=== PATIENT | female | born 1970 | race Caucasian/White ===

== ENCOUNTER 2023-02-28 10:06 | Outpatient (OUT) | payer OTHER, SELFPAY ==
[2023-02-28 11:18] LABS: Free T3 2.65 pg/mL (2.18-3.98)
[2023-03-01 15:11] LABS: Thyroglobulin Antibody <1.0 IU/mL (0.0-0.9)
== END 2023-02-28 10:07 | disposition home or self-care (01) ==
LOC: LAB 10:09
PROVIDERS: PCP Family Medicine; Visit Provider Family Medicine
DX: E06.3 Autoimmune thyroiditis (principal)
CPT/HCPCS: 36415; 84436; 84443; 84481; 86800

== ENCOUNTER 2023-07-11 14:28 | Outpatient (OUT) | payer OTHER, SELFPAY ==
--- NOTE | 2023-07-11 14:46 | US_ITS ---
The [address] [address] Patient Name: SINDY MILLER MRN: [id number] date: 1970 Sex: F Assigned Patient Location: [place] Current Patient Location: Accession/Order Number: [id number] Exam Date: 07/11/2023 15:28 Report Date: 07/12/2023 06:41 At the request of: EDUARDO LEÓN Procedure: US right upper quadrant EXAMINATION: US right upper quadrant HISTORY: Right Upper Quadrant Pain R10.11 , chronic nausea COMPARISON: CT abdomen pelvis 10/14/2022 TECHNIQUE: Transabdominal evaluation of the right upper quadrant. FINDINGS: LIVER: Normal size and echotexture. Color Doppler demonstrates patent hepatic veins. PORTAL VEIN: Duplex Doppler demonstrates normal hepatopetal flow pattern with flow velocity averaging 34 cm/s. GALLBLADDER: No visible gallstones, wall thickening, or pericholecystic free fluid. Negative sonographic Hopson's sign. BILIARY: No abnormal dilation or stones. Common bile duct diameter is within normal limits. PANCREASE: No visible mass, abnormal atrophy, or duct dilation. KIDNEY: No hydronephrosis. No visible mass or stones. Size: 10.9 x 5.4 x 6.3 cm US/US right upper quadrant IMPRESSION: 1. No abnormal or suspicious findings to account for patient's symptoms. Electronically authenticated by: WYATT PAREDES Date: 07/12/2023 06:41
[2023-07-11 14:54] LABS: Basophils Percent Auto 0.3 % (0.2-2.0); Eosinophils Absolute Auto 0.1 10^3/uL (0.0-0.7); Eosinophils Percent Auto 1.2 % (0.9-7.0); Hematocrit 40.8 % (36.0-48.0); Hemoglobin 13.3 g/dL (12.0-16.0); Immature Granulocytes Abs Auto 0.02 10^3/uL (0.00-0.03); Immature Granulocytes Pct Auto 0.3 % (0.0-0.5); Lymphocytes Absolute Auto 2.1 10^3/uL (1.2-3.8); Lymphocytes Percent Auto 32.4 % (20.5-60.0); Mean Corpuscular HGB Conc 32.6 g/dL (29.9-35.2); Mean Corpuscular Hemoglobin 30.8 pg (26.7-34.0); Mean Corpuscular Volume 94.4 fL (81.0-99.0); Mean Platelet Volume 10.3 fL (9.5-13.5); Monocytes Absolute Auto 0.7 10^3/uL (0.3-0.8); Monocytes Percent Auto 9.9 % (1.7-12.0); Neutrophils Absolute Auto 3.7 10^3/uL (1.4-6.5); Neutrophils Percent Auto 55.9 % (43.0-75.0); Platelet Count 219 10^3/uL (150-450); Red Blood Count 4.32 10^6/uL (4.20-5.40); Red Cell Distribution Width 12.4 % (11.0-15.0); White Blood Count 6.5 10^3/uL (4.0-11.0)
[2023-07-11 15:11] LABS: Estimated Average Glucose 97 mg/dL
[2023-07-11 15:23] LABS: Alanine Aminotransferase 23 U/L (14-59); Albumin Globulin Ratio 1.1; Albumin Level 3.7 g/dL (3.4-5.0); Alkaline Phosphatase 65 U/L (46-116); Anion Gap 12.1; Aspartate Amino Transferase 14 U/L (15-37); BUN Creatinine Ratio 20.2; Bilirubin Total 0.5 mg/dL (0.2-1.0); Carbon Dioxide 28.4 mmol/L (21.0-32.0); Chloride 106 mmol/L (98-107); Chol HDL Ratio 2.3; Cholesterol 187 mg/dL (<=200); Estimated GFR (African America >60 (>=60); Estimated GFR (Non-African Ame >60 (>=60); Free T3 3.29 pg/mL (2.18-3.98); Globulin 3.5 g/dL; Glucose 81 mg/dL (74-106); HDL Cholesterol 83 mg/dL (40-60); Potassium 3.5 mmol/L (3.5-5.1); Sodium 143 mmol/L (136-145); Thyroid Stimulating Hormone 0.025 uIU/mL (0.358-3.740); Total Protein 7.2 g/dL (6.4-8.2); Triglycerides 111 mg/dL (<=150); VLDL CHOLESTEROL 22.2 mg/dL
== END 2023-07-11 14:29 | disposition home or self-care (01) ==
LOC: US 14:30
PROVIDERS: PCP Family Medicine; Visit Provider Family Medicine
DX: Z00.00 Encounter for general adult medical examination without abnormal findings (principal); R10.11 Right upper quadrant pain; E06.3 Autoimmune thyroiditis; I10 Essential (primary) hypertension; Z79.52 Long term (current) use of systemic steroids
CPT/HCPCS: 36415; 76705; 80053; 80061; 83036; 84436; 84443; 84481; 85025

== ENCOUNTER 2023-08-01 07:40 | Emergency (ER) | payer OTHER, SELFPAY ==
[2023-08-01] VITALS (12 sets, daily range): BP systolic 162–176; BP diastolic 94–107; PULSE 70–89; RESP 10–30; TEMP 36.9; O2SAT 97–100; BMI 26.1
--- OUTSIDE RECORDS SUMMARY | 2023-08-01 08:02 | XMS_ITS | CCD ---
Author Name Unknown Address [id number] [place] [address] Organization [facility] Care Team Providers Care Hand Shoe Cutter Name Role Phone Jef Cortez Unavailable MD Eduardo Arriola Primary Care Provider [phone] DO Torsten Marcelino Attending Provider MD Eduardo Arriola Attending Provider FLAKO .DR CLARK Attending Unavailable HOY ., DR CLARK Primary Care Unavailable HOY ., DR CLARK Admitting Unavailable HOY ., DR CLARK Consulting Unavailable NACHES, DR BERNA Cuevas Consulting Unavailable NILL ., DR ONTIVEROS Attending Unavailable NILL ., DR ONTIVEROS Admitting Unavailable HOY ., DR CLARK Primary Care Unavailable NILL ., DR ONTIVEROS Consulting Unavailable SHARP, VIKTORIYA Consulting Unavailable MADAI II, CORTEZ Consulting Unavailable HOY ., DR CLARK Attending Unavailable HOY ., DR CLARK Primary Care Unavailable HOY ., DR CLARK Admitting Unavailable HOY ., DR CLARK Primary Care Unavailable HOY ., DR CLARK Consulting Unavailable HOY ., DR CLARK Attending Unavailable HOY ., DR CLARK Admitting Unavailable HOY ., DR CLARK Admitting Unavailable HOY ., DR CLARK Primary Care Unavailable HOY ., DR CLARK Consulting Unavailable HOY ., DR CLARK Attending Unavailable HOY ., DR CLARK Admitting Unavailable HOY ., DR CLARK Primary Care Unavailable HOY ., DR CLARK Consulting Unavailable HOY ., DR CLARK Attending Unavailable ZIEBER, DR WYATT Ma Consulting Unavailable HOY ., DR CLARK Attending Unavailable HOY ., DR CLARK Admitting Unavailable HOY ., DR CLARK Primary Care Unavailable HOY ., DR CLARK Referring Unavailable HOY ., DR CLARK Consulting Unavailable HOY ., DR CLARK Attending Unavailable HOY ., DR CLARK Admitting Unavailable HOY ., DR CLARK Primary Care Unavailable HOY ., DR CLARK Consulting Unavailable ZIEBER, DR WYATT Ma Consulting Unavailable HOY ., DR CLARK Attending Unavailable HOY ., DR CLARK Admitting Unavailable HOY ., DR CLARK Primary Care Unavailable HOY ., DR CLARK Attending Unavailable HOY ., DR CLARK Admitting Unavailable HOY ., DR CLARK Primary Care Unavailable HOY ., DR CLARK Consulting Unavailable Eduardo Arriola Primary Care Physician Weston DEXTER Attending Unavailable Weston DEXTER Attending Unavailable Westno DEXTER Attending Unavailable Aura Olson Unavailable Nghia Campos Unavailable MD Eduardo Arriola Primary Care Provider [phone] DO Nghia Campos Attending Provider [phone] DO Torsten Marcelino Attending Provider DO Torsten Marcelino Attending Provider MD Eduardo Arriola Primary Care Provider [phone] DO Torsten Marcelino Attending Provider [phone] DO Nghia Campos Attending Provider MD Eduardo Arriola Primary Care Provider [phone] DO Nghia Campos Attending Provider [facility], DO Torsten Sierra Attending Provider Eduardo Arriola Primary Care Unavailable [facility], Torsten P Admitting [facility]available [facility] Sierra Attending Unavailable Eduardo Arriola Primary [facility] Ad[facility] Sierra Attending Unavailable Eduardo Arriola Primary Care Unavailable Nghia Campos Admitting Unavailable Nghia Campos Attending Unavailable Eduardo Arriola Primary Care Unavailable Nghia Campos Admitting Unavailable Nghia Campos Attending Unavailable Allergies Allergy Classification Reported Allergen(s) Allergy Type Date of Onset Reaction(s) Facility (9 sources) penicillAMINE Drug Allergy 07-12-19 anaphylaxis [facility] (9 sources) Sulfamethoxazole / Trimethoprim; Translations: [sulfamethoxazole-t rimethoprim] Drug Allergy anaphylaxis, Eruption of skin (disorder) [facility] (1 source) sulfaSALAzine Drug Allergy Unknown [facility] Other (8 sources) Cephalexin; Translations: [Cephalexin] Drug Allergy 04-16-20 Eruption of skin (disorder) [facility] (8 sources) Penicillins; Translations: [Penicillins] Allergy to substance 09-01-19 14 Anaphylaxis [facility] (7 sources) Sulfamethoxazole; Translations: [sulfamethoxazole] Drug Allergy 04-16-20 Anaphylaxis [facility] (7 sources) Trimethoprim; Translations: [trimethoprim] Drug Allergy 04-16-20 Anaphylaxis [facility] (2 sources) Cephalexin; Translations: [Keflex] Drug Allergy 09-01-19 14 [facility] (1 source) Sulfamethoxazole / Trimethoprim Drug Allergy 09-01-19 14 [facility] (2 sources) Penicillin; Translations: [penicillin] Drug Allergy Eruption of skin (disorder) [facility] (1 source) Sulfamethoxazole / Trimethoprim; Translations: [Bactrim] Drug Allergy [facility] (7 sources) Substance with sulfonamide structure and antibacterial mechanism of action (substance) Drug allergy Unknown [facility] [employer] Other (2 sources) Sulfonamides (Antibiotic); Translations: [Sulfa (Sulfonamide Antibiotics)] Allergy to substance 07-12-19 Anaphylaxis [facility] (1 source) penicillAMINE Drug Allergy 07-12-19 [facility] Medications Current Medications Medication Drug Class(es) Dates Sig (Normalized) Sig (Original) [id number] 200 actuat albuterol 0.09 mg/actuat metered dose inhaler (6 sources) beta2-Adrenergic Agonist Start: 02-02-2021 Albuterol Sulfate Active 2 INH INHALATION Q6H February 01, 2021 11:00pm administer with spacer atenolol 100 mg oral tablet (16 sources) beta-Adrenergic Linda Start: 07-08-2023 take 100 mg by mouth once daily Atenolol Active 100 MG PO Daily July 08, 2023 12:00am Start: 12-10-2020 End: 07-08-2023 take 100 mg by mouth once daily Atenolol Discontinued 100 MG PO Daily December 09, 2020 11:00pm July 08, 2023 11:31am Start: 07-17-2014 take 1 tablet by daniel every twenty-four hours Atenolol 100 MG 1 tablet Orally Once a day Jun, Active B Complex (2 sources) B Complex Orally Active celecoxib 200 mg oral capsule (2 sources) Nonsteroidal Anti-inflammatory Drug Start: 2 take 1 capsule by mouth every twelve hours Celecoxib 200 MG 1 capsule with food Orally Twice a day for 30 day(s) September, Active Cymbalta 60 mg Cap-DR (1 source) Start: 0 take 2 capsules by mouth once daily Cymbalta 60 mg Cap-DR = 2 cap(s), Oral, Daily, Refills(s) 0 Start Date: 01/21/20 Status: Ordered DULoxetine 60 mg delayed release oral capsule (15 sources) Serotonin and Norepinephrine Reuptake Inhibitor Start: 4 take 1 capsule by mouth twice daily Duloxetine (Cymbalta) 60 mg capsule,delayed release(DR/EC) Active 60 MG PO Twice daily July 08, 2023 12:00am Start: 12-10-2020 End: 07-08-2023 take 1 capsule by mouth once daily Duloxetine (Cymbalta) 60 mg Capsule,Delayed Release(Dr/Ec) Discontinued 60 MG PO Daily December 09, 2020 11:00pm July 08, 2023 11:34am take 1 capsule by [facility] every twelve hours Cymbalta 60 MG 1 capsule Orally Twice a day Active esomeprazole 40 mg delayed release oral capsule (1 source) Proton Pump Inhibitor Start: 06-18-2022 take 1 capsule by mouth once daily esomeprazole 40 mg Cap-EC 40 mg = 1 cap(s), Oral, Daily, Refills(s) 0 Start Date: 06/18/22 Status: Ordered fludrocortisone acetate 0.1 mg oral tablet (20 sources) Start: 07-08-2023 take 0.1 mg by mouth once daily Fludrocortisone Active 0.1 MG PO Daily July 12, 2023 12:00am Start: 12-10-2020 End: 12-10-2020 Fludrocortisone Discontinued MG TABLET December 09, 2020 11:00pm December 10, 2020 7:49am Start: 02-20-2019 End: 07-08-2023 take 1 tablet by mouth twice daily Fludrocortisone (Florinef) 0.1 mg Tablet Discontinued 0.1 MG PO Twice daily December 09, 2020 11:00pm July 08, 2023 11:34am take 1 tablet by daniel every twenty-four hours Fludrocortisone Acetate 0.1 MG 1 tablet Oral Once a day for 30 days Active hydrocortisone 10 mg oral tablet (16 sources) Corticosteroid Start: 07-08-2023 take 10 mg by mouth every twelve hours Hydrocortisone Active 10 MG PO Every 12 hours July 08, 2023 12:00am (Cortef) Start: 12-10-2020 End: 07-08-2023 take 1 tablet by mouth twice daily Hydrocortisone (Cortef) 10 mg Tablet Discontinued 10 MG PO Twice daily December 09, 2020 11:00pm July 08, 2023 11:34am Start: 02-13-2019 take 2 tablets by mo [facility] twice daily Cortef 10 mg Tab 20 mg = 2 tab(s), Oral, BID Start Date: 02/13/19 Status: Ordered take 1 tablet by daniel every twelve hours Cortef 10 MG 1 tablet Orally every 12 hrs Active levothyroxine sodium 0.1 mg oral tablet (16 sources) l-Thyroxine Start: 07-12-2023 Levothyroxine (Synthroid) 100 mcg tablet Active 0 PO Daily July 12, 2023 9:49am 125 mg orally daily; Start: 06-18-2022 take 1 tablet by daniel once daily levothyroxine 125 mcg (0.125 mg) Tab 125 mcg = 1 tab(s), Oral, Daily, Refills(s) 0 Start Date: 06/18/22 Status: Ordered Start: 12-10-2020 End: 07-12-2023 take 1 tablet by mouth once daily Levothyroxine (Synthroid) 100 mcg Tablet Discontinued 100 MCG PO Daily December 09, 2020 11:00pm July 12, 2023 9:52am take 1 tablet by daniel once daily Synthroid 125 MCG TAKE 1 TABLET BY MOUTH EVERY DAY for 30 Active liothyronine sodium 0.005 mg oral tablet (20 sources) l-Triiodothyronine Start: 12-10-2020 End: 07-08-2023 take 1 tablet by mouth twice daily Liothyronine (Cytomel) 5 mcg tablet Active 5 MCG PO Twice daily July 08, 2023 12:00am Start: 12-10-2020 End: 12-10-2020 Liothyronine Discontinued MC G TABLET December 09, 2020 11:00pm December 10, 2020 7:49am Start: 02-13-2019 take 1 tablet by daniel twice daily Cytomel 5 mcg Tab 5 microgram = 1 tab(s), Oral, BID Start Date: 02/13/19 Status: Ordered 3 ml liraglutide 6 mg/ml pen injector (7 sources) GLP-1 Receptor Agonist Start: 07-12-2023 Liraglutide (Victoza 2-Pancho) 0.6 mg/0.1 mL (18 mg/3 mL) pen injector Active 0 SUBCUT Daily July 12, 2023 12:00am 3 mg subcutaneously daily; Start: 02-01-2023 Victoza 18 MG/ 3ML 3 mg once daily through double injection Subcutaneous Once daily for 28 days Jan, Active Start: 02-01-2023 Victoza 18 MG/ 3ML 0.6 mg once daily for week 1, followed by 1.2 mg once daily for week 2, followed by 1.8 mg once daily for week 3 and beyond Subcutaneous Once daily for 28 days For week 4, please instruct patient on how to achieve dose of 2.4 mg using double injection. For week 5 and beyond, please instruct patient on how to achieve dose of 3 mg using double injection. Jan, Active Multivitamin preparation (7 sources) Start: 07-08-2023 take 1 tablet by mouth once daily Multivitamin Active 1 TAB PO Daily July 08, 2023 12:00am take 1 tablet by mouth once shira y Multivitamin - 1 tablet Orally Once a day Active pen needle, diabetic (NovoFine Plus) (1 source) Start: 07-08-2023 pen needle, diabetic (NovoFine Plus) Active .Route July 08, 2023 12:00am spironolactone 25 mg oral tablet (16 sources) Aldosterone Antagonist Start: 07-08-2023 take 25 mg by mouth once daily Spironolactone Active 25 MG PO Daily July 08, 2023 11:29am (Aldactone) Start: 06-18-2022 take 1 tablet by daniel th once daily spironolactone 50 mg Tab 50 mg = 1 tab(s), Oral, Daily, Refills(s) 0 Start Date: 06/18/22 Status: Ordered Start: 12-10-2020 End: 07-08-2023 take 50 mg by mouth once daily Spironolactone Disconti nued 50 MG PO Daily December 09, 2020 11:00pm July 08, 2023 11:36am take 1 tablet by daniel th every twenty-four hours Aldactone 25 MG 1 tablet Orally Once a day Active sucralfate 1000 mg oral tablet (1 source) Aluminum Complex Start: 07-15-2022 Carafate 1 gr am Tab 1 gm = 1 tab(s), Oral, QIDACHS, prescribed 07/14/22, Refills(s) 0 Start Date: 07/15/22 Status: Ordered topiramate 200 mg oral tablet (15 sources) Start: 02-13-2019 take 200 mg by mouth twice daily Topiramate Active 200 MG PO Twice daily December 09, 2020 11:00pm take 1 tablet by daniel th every twenty-four hours Topamax 50 MG 1 tablet Orally Once a day Active Ventolin HFA 90 mcg/inh Aerosol (1 source) Start: 01-21-2020 take 2 puff(s) by inhalation four times daily Ventolin HFA 90 mcg/inh Aerosol 2 puff(s), Inhalation, QID Shortness of breath or wheezing, Refill(s) 0 Start Date: 01/21/20 Status: Ordered Completed/Discontinued Medications Medication Drug Class(es) Dates Sig (Normalized) Sig (Original) azithromycin 250 mg oral tablet (6 sources) Macrolide Antimicrobial Start: 02-02-2021 End: 04-16-2021 Azithromycin Discontinued 0 PO .COMPLEX February 01, 2021 11:00pm April 16, 2021 2:55am take 500 mg today (day 1), then 250 mg for 4 days (days 2-5) lisinopril 40 mg oral tablet (12 sources) Angiotensin Converting Enzyme Inhibitor Start: 12-10-2020 End: 04-16-2021 take 50 mg by mouth once daily Lisinopril Discontinued 50 MG PO Daily December 09, 2020 11:00pm April 16, 2021 2:56am Start: 02-13-2019 take 2 tablets by mo [facility] once daily lisinopril 10 mg Tab 20 mg = 2 tab(s), Oral, Daily Start Date: 02/13/19 Status: Ordered take 1 tablet by daniel every twenty-four hours Lisinopril 20 MG 1 tablet Orally Once a day Active ondansetron 4 mg disintegrating oral tablet (9 sources) Serotonin-3 Receptor Antagonist Start: 12-10-2020 End: 04-16-2021 take 4 mg by mouth every eight hours Ondansetron Discontinued 4 MG PO Q8H December 09, 2020 11:00pm April 16, 2021 2:56am Trinidadfran ODT Activ e Problems Active Problems Problem Classification Problem Date Documented Da te Episodic/Chronic Abdominal hernia (2 sources) Diaphragmatic hernia; Translations: [Diaphragmatic hernia without obstruction or gangrene] Onset: 07-23-2022 Episodic Abdominal pain (17 sources) Abdominal pain; Translations: [Unspecified abdominal pain] Onset: 06-14-2022 04-16-2021 Episodic Administrative/social admission (20 sources) Drug indicated; Translations: [Chronic use of steroids] Onset: 07-12-2023 Episodic Allergic reactions (1 source) Eczema 01-21-2020 Episodic Asthma (1 source) Asthma 01-21-2020 Chronic Diabetes mellitus without complication (4 sources) Other abnormal glucose; Translations: [OTHER ABNORMAL GLUCOSE] Onset: 06-15-2022 Episodic Disorders of lipid metabolism (9 sources) Dyslipidemia; Translations: [Hyperlipidemia, unspecified] Chronic Esophageal disorders (5 sources) Gastro-esophageal reflux disease without esophagitis; Translations: [Gastroesophageal reflux disease without esophagitis] Onset: 07-20-2022 Chronic Essential hypertension (20 sources) Hypertensive disorder; Translations: [Essential (primary) hypertension] Onset: 08-22-2021 12-10-2020 Chronic Fluid and electrolyte disorders (6 sources) Acute hypokalemia; Translations: [Hypokalemia] 04-16-2021 Episodic Gastrointestinal hemorrhage (2 sources) Hemorrhage of anus and rectum; Translations: [Rectal hemorrhage] Onset: 07-20-2022 06-22-2022 Episodic Headache; including migraine (2 sources) Migraine; Translations: [Tension-type headache] 06-18-2022 Chronic Intracranial injury (6 sources) Concussion with loss of consciousness; Translations: [Concussion with loss of consciousness of unspecified duration, initial encounter] 12-10-2020 Episodic Joint disorders and dislocations; trauma-related (16 sources) Patellofemoral syndrome of left knee; Translations: [Patellofemoral disorders, left knee] Chronic Menopausal disorders (1 source) Menopausal and female climacteric states; Translations: [MENOPAUSAL FE CLIMACTERIC STATES] Onset: 08-26-2021 Chronic Open wounds of head; neck; and trunk (1 source) Dog bite of buttock 06-18-2022 Episodic Osteoarthritis (11 sources) Arthritis of left knee; Translations: [Unilateral primary osteoarthritis, left knee] Chronic Other and unspecified benign neoplasm (9 sources) History of polyp of colon; Translations: [Personal history of colonic polyps] 06-22-2022 Episodic Other and unspecified benign neoplasm (1 source) Benign neoplasm of ascending colon; Translations: [BENIGN NEOPLASM OF ASCENDING COLON] Onset: 07-20-2022 Episodic Other and unspecified benign neoplasm (1 source) Personal history of colonic polyps; Translations: [PERSONAL HISTORY OF COLONIC POLYPS] Onset: 07-20-2022 Episodic Other and unspecified benign neoplasm (1 source) Benign neoplasm of ascending colon; Translations: [Benign neoplasm of ascending colon] Onset: 07-23-2022 Episodic Other and unspecified benign neoplasm (1 source) Adenomatous polyp of colon 07-23-2022 Episodic Other connective tissue disease (1 source) Fibromyalgia; Translations: [FIBROMYALGIA] Onset: 07-20-2022 Episodic Other connective tissue disease (1 source) Fibromyalgia 01-21-2020 Episodic Other endocrine disorders (4 sources) Primary adrenocortical insufficiency; Translations: [PRIMARY ADRENOCORTICAL INSUFF] Onset: 08-26-2021 Chronic Other endocrine disorders (7 sources) Nicho's disease; 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 Other fractures (6 sources) Closed fracture sacrum; Translations: [Unspecified fracture of sacrum, initial encounter for closed fracture] 12-10-2020 Episodic Other gastrointestinal disorders (1 source) Change in bowel habit; Translations: [CHANGE IN BOWEL HABIT] Onset: 07-20-2022 Episodic Other gastrointestinal disorders (4 sources) Diarrhea, unspecified; Translations: [DIARRHEA UNSPECIFIED] Onset: 06-18-2022 Episodic Other gastrointestinal disorders (1 source) Altered bowel function 06-22-2022 Episodic Other nutritional; endocrine; and metabolic disorders (9 sources) Obesity; Translations: [Obesity (BMI 30.0-34.9)] 06-18-2022 Chronic Other nutritional; endocrine; and metabolic disorders (1 source) Overweight in adulthood with body mass index of 25 or more but less than 30 06-22-2022 Episodic Other nutritional; endocrine; and metabolic disorders (6 sources) Overweight; Translations: [Overweight] Episodic Other nutritional; endocrine; and metabolic disorders (1 source) Body mass index 25-29 - overweight; Translations: [Overweight] 07-12-2023 Episodic Other nutritional; endocrine; and metabolic disorders (1 source) Overweight; Translations: [Overweight] Onset: 07-12-2023 Episodic Other screening for suspected conditions (not mental disorders or infectious disease) (5 sources) Other abnormal tumor markers; Translations: [Other specified abnormal findings of blood chemistry] Onset: 08-26-2021 Episodic Pneumonia (except that caused by tuberculosis or sexually transmitted disease) (6 sources) Atypical pneumonia; Translations: [Pneumonia, unspecified organism] 02-02-2021 Episodic Regional enteritis and ulcerative colitis (1 source) Crohn's disease of large bowel 01-21-2020 Chronic Residual codes; unclassified (1 source) Acquired absence of both cervix and uterus; Translations: [ACQUIRED ABSENCE BOTH CERVIX AND UTERUS] Onset: 07-20-2022 Episodic Residual codes; unclassified (1 source) Amnesia 06-18-2022 Episodic Screening and history of mental health and substance abuse codes (1 source) Personal history of nicotine dependence; Translations: [PERSONAL HISTORY OF NICOTINE DEPEND] Onset: 07-20-2022 Episodic Thyroid disorders (14 sources) Arturo thyroiditis; 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 02-16-2019 Chronic Unclassified (3 sources) COUGH, UNSPECIFIED; Translations: [COUGH, UNSPECIFIED] Onset: 05-08-2022 Unclassified (1 source) CONTACT W/AND (SUSP) EXPOS COVID-19; Translations: [CONTACT W/AND (SUSP) EXPOS COVID-19] Onset: 05-08-2022 Unclassified (1 source) Long-term current use of steroid 01-21-2020 Unclassified (1 source) Contact with and (suspected) exposure to potentially hazardous body fluids; Translations: [Contact with and (suspected) exposure to potentially hazardous body fluids] Onset: 05-15-2023 Unclassified (1 source) Dietary counseling and surveillance; Translations: [Dietary counseling and surveillance] Onset: 05-03-2023 Past or Other Problems Problem Classification Problem Date Documented Da te Episodic/Chronic Deficiency and other anemia (1 source) Anemia, unspecified; Translations: [ANEMIA UNSPECIFIED] Onset: 08-26-2021 Episodic Immunizations and screening for infectious disease (1 source) Contact with and (suspected) exposure to other viral communicable diseases Onset: 12-23-2021 Resolved: 12-23-2021 Episodic Unclassified (1 source) COUGH, UNSPECIFIED; Translations: [COUGH, UNSPECIFIED] Onset: 05-05-2022 Results Test Name Value Interpretation Reference Range Facility Alanine Aminotransferaseon 1 07-16-2022 ALT [Catalytic activity/Vol] 14 U/L Normal [facility] Comment on above: Order Comment: Which is this, the Source or the Person with the Exposure?: EXPOSURE Source Medical Record: [id number] Exposed Result Comment: PERF ORMED BY: [place] [address] PATHOLOGIST [employer] CLASSIFIER TENDER NIKKI DELA CRUZ M.D. Performed By: #### H BSAG, HCV RX PCR, HIV SCREEN, HBSAB #### [facility] , #### ALT #### [address] Alanine aminotransferase [En zymatic activity/volume] in Serum or PlasmaOrdered By: Torsten Marcelino on 05-15-2023 ALT [Catalytic activity/Vol] 14 U/L [facility] HIV 1/O/2 Antigen/Antibodyon 05-15-2023 HIV Screen 4th Generation Non-Reactive Normal Non Reactive [facility] Comment on above: Order Comment: Which is this, the Source or the Person with the Exposure?: EXPOSURE Source Medical Record: [id number] Exposed Result Comment: HIV Negative HIV-1/HIV-2 antibodies and HIV-1 p24 antigen were NOT detected. There is no laboratory evidence of HIV infection. PERFORMED BY: [place] [address] PATHOLOGIST [employer] CLASSIFIER TENDER NIKKI DELA CRUZ M.D. Performed By: #### H BSAG, HCV RX PCR, HIV SCREEN, HBSAB #### [facility] , #### ALT #### [facility] [address] [place] [address] HIV 1 and HIV-2 antibody ass ay with HIV-1 p24 antigen detectionOrdered By: Torsten Marcelino on 05-15-2023 HIV 1+2 Ab+HIV1 p24 Ag IA Ql Non-Reactive Non Reactive [facility] Comment on above: HIV NegativeHIV-1/HI V-2 antibodies and HIV-1 p24 antigen were NOTdetected. There is no laboratory evidence of HIV infection. Hep C Ab wRfx to Qnt PCRon 1 07-16-2022 Hepatitis C Virus Antibody Non-Reactive Normal Non Reactive [facility] Comment on above: Order Comment: Which is this, the Source or the Person with the Exposure?: EXPOSURE Source Medical Record: [id number] Exposed Performed By: #### H BSAG, HCV RX PCR, HIV SCREEN, HBSAB #### [facility] , #### ALT #### [facility] [address] [place] [address] Interpretation Hepatitis C Normal . [facility] Comment on above: Order Comment: Which is this, the Source or the Person with the Exposure?: EXPOSURE Source Medical Record: [id number] Exposed Result Comment: Not infected with HCV unless early or acute infection is suspected (which may be delayed in an immunocompromised individual), or other evidence exists to indicate HCV infection. Performed By: #### H BSAG, HCV RX PCR, HIV SCREEN, HBSAB #### [facility] , #### ALT #### [facility] [address] [place] [address] [place] Hepatitis B Surface Antibody on 05-15-2023 Hepatitis B Surface Antibody Reactive Normal . [facility] Comment on above: Order Comment: Which is this, the Source or the Person with the Exposure?: EXPOSURE Source Medical Record: [id number] Exposed Result Comment: Non Reactive: Inconsistent with immunity, less than 10 mIU/mL Reactive: Consistent with immunity, greater than 9.9 mIU/mL Performed By: #### H BSAG, HCV RX PCR, HIV SCREEN, HBSAB #### [facility] , #### ALT #### [place] [address] [place] Hepatitis B Surface Antigeno n 05-15-2023 HBsAg Screen Negative Normal Negative [facility] Comment on above: Order Comment: Which is this, the Source or the Person with the Exposure?: EXPOSURE Source Medical Record: [id number] Exposed Result Comment: Perf ormed at: [facility] [address] [id number] Children'S Service Worker: Bennie Penaloza PhD, Phone: [phone] Performed By: #### H BSAG, HCV RX PCR, HIV SCREEN, HBSAB #### [facility] , #### ALT #### [address] Hepatitis B virus surface Ab [Presence] in SerumOrdered By: Torsten Marcelino on 05-15-2023 HBV surface Ab Ql (S) Reactive . [facility] Comment on above: Non Reactive: Incons istent with immunity, less than 10 mIU/mL Reactive: Consistent with immunity, greater than 9.9 mIU/mL Hepatitis B virus surface Ag [Presence] in Serum or Plasma by ImmunoassayOrdered By: Torsten Marcelino on 05-15-2023 HBV surface Ag IA Ql Negative Negative [facility] Comment on above: Performed at: [facility] - [address] [facility] [id number] [place], [place] [id number] Director: Bennie Penaloza PhD, Phone: [phone] Hepatitis C virus IgG Ab [Pr esence] in Serum or Plasma by ImmunoassayOrdered By: Torsten Marcelino on 05-15-2023 HCV IgG IA Ql Non-Reactive Non Reactive [facility] No Panel InformationOrdered By: Torsten Marcelino on 05-15-2023 Hepatitis C Interpretation See comment . [facility] Comment on above: Not infected with HC V unless early or acute infection issuspected (which may be delayed in an immunocompromisedindividual), or other evidence exists to indicate HCVinfection. Alanine aminotransferase [En zymatic activity/volume] in Serum or PlasmaOrdered By: Torsten Marcelino on 02-17-2023 ALT [Catalytic activity/Vol] 17 U/L 7-52 [facility] Albumin [Mass/volume] in Ser um or Plasma by Bromocresol green (BCG) dye binding methoOrdered By: Torsten Marcelino on 02-17-2023 Albumin BCG dye [Mass/Vol] 4.4 g/dL 3.5-5.7 [facility] Alkaline phosphatase [Enzyma tic activity/volume] in Serum or PlasmaOrdered By: Torsten Marcelino on 02-17-2023 ALP [Catalytic activity/Vol] 54 U/L 34-104 [facility] Aspartate aminotransferase [ Enzymatic activity/volume] in Serum or PlasmaOrdered By: Torsten Marcelino on 02-17-2023 AST [Catalytic activity/Vol] 16 U/L 13-39 [facility] Basophils Auto (Bld) [#/Vol] Ordered By: Torsten Marcelino on 02-17-2023 Basophils (Bld) [#/Vol] 0.0 10*3/uL 0.0-0.2 [facility] Basophils/100 WBC Auto (Bld) Ordered By: Torsten Marcelino on 02-17-2023 Basophils/100 WBC (Bld) 0.5 % . [facility] Bilirubin.total [Mass/volume ] in Serum or PlasmaOrdered By: Torsten Marcelino on 02-17-2023 Bilirubin [Mass/Vol] 0.4 mg/dL 0.3-1.0 [facility] Calcium [Mass/volume] in Ser um or PlasmaOrdered By: Torsten Marcelino on 02-17-2023 Calcium [Mass/Vol] 9.5 mg/dL 8.6-10.3 [facility] Carbon dioxide, total [Moles /volume] in Serum or PlasmaOrdered By: Torsten Marcelino on 02-17-2023 CO2 [Moles/Vol] 25.5 mmol/L 21.0-31.0 [facility] Chloride [Moles/volume] in S blanquita or PlasmaOrdered By: Torsten Marcelino on 02-17-2023 Chloride [Moles/Vol] 106 mmol/L 98-107 [facility] Cholesterol [Mass/volume] in Serum or PlasmaOrdered By: Torsten Marcelino on 02-17-2023 Cholesterol [Mass/Vol] 176 mg/dL 140-200 [facility] Comment on above: Chol less than 200 m g/dl low riskChol 201-239 mg/dl borderline riskChol 240 mg/dl and greater high risk Cholesterol in LDL Calc [Mas s/Vol]Ordered By: Torsten Marcelino on 02-17-2023 Cholesterol in LDL [Mass/Vol] 99 mg/dL 0-100 [facility] Comment on above: LDL ATP III CLASSIFI CATIONLDL less than 100 mg/dL OptimalLDL 100-129 mg/dL Near or above optimalLDL 130-159 mg/dL Borderline highLDL 160-189 mg/dL HighLDL greater than 189 mg/dL Very high Cholesterol in VLDL Calc [Ma ss/Vol]Ordered By: Torsten Marcelino on 02-17-2023 Cholesterol in VLDL [Mass/Vol] 12 mg/dL [facility] Creatinine [Mass/volume] in Serum or PlasmaOrdered By: Torsten Marcelino on 02-17-2023 Creatinine [Mass/Vol] 1.04 mg/dL 0.60-1.20 [facility] Employee Comp Metabolic Pane jack 02-17-2023 Albumin [Mass/Vol] 4.4 g/dL Normal 3.5-5.7 [facility] Comment on above: Performed By: #### P ILLAR CMP, PILLAR CBC, PILLAR LIPID, PILLAR TSH #### [facility] [address] [place] [address] [place] #### NICOTINE QUAL #### [facility] , Albumin/Globulin [Mass ratio] 2.0 {ratio} Normal [facility] Comment on above: Performed By: #### P ILLAR CMP, PILLAR CBC, PILLAR LIPID, PILLAR TSH #### [facility] [address] [place] [address] #### NICOTINE QUAL #### [facility] , ALP [Catalytic activity/Vol] 54 U/L Normal 34-104 [facility] Comment on above: Performed By: #### P ILLAR CMP, PILLAR CBC, PILLAR LIPID, PILLAR TSH #### [facility] [address] [place] [address] #### NICOTINE QUAL #### [facility] , ALT [Catalytic activity/Vol] 17 U/L Normal 7-52 [facility] Comment on above: Performed By: #### P ILLAR CMP, PILLAR CBC, PILLAR LIPID, PILLAR TSH #### [facility] [address] [place] [address] #### NICOTINE QUAL #### [facility] , Anion gap [Moles/Vol] 10.7 mmol/L Normal 6.0-15.0 [facility] Comment on above: Performed By: #### P ILLAR CMP, PILLAR CBC, PILLAR LIPID, PILLAR TSH #### [facility] [address] [place] [address] [place] #### NICOTINE QUAL #### [facility] , AST [Catalytic activity/Vol] 16 U/L Normal 13-39 [facility] Comment on above: Performed By: #### P ILLAR CMP, PILLAR CBC, PILLAR LIPID, PILLAR TSH #### [facility] [address] [place] [address] [place] #### NICOTINE QUAL #### [facility] , Bilirubin [Mass/Vol] 0.4 mg/dL Normal 0.3-1.0 [facility] Comment on above: Performed By: #### P ILLAR CMP, PILLAR CBC, PILLAR LIPID, PILLAR TSH #### [facility] [address] [place] [address] [place] #### NICOTINE QUAL #### [facility] , Calcium [Mass/Vol] 9.5 mg/dL Normal 8.6-10.3 [facility] Comment on above: Performed By: #### P ILLAR CMP, PILLAR CBC, PILLAR LIPID, PILLAR TSH #### [facility] [address] [place] [address] [place] #### NICOTINE QUAL #### [facility] , Chloride [Moles/Vol] 106 mmol/L Normal 98-107 [facility] Comment on above: Performed By: #### P ILLAR CMP, PILLAR CBC, PILLAR LIPID, PILLAR TSH #### [facility] [address] [place] [address] [place] #### NICOTINE QUAL #### [facility] , CO2 [Moles/Vol] 25.5 mmol/L Normal 21.0-31.0 [facility] Comment on above: Performed By: #### P ILLAR CMP, PILLAR CBC, PILLAR LIPID, PILLAR TSH #### [facility] [address] [place] [address] [place] #### NICOTINE QUAL #### [facility] , Creatinine [Mass/Vol] 1.04 mg/dL Normal 0.60-1.20 [facility] Comment on above: Performed By: #### P ILLAR CMP, PILLAR CBC, PILLAR LIPID, PILLAR TSH #### [facility] [address] [place] [address] [place] #### NICOTINE QUAL #### [facility] , GFR/1.73 sq M.predicted MDRD (S/P/Bld) [Vol rate/Area] mL/min/{1.73_m2} [facility] Comment on above: Performed By: #### P ILLAR CMP, PILLAR CBC, PILLAR LIPID, PILLAR TSH #### [facility] [address] [place] [address] [place] #### NICOTINE QUAL #### [facility] , Globulin (S) [Mass/Vol] 2.2 g/dL Normal [facility] Comment on above: Performed By: #### P ILLAR CMP, PILLAR CBC, PILLAR LIPID, PILLAR TSH #### [facility] [address] [place] [address] [place] #### NICOTINE QUAL #### [facility] , Glucose [Mass/Vol] 92 mg/dL Normal 70-100 [facility] Comment on above: Performed By: #### P ILLAR CMP, PILLAR CBC, PILLAR LIPID, PILLAR TSH #### [facility] [address] [place] [address] #### NICOTINE QUAL #### [facility] , Potassium [Moles/Vol] 4.2 mmol/L Normal 3.5-5.1 [facility] Comment on above: Performed By: #### P ILLAR CMP, PILLAR CBC, PILLAR LIPID, PILLAR TSH #### [facility] [address] [place] [address] [place] #### NICOTINE QUAL #### [facility] , Protein [Mass/Vol] 6.6 g/dL Normal 6.4-8.9 [facility] Comment on above: Performed By: #### P ILLAR CMP, PILLAR CBC, PILLAR LIPID, PILLAR TSH #### [facility] [address] [place] [address] [place] #### NICOTINE QUAL #### [facility] , Sodium [Moles/Vol] 138 mmol/L Normal 136-145 [facility] Comment on above: Performed By: #### P ILLAR CMP, PILLAR CBC, PILLAR LIPID, PILLAR TSH #### [facility] [address] [place] [address] [place] #### NICOTINE QUAL #### [facility] , Urea nitrogen [Mass/Vol] 21 mg/dL Normal 7-25 [facility] Comment on above: Performed By: #### P ILLAR CMP, PILLAR CBC, PILLAR LIPID, PILLAR TSH #### [facility] [address] [place] [address] #### NICOTINE QUAL #### [facility] , Employee Complete Blood Coun ton 02-17-2023 Basophils (Bld) [#/Vol] 0.0 10*3/uL Normal 0.0-0.2 [facility] Comment on above: Result Comment: PERF ORMED BY: [place] [address] PATHOLOGIST [employer] CLASSIFIER TENDER NIKKI DELA CRUZ M.D. Performed By: #### P ILLAR CMP, PILLAR CBC, PILLAR LIPID, PILLAR TSH #### [address] #### NICOTINE QUAL #### [facility] , Basophils/100 WBC (Bld) 0.5 % Normal . [facility] Comment on above: Performed By: #### P ILLAR CMP, PILLAR CBC, PILLAR LIPID, PILLAR TSH #### [address] #### NICOTINE QUAL #### [facility] , Eosinophils (Bld) [#/Vol] 0.0 10*3/uL Normal 0.0-0.45 [facility] Comment on above: Performed By: #### P ILLAR CMP, PILLAR CBC, PILLAR LIPID, PILLAR TSH #### [facility] [address] [place] [address] [place] #### NICOTINE QUAL #### [facility] , Eosinophils/100 WBC (Bld) 0.6 % Normal . [facility] Comment on above: Performed By: #### P ILLAR CMP, PILLAR CBC, PILLAR LIPID, PILLAR TSH #### [place] [address] [place] #### NICOTINE QUAL #### [facility] , Erythrocyte distribution width (RBC) [Ratio] 13.8 % Normal 11.9-15.3 [facility] Comment on above: Performed By: #### P ILLAR CMP, PILLAR CBC, PILLAR LIPID, PILLAR TSH #### [facility] [address] [place] [address] [place] #### NICOTINE QUAL #### [facility] , Hematocrit (Bld) [Volume fraction] 40.4 % Normal 34.0-46.4 [facility] Comment on above: Performed By: #### P ILLAR CMP, PILLAR CBC, PILLAR LIPID, PILLAR TSH #### [address] #### NICOTINE QUAL #### [facility] , Hemoglobin (Bld) [Mass/Vol] 13.7 g/dL Normal 11.8-15.4 [facility] Comment on above: Performed By: #### P ILLAR CMP, PILLAR CBC, PILLAR LIPID, PILLAR TSH #### [facility] [address] [place] [address] [place] #### NICOTINE QUAL #### [facility] , Lymphocytes (Bld) [#/Vol] 1.0 10*3/uL Normal 1.00-4.8 [facility] Comment on above: Performed By: #### P ILLAR CMP, PILLAR CBC, PILLAR LIPID, PILLAR TSH #### [place] [address] [place] #### NICOTINE QUAL #### [facility] , Lymphocytes/100 WBC (Bld) 18.1 % Normal . [facility] Comment on above: Performed By: #### P ILLAR CMP, PILLAR CBC, PILLAR LIPID, PILLAR TSH #### [place] [address] [place] #### NICOTINE QUAL #### [facility] , MCH (RBC) [Entitic mass] 32.2 pg Normal 24.7-34.3 [facility] Comment on above: Performed By: #### P ILLAR CMP, PILLAR CBC, PILLAR LIPID, PILLAR TSH #### [address] #### NICOTINE QUAL #### [facility] , MCV (RBC) [Entitic vol] 95.3 fL Normal 80-100 [facility] Comment on above: Performed By: #### P ILLAR CMP, PILLAR CBC, PILLAR LIPID, PILLAR TSH #### [address] #### NICOTINE QUAL #### [facility] , Mean Corpuscular HGB Conc 33.8 g/dL Normal 32.0-35.0 [facility] Comment on above: Performed By: #### P ILLAR CMP, PILLAR CBC, PILLAR LIPID, PILLAR TSH #### [address] #### NICOTINE QUAL #### [facility] , Monocytes (Bld) [#/Vol] 0.5 10*3/uL Normal 0.0-0.8 [facility] Comment on above: Performed By: #### P ILLAR CMP, PILLAR CBC, PILLAR LIPID, PILLAR TSH #### [place] [address] [place] #### NICOTINE QUAL #### [facility] , Monocytes/100 WBC (Bld) 9.6 % Normal . [facility] Comment on above: Performed By: #### P ILLAR CMP, PILLAR CBC, PILLAR LIPID, PILLAR TSH #### [place] [address] [place] #### NICOTINE QUAL #### [facility] , Neutrophils (Bld) [#/Vol] 4.1 10*3/uL Normal 1.8-7.7 [facility] Comment on above: Performed By: #### P ILLAR CMP, PILLAR CBC, PILLAR LIPID, PILLAR TSH #### [facility] [address] [place] [address] [place] #### NICOTINE QUAL #### [facility] , Neutrophils/100 WBC (Bld) 71.2 % Normal . [facility] Comment on above: Performed By: #### P ILLAR CMP, PILLAR CBC, PILLAR LIPID, PILLAR TSH #### [facility] [address] [place] [address] [place] #### NICOTINE QUAL #### [facility] , NRBC% 0.1 /100{WBC} Normal 0-0.5 [facility] Comment on above: Performed By: #### P ILLAR CMP, PILLAR CBC, PILLAR LIPID, PILLAR TSH #### [address] #### NICOTINE QUAL #### [facility] , Platelet mean volume (Bld) [Entitic vol] 9.5 fL Normal 6.3-10.7 [facility] Comment on above: Performed By: #### P ILLAR CMP, PILLAR CBC, PILLAR LIPID, PILLAR TSH #### [facility] [address] [place] [address] #### NICOTINE QUAL #### [facility] , Platelets (Bld) [#/Vol] 208 10*3/uL Normal 150-450 [facility] Comment on above: Performed By: #### P ILLAR CMP, PILLAR CBC, PILLAR LIPID, PILLAR TSH #### [facility] [address] [place] [address] [place] #### NICOTINE QUAL #### [facility] , RBC (Bld) [#/Vol] 4.24 10*6/uL Normal 3.60-5.00 [facility] Comment on above: Performed By: #### P ILLAR CMP, PILLAR CBC, PILLAR LIPID, PILLAR TSH #### [facility] [address] [place] [address] [place] #### NICOTINE QUAL #### [facility] , WBC (Bld) [#/Vol] 5.7 10*3/uL Normal 3.8-11.6 [facility] Comment on above: Performed By: #### P ILLAR CMP, PILLAR CBC, PILLAR LIPID, PILLAR TSH #### [facility] [address] [place] [address] [place] #### NICOTINE QUAL #### [facility] , Employee Lipid Profileon Cholesterol [Mass/Vol] 176 mg/dL Normal 140-200 [facility] Comment on above: Result Comment: Chol less than 200 mg/dl low risk Chol 201-239 mg/dl borderline risk Chol 240 mg/dl and greater high risk Performed By: #### P ILLAR CMP, PILLAR CBC, PILLAR LIPID, PILLAR TSH #### [address] #### NICOTINE QUAL #### [facility] , Cholesterol in HDL [Mass/Vol] 64 mg/dL Normal 23-92 [facility] Comment on above: Result Comment: HDL CHOL ATP-III CLASSIFICATION Cardiovascular Risk HDL > or equal to 60 mg/dL LOW HDL < 40 mg/dL HIGH Performed By: #### P ILLAR CMP, PILLAR CBC, PILLAR LIPID, PILLAR TSH #### [facility] [address] [place] [address] [place] #### NICOTINE QUAL #### [facility] , Cholesterol.total/Chol esterol in HDL [Mass ratio] 2.8 {ratio} Normal <5.0 [facility] Comment on above: Performed By: #### P ILLAR CMP, PILLAR CBC, PILLAR LIPID, PILLAR TSH #### [facility] [address] [place] [address] [place] #### NICOTINE QUAL #### [facility] , LDL Cholesterol,Calculated 99 mg/dL Normal 0-100 [facility] Comment on above: Result Comment: LDL ATP III CLASSIFICATION LDL less than 100 mg/dL Optimal LDL 100-129 mg/dL Near or above optimal LDL 130-159 mg/dL Borderline high LDL 160-189 mg/dL High LDL greater than 189 mg/dL Very high Performed By: #### P ILLAR CMP, PILLAR CBC, PILLAR LIPID, PILLAR TSH #### [address] #### NICOTINE QUAL #### [facility] , Triglyceride w/Reflex 63 mg/dL Normal 0-149 [facility] Comment on above: Result Comment: TRIG ATP III CLASSIFICATION TRIG less than 150 mg/dL Normal TRIG 150-199 mg/dL Borderline high TRIG 200-500 mg/dL High TRIG greater than 500 mg/dL Very high Standard traceable to the Center for Disease Conrtrol and Prevention (CDC) test method. Performed By: #### P ILLAR CMP, PILLAR CBC, PILLAR LIPID, PILLAR TSH #### [address] #### NICOTINE QUAL #### [facility] , VLDL CHOLESTEROL 12 mg/dL Normal [facility] Comment on above: Performed By: #### P ILLAR CMP, PILLAR CBC, PILLAR LIPID, PILLAR TSH #### [address] #### NICOTINE QUAL #### [facility] , Employee Thyroid Stim Hormon loree 02-17-2023 Employee Thyroid Stim Hormone 0.28 u[iU]/mL Low 0.45-5.33 [facility] Comment on above: Result Comment: PERF ORMED BY: [place] [address] PATHOLOGIST [employer] CLASS[employer] TENDER NIKKI DELA CRUZ M.D. Performed By: #### P ILLAR CMP, PILLAR CBC, PILLAR LIPID, PILLAR TSH #### [address] #### NICOTINE QUAL #### [facility] , Eosinophils Auto (Bld) [#/Vo l]Ordered By: Torsten Marcelino on 02-17-2023 Eosinophils (Bld) [#/Vol] 0.0 10*3/uL 0.0-0.45 [facility] Eosinophils/100 WBC Auto (Bl d)Ordered By: Torsten Marcelino on 02-17-2023 Eosinophils/100 WBC (Bld) 0.6 % . [facility] Erythrocyte distribution wid th Auto (RBC) [Ratio]Ordered By: Torsten Marcelino on 02-17-2023 Erythrocyte distribution width (RBC) [Ratio] 13.8 % 11.9-15.3 [facility] Globulin Calc (S) [Mass/Vol] Ordered By: Torsten Marcelino on 02-17-2023 Globulin (S) [Mass/Vol] 2.2 g/dL [facility] Glucose [Mass/volume] in Ser um or PlasmaOrdered By: Torsten Marcelino on 02-17-2023 Glucose [Mass/Vol] 92 mg/dL 70-100 [facility] Hematocrit Auto (Bld) [Volum e fraction]Ordered By: Torsten Marcelino on 02-17-2023 Hematocrit (Bld) [Volume fraction] 40.4 % 34.0-46.4 [facility] Hemoglobin [Mass/volume] in BloodOrdered By: Torsten Marcelino on 02-17-2023 Hemoglobin (Bld) [Mass/Vol] 13.7 g/dL 11.8-15.4 [facility] Leukocytes [#/volume] correc varghese for nucleated erythrocytes in Blood by Automated counOrdered By: Torsten Marcelino on 02-17-2023 WBC corrected for nucl RBC Auto (Bld) [#/Vol] 5.7 10*3/uL 3.8-11.6 [facility] Lymphocytes Auto (Bld) [#/Vo l]Ordered By: Torsten Marcelino on 02-17-2023 Lymphocytes (Bld) [#/Vol] 1.0 10*3/uL 1.00-4.8 [facility] Lymphocytes/100 WBC Auto (Bl d)Ordered By: Torsten Marcelino on 02-17-2023 Lymphocytes/100 WBC (Bld) 18.1 % . [facility] MCH Auto (RBC) [Entitic mass ]Ordered By: Torsten Marcelino on 02-17-2023 MCH (RBC) [Entitic mass] 32.2 pg 24.7-34.3 [facility] MCHC Auto (RBC) [Mass/Vol]Or dered By: Torsten Marcelino on 02-17-2023 MCHC (RBC) [Mass/Vol] 33.8 g/dL 32.0-35.0 [facility] MCV Auto (RBC) [Entitic vol] Ordered By: Torsten Marcelino on 02-17-2023 MCV (RBC) [Entitic vol] 95.3 fL 80-100 [facility] Monocytes Auto (Bld) [#/Vol] Ordered By: Torsten Marcelino on 02-17-2023 Monocytes (Bld) [#/Vol] 0.5 10*3/uL 0.0-0.8 [facility] Monocytes/100 WBC Auto (Bld) Ordered By: Torsten Marcelino on 02-17-2023 Monocytes/100 WBC (Bld) 9.6 % . [facility] Neutrophils Auto (Bld) [#/Vo l]Ordered By: Torsten Marcelino on 02-17-2023 Neutrophils (Bld) [#/Vol] 4.1 10*3/uL 1.8-7.7 [facility] Neutrophils/100 WBC Auto (Bl d)Ordered By: Torsten Marcelino on 02-17-2023 Neutrophils/100 WBC (Bld) 71.2 % . [facility] Nicotine Metabolite, Qualon 02-17-2023 Nicotine Metabolite Negative Normal Cutoff=25 [facility] Comment on above: Result Comment: Perf ormed at: [facility] - [facility] [address] [id number] Children'S Service Worker: Lan Garner MD, Phone: [phone] PERFORMED BY: [place] [address] PATHOLOGIST [employer] CLASS[employer] TENDER NIKKI DELA CRUZ M.D. Performed By: #### P ILLAR CMP, PILLAR CBC, PILLAR LIPID, PILLAR TSH #### [address] #### NICOTINE QUAL #### [facility] , No Panel InformationOrdered By: Torsten Marcelino on 02-17-2023 Estimated GFR (CKD-EPI) > 60.0 mL/Min [facility] Nicotine Metabolite Negative Cutoff=25 [facility] Comment on above: Performed at: [facility] - [address] [id number] Director: Lan Garner MD, Phone: [phone] Pharmacy Creatinine Clearance (Chem N/A [facility] Nucleated erythrocytes [Pres ence] in Blood by Automated countOrdered By: Torsten Marcelino on 02-17-2023 Nucleated RBC Auto Ql (Bld) 0.1 /100{WBC} 0-0.5 [facility] Platelet mean volume Auto (B ld) [Entitic vol]Ordered By: Torsten Marcelino on 02-17-2023 Platelet mean volume (Bld) [Entitic vol] 9.5 fL 6.3-10.7 [facility] Platelets Auto (Bld) [#/Vol] Ordered By: Torsten Marcelino on 02-17-2023 Platelets (Bld) [#/Vol] 208 10*3/uL 150-450 [facility] Potassium [Moles/volume] in Serum or PlasmaOrdered By: Torsten Marcelino on 02-17-2023 Potassium [Moles/Vol] 4.2 mmol/L 3.5-5.1 [facility] Protein [Mass/volume] in Ser um or PlasmaOrdered By: Torsten Marcelino on 02-17-2023 Protein [Mass/Vol] 6.6 g/dL 6.4-8.9 [facility] RBC Auto (Bld) [#/Vol]Ordere d By: Torsten Marcelino on 02-17-2023 RBC (Bld) [#/Vol] 4.24 10*6/uL 3.60-5.00 [facility] Serum or plasma albumin/glob ulin mass ratioOrdered By: Torsten Marcelino on 02-17-2023 Albumin/Globulin [Mass ratio] 2.0 {ratio} [facility] Serum or plasma anion gap de terminationOrdered By: Torsten Marcelino on 02-17-2023 Anion gap [Moles/Vol] 10.7 mmol/L 6.0-15.0 [facility] Serum or plasma high density lipoprotein (HDL) cholesterol measurementOrdered By: Torsten Marcelino on 02-17-2023 Cholesterol in HDL [Mass/Vol] 64 mg/dL 23-92 [facility] Comment on above: HDL CHOL ATP-III CLA SSIFICATION Cardiovascular RiskHDL > or equal to 60 mg/dL LOWHDL < 40 mg/dL HIGH Serum or plasma total choles terol/high density lipoprotein (HDL) cholesterol mass ratOrdered By: Torsten Marcelino on 02-17-2023 Cholesterol.total/Chol esterol in HDL [Mass ratio] 2.8 {ratio} <5.0 [facility] Sodium [Moles/volume] in Ser um or PlasmaOrdered By: Torsten Marcelino on 02-17-2023 Sodium [Moles/Vol] 138 mmol/L 136-145 [facility] Thyrotropin [Units/volume] i n Serum or PlasmaOrdered By: Torsten Marcelino on 02-17-2023 TSH Qn 0.28 m[IU]/L 0.45-5.33 [facility] Triglyceride [Mass/volume] i n Serum or PlasmaOrdered By: Torsten Marcelino on 02-17-2023 Triglyceride [Mass/Vol] 63 mg/dL 0-149 [facility] Comment on above: TRIG ATP III CLASSIF ICATIONTRIG less than 150 mg/dL NormalTRIG 150-199 mg/dL Borderline highTRIG 200-500 mg/dL High TRIG greater than 500 mg/dL Very highStandard traceable to the Center for Disease Conrtrol and Prevention (CDC) test method. Urea nitrogen [Mass/volume] in Serum or PlasmaOrdered By: Torsten Marcelino on 02-17-2023 Urea nitrogen [Mass/Vol] 21 mg/dL 7-25 [facility] WBC Auto (Bld) [#/Vol]Ordere d By: Torsten Marcelino on 02-17-2023 WBC (Bld) [#/Vol] 5.7 10*3/uL 3.8-11.6 [facility] A1C HEMOGLOBINon 02-01-2023 HbA1c (Bld) [Mass fraction] 5.3 % [facility] Other HbA1c (Bld) [Mass fraction]o n 02-01-2023 A1C HEMOGLOBIN [facility] Other Ambulatory Visit Summaryon 0 07-23-2022 Ambulatory Visit Summary SINDY MILLER :1970 Visit Date:07/23/2022 Ambulatory Visit Instructions Your Care Team Attending Physician - SON VERDIN, Weston Ma Primary Care Physician - Flako VERDIN, Eduardo This Is Your Medications List Contact prescribing physician if questions or concerns albuterol (Ventolin HFA 90 mcg/inh Aerosol) atenolol (atenolol 100 mg Tab) duloxetine (Cymbalta 60 mg Cap-DR) esomeprazole (esomeprazole 40 mg Cap-EC) fludrocortisone (fludrocortisone 0.1 mg Tab) hydrocortisone (Cortef 10 mg Tab) levothyroxine (levothyroxine 125 mcg (0.125 mg) Tab) liothyronine (Cytomel 5 mcg Tab) lisinopril (lisinopril 10 mg Tab) spironolactone (spironolactone 50 mg Tab) sucralfate (Carafate 1 gram Tab) topiramate (Topamax 200 mg Tab) Procedures Performed Colonoscopy (07/14/2022), EGD - Esophagogastroduodenosco py (07/14/2022), Colonoscopy (2010), Colonic polypectomy (2000), Arthroscopy of knee, Colonoscopy, Colonoscopy, Colonoscopy, Colonoscopy, Endometrial ablation, Exploratory laparotomy, Ovarian cystectomy, Ovarian cystectomy, Ovarian cystectomy, Ovarian cystectomy, Vaginal total hysterectomy. Medications What How Much When Instructions Unchanged albuterol (Ventolin HFA 90 mcg/ inh Aerosol) 2 Puffs Inhalation 4 times a day as needed for Shortness of breath or wheezing Contact prescribing physician if questions or concerns Unchanged atenolol (atenolol 100 mg Tab) 1 Tablets By Mouth Every day Contact prescribing physician if questions or concerns Unchanged duloxetine (Cymbalta 60 mg Cap-DR) 2 Capsules By Mouth Every day Contact prescribing physician if questions or concerns Unchanged esomeprazole (esomeprazole 40 mg Cap-EC) 1 Capsules By Mouth Every day Contact prescribing physician if questions or concerns Unchanged fludrocortisone (fludrocortisone 0.1 mg Tab) 1 Tablets By Mouth 2 times a day Contact prescribing physician if questions or concerns Unchanged hydrocortisone (Cortef 10 mg Tab) 2 Tablets By Mouth 2 times a day Contact prescribing physician if questions or concerns Unchanged levothyroxine (levothyroxine 125 mcg (0.125 mg) Tab) 1 Tablets By Mouth Every day Contact prescribing physician if questions or concerns Unchanged liothyronine (Cytomel 5 mcg Tab) 1 Tablets By Mouth 2 times a day Contact prescribing physician if questions or concerns Unchanged lisinopril (lisinopril 10 mg Tab) 2 Tablets By Mouth Every day Contact prescribing physician if questions or concerns Unchanged spironolactone (spironolactone 50 mg Tab) 1 Tablets By Mouth Every day Contact prescribing physician if questions or concerns Unchanged sucralfate (Carafate 1 gram Tab) 1 Tablets By Mouth Four times a day (before meals and at bedtime) prescribed Contact prescribing physician if questions or concerns Unchanged topiramate (Topamax 200 mg Tab) 1 Tablets By Mouth 2 times a day Contact prescribing physician if questions or concerns Allergies Bactrim (Rash) Keflex (Rash) penicillin (Rash) Problems Ongoing - Any problem that you are currently receiving treatment for. Pe[place]'s disease Asthma BMI 26.0-26.9,adult Change in bowel habits Chronic GERD Crohn's disease of large intestine with unspecified complications Eczema Epigastric pain Fibromyalgia HTN (hypertension) Hypothyroid assisted (current) use of systemic steroids Memory loss Migraines Obesity Personal history of colonic polyps Rectal bleeding RUQ pain Tension headache Historical - Any problem that you are no longer receiving treatment for. Dog bite of left buttock Normal [facility] General Surgery Office/Clini c Noteon 07-23-2022 General Surgery Office/Clinic Note Chief Complaint EGD and colonoscopy follow up HPI Staff 9 day post operative follow up post EGD and colonoscopy with terminal ileum and ascending colon polypectomies. Taking Carafate as prescribed with improvement in symptoms. History of Present Illness s/p EGD/colonoscopy with polypectomy; patient with small hiatal hernia, bile reflux; colonoscopy to term ileum; no inflammation on bx; small adenomatous polyp removed from ascending colon; patient on Carafate with improvement in symptoms. Review of Systems ROS - Provider Constitutional: no fever, no sweats, no weight loss. Eyes: no glasses, no blurred vision, no visual loss. ENMT: no dentures, no hoarseness, no swallowing difficulties, no hearing loss, no ear infection(s), no nose bleeds. Cardiovascular: normal blood pressure, no chest pain, regular heartbeat, no heart murmur. Respiratory: no shortness of breath, no cough, no asthma, no wheezing. Gastrointestinal: no nausea, no vomiting, no diarrhea, no constipation, no blood in stool, no change in bowel habits, no abdominal pain, no hepatitis. Genitourinary: no kidney stones, no urine infection, no dysuria. Musculoskeletal: no pain, no weakness. Skin: no changing moles, no rash, no skin lumps. Neurologic: no seizures, no epilepsy, no headache. Psychiatric: no emotional or psychiatric problem. Heme/Lymph: no bleeding problems, no anemia, no blood clots, no transfusions. Allergy/Immunologic: no swollen lymph nodes/glands, no IV drug abuse. Other: Additional ROS info: Except as noted in the above Review of Systems and in the History of Present Illness, all other systems have been reviewed and are negative or noncontributory. Assessment/Plan 1. Duodenogastric bile reflux (K21.9: Gastro-esophageal reflux disease without esophagitis) improved with Carafate, call with problems/questions. 2. Hiatal hernia with GERD, (K44.9: Diaphragmatic hernia without obstruction or gangrene)Diaphragmatic hernia without obstruction or gangrene continue PPI and Carafate 3. Adenomatous polyp of ascending colon (D12.2: Benign neoplasm of ascending colon) recommend surveillance colonoscopy in 5 years. Follow-up No qualifying data available Problem List/Past Medical History Ongoing Peoria's disease Adenomatous polyp of ascending colon Asthma BMI 26.0-26.9,adult Change in bowel habits Chronic GERD Crohn's disease of large intestine with unspecified complications Duodenogastric bile reflux Eczema Epigastric pain Fibromyalgia Hiatal hernia with GERD HTN (hypertension) Hypothyroid assisted (current) use of systemic steroids Memory loss Migraines Obesity Personal history of colonic polyps Rectal bleeding RUQ pain Tension headache Historical Dog bite of left buttock Procedure/Surgical History Colonoscopy (07/14/2022), EGD - Esophagogastroduodenosco py (07/14/2022), Colonoscopy (2010), Colonic polypectomy (2000), Arthroscopy of knee, Colonoscopy, Colonoscopy, Colonoscopy, Colonoscopy, Endometrial ablation, Exploratory laparotomy, Ovarian cystectomy, Ovarian cystectomy, Ovarian cystectomy, Ovarian cystectomy, Vaginal total hysterectomy. Medications atenolol 100 mg Tab, 100 mg= 1 tab(s), Oral, Daily Carafate 1 gram Tab, 1 gm= 1 tab(s), Oral, QIDACHS Cortef 10 mg Tab, 20 mg= 2 tab(s), Oral, BID Cymbalta 60 mg Cap-DR, 2 cap(s), Oral, Daily Cytomel 5 mcg Tab, 5 mcg= 1 tab(s), Oral, BID esomeprazole 40 mg Cap-EC, 40 mg= 1 cap(s), Oral, Daily fludrocortisone 0.1 mg Tab, 0.1 mg= 1 tab(s), Oral, BID levothyroxine 125 mcg (0.125 mg) Tab, 125 mcg= 1 tab(s), Oral, Daily lisinopril 10 mg Tab, 20 mg= 2 tab(s), Oral, Daily spironolactone 50 mg Tab, 50 mg= 1 tab(s), Oral, Daily Topamax 200 mg Tab, 200 mg= 1 tab(s), Oral, BID Ventolin HFA 90 mcg/inh Aerosol, 2 puff(s), Inhalation, QID, PRN Allergies Bactrim (Rash) Keflex (Rash) penicillin (Rash) Social History Alcohol Current, Liquor, Daily, 06/22/2022 Substance Abuse - Denies Substance Abuse, 02/13/2019 Tobacco Former smoker, quit more than 30 days ago Tobacco Use:. Never Smokeless Tobacco Use:. Cigarettes, 1 per day. Started age 16.0 Years. Stopped age 42 Years., 06/22/2022 Family History Brain tumor: Father. Diabetes mellitus type 2: Father. Hypertension: Brother. Immunizations Vaccine Date Status Comments influenza virus vaccine, inactivated 03/2022 Recorded SARS-CoV-2 (COVID-19) mRNA BNT-162b2 vax 01/12/2021 Recorded 2022-06-16: TPV40 SARS-CoV-2 (COVID-19) mRNA BNT-162b2 vax 12/24/2020 Recorded 2022-06-16: TPV40 Normal [facility] Comment on above: Result Comment: Elec tronically Signed By: SON VERDIN, Weston Ma\.br\Date and Time Signed: 07/23/22 08:41 EST Reminderson 07-23-2022 Reminders - From: Olivia Ardon LPN To: N - Clinical; Sent: 07/23/2022 08:34:49 EST Show up: 06/13/2027 07:00:00 EST Subject: colonoscopy recall Due Date/Time: 07/14/2027 07:00:00 EST Reminder/Recall Patient is due for colonoscopy 07/14/27 due to history of colonic polyps. Normal [facility] Pathology Noteon 07-16-2022 Pathology Note [id number]:1 27 Normal [facility] Outside Colonoscopyon 2022 Outside Colonoscopy [id number]: 127 Normal [facility] Ambulatory Visit Summaryon 0 06-22-2022 Ambulatory Visit Summary SINDY MILLER :1970 Visit Date:06/22/2022 Ambulatory Visit Instructions Your Diagnosis Personal history of colonic polyps Change in bowel habits Your Care Team Attending Physician - SON VERDIN, Weston Ma Primary Care Physician - Eduardo Arriola MD This Is Your Medications List Contact prescribing physician if questions or concerns albuterol (Ventolin HFA 90 mcg/inh Aerosol) atenolol (atenolol 100 mg Tab) duloxetine (Cymbalta 60 mg Cap-DR) esomeprazole (esomeprazole 40 mg Cap-EC) fludrocortisone (fludrocortisone 0.1 mg Tab) hydrocortisone (Cortef 10 mg Tab) levothyroxine (levothyroxine 125 mcg (0.125 mg) Tab) liothyronine (Cytomel 5 mcg Tab) lisinopril (lisinopril 10 mg Tab) spironolactone (spironolactone 50 mg Tab) topiramate (Topamax 200 mg Tab) Procedures Performed Colonoscopy (2010), Colonic polypectomy (2000), Arthroscopy of knee, Colonoscopy, Colonoscopy, Colonoscopy, Colonoscopy, Endometrial ablation, Exploratory laparotomy, Ovarian cystectomy, Ovarian cystectomy, Ovarian cystectomy, Ovarian cystectomy, Vaginal total hysterectomy. Discharge Vitals Heart Rate (Peripheral) 61 Respiratory Rate 16 Blood Pressure 154/91 Height 165.1 cm Height 65 in Weight 73.1 kg Weight 160.82 lb BMI 26.82 Medications What How Much When Instructions Unchanged albuterol (Ventolin HFA 90 mcg/ inh Aerosol) 2 Puffs Inhalation 4 times a day as needed for Shortness of breath or wheezing Contact prescribing physician if questions or concerns Unchanged atenolol (atenolol 100 mg Tab) 1 Tablets By Mouth Every day Contact prescribing physician if questions or concerns Unchanged duloxetine (Cymbalta 60 mg Cap-DR) 2 Capsules By Mouth Every day Contact prescribing physician if questions or concerns Unchanged esomeprazole (esomeprazole 40 mg Cap-EC) 1 Capsules By Mouth Every day Contact prescribing physician if questions or concerns Unchanged fludrocortisone (fludrocortisone 0.1 mg Tab) 1 Tablets By Mouth 2 times a day Contact prescribing physician if questions or concerns Unchanged hydrocortisone (Cortef 10 mg Tab) 2 Tablets By Mouth 2 times a day Contact prescribing physician if questions or concerns Unchanged levothyroxine (levothyroxine 125 mcg (0.125 mg) Tab) 1 Tablets By Mouth Every day Contact prescribing physician if questions or concerns Unchanged liothyronine (Cytomel 5 mcg Tab) 1 Tablets By Mouth 2 times a day Contact prescribing physician if questions or concerns Unchanged lisinopril (lisinopril 10 mg Tab) 2 Tablets By Mouth Every day Contact prescribing physician if questions or concerns Unchanged spironolactone (spironolactone 50 mg Tab) 1 Tablets By Mouth Every day Contact prescribing physician if questions or concerns Unchanged topiramate (Topamax 200 mg Tab) 1 Tablets By Mouth 2 times a day Contact prescribing physician if questions or concerns Allergies Bactrim (Rash) Keflex (Rash) penicillin (Rash) Problems Ongoing - Any problem that you are currently receiving treatment for. 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 Dog bite of left buttock Normal [facility] GI PANEL (PCR)on 06-18-2022 Adenovirus F 40/41 Not detected Normal NOT DETECTED [facility] Comment on above: Performed By: #### G IPANEL #### [facility] [address] [place] [address] Dr. Jaelyn Durán Astrovirus Not detected Normal NOT DETECTED [facility] Comment on above: Performed By: #### G IPANEL #### [facility] [address] [place] [address] Dr. Jaelyn Durán C. Diff toxin A/B Not detected Normal NOT DETECTED [facility] Comment on above: Performed By: #### G IPANEL #### [facility] [address] [place] [address] Dr. Jaelyn Durán Campylobacter Not detected Normal NOT DETECTED [facility] Comment on above: Performed By: #### G IPANEL #### [facility] [address] [place] [address] Dr. Jaelyn Durán Cryptosporidium Not detected Normal NOT DETECTED [facility] Comment on above: Performed By: #### G IPANEL #### [facility] [address] [place] [address] Dr. Jaelyn Durán Cyclos. Cayetanensis Not detected Normal NOT DETECTED [facility] Comment on above: Performed By: #### G IPANEL #### [facility] [address] [place] [address] Dr. Jaelyn Durán E. Coli O157 Not Applicable Normal Not Applicable [facility] Comment on above: Performed By: #### G IPANEL #### [facility] [address] [place] [address] Dr. Jaelyn Durán E. histolytica Not detected Normal NOT DETECTED [facility] Comment on above: Performed By: #### G IPANEL #### [facility] [address] [place] [address] Dr. Jaelyn Durán EAEC Not detected Normal NOT DETECTED [facility] Comment on above: Performed By: #### G IPANEL #### [facility] [address] [address] [address] Jaelyn Durán EIEC Not detected Normal NOT DETECTED [facility] Comment on above: Performed By: #### G IPANEL #### [facility] [address] [place] [address] Dr. Jaelyn Durán EPEC Not detected Normal NOT DETECTED [facility] Comment on above: Performed By: #### G IPANEL #### [facility] [address] [address] [address] Jaelyn Durán ETEC Not detected Normal NOT DETECTED [facility] Comment on above: Performed By: #### G IPANEL #### [facility] [address] [place] [address] Dr. Jaelyn Solares Lamblia Not detected Normal NOT DETECTED [facility] Comment on above: Performed By: #### G IPANEL #### [facility] [address] [place] [address] Dr. Jaelyn DILLARD CONTROLS PASSED Normal [facility] Comment on above: Performed By: #### G IPANEL #### [facility] [address] [place] [address] Dr. Jaelyn GREGORY [facility] HEADER GI PANEL BACTERIA Normal [facility] Comment on above: Performed By: #### G IPANEL #### [facility] [address] [place] [address] Dr. Jaelyn MAN ECOLI GI PANEL DIARRHEAGEN IC E.COLI / SHIGELLA Normal [facility] Comment on above: Performed By: #### G IPANEL #### [facility] [address] [place] [address] Dr. Jaelyn MAN INFO SEE BELOW Normal [facility] Comment on above: Result Comment: EAEC - Enteroaggregative E. Coli EPEC- Enteropathogenic E. Coli ETEC- Enterotoxigenic E. Coli lt/st STEC- Shigella-like toxin-producing E. Coli stx1/stx2 EIEC- Shigella/Enteroinvasive E. Coli Performed By: #### G IPANEL #### [facility] [address] [address] [address] Jaelyn MAN PARASITES GI PANEL PARASITES Normal [facility] Comment on above: Performed By: #### G IPANEL #### [facility] [address] [place] [address] Dr. Jaelyn MAN VIRUS GI PANEL VIRUSES Normal [facility] Comment on above: Performed By: #### G IPANEL #### [facility] [address] [address] [address] Jaelyn Durán Norovirus GI/GII Not detected Normal NOT DETECTED [facility] Comment on above: Performed By: #### G IPANEL #### [facility] [address] [place] [address] Dr. Jaelyn Durán P. Shigelloides Not detected Normal NOT DETECTED [facility] Comment on above: Performed By: #### G IPANEL #### [facility] [address] [place] [address] Dr. Jaelyn Durán Rotavirus A Not detected Normal NOT DETECTED [facility] Comment on above: Performed By: #### G IPANEL #### [facility] [address] [address] [address] Jaelyn Durán Salmonella Not detected Normal NOT DETECTED [facility] Comment on above: Performed By: #### G IPANEL #### [facility] [address] [place] [address] Dr. Jaelyn Durán Sapovirus Not detected Normal NOT DETECTED [facility] Comment on above: Performed By: #### G IPANEL #### [facility] [address] [place] [address] Dr. Jaelyn Durán STEC Not detected Normal NOT DETECTED [facility] Comment on above: Performed By: #### G IPANEL #### [facility] [address] [place] [address] Dr. Jaelyn Durán Vibrio Not detected Normal NOT DETECTED [facility] Comment on above: Performed By: #### G IPANEL #### [facility] [address] [place] [address] Dr. Jaelyn Durán Vibrio Cholera Not detected Normal NOT DETECTED [facility] Comment on above: Performed By: #### G IPANEL #### [facility] [address] [address] [address] Jaelyn Srinivasan. Enterocolitica Not detected Normal NOT DETECTED [facility] Comment on above: Performed By: #### G IPANEL #### [facility] [address] [place], [place] [address] Dr. Jaelyn Durán MRI ABDOMEN WO W CONon 06-17 MRI ABDOMEN WO W CON EXAMINATION: MRI AB DOMEN WO W CON HISTORY: Cancer antigen 19-9 measurement COMPARISON: No relevant comparison available. TECHNIQUE: A comprehensive MRI examination of the abdomen was performed to optimize visualization of suspected pathology. Images were obtained both before and after intravenous administration of ml Dotarem contrast. FINDINGS: LIVER: No enlargement, atrophy, abnormal density, or significant focal lesion. BILIARY: No visible dilatation or calcification. PANCREAS: No lesion, fluid collection, ductal dilatation, or atrophy. SPLEEN: No enlargement or focal lesion. KIDNEYS: No mass or obstruction. ADRENALS: No mass or enlargement. AORTA/VASCULAR: No aneurysm or dissection. RETROPERITONEUM: No mass or adenopathy. BOWEL/MESENTERY: No visible mass, obstruction, or bowel wall thickening. ABDOMINAL WALL: No mass or hernia. BONES: No bony lesion or fracture. LUNG BASES: No visible pleural disease. Lung bases not well assessed with MRI. OTHER: Negative. IMPRESSION: 1. No appreciable abnormality with specific attention to the pancreas. Electronically authenticated by: WYATT PAREDES Date: 2022-06-17 09:59 Normal [facility] RAD - MRI Reporton 3 RAD - MRI Report [id number]: 127 Normal [facility] Physician Referralon 023 Physician Referral [id number]: 127 Normal [facility] US SINGLE QUAD RT UPPERon US SINGLE QUAD RT UPPER EXAMINATION: US SINGLE QUAD RT UPPER HISTORY: Right upper quadrant pain , epigastric pain COMPARISON: No relevant comparison available. TECHNIQUE: Transabdominal evaluation of the right upper quadrant. FINDINGS: LIVER: Normal size and echotexture. Color Doppler demonstrates patent hepatic veins. PORTAL VEIN: Duplex Doppler demonstrates normal hepatopetal flow pattern with flow velocity averaging 22 cm/s. GALLBLADDER: Contains a small amount of sludge. No visible gallstones, wall thickening, or pericholecystic free fluid. Negative sonographic Hopson's sign. BILIARY: No abnormal dilation or stones. Common bile duct diameter is within normal limits. PANCREASE: No visible mass, abnormal atrophy, or duct dilation. KIDNEY: No hydronephrosis. No visible mass or stones. Size: 10.4 x 5.5 x 4.9 cm IMPRESSION: 1. No abnormal or suspicious findings to account for patient's symptoms. Electronically authenticated by: WYATT PAREDES Date: 2022-06-14 10:27 Normal [facility] CA 19-9on 06-11-2022 CA 19-9 47 U/mL Critically high 0-35 [facility] Comment on above: Result Comment: Ve rified by repeat analysis [facility] Electrochemiluminescence Immunoassay (ECLIA) . Values obtained with different assay methods or kits cannot be used interchangeably. Results cannot be interpreted as absolute evidence of the presence or absence of malignant disease. Performed By: #### I NFLUAB #### [facility] [address] [place] [address] Dr. Jaelyn Durán AMYLASEon 06-10-2022 Amylase [Catalytic activity/Vol] 40 U/L Normal 25-115 [facility] Comment on above: Performed By: #### I NFLUAB #### [facility] [address] [place] [address] Dr. Jaelyn Durán CBC AUTO DIFFon 06-10-2022 BASO # 0.0 103/ul Normal 0.0-0.1 [facility] Comment on above: Performed By: #### C BC #### [facility] [address] [place] [address] Dr. Jaelyn Durán Basophils/100 WBC (Bld) 0.5 % Normal 0.2-2.0 [facility] Comment on above: Performed By: #### C BC #### [facility] [address] [place] [address] Dr. Jaelyn Durán EO # 0.1 103/ul Normal 0.0-0.7 [facility] Comment on above: Performed By: #### C BC #### [facility] [address] [place] [address] Dr. Jaelyn Durán Eosinophils/100 WBC (Bld) 1.1 % Normal 0.9-7.0 [facility] Comment on above: Performed By: #### C BC #### [facility] [address] [place] [address] Dr. Jaelyn Durán Erythrocyte distribution width (RBC) [Ratio] 13.0 % Normal 11.0-15.0 [facility] Comment on above: Performed By: #### C BC #### [facility] [address] [place] [address] Dr. aJelyn Durán Hematocrit (Bld) [Volume fraction] 44.0 % Normal 36.0-48.0 [facility] Comment on above: Performed By: #### C BC #### [facility] [address] [place] [address] Dr. Jaelyn Durán Hemoglobin (Bld) [Mass/Vol] 14.5 g/dL Normal 12.0-16.0 [facility] Comment on above: Performed By: #### C BC #### [facility] [address] [place] [address] Dr. Jaelyn Durán IG # 0.02 10e3/ul Normal 0.00-0.03 [facility] Comment on above: Performed By: #### C BC #### [facility] [address] [place] [address] Dr. Jaelyn Durán IG % 0.4 % Normal 0.0-0.5 [facility] Comment on above: Performed By: #### C BC #### [facility] [address] [place] [address] Dr. Jaelyn Durán LYMPH # 1.2 103/ul Normal 1.2-3.8 [facility] Comment on above: Performed By: #### C BC #### [facility] [address] [place] [address] Dr. Jaelyn Durán Lymphocytes/100 WBC (Bld) 21.3 % Normal 20.5-60.0 [facility] Comment on above: Performed By: #### C BC #### [facility] [address] [place] [address] Dr. Jaelyn Durán MANUAL DIFF REQ NO Normal [facility] Comment on above: Performed By: #### C BC #### [facility] [address] [place] [address] Dr. Jaelyn Durán MCH (RBC) [Entitic mass] 30.5 pg Normal 26.7-34.0 [facility] Comment on above: Performed By: #### C BC #### [facility] [address] [place] [address] Dr. Jaelyn Durán MCHC (RBC) [Mass/Vol] 33.0 g/dL Normal 29.9-35.2 [facility] Comment on above: Performed By: #### C BC #### [facility] [facility] [address] [place] [address] Dr. Jaelyn Durán MCV (RBC) [Entitic vol] 92.4 fL Normal 81.0-99.0 [facility] Comment on above: Performed By: #### C BC #### [facility] [address] [place] [address] Dr. Jaelyn Durán MONO # 0.5 103/ul Normal 0.3-0.8 [facility] Comment on above: Performed By: #### C BC #### [facility] [address] [place] [address] Dr. Jaelyn Durán Monocytes/100 WBC (Bld) 8.5 % Normal 1.7-12.0 [facility] Comment on above: Performed By: #### C BC #### [facility] [address] [place] [address] Dr. Jaelyn Durná NEUT # 3.8 103/ul Normal 1.4-6.5 [facility] Comment on above: Performed By: #### C BC #### [facility] [address] [place] [address] Dr. Jaelyn Durán Neutrophils/100 WBC (Bld) 68.2 % Normal 43.0-75.0 [facility] Comment on above: Performed By: #### C BC #### [facility] [address] [address] [address] Jaelyn Durán Platelet mean volume (Bld) [Entitic vol] 10.7 fL Normal 9.5-13.5 [facility] Comment on above: Performed By: #### C BC #### [facility] [address] [address] [address] Jaelyn Durán PLT 227 103/ul Normal 150-450 [facility] Comment on above: Performed By: #### C BC #### [facility] [address] [address] [address] Jaelyn Durán RBC 4.76 106/ul Normal 4.20-5.40 [facility] Comment on above: Performed By: #### C BC #### [facility] [address] [place] [address] Dr. Jaelyn Durán WBC 5.6 103/ul Normal 4.0-11.0 [facility] Comment on above: Performed By: #### C BC #### [facility] [address] [place] [address] Dr. Jaelyn Durán FREE THYROXINE INDEX T7on FTI 2.81 Normal 1.30-4.50 [facility] Comment on above: Performed By: #### C MP, JAYNA, TSH, T7, LIPA #### [facility] [address] [address] [address] Jaelyn Durán T3U 36.0 % Normal 30.0-39.0 [facility] Comment on above: Performed By: #### C MP, JAYNA, TSH, T7, LIPA #### [facility] [address] [address] [address] Jaelyn Durán T4 [Mass/Vol] 7.80 ug/dL Normal 4.80-13.90 [facility] Comment on above: Performed By: #### C MP, JAYNA, TSH, T7, LIPA #### [facility] [address] [place] [address] Dr. Jaelyn Durán GLYCOHEMOGLOBIN A1Con 2022 ADA RECOMMENDATION SEE BELOW Normal [facility] Comment on above: Result Comment: ADA RECOMMENDED LIMIT 4.0 - 6.0 ADA THERAPEUTIC TARGET < 7.0 ACTION SUGGESTED > 7.0 Performed By: #### A 1C #### [facility] [address] [place] [address] Dr. Jaelyn Durán Glucose [Mass/Vol] 105 mg/dL Normal [facility] Comment on above: Performed By: #### A 1C #### [facility] [address] [place] [address] Dr. Jaelyn Durán HbA1c (Bld) [Mass fraction] 5.3 % Normal 4.5-6.2 [facility] Comment on above: Performed By: #### A 1C #### [facility] [address] [place] [address] Dr. Jaelyn Durán LIPASEon 06-10-2022 Lipase [Catalytic activity/Vol] 182.0 U/L Normal 73.0-393.0 [facility] Comment on above: Performed By: #### C MP, JAYNA, TSH, T7, LIPA #### [facility] [address] [place] [address] Dr. Jaelyn Durán PROF 14(COMP METB)on 023 Albumin [Mass/Vol] 4.0 g/dL Normal 3.4-5.0 [facility] Comment on above: Performed By: #### I NFLUAB #### [facility] [address] [place] [address] Dr. Jaelyn Durán Albumin/Globulin [Mass ratio] 1.1 {ratio} Normal [facility] Comment on above: Performed By: #### I NFLUAB #### [facility] [address] [place] [address] Dr. Jaelyn Durán ALP [Catalytic activity/Vol] 80 U/L Normal 46-116 [facility] Comment on above: Performed By: #### I NFLUAB #### [facility] [address] [place] [address] Dr. Jaelyn Durán ALT [Catalytic activity/Vol] 20 U/L Normal 14-59 [facility] Comment on above: Performed By: #### I NFLUAB #### [facility] [address] [address] [address] Jaelyn Durán Anion gap [Moles/Vol] 12.4 mmol/L Normal [facility] Comment on above: Performed By: #### I NFLUAB #### [facility] [address] [address] [address] Jaelyn Durán AST [Catalytic activity/Vol] 16 U/L Normal 15-37 [facility] Comment on above: Performed By: #### I NFLUAB #### [facility] [address] [address] [address] Jaelyn Durán Bilirubin [Mass/Vol] 0.3 mg/dL Normal 0.2-1.0 [facility] Comment on above: Performed By: #### I NFLUAB #### [facility] [address] [address] [address] Jaelyn Durán Calcium [Mass/Vol] 9.4 mg/dL Normal 8.5-10.1 [facility] Comment on above: Performed By: #### I NFLUAB #### [facility] [address] [address] [address] Jaelyn Durán Chloride [Moles/Vol] 105 mmol/L Normal 98-107 [facility] Comment on above: Performed By: #### I NFLUAB #### [facility] [address] [address] [address] Jaelyn Durán CO2 [Moles/Vol] 27.4 mmol/L Normal 21.0-32.0 [place] Comment on above: Performed By: #### I NFLUAB #### [facility] [address] [address] [address] Jaelyn Durán Creatinine [Mass/Vol] 0.82 mg/dL Normal 0.55-1.02 [facility] Comment on above: Performed By: #### I NFLUAB #### [facility] [address] [address] [address] Jaelyn Durán EGFR-AF ALGERIAN >60 Normal >=60 [place] Comment on above: Performed By: #### I NFLUAB #### [facility] [address] [address] [address] Jaelyn Durán EGFR-NON AF ALGERIAN >60 Normal >=60 [facility] Comment on above: Performed By: #### I NFLUAB #### [facility] [address] [address] [address] Jaelyn Durán Globulin (S) [Mass/Vol] 3.6 g/dL Normal [facility] Comment on above: Performed By: #### I NFLUAB #### [facility] [address] [address] [address] Jaelyn Durán Glucose [Mass/Vol] 103 mg/dL Normal 74-106 [facility] Comment on above: Performed By: #### I NFLUAB #### [facility] [address] [place] [address] Dr. Jaelyn Durán Potassium [Moles/Vol] 3.8 mmol/L Normal 3.5-5.1 [facility] Comment on above: Performed By: #### I NFLUAB #### [facility] [address] [place] [address] Dr. Jaelyn Durán Protein [Mass/Vol] 7.6 g/dL Normal 6.4-8.2 [facility] Comment on above: Performed By: #### I NFLUAB #### [facility] [address] [place] [address] Dr. Jaelyn Durán Sodium [Moles/Vol] 141 mmol/L Normal 136-145 [facility] Comment on above: Performed By: #### I NFLUAB #### [facility] [address] [address] [address] Jaelyn Durán Urea nitrogen [Mass/Vol] 13.0 mg/dL Normal 7.0-18.0 [facility] Comment on above: Performed By: #### I NFLUAB #### [facility] [address] [place] [address] Dr. Jaelyn Durán Urea nitrogen/Creatinine [Mass ratio] 15.9 mg/mg Normal [facility] Comment on above: Performed By: #### I NFLUAB #### [facility] [address] [place] [address] Dr. Jaelyn Durán TSHon 06-10-2022 TSH 0.037 uIU/mL Critically low 0.358-3.740 [facility] Comment on above: Performed By: #### C MP, JAYNA, TSH, T7, LIPA #### [facility] [address] [address] [address] Jaelyn Durán [facility] SARS-CoV-2 (COVID-19) RNA LYUBOV+probe Ql (Unsp spec) Not detected Normal NOT DETECTED [facility] Comment on above: Result Comment: This test is not yet approved or cleared by the [place] FDA. When there are no FDA-approved or cleared tests available, and other criteria are met, FDA can make tests available under an emergency access mechanism called an Emergency Use Authorization (EUA). The EUA for this test is supported by the Pit Operator of Health and Human Service's (HHS's) declaration that circumstances exist to justify the emergency use of in vitro diagnostics for the detection and/or diagnosis of the virus that causes COVID-19. This EUA will remain in effect (meaning this test can be used) for the duration of the COVID-19 declaration justifying emergency of IVDs, unless it is terminated or revoked by FDA (after which the test may no longer be used). When diagnostic testing is negative, the possibility of a false negative should be considered in the context of a patient's recent exposures and the presence of clinical signs and symptoms consistent with SARS-CoV-2. Performed By: #### P ROLAC #### [facility] [address] [place] [address] Dr. Jaelyn Durán INFLUENZA A AND B AGon 05-05 INFLUANEGH SEE BELOW Normal [facility] Comment on above: Result Comment: Nega tive for Flu A protein angiten. Infection due to Flu A cannot be ruled out. Flu A angiten in the sample may be below the detection limit of the test. Performed By: #### I NFLUAB #### [facility] [address] [place] [address] Dr. Jaelyn Dur[facility] BELOW Normal [facility] Comment on above: Result Comment: Nega tive for Flu B protein antigen. Infection due to Flu B cannot be ruled out. Flu B antigen in the sample may be below the detection limit of the test. Performed By: #### I NFLUAB #### [facility] [address] [place] [address] Dr. Jaelyn Durán INFLUENZA A AG Negative Normal NEGATIVE SEE COMMENT [facility] Comment on above: Performed By: #### I NFLUAB #### [facility] [address] [address] [address] Jaelyn Durán INFLUENZA B AG Negative Normal NEGATIVE SEE COMMENT [facility] Comment on above: Performed By: #### I NFLUAB #### [facility] [address] [place] [address] Dr. Jaelyn Durán INTERNAL CONTROLS Within Normal Limits Normal Wi thin Normal Limits [facility] Comment on above: Performed By: #### I NFLUAB #### [facility] [address] [place] [address] Dr. Jaelyn Durán TSH DL <= 0.005 mIU/L QnOrde red By: Eduardo Arriola on 03-11-2022 TSH Qn 0.02 m[IU]/L 0.45-5.33 [facility] Basophils Auto (Bld) [#/Vol] Ordered By: Torsten Marcelino on 02-16-2022 Basophils (Bld) [#/Vol] 0.0 10*3/uL 0.0-0.2 [facility] Basophils/100 WBC Auto (Bld) Ordered By: Torsten Marcelino on 02-16-2022 Basophils/100 WBC (Bld) 0.6 % . [facility] Body fluid albumin measureme nt (mass/volume)Ordered By: Torsten Marcelino on 02-16-2022 Albumin (Body fld) [Mass/Vol] 4.0 g/dL 3.2-5.5 [facility] Cholesterol [Mass/volume] in Serum or PlasmaOrdered By: Torsten Marcelino on 02-16-2022 Cholesterol [Mass/Vol] 216 mg/dL 140-200 [facility] Comment on above: Chol less than 200 m g/dl low riskChol 201-239 mg/dl borderline riskChol 240 mg/dl and greater high risk Cholesterol in LDL Calc [Mas s/Vol]Ordered By: Torsten Marcelino on 02-16-2022 Cholesterol in LDL [Mass/Vol] 102 mg/dL 0-100 [facility] Comment on above: LDL ATP III CLASSIFI CATIONLDL less than 100 mg/dL OptimalLDL 100-129 mg/dL Near or above optimalLDL 130-159 mg/dL Borderline highLDL 160-189 mg/dL HighLDL greater than 189 mg/dL Very high Cholesterol in VLDL Calc [Ma ss/Vol]Ordered By: Torsten Marcelino on 02-16-2022 Cholesterol in VLDL [Mass/Vol] 32 mg/dL [facility] Creatinine and Glomerular fi ltration rate.predicted panel (S/P/Bld)Ordered By: Torsten Marcelino on 02-16-2022 Creatinine [Mass/Vol] 1.00 mg/dL 0.44-1.03 [facility] Eosinophils Auto (Bld) [#/Vo l]Ordered By: Torsten Marcelino on 02-16-2022 Eosinophils (Bld) [#/Vol] 0.1 10*3/uL 0.0-0.45 [facility] Eosinophils/100 WBC Auto (Bl d)Ordered By: Torsten Marcelino on 02-16-2022 Eosinophils/100 WBC (Bld) 2.0 % . [facility] Erythrocyte distribution wid th Auto (RBC) [Ratio]Ordered By: Torsten Marcelino on 02-16-2022 Erythrocyte distribution width (RBC) [Ratio] 14.7 % 11.9-15.3 [facility] Estimated glomerular filtrat ion rate (GFR) non- AmericanOrdered By: Torsten Marcelino on 02-16-2022 GFR/1.73 sq M.predicted among non-blacks MDRD (S/P/Bld) [Vol rate/Area] 59 mL/Min [facility] Globulin Calc (S) [Mass/Vol] Ordered By: Torsten Marcelino on 02-16-2022 Globulin (S) [Mass/Vol] 2.5 g/dL [facility] Hematocrit Auto (Bld) [Volum e fraction]Ordered By: Torsten Marcelino on 02-16-2022 Hematocrit (Bld) [Volume fraction] 43.1 % 34.0-46.4 [facility] Hemoglobin [Mass/volume] in BloodOrdered By: Torsten Marcelino on 02-16-2022 Hemoglobin (Bld) [Mass/Vol] 14.2 g/dL 11.8-15.4 [facility] - Chemistry and C hemistry - challengeOrdered By: Torsten Marcelino on 02-16-2022 Glucose [Mass/Vol] 87 mg/dL 70-100 [facility] - Hematology and Cell countsOrdered By: Torsten Marcelino on 02-16-2022 Nucleated RBC/100 WBC (Bld) [Ratio] 0.0 % 0-0.5 [facility] Leukocytes [#/volume] in Blo od by Automated countOrdered By: Torsten Marcelino on 02-16-2022 WBC (Bld) [#/Vol] 4.7 10*3/uL 4.5-11.0 [facility] Lymphocytes Auto (Bld) [#/Vo l]Ordered By: Torsten Marcelino on 02-16-2022 Lymphocytes (Bld) [#/Vol] 2.1 10*3/uL 1.00-4.8 [facility] Lymphocytes/100 WBC Auto (Bl d)Ordered By: Torsten Marcelino on 02-16-2022 Lymphocytes/100 WBC (Bld) 44.4 % . [facility] MCH Auto (RBC) [Entitic mass ]Ordered By: Torsten Marcelino on 02-16-2022 MCH (RBC) [Entitic mass] 30.8 pg 24.7-34.3 [facility] MCHC Auto (RBC) [Mass/Vol]Or dered By: Torsten Marcelino on 02-16-2022 MCHC (RBC) [Mass/Vol] 32.9 g/dL 32.0-35.0 [facility] MCV Auto (RBC) [Entitic vol] Ordered By: Torsten Marcelino on 02-16-2022 MCV (RBC) [Entitic vol] 93.6 fL 80-100 [facility] Monocyte %Ordered By: Torsten Marcelino on 02-16-2022 Monocyte % 163 mg/dL 35-149 [facility] Comment on above: TRIG ATP III CLASSIF ICATIONTRIG less than 150 mg/dL NormalTRIG 150-199 mg/dL Borderline highTRIG 200-500 mg/dL High TRIG greater than 500 mg/dL Very highStandard traceable to the Center for Disease Conrtrol and Prevention (CDC) test method. Monocytes Auto (Bld) [#/Vol] Ordered By: Torsten Marcelino on 02-16-2022 Monocytes (Bld) [#/Vol] 0.4 10*3/uL 0.0-0.8 [facility] Monocytes/100 WBC Auto (Bld) Ordered By: Torsten Marcelino on 02-16-2022 Monocytes/100 WBC (Bld) 9.4 % . [facility] Neutrophils Auto (Bld) [#/Vo l]Ordered By: Torsten Marcelino on 02-16-2022 Neutrophils (Bld) [#/Vol] 2.1 10*3/uL 1.8-7.7 [facility] Neutrophils/100 WBC Auto (Bl d)Ordered By: Torsten Marcelino on 02-16-2022 Neutrophils/100 WBC (Bld) 43.6 % . [facility] No Panel InformationOrdered By: Torsten Marcelino on 02-16-2022 Estimated GFR () > 60 mL/Min [facility] Comment on above: GFR estimated refere nce range: According to KDOQI guidelines, <60 ml/min/1.73m2 is sufficient to diagnose a patient with chronic kidney disease. Nicotine Metabolite Negative Cutoff=25 [facility] Comment on above: Performed at: - L [address] [id number] Director: Lan Garner MD, Phone: [phone] Pharmacy Creatinine Clearance (Chem N/A [facility] Platelet mean volume Auto (B ld) [Entitic vol]Ordered By: Torsten Marcelino on 02-16-2022 Platelet mean volume (Bld) [Entitic vol] 9.7 fL 6.3-10.7 [facility] Platelets Auto (Bld) [#/Vol] Ordered By: Torsten Marcelino on 02-16-2022 Platelets (Bld) [#/Vol] 219 10*3/uL 150-450 [facility] Protein [Mass/volume] in Ser um or PlasmaOrdered By: Torsten Marcelino on 02-16-2022 Protein [Mass/Vol] 6.5 g/dL 6.1-7.9 [facility] RBC Auto (Bld) [#/Vol]Ordere d By: Torsten Marcelino on 02-16-2022 RBC (Bld) [#/Vol] 4.61 10*6/uL 3.60-5.00 [facility] Serum or plasma alanine love otransferase measurement without P-5'-P (enzymatic activiOrdered By: Torsten Marcelino on 02-16-2022 ALT No additional P-5'-P [Catalytic activity/Vol] 23 U/L 10-60 [facility] Serum or plasma albumin/glob ulin mass ratioOrdered By: Torsten Marcelino on 02-16-2022 Albumin/Globulin [Mass ratio] 1.6 {ratio} [facility] Serum or plasma alkaline loretta sphatase measurement (enzymatic activity/volume)Ordered By: Torsten Marcelino on 02-16-2022 ALP [Catalytic activity/Vol] 61 U/L 32-92 [facility] Serum or plasma anion gap de terminationOrdered By: Torsten Marcelino on 02-16-2022 Anion gap [Moles/Vol] 15.6 mmol/L 6.0-15.0 [facility] Serum or plasma aspartate am inotransferase measurement (enzymatic activity/volume)Ordered By: Torsten Marcelino on 02-16-2022 AST [Catalytic activity/Vol] 22 U/L 10-42 [facility] Serum or plasma calcium mckayla urement (mass/volume)Ordered By: Torsten Marcelino on 02-16-2022 Calcium [Mass/Vol] 9.1 mg/dL 8.2-10.2 [facility] Serum or plasma chloride estrada surement (moles/volume)Ordered By: Torsten Marcelino on 02-16-2022 Chloride [Moles/Vol] 100 mmol/L 95-114 [facility] Serum or plasma high density lipoprotein (HDL) cholesterol measurementOrdered By: Torsten Marcelino on 02-16-2022 Cholesterol in HDL [Mass/Vol] 81 mg/dL 35-85 [facility] Comment on above: HDL CHOL ATP-III CLA SSIFICATION Cardiovascular RiskHDL > or equal to 60 mg/dL LOWHDL < 40 mg/dL HIGH Serum or plasma potassium me asurement (moles/volume)Ordered By: Torsten Marcelino on 02-16-2022 Potassium [Moles/Vol] 3.4 mmol/L 3.5-5.1 [facility] Serum or plasma sodium measu rement (moles/volume)Ordered By: Torsten Marcelino on 02-16-2022 Sodium [Moles/Vol] 137 mmol/L 136-146 [facility] Serum or plasma total biliru bin measurement (mass/volume)Ordered By: Torsten Marcelino on 02-16-2022 Bilirubin [Mass/Vol] 0.6 mg/dL 0.3-1.2 [facility] Serum or plasma total carbon dioxide measurement (moles/volume)Ordered By: Torsten Marcelino on 02-16-2022 CO2 [Moles/Vol] 24.8 mmol/L 22.0-30.0 [facility] Serum or plasma total choles terol/high density lipoprotein (HDL) cholesterol mass ratOrdered By: Torsten Marcelino on 02-16-2022 Cholesterol.total/Chol esterol in HDL [Mass ratio] 2.7 {ratio} <5.0 [facility] Serum or plasma urea nitroge n measurement (mass/volume)Ordered By: Torsten Marcelino on 02-16-2022 Urea nitrogen [Mass/Vol] 12 mg/dL 9- [facility] TSH DL <= 0.005 mIU/L QnOrde red By: Torsten Marcelino on 02-16-2022 TSH Qn 0.07 m[IU]/L 0.45-5.33 [facility] COVID CepheidOrdered By: Max Marcelino on 02-01-2022 SARS-CoV-2 (COVID-19) Ab IA Ql Negative Negative [facility] Comment on above: This is a duplicate Cepheid Poptipert Xpress CoV-2/Flu/RSV Plus RNA by RT-PCR result to be used for statistical tracking purpose only. SARS-CoV-2 (COVID-19) RNA LYUBOV+probe Ql (Unsp spec) [facility] - Microbiology an d Antimicrobial susceptibilityOrdered By: Torsten Marcelino on 02-01-2022 SARS-CoV-2 (COVID-19) RNA LYUBOV+probe Ql (Unsp spec) N/A [facility] SARS-CoV-2 (COVID-19) RNA NA A+probe Ql (Resp)on 12-23-2021 SARS-CoV-2 (COVID-19) RNA LYUBOV+probe Ql (Unsp spec) Negative [place] Other MRI PITUITARY WO W CONon MRI PITUITARY WO W CON EXAMINATION: MRI PITUITARY WO W CON HISTORY: Abnormal prolactin COMPARISON: 07/04/2020 TECHNIQUE: A variety of imaging planes and parameters were utilized for visualization of suspected pathology. Images were performed without and with 17 ml intravenous Dotarem contrast. FINDINGS: PITUITARY: Normal size for age and gender. No visible lesion of the pituitary, infundibulum, suprasellar cistern, or cavernous sinus. BRAIN: Single 3 mm left periventricular area of white matter signal abnormality seen on FLAIR axial image 17. Nonspecific. No restricted diffusion to suggest an acute infarct. SINUSES: Limited views of the included areas demonstrate no significant mucosal thickening or fluid. ORBITS: Limited views are unremarkable. OTHER: Negative. IMPRESSION: No focal or enhancing pituitary mass identified Single new 3.6 mm focus of the left periventricular white matter signal abnormality, nonspecific Electronically authenticated by: BERNA DALTON Date: 2021-08-26 11:33 Normal [facility] INSULINon 08-24-2021 Insulin 16.1 uIU/mL Normal 2.6-24.9 [facility] Comment on above: Performed By: #### I NSULIN #### [facility] [address] [place] [address] Dr. Jealyn Durán ESTRADIOLon 08-23-2021 Estradiol <5.0 Normal [facility] Comment on above: Result Comment: Adul t Female: Follicular phase 12.5 - 166.0 Ovulation phase 85.8 - 498.0 Luteal phase 43.8 - 211.0 Postmenopausal <6.0 - 54.7 1st trimester 215.0 - >4300.0 [facility] ECLIA methodology Performed By: #### I NFLUAB #### [facility] [address] [place] [address] Dr. Jaelyn Durán FSHon 08-23-2021 FSH 45.4 mIU/mL Normal [facility] Comment on above: Result Comment: Adul t Female: Follicular phase 3.5 - 12.5 Ovulation phase 4.7 - 21.5 Luteal phase 1.7 - 7.7 Postmenopausal 25.8 - 134.8 Performed By: #### [facility] #### [facility] [address] [place] [address] Dr. Jaelyn Durán PROGESTERONEon 08-23-2021 Progesterone <0.1 Normal [facility] Comment on above: Result Comment: Foll icular phase 0.1 - 0.9 Luteal phase 1.8 - 23.9 Ovulation phase 0.1 - 12.0 First trimester 11.0 - 44.3 Second trimester 25.4 - 83.3 Third trimester 58.7 - 214.0 Postmenopausal 0.0 - 0.1 Performed By: #### I NFLUAB #### [facility] [address] [place] [address] Dr. Jaelyn Durán PROLACTINon 08-23-2021 Prolactin 30.9 ng/mL Critically high 4.8-23.3 [facility] Comment on above: Performed By: #### P ROLAC #### [facility] [address] [place] [address] Dr. Jaelyn Durán CBC AUTO DIFFon 08-22-2021 BASO # 0.0 103/ul Normal 0.0-0.1 [facility] Comment on above: Performed By: #### I NFLUAB #### [facility] [address] [place] [address] Dr. Jaelyn Durán Basophils/100 WBC (Bld) 0.6 % Normal 0.2-2.0 [facility] Comment on above: Performed By: #### I NFLUAB #### [facility] [address] [place] [address] Dr. Jaelyn Durán EO # 0.2 103/ul Normal 0.0-0.7 [facility] Comment on above: Performed By: #### I NFLUAB #### [facility] [address] [place] [address] Dr. Jaelyn Durán Eosinophils/100 WBC (Bld) 4.0 % Normal 0.9-7.0 [facility] Comment on above: Performed By: #### I NFLUAB #### [facility] [address] [place] [address] Dr. Jaelyn Durán Erythrocyte distribution width (RBC) [Ratio] 13.0 % Normal 11.0-15.0 [facility] [facility] Comment on above: Performed By: #### I NFLUAB #### [facility] [address] [place] [address] Dr. Jaelyn Durán Hematocrit (Bld) [Volume fraction] 42.9 % Normal 36.0-48.0 [facility] Comment on above: Performed By: #### I NFLUAB #### [facility] [address] [place] [address] Dr. Jaelyn Durán Hemoglobin (Bld) [Mass/Vol] 14.0 g/dL Normal 12.0-16.0 [facility] Comment on above: Performed By: #### I NFLUAB #### [facility] [address] [place] [address] Dr. Jaelyn Durán IG # 0.01 10e3/ul Normal 0.00-0.03 [facility] Comment on above: Performed By: #### I NFLUAB #### [facility] [address] [place] [address] Dr. Jaelyn Durán IG % 0.2 % Normal 0.0-0.5 [facility] Comment on above: Performed By: #### I NFLUAB #### [facility] [address] [place] [address] Dr. Jaelyn Durán LYMPH # 2.0 103/ul Normal 1.2-3.8 [facility] Comment on above: Performed By: #### I NFLUAB #### [facility] [address] [place] [address] Dr. Jaelyn Durán Lymphocytes/100 WBC (Bld) 43.2 % Normal 20.5-60.0 [facility] Comment on above: Performed By: #### I NFLUAB #### [facility] [address] [place] [address] Dr. Jaelyn Durán MANUAL DIFF REQ NO Normal [facility] Comment on above: Performed By: #### I NFLUAB #### [facility] [address] [place] [address] Dr. Jaelyn Durán MCH (RBC) [Entitic mass] 30.4 pg Normal 26.7-34.0 [facility] Comment on above: Performed By: #### I NFLUAB #### [facility] [address] [place] [address] Dr. Jaelyn Durán MCHC (RBC) [Mass/Vol] 32.6 g/dL Normal 29.9-35.2 [facility] Comment on above: Performed By: #### I NFLUAB #### [facility] [address] [place] [address] Dr. Jaelyn Durán MCV (RBC) [Entitic vol] 93.1 fL Normal 81.0-99.0 [facility] Comment on above: Performed By: #### I NFLUAB #### [facility] [address] [place] [address] Dr. Jaelyn Durán MONO # 0.5 103/ul Normal 0.3-0.8 [facility] Comment on above: Performed By: #### I NFLUAB #### [facility] [address] [place] [address] Dr. Jaelyn Durán Monocytes/100 WBC (Bld) 9.7 % Normal 1.7-12.0 [facility] Comment on above: Performed By: #### I NFLUAB #### [facility] [address] [place] [address] Dr. Jaelyn Durán NEUT # 2.0 103/ul Normal 1.4-6.5 [facility] Comment on above: Performed By: #### I NFLUAB #### [facility] [address] [place] [address] Dr. Jaelyn Durán Neutrophils/100 WBC (Bld) 42.3 % Critically low 43.0-75.0 [facility] Comment on above: Performed By: #### I NFLUAB #### [facility] [address] [place] [address] Dr. Jaelyn Durán Platelet mean volume (Bld) [Entitic vol] 10.1 fL Normal 9.5-13.5 [facility] Comment on above: Performed By: #### I NFLUAB #### [facility] [address] [place] [address] Dr. Jaelyn Durán PLT 243 103/ul Normal 150-450 [facility] Comment on above: Performed By: #### I NFLUAB #### [facility] [address] [place] [address] Dr. Jaelyn Durán RBC 4.61 106/ul Normal 4.20-5.40 [facility] Comment on above: Performed By: #### I NFLUAB #### [facility] [address] [place] [address] Dr. Jaelyn Durán WBC 4.7 103/ul Normal 4.0-11.0 [facility] Comment on above: Performed By: #### I NFLUAB #### [facility] [address] [place] [address] Dr. Jaelyn Durán FREE THYROXINE INDEX T7on FTI 1.84 Normal [facility] Comment on above: Performed By: #### P ROLAC #### [facility] [address] [place] [address] Dr. Jaelyn Durán T3U 34.0 % Normal 23.5-40.5 [facility] Comment on above: Performed By: #### P ROLAC #### [facility] [address] [place] [address] Dr. Jaelyn Durán T4 [Mass/Vol] 5.40 ug/dL Critically low 5.53-11.00 [facility] Comment on above: Performed By: #### P ROLAC #### [facility] [address] [place] [address] Dr. Jaelyn Durán GLYCOHEMOGLOBIN A1Con 04-02- 2022 ADA RECOMMENDATION ADA THERAPEUTIC TARG ET 6.0 - 7.0 ACTION SUGGESTED > 7.0 Normal [facility] Comment on above: Performed By: #### P ROLAC #### [facility] [address] [address] [address] Jaelyn Durán Glucose [Mass/Vol] 108 mg/dL Normal [facility] Comment on above: Performed By: #### P ROLAC #### [facility] [address] [address] [address] Jaelyn Durán HbA1c (Bld) [Mass fraction] 5.4 % Normal <=6.0 [facility] Comment on above: Performed By: #### P ROLAC #### [facility] [address] [place] [address] Dr. Jaelyn Durán IRONon 08-22-2021 Iron [Mass/Vol] 56.0 ug/dL Normal 37.0-170.0 [facility] Comment on above: Performed By: #### I NFLUAB #### [facility] [address] [address] [address] Jaelyn Durán LIPID PROFILEon 08-22-2021 CHOL-HDL RATIO NORM SEE BELOW Normal [facility] Comment on above: Result Comment: 3.3 - 4.4 LOW RISK 4.4 - 7.1 AVERAGE RISK 7.1 - 11.0 MODERATE RISK >11.0 HIGH RISK Performed By: #### P ROLAC #### [facility] [address] [address] [address] Jaelyn Durán Cholesterol [Mass/Vol] 194 mg/dL Normal <=200 [facility] Comment on above: Performed By: #### P ROLAC #### [facility] [address] [address] [address] Jaelyn Durán Cholesterol in HDL [Mass/Vol] 80 mg/dL Critically high 40-60 [facility] Comment on above: Performed By: #### P ROLAC #### [facility] [address] [address] [address] Jaelyn Durán Cholesterol in LDL [Mass/Vol] 84.2 mg/dL Normal [facility] Comment on above: Performed By: #### P ROLAC #### [facility] [address] [address] [address] Jaelyn Durán Cholesterol.total/Chol esterol in HDL [Mass ratio] 2.4 {ratio} Normal [facility] Comment on above: Performed By: #### P ROLAC #### [facility] [address] [address] [address] Jaelyn Durán HDL NORMAL > or = 60 mg/dl - LO W CARDIOVASCULAR RISK <40 mg/dl - HIGH CARDIOVASCULAR RISK Normal [facility] Comment on above: Performed By: #### P ROLAC #### [facility] [address] [address] [address] Jaelyn Durán LDL CALC NORMAL SEE BELOW Normal [facility] Comment on above: Result Comment: <100 mg/dl OPTIMAL 100 - 129 mg/dl NEAR OR ABOVE OPTIMAL 130 - 159 mg/dl BORDERLINE HIGH 160 - 189 mg/dl HIGH >190 mg/dl VERY HIGH Performed By: #### P ROLAC #### [facility] [address] [address] [address] Jaelyn Durán Triglyceride [Mass/Vol] 149 mg/dL Normal <=150 [facility] Comment on above: Performed By: #### P ROLAC #### [facility] [address] [address] [address] Jaelyn Durán VLDL CALC 29.8 mg/dL Normal [facility] Comment on above: Performed By: #### P ROLAC #### [facility] [address] [address] [address] Jaelyn Durán PROF 14(COMP METB)on 022 Albumin [Mass/Vol] 3.7 g/dL Normal 3.4-5.0 [facility] Comment on above: Performed By: #### P ROLAC #### [facility] [address] [address] [address] Jaelyn Durán Albumin/Globulin [Mass ratio] 1.0 {ratio} Normal [facility] Comment on above: Performed By: #### P ROLAC #### [facility] [address] [address] [address] Jaelyn Durán ALP [Catalytic activity/Vol] 87 U/L Normal 46-116 [facility] Comment on above: Performed By: #### P ROLAC #### [facility] [address] [place] [address] Dr. Jaelyn Durán ALT [Catalytic activity/Vol] 28 U/L Normal 14-59 [facility] Comment on above: Performed By: #### P ROLAC #### [facility] [address] [address] [address] Jaelyn Durán Anion gap [Moles/Vol] 11.3 mmol/L Normal [facility] Comment on above: Performed By: #### P ROLAC #### [facility] [address] [place] [address] Dr. Jaelyn Durán AST [Catalytic activity/Vol] 17 U/L Normal 15-37 [facility] Comment on above: Performed By: #### P ROLAC #### [facility] [address] [place] [address] Dr. Jaelyn Durán Bilirubin [Mass/Vol] 0.3 mg/dL Normal 0.2-1.3 [facility] Comment on above: Performed By: #### P ROLAC #### [facility] [address] [place] [address] Dr. Jaelyn Durán Calcium [Mass/Vol] 8.9 mg/dL Normal 8.5-10.1 [facility] Comment on above: Performed By: #### P ROLAC #### [facility] [address] [place] [address] Dr. Jaelyn Durán Chloride [Moles/Vol] 104 mmol/L Normal 98-107 [facility] Comment on above: Performed By: #### P ROLAC #### [facility] [address] [address] [address] Jaelyn Durán CO2 [Moles/Vol] 30.4 mmol/L Critically high 22.0-30.0 [facility] Comment on above: Performed By: #### P ROLAC #### [facility] [address] [place] [address] Dr. Jaelyn Durán Creatinine [Mass/Vol] 0.87 mg/dL Normal 0.52-1.04 [facility] Comment on above: Performed By: #### P ROLAC #### [facility] [address] [address] [address] Jaelyn Durán EGFR-AF ALGERIAN >60 Normal >=60 [place] Comment on above: Performed By: #### P ROLAC #### [facility] [address] [address] [address] Jaelyn Durán EGFR-NON AF ALGERIAN >60 Normal >=60 [facility] Comment on above: Performed By: #### P ROLAC #### [facility] [address] [place] [address] Dr. Jaelyn Durán Globulin (S) [Mass/Vol] 3.7 g/dL Normal [facility] Comment on above: Performed By: #### P ROLAC #### [facility] [address] [place] [address] Dr. Jaelyn Durán Glucose [Mass/Vol] 86 mg/dL Normal 74-106 [facility] Comment on above: Performed By: #### P ROLAC #### [facility] [address] [place] [address] Dr. Jaelyn Durán Potassium [Moles/Vol] 3.7 mmol/L Normal 3.4-5.0 [facility] Comment on above: Performed By: #### P ROLAC #### [facility] [address] [place] [address] Dr. Jaelyn Durán Protein [Mass/Vol] 7.4 g/dL Normal 6.1-8.2 [facility] Comment on above: Performed By: #### P ROLAC #### [facility] [address] [place] [address] Dr. Jaelyn Durán Sodium [Moles/Vol] 142 mmol/L Normal 137-145 [facility] Comment on above: Performed By: #### P ROLAC #### [facility] [address] [place] [address] Dr. Jaelyn Durán Urea nitrogen [Mass/Vol] 15.0 mg/dL Normal 7.0-18.0 [facility] Comment on above: Performed By: #### P ROLAC #### [facility] [address] [place] [address] Dr. Jaelyn Durán Urea nitrogen/Creatinine [Mass ratio] 17.2 mg/mg Normal [facility] Comment on above: Performed By: #### P ROLAC #### [facility] [address] [place] [address] Dr. Jaelyn Durán TSHon 08-22-2021 TSH 0.500 uIU/mL Normal 0.470-4.680 [facility] Comment on above: Performed By: #### P ROLAC #### [facility] [address] [place] [address] Dr. Jaelyn Durán TSH RANGE SEE BELOW Normal [facility] Comment on above: Result Comment: <0.3 4 UIU/ml HYPERTHYROID 0.34-5.60 UIU/ml EUTHYROID >5.60 UIU/ml HYPOTHYROID Performed By: #### P ROLAC #### [facility] [address] [place] [address] Dr. Jaelyn Durán Vital Signs Date Time Vital Sign Value Performing Clinician Facility 07-12-2023 09:52-0500 Body height 165.1 cm MD Eduardo Arriola Work Phone: [facility] 07-12-2023 09:52-0500 Body mass index (BMI) [Ratio] 26.2 kg/m2 MD Eduardo Arriola Work Phone: [facility] 07-12-2023 09:52-0500 Body weight 71.35 kg MD Eduardo Arriola Work Phone: [facility] 07-12-2023 09:52-0500 Diastolic blood pressure 78 mm[Hg] MD Eduardo Arriola Work Phone: [facility] 07-12-2023 09:52-0500 Heart rate 92 /min MD Eduardo Arriola Work Phone: [facility] 07-12-2023 09:52-0500 Respiratory rate 18 /min MD Eduardo Arriola Work Phone: [facility] 07-12-2023 09:52-0500 SaO2% (BldA) [Mass fraction] 98 % MD Eduardo Arriola Work Phone: [facility] 07-12-2023 09:52-0500 Systolic blood pressure 113 mm[Hg] MD Eduardo Arriola Work Phone: [facility] 05-03-2023 08:15-0500 Body height 165.1 cm [employer] Other [facility] 05-03-2023 08:15-0500 Body mass index (BMI) [Ratio] 26.07 kg/m2 [employer] Other [facility] Other 05-03-2023 08:15-0500 Body weight 71.08 kg [employer] Other [facility] Other 05-03-2023 08:15-0500 Body weight 71.07 kg MD Eduardo Arriola Work Phone: [facility] 05-03-2023 08:15-0500 Diastolic blood pressure 95 mm[Hg] [employer] Other [facility] 05-03-2023 08:15-0500 Respiratory rate 18 /min [employer] Other [facility] Other 05-03-2023 08:15-0500 SaO2% (BldA) [Mass fraction] 99 % [employer] Other [facility] Other 05-03-2023 08:15-0500 Systolic blood pressure 145 mm[Hg] [employer] Other [facility] 03-29-2023 07:45-0500 Body height 165.1 cm [employer] Other [facility] Other 03-29-2023 07:45-0500 Body mass index (BMI) [Ratio] 26.19 kg/m2 Nghia Campos Other [employer] Other 03-29-2023 07:45-0500 Body weight 71.4 kg Nghia Campos Other [employer] Other 03-29-2023 07:45-0500 Diastolic blood pressure 85 mm[Hg] Nghia Campos Other [facility] Other 03-29-2023 07:45-0500 Respiratory rate 16 /min Nghia Campos Other [employer] Other 03-29-2023 07:45-0500 SaO2% (BldA) [Mass fraction] 97 % [employer] Cam[employer] Other [employer] Other 03-29-2023 07:45-0500 Systolic blood pressure 117 mm[Hg] [employer]ghia Campos Other [facility] Other 02-01-2023 10:00-0400 Body height 165.1 cm Nghia Campos Other [facility] Other 02-01-2023 10:00-0400 Body mass index (BMI) [Ratio] 28.37 kg/m2 [employer]ia Campos Other [facility] Other 02-01-2023 10:00-0400 Body weight 77.34 kg Nghia Campos Other [facility] Other 02-01-2023 10:00-0400 Diastolic blood pressure 99 mm[Hg] Nghia Campos Other [employer] Other 02-01-2023 10:00-0400 Respiratory rate 18 /min Nghia Campos Other [facility] Other 02-01-2023 10:00-0400 SaO2% (BldA) [Mass fraction] 99 % [employer] Cam[employer] Other [facility] Other 02-01-2023 10:00-0400 Systolic blood pressure 141 mm[Hg] [employer] Cam[employer] Other [employer] Other Encounters Encounter Date Encounter Type Care Provider Facility Start: 07-12-2023 ambulatory Eduardo Arriola Facility: [facility] Start: 07-12-2023 End: 07-12-2023 ambulatory MD Eduardo Arriola Work Phone: [facility] Work Phone: Start: 07-12-2023 End: 07-12-2023 Patient encounter procedure MD Eduardo Arriola Work Phone: [facility] Work Phone: Start: 06-13-2023 End: 06-13-2023 ambulatory Nghia Campos Other [employer] Other Start: 06-13-2023 Telephone encounter Nhgia Campos [facility] Start: 05-15-2023 End: 05-15-2023 ambulatory Eduardo Arriola Facility:[facility] Start: 05-15-2023 End: 05-15-2023 ambulatory MD Eduardo Arriola Work Phone: [facility] Work Phone: Start: 05-15-2023 End: 05-15-2023 Patient encounter procedure MD Eduardo Arriola Work Phone: [facility] [address] Work Phone: Start: 05-03-2023 (wmnempf/u) [employer] Employee F/U Nghia Campos [facility] Start: 05-03-2023 End: 05-03-2023 ambulatory Eduardo Arriola [employer] Other Start: 05-03-2023 Registered Recurring MD Nidhi Arriola Work Phone: [facility] Work Phone: Start: 05-03-2023 End: 05-03-2023 Patient encounter procedure MD Eduardo Arriola Work Phone: [facility] Work Phone: Start: 03-29-2023 End: 03-29-2023 ambulatory Nghiaarian Campos Other [facility] Other Start: 03-29-2023 Follow-up encounter Nghia Pimentel [facility] Start: 03-15-2023 End: 03-15-2023 ambulatory Nghia Campos Other [employer] Other Start: 03-15-2023 Telephone encounter Nghia Pimentel [facility] Start: 02-28-2023 End: 02-28-2023 ambulatory Nghia Campos Other [facility] Other Start: 02-28-2023 Telephone encounter Nghia Pimentel [facility] Start: 02-17-2023 End: 02-17-2023 ambulatory Eduardo Arriola Facility:[facility] Start: 02-17-2023 End: 02-17-2023 ambulatory MD Eduardo Arriola Work Phone: [facility] Work Phone: Start: 02-17-2023 End: 02-17-2023 Departed Referred MD Eduardo Arriola Work Phone: [facility]-Employee Benefit Screening Start: 02-05-2023 End: 02-05-2023 ambulatory MD Eduardo Arriola Work Phone: [facility] Work Phone: Start: 02-05-2023 End: 02-05-2023 Patient encounter procedure MD Eduardo Arriola Work Phone: [facility]-Flu Vaccine Start: 02-01-2023 ([id number]) [employer] New Employee Nghia Campos [facility] Start: 02-01-2023 End: 02-01-2023 ambulatory Nghia Campos Other [facility] [employer] Other Start: 02-01-2023 Registered Recurring MD Nidhi Arriola Work Phone: [facility] Work Phone: Start: 01-25-2023 End: 01-25-2023 ambulatory Aura Olson Other [employer] [employer] Other Start: 01-25-2023 Telephone encounter Aura Olson [facility] Start: 07-23-2022 End: 07-24-2022 ambulatory Weston DEXTER Facility:[facility] Start: 07-23-2022 End: 07-23-2022 Patient encounter procedure Weston DEXTER [facility] [place] Start: 07-14-2022 End: 07-15-[address] WESTON DEXTER . Facility:[facility] Start: 06-22-2022 End: 06-23-2022 ambulatory Weston DEXTER [facility] Start: 06-18-2022 End: 06-19-[address] EDUARDO ARRIOLA . Facility:[facility] Start: 06-18-2022 End: 06-18-[address] EDUARDO ARRIOLA . Facility:[facility] Start: 06-17-2022 End: 06-18-[address] EDUARDO ARRIOLA . Facility:[facility] Start: 06-14-2022 End: 06-15-[address] EDUARDO ARRIOLA . Facility:[facility] Start: 06-10-2022 End: 06-11-[address] EDUARDO ARRIOLA . Facility:[facility] Start: 05-05-2022 End: 05-05-[address] EDUARDO ARRIOLA . Facility:[facility] Start: 03-19-[address] EDUARDO ARRIOLA . Facili ty:[facility] Start: 03-11-2022 End: 03-11-2022 ambulatory MD Eduardo Arriola Work Phone: [facility] Work Phone: Start: 03-11-2022 End: 03-11-2022 Patient encounter procedure MD Eduardo Arriola Work Phone: [facility] [place] Start: 02-16-2022 End: 02-16-2022 Departed Referred MD Eduardo Arriola Work Phone: [facility]-Employee Benefit Screening Start: 02-01-2022 End: 02-01-2022 Patient encounter procedure MD Eduardo Arriola Work Phone: [facility] [facility] Start: 12-23-2021 End: 12-23-2021 ambulatory Cortez Fuchs Other [facility] Other Start: 12-23-2021 Office outpatient vi sit 5 minutes Cortez Fucsh [facility] Start: 08-26-2021 End: 08-27-[address] EDUARDO ARRIOLA . Facility:[facility] Start: 08-22-2021 End: 08-23-[address] EDUARDO ARRIOLA . Facility:[facility] Procedures Date Procedure Procedure Detail Performing Clinician Start: 07-14-2022 Colonoscopy Weston KIML Start: 07-14-2022 Esophagogastroduodenoscopy Weston KIML Start: 05-23-2010 Colonoscopy Weston NILL Start: 05-23-2000 Colonic polypectomy Weston KIML Arthroscopy of knee Weston KIML Colonoscopy Weston NILL Excision of cyst of ovary Magnolia gallego SON Exploratory laparotomy Clement strong SON SARS-CoV-2, Influenza & RSV (PCR) MD Eduardo Arriola Work Phone: Total hysterectomy v ia vaginal approach Weston DEXTER Plan of Treatment Date Care Activity Detail Author Start: 05-15-2023 [facility] Start: 02-17-2023 [facility] Start: 03-11-2022 [facility] Hepatitis B virus valle rface Ab [Presence] in Serum [facility] Hepatitis B virus valle rface Ag [Presence] in Serum or Plasma by Immunoassay [facility] Hepatitis C virus Ig G Ab [Presence] in Serum or Plasma by Immunoassay [facility] HIV 1+2 Ab+HIV1 p24 Ag [Presence] in Serum or Plasma by Immunoassay [facility] Thyroglobulin Ab [Un its/volume] in Serum or Plasma [facility] Work Phone: Thyrotropin [Units/v olume] in Serum or Plasma [facility] Work Phone: Thyroxine (T4) free index in Serum or Plasma by calculation [facility] Work Phone: Thyroxine measurement [facility] Work Phone: Triiodothyronine (T3 ) [Mass/volume] in Serum or Plasma [facility] Work Phone: Triiodothyronine res in uptake (T3RU) in Serum or Plasma [facility] Work Phone: Immunizations Immunization Date Immunization Notes Care Provider Fa cili 03-23-2022 influenza virus vaccine, unspecified formulation Weston DEXTER [facility] 01-12-2021 SARS-CoV-2 (COVID-19 ) mRNA BNT-162b2 vax Weston DEXTER [facility] Comment on above: Result Comment: 2022: [id number] 12-24-2020 SARS-CoV-2 (COVID-19 ) mRNA BNT-162b2 yobani DEXTER [facility] [place] Comment on above: Result Comment: 2022: [id number] Payers Date Payer Category Payer Self-pay [id number] 1970 Unknown [id number] 2.16.84 [id number] 1972 Unknown [id number] 2.16.84 [id number] 1972 Unknown [id number] 2.16.84 [id number] 1972 Unknown [id number] 2.16.84 [id number] 1972 Unknown [id number] 2.16.84 [id number] 1972 Unknown [id number] 2.16.84 [id number] 1972 Unknown [id number] 2.16.84 0.1.651788.3.579.2.593 1972 Unknown [id number] 2.16.84 [id number] 1972 Unknown [id number] 2.16.84 [id number] 1972 Unknown [id number] 2.16.84 [id number] 1972 Unknown [id number] 2.16.8 40.1.024455.3.579.2.727 1972 Unknown [id number] 2.16.8 40.1.332595.3.579.2.727 1972 Unknown [id number] 2.16.8 [id number] 1959 Self-pay [id number] 1959 Unknown [id number] 2. [id number] Unknown [id number] 2.16.8 [id number] Unknown [id number] 2.16.8 [id number] Unknown [id number] Unknown [id number] Social History Date Type Detail Facility Sex Assigned At [facility] Start: 04-16-2021 End: 07-12-2023 Tobacco smoking status [facility] Ex-smoker (finding) [facility] Start: 1970 Sex Assigned At Female [facility] Tobacco smoking status Never [facility] General [facility] [place] Medical Equipment Procedure Code Equipment Code Equipment Origin al Text Equipment Identifier Dates NovoFine Plus Pe n Needle 32G X 4 MM Start: 02-01-2023 Clinical Notes 12-23-2021 to 06-13-2023 Note Date & Type Note Facility 06-13-2023 Evaluation note Encounter Date Diagnosis Assessment Notes May, Overweight (BMI 25.0-29.9) (ICD-10 - E66.3) [facility] Other 12-12-2023 Evaluation note* Encounter Date Diagnosis Assessment Notes Treatment Notes Treatment Clinical Notes Apr, Overweight (BMI 25.0-29.9) (ICD-10 - E66.3) Consultation date 02-01-2023, weight (pounds): 170.5 Follow-up date 03-29-2023, weight (pounds): 157.4 Follow-up date 05-03-2023, weight (pounds): 156.7 Plan is to take a weight centric approach to patient care in the treatment of excess adiposity and patient's weight related comorbidities.-Discuss ed the impact of excess adiposity on overall health and increased risk of associated health conditions-Discussed treatment options including lifestyle interventions, such as calorie reduction and physical activity, and use of medications as an adjunct to amplify adherence to healthy behavior change-Discussed benefits, risks and side effects of medication. After informed discussion, patient would like to proceedOrders:-Continu e Victoza 3 mg once daily -Patient without side effect would like to continue -Recommend to increase protein and resistance exercise to preserve/increase lean tissue -Nurse, [facility] lobophuc-Isslm-jk-care A1c January 2023 5.3%-Follow up in clinic in 8 weeksThis note was created with voice recognition software. Please excuse errors in youth counselor. Apr, Dietary surveillance and counseling (ICD-10 - Z71.3) Discussed in detail high-protein, high-fiber, low-fat nutrition plan favoring calorie deficit and lean tissue mass preservation.-Lean protein sources at each meal supplemented with nutrient rich, low calorie density carbohydrates-Focus on consuming calories earlier in the day versus later; breakfast and lunch should be largest meals-Evening meal should be high in protein and low in carbohydrate to maximize lipolysis overnight-Aim for a minimum of 30 g of protein per meal with breakfast, lunch and dinner with total daily intake reaching at least 100 g-If needed, supplement with whey protein powder or premade protein drink low in carbohydrate and low in fat-If hungry between meals, consider protein snack low in carbohydrate and low in fat -Plan to increase muscle mass with protein and resistance exercise which will aid with calorie expenditure -Patient states Victoza has mitigated alcohol craving Apr, Exercise counseling (ICD-10 - Z71.89) Absolute HGS at time of consultation (pounds): 60 Absolute HGS at time of follow-up (pounds): 68.4 Discussed in detail exercise interventions to promote lean tissue mass preservation during calorie restriction.-In addition to regularly scheduled endurance and resistance exercise, perform bouts of resistance exercise prior to meals using body weight, resistance bands or dumbbells/weights-Foll owing meals, consider aerobic exercise, such as brisk walking, to improve blood sugars and to mitigate hyperinsulinemia Apr, Essential hypertension (ICD-10 - I10) On pharmacotherapy Apr, Dyslipidemia (ICD-10 - E78.5) Elevated LDL-C Apr, [place] disease (ICD-10 - E27.1) On daily cortisol Apr, Abnormal glucose (ICD-10 - R73.09) Apr, Arthritis of knee, left (ICD-10 - M17.12) [facility] Other 11-07-2023 Evaluation note* Encounter Date Diagnosis Assessment Notes Treatment Notes Treatment Clinical Notes Mar, Overweight (BMI 25.0-29.9) (ICD-10 - E66.3) Consultation date 02-01-2023, weight (pounds): 170.5 Follow-up date 03-29-2023, weight (pounds): 157.4 Plan is to take a weight centric approach to patient care in the treatment of excess adiposity and patient's weight related comorbidities.-Discuss ed the impact of excess adiposity on overall health and increased risk of associated health conditions-Discussed treatment options including lifestyle interventions, such as calorie reduction and physical activity, and use of medications as an adjunct to amplify adherence to healthy behavior change-Discussed benefits, risks and side effects of medication. After informed discussion, patient would like to proceedOrders:-Continu e Victoza 3 mg once daily -Informed patient that she can reduce dose or change frequency of dosing. She would like to continue Victoza 3 mg once daily given that her weight has plateaued -Recommend to increase protein and resistance exercise to preserve/increase lean tissue -Nurse, [facility] svhaefqc-Fiprt-vx-care A1c January 2023 5.3%-Follow up in clinic in 8 weeksThis note was created with voice recognition software. Please excuse errors in youth counselor. Mar, Dietary surveillance and counseling (ICD-10 - Z71.3) Discussed in detail high-protein, high-fiber, low-fat nutrition plan favoring calorie deficit and lean tissue mass preservation.-Lean protein sources at each meal supplemented with nutrient rich, low calorie density carbohydrates-Focus on consuming calories earlier in the day versus later; breakfast and lunch should be largest meals-Evening meal should be high in protein and low in carbohydrate to maximize lipolysis overnight-Aim for a minimum of 30 g of protein per meal with breakfast, lunch and dinner with total daily intake reaching at least 100 g-If needed, supplement with whey protein powder or premade protein drink low in carbohydrate and low in fat-If hungry between meals, consider protein snack low in carbohydrate and low in fat -Plan to increase muscle mass with protein and resistance exercise which will aid with calorie expenditure -Patient states Victoza has mitigated alcohol craving Mar, Exercise counseling (ICD-10 - Z71.89) Absolute HGS at time of consultation (pounds): 60 Absolute HGS at time of follow-up (pounds): 62 Discussed in detail exercise interventions to promote lean tissue mass preservation during calorie restriction.-In addition to regularly scheduled endurance and resistance exercise, perform bouts of resistance exercise prior to meals using body weight, resistance bands or dumbbells/weights-Foll owing meals, consider aerobic exercise, such as brisk walking, to improve blood sugars and to mitigate hyperinsulinemia Mar, Essential hypertension (ICD-10 - I10) On pharmacotherapy, Aldactone reduced and lisinopril discontinued Mar, Dyslipidemia (ICD-10 - E78.5) Elevated LDL-C Mar, 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 [facility] Other 10-24-2023 Evaluation note* Encounter Date Diagnosis Assessment Notes Treatment Notes Treatment Clinical Notes Feb, Overweight (BMI 25.0-29.9) (ICD-10 - E66.3) [facility] Other 09-12-2023 Evaluation note* Encounter Date Diagnosis Assessment Notes Treatment Notes Treatment Clinical Notes Jan, Overweight (BMI 25.0-29.9) (ICD-10 - E66.3) Consultation date 02-01-2023, weight (pounds): 170.5Plan is to take a weight centric approach to patient care in the treatment of excess adiposity and patient's weight related comorbidities.-Discuss ed the impact of excess adiposity on overall health and increased risk of associated health conditions-Discussed treatment options including lifestyle interventions, such as calorie reduction and physical activity, and use of medications as an adjunct to amplify adherence to healthy behavior change-Discussed benefits, risks and side effects of medication. After informed discussion, patient would like to proceedOrders:-Initiat e Victoza 0.6 mg once daily and titrate up as tolerated following dose titration [id number]-Udavg-em-care A1c January 2023 5.3%-Follow up in clinic in 8 weeksThis note was created with voice recognition software. Please excuse errors in youth counselor. Jan, Dietary surveillance and counseling (ICD-10 - Z71.3) Discussed in detail high-protein, high-fiber, low-fat nutrition plan favoring calorie deficit and lean tissue mass preservation.-Lean protein sources at each meal supplemented with nutrient rich, low calorie density carbohydrates-Focus on consuming calories earlier in the day versus later; breakfast and lunch should be largest meals-Evening meal should be high in protein and low in carbohydrate to maximize lipolysis overnight-Aim for a minimum of 30 g of protein per meal with breakfast, lunch and dinner with total daily intake reaching at least 100 g-If needed, supplement with whey protein powder or premade protein drink low in carbohydrate and low in fat-If hungry between meals, consider protein snack low in carbohydrate and low in fat -Plan to increase muscle mass with protein and resistance exercise which will aid with calorie expenditure and restrict calories through avoiding alcohol Jan, Exercise counseling (ICD-10 - Z71.89) Absolute HGS at time of consultation (pounds): 60Discussed in detail exercise interventions to promote lean tissue mass preservation during calorie restriction.-In addition to regularly scheduled endurance and resistance exercise, perform bouts of resistance exercise prior to meals using body weight, resistance bands or dumbbells/weights-Foll owing meals, consider aerobic exercise, such as brisk walking, to improve blood sugars and to mitigate hyperinsulinemia Jan, Essential hypertension (ICD-10 - I10) On lisinopril, Aldactone and beta-linda 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 Patient agreeable and expressed interest. Jan, Abnormal glucose (ICD-10 - R73.09) Jan, Arthritis of knee, left (ICD-10 - M17.12) Jan, Other 60 minutes was spent reviewing patient specific healthcare information, interviewing, counseling, and communicating with the patient, and documenting clinical information. [facility] Other 02-22-2023 NoteOPERATIVE NOTE OPERATION DATE: 07/14/2022 PREOPERATIVE DIAGNOSIS: Abdominal pain, personal history of colon polyps, gastroesophageal reflux disease. POSTOPERATIVE DIAGNOSIS: Bile reflux, small hiatal hernia, mild distal esophagitis, 3 mm ascending colon polyp. PROCEDURE: EGD and colonoscopy to terminal ileum with biopsy of terminal ileum and cold forceps polypectomy for ascending colon polyp. SURGEON: Weston Dexter M.D. ANESTHESIA: Monitored anesthesia care. ESTIMATED BLOOD LOSS: Less than 1 mL. INDICATIONS AND CONSENT: Patient is a 52-year-old female with long history of GI complaints. She does have a personal history of colon polyps and a history of colitis but normal colonoscopies in the last two times she has had them. Patient complains of worsening mid and upper abdominal pain, as well as reflux symptoms, not improved with PPI. Indications, risks, benefits, alternatives of proceeding with EGD and colonoscopy were explained extensively to the patient, including the risks of bleeding, aspiration, esophageal/gastric/duodenal or colonic perforation or anesthetic complications. All of her questions were answered. Informed consent was obtained. PROCEDURE: Patient brought to the operating room, placed in the left lateral decubitus position. Monitored anesthesia care was provided. A bite block was placed in the patient's mouth. Scope was inserted into the oropharynx. Under direct visualization, it was advanced into the esophagus, past the cricopharyngeus, down to the stomach. The stomach was insufflated with air. The pylorus was traversed down to the descending portion of the duodenum. There was no evidence of duodenitis or ulceration. There was no scarring within the pyloric channel. There was a moderate amount of bile throughout the stomach with some irritation of the stomach. No ulcerations or bleeding. The scope was retroflexed. There was noted to be a small, sliding type hiatal hernia. The GE junction was noted at 40 cm. There was a small amount distal esophagitis at the GE junction. No evidence of Banegas's esophagus or ulceration. The remainder of the esophagus was unremarkable. There was a small inlet patch noted. Upon withdrawal of the scope, no other abnormalities were noted. The scope was then withdrawn. Patient was then positioned for colonoscopy. Rectal exam was performed which showed no masses or blood. Scope was inserted into the anal canal. Under direct visualization was advanced. With the aid of abdominal compression, it was advanced to the cecum where cecal markings were clearly identified. The terminal ileum was intubated, appeared normal, but a cold biopsy forceps biopsy was obtained to rule out colitis with good hemostasis. Upon withdrawal of the scope, mucosal surfaces were carefully examined. There was noted to be a 3 mm sessile polyp within the proximal ascending colon that was removed with cold biopsy forceps with good hemostasis. No other mass lesions or polyps were noted. There was some redundancy of the colon and a large amount of bile throughout the colon. No significant diverticulosis. The scope was retroflexed in the anal canal. There was no significant hemorrhoidal disease. Scope was then withdrawn. Patient tolerated procedure well, was sent to recovery room in good condition. CC: Eduardo Arriola M.D.[facility] [id number] NoteChief Complaint consultation for abdominal pain HPI Staff 52 year old female presents on consultation from Dr. Arriola for abdominal pain. Reports fairly constant epigastric pain that is sharp in nature and RLQ pain that she describes as a dull ache. Reports intermittent rectal pain and bleeding. Daily nausea, denies vomiting. No unexplained weight loss. RUQ US completed 06/14- negative. 06/10 prescribed Nexium. Patient diagnosed with Crohn's. Last colonoscopy completed 2010-normal. Patient has a history of polyps. History of Present Illness 52 yo female with h/o htn, hypothyroidism, migraines, fibromyalgia, asthma, Peoria's disease, Crohn's disease, referred for epigastric and RUQ abd pain; worsening GERD; last colonoscopy 2010, wnl, also normal in 2006, reportedly h/o colon polyps, removed in 2000; patient reports constant upper abdpain, ache, stabbing at times, wakes up with it; can worsen with eating; intermittent rectal bleeding with bms, intermittent loose stools; no wt loss; no improvement with Nexium, only started this 1 1/2 weeks ago; no documentation regarding Crohn's diagnosis, no medication, patient reports this wasdiagnosed prior to the last 2 colonoscopies that were normal; abdominal operations significant for multiple gynecologic procedures, laparotomy, ovarian cystectomies, vaginal hysterectomy; recent normal gb US; no fmhx of GI malignancy or IBD; takes chornic steroids for Nicho's disease, no asa or NSAID use; no SBE prophylaxis; no tobacco use. Review of Systems PHQ Score Initial Depression Screen Score: 0 ROS - Provider Constitutional: no fever, no sweats, no weight loss. Eyes: no glasses, no blurred vision, no visual loss. ENMT: no dentures, no hoarseness, no swallowing difficulties, no hearing loss, no ear infection(s),no nose bleeds. Cardiovascular: normal blood pressure, no chest pain, regular heartbeat, no heart murmur. Respiratory: no shortness of breath, no cough, no asthma, no wheezing. Gastrointestinal: no nausea, no vomiting, no diarrhea, no constipation, no blood in stool, yes change in bowel habits, yes abdominal pain, no hepatitis. Genitourinary: no kidney stones, no urine infection, no dysuria. Musculoskeletal: no pain, no weakness. Skin: no changing moles, no rash, no skin lumps. Neurologic: no seizures, no epilepsy, no headache. Psychiatric: no emotional or psychiatric problem. Heme/Lymph: no bleeding problems, no anemia, no blood clots, no transfusions. Allergy/Immunologic: no swollen lymph nodes/glands, no IV drug abuse. Other: Additional ROS info: Except as noted in the above Review of Systems and in the History of Present Illness, all other systems have been reviewed and are negative or noncontributory. Physical Exam Vitals & Measurements HR: 61(Peripheral) RR: 16 BP: 154/91 HT: 65 in HT: 165.1 cm WT: 73.1 kg WT: 160.82 lb BMI: 26.82 HEENT: normal conjunctiva, sclera clear, no scleral icterus, EOM intact, PERRLA, oral mucosa moist without lesions. Neck: trachea midline, no mass, symmetric, no thyromegaly or nodules, no adenopathy Respiratory: lungs CTA, respirations non labored. Cardiovascular: regular rate and rhythm, no murmur, no pedal edema or varicosities. Gastrointestinal: soft, non distended, mild tenderness, epigastrium and bilateral lower abd, no peritoneal signs no masses, no palpable hernias, diastasis recti no, no hepatosplenomegaly; normal bs Lymphatic: no cervical adenopathy, no supraclavicular adenopathy Musculoskeletal: normal gait, digits and nails without infection, nodes, cyanosis, clubbing. Skin: no rashes, no lesions, no ulcers, no subcutaneous nodules, induration. Psychiatric/Neuro: oriented to time, place, person, judgement normal, affect appropriate for age, insight intact, no focal deficits. Tests: , x-rays reviewed, review of old records completed, Discussed surgical options, risks, and possible complications with patient. Assessment/Plan 1. Personal history of colonic polyps (Z86.010: Personal history of colonic polyps) plan EGD and colonoscopy under anesthesia for further evaluation; informed consent obtained. 2. Change in bowel habits (R19.4: Change in bowel habit) see # 1 3. Rectal bleeding (K62.5: Hemorrhage of anus and rectum) see # 1 4. Epigastric pain (R10.13: Epigastric pain) see # 1 5. 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 Memory loss Migraines Obesity Personal history of colonic polyps Rectal bleeding RUQ pain Tension headache Historical Dog bite of left buttock Procedure/Surgical History Colonoscopy (more content not included)...[facility]:Result Comment: Electronically Signed By: SON VERDIN, Weston Burns\Date and Time Signed: 06/22/22 17:30 [id number] Evaluation note* Encounter Date Diagnosis Assessment Notes Treatment Notes Treatment Clinical Notes Dec, Contact with and (suspected) exposure to other viral communicable diseases (ICD-10 - Z20.828) [facility] Other Chief complaint+Reason for visit Narrative* Chief Complaint Wmn Obesity needlestick Reason for Visit Dietary surveillance and counseling Exercise counseling Overweight (BMI 25.0-29.9) [facility] Work Phone: Evaluation + Plan note No data available for this section [facility] General Surgery [place] Evaluation noteNo assessment information available [facility] Work Phone: Evaluation noteNo InformationNort Picsean Other Evaluation note* Diagnosis Onset Date Resolution Status Dietary surveillance and counseling acute Exercise counseling acute Overweight (BMI 25.0-29.9) cris sherman [facility] Work Phone: History general Narrative - Reported* Type Description Date Medical History HASIMOTO'S Medical History GRAVE'S DISEASE Medical History FIBROMYALGIA Medical History NICHO'S DISEASE Medical History Hypertension Surgical History TOTAL HYSTRECTOMY Surgical History MULTIPLE FEMALE SURGERY Surgical History CANCEROUS POLY COLON Surgical History TUBLIGATION Surgical History ABLATION Surgical History right knee arthroscopy 2011 Hospitalization History [facility] Hospitalization History SEE ABOVE SURGERY [facility] Other Hismujh general Narrative - Reported* Type Description Date Medical History HASIMOTO'S Medical History GRAVE'S DISEASE Medical History FIBROMYALGIA Medical History NICHO'S DISEASE Medical History Hypertension Surgical History TOTAL HYSTRECTOMY Surgical History MULTIPLE FEMALE SURGERY Surgical History CANCEROUS POLPY COLON Surgical History TUBLIGATION Surgical History ABLATION Surgical History right knee arthroscopy 2011 Hospitalization History [facility] Hospitalization History SEE ABOVE SURGERY [facility] Other Hospital Discharge instructions No data available for this section [facility] [place] Progress note No data available for this section [facility] [place] Chief Complaint and Reason for Visit Chief Complaint symptoms Chief Complaint symptoms Pillars Chief Complaint Obesity Pillars Chief Complaint Obesity flu vaccine Pillars Chief Complaint Pillars Obesity needlestick Advance Directives No Advanced Directives Records Found Advance Directive Response Recorded Date/ Time Advance Directives No April 3:26pm Advance Directive Response Recorded Date/ Time Advance Directives No April 2:26pm Summary Purpose Family History No Family History Records Found Relationship Condition Age at Onset Recorded Date/T jumana family member Obesity Unknown Diabetes mellitus Unknown family member Diabetes mellitus Unknown Obesity Unknown father Malignant neoplasm Unknown Unknown Reason for Referral Reason Hypothyroidism, Lenny son disease on treatment for both with chronic elevation of blood pressure Diagnosis 1 Peoria disease (E27 .1) Referral Organization [facility] Referring Provider First Name Nghia Referring Provider Last Name Andres Referred Organization [facility] Referred Address [address] [place], [place],[address] Referred Provider Specialty Endocrinolog y Referral Priority Routine Additional Source Comments REASON FOR VISIT (unrecogniz ed section and content) [facility] ReferralI nitial WMNAMS Victoza questionAS RefillWMNWMNAS [facility] Care Teams (unrecognized sec tion and content) Team Status: Active Member Role Status Kayley Arriola MD Primary Care Provider Active Team Status: Inactive Member Role Status Kayley Arriola MD Primary Care Provider Active Torsten Marcelino DO [facility] Attending Provider Active Team Status: Active Member Role Status Kayley Arriola MD Primary Care Provider Active Nghia Campos DO Attending Provider Active Team Status: Inactive Member Role Status Kayley Arriola MD Primary Care Provider, Attending Pr ovider Active Team Status: Inactive Member Role Status Kayley Campos DO Attending Provider Active St art: May 03, 2023 End: May 03, 2023 Team Status: Active Member Role Status Kayley Arriola MD Primary Care Provider Active Start: May 03, 2023 Nghia Campos DO Attending Provider Active St art: May 03, 2023 Team Status: Inactive Member Role Status Kayley Arriola MD Primary Care Provider Active Start: May 15, 2023 End: May 15, 2023 Torsten MYLES DO [facility] Attending Provider Active Start: May 15, 2023 End: May 15, 2023 Team Status: Inactive Member Role Status Kayley Arriola MD Primary Care Provider Active Start: July 12, 2023 End: July 12, 2023 Nghia Campos DO Attending Provider Active St art: July 12, 2023 End: July 12, 2023 Goals (unrecognized section and content) Goals may be documented in a n alternate section INFORMATION SOURCE (unrecogn ized section and content) DATE CREATED AUTHOR 07/22/2022 [facility] DATE CREATED AUTHOR AUTHOR'S ORGANIZ ATION 07/24/2022 [facility] DATE CREATED AUTHOR AUTHOR'S ORGANIZ ATION 07/13/2023 [facility] FOR RECORDS PERTAINING TO PATIENTS WHO ARE OR HAVE BEEN ENROLLED IN A CHEMICAL DEPENDENCY/SUBSTANCEABUSE PROGRAM, SOME INFORMATION MAY BE OMITTED. This clinical summary was aggregated from multiple sources. Caution should be exercised in using it in the provision of clinical care. This summary normalizes information from multiple sources, and as a consequence, information in this document may materially change the coding, format and clinical context of patient data. In addition, data may be omitted in some cases. CLINICAL DECISIONS SHOULD BE BASED ON THE PRIMARY CLINICAL RECORDS. [employer] [facility]. provides no warranty or guarantee of the accuracy or completeness of information in this document.
--- NOTE | 2023-08-01 08:04 | ECG_ITS ---
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
--- NOTE | 2023-08-01 08:05 | ED.DIZZY1 ---
HPI - Dizziness General Chief Complaint: Dizziness Stated Complaint: SHORTNESS OF BREATH/LIGHT HEADED Time Seen by Provider: 08/01/23 08:01 Source: patient Mode of arrival: Wheelchair Limitations: no limitations History of Present Illness HPI Narrative: 53-year-old female presents for dizziness. She woke up today when her alarm went off at 4 AM to go to work and she went to get out of bed and she felt like the room was spinning and she felt off balance. No headache fever vomiting or diarrhea. There is been no trauma. She does not have any localized weakness. She explains that something similar to this happened when she was in her 20s. It has not happened since. It is much better if she lays still and keeps her eyes closed. Related Data Home Medications Medication Instructions Recorded Confirmed atenolol 100 mg tablet 100 mg PO DAILY 08/01/23 08/01/23 fludrocortisone 0.1 mg tablet 0.1 mg PO BID 08/01/23 08/01/23 levothyroxine 125 mcg tablet 125 mcg PO DAILY 08/01/23 08/01/23 liothyronine 5 mcg tablet 5 mcg PO BID 08/01/23 08/01/23 liraglutide 0.6 mg/0.1 mL (18 mg/3 3 mg subcut Q24H 08/01/23 08/01/23 mL) subcutaneous pen injector (Victoza 2-Pancho) pantoprazole 40 mg tablet,delayed 40 mg PO .QHS 08/01/23 08/01/23 release spironolactone 50 mg tablet 50 mg PO DAILY 08/01/23 08/01/23 topiramate 200 mg tablet 200 mg PO BID 08/01/23 08/01/23 Previous Rx's Medication Instructions Recorded meclizine 25 mg tablet 25 mg PO TID PRN dizziness #20 tabs 08/01/23 Allergies Allergy/AdvReac Type Severity Reaction Status Date / Time cephalexin [From Keflex] Allergy Severe Anaphylaxis Verified 08/01/23 07:49 Penicillins Allergy Severe Anaphylaxis Verified 08/01/23 07:49 sulfamethoxazole Allergy Severe Anaphylaxis Verified 08/01/23 07:49 [From Bactrim] trimethoprim [From Bactrim] Allergy Severe Anaphylaxis Verified 08/01/23 07:49 Review of Systems ROS Narrative A ten point review of systems is negative except as noted above. PFSH PFSH Social History Smoking status: Former smoker Exam Narrative Exam Narrative: Nurses note and vital signs reviewed and patient is not hypoxic. General: The patient appears well and in no apparent distress. Patient is resting comfortably on cart. Skin: Warm, dry, no pallor noted. There is no rash noted. Head: Normocephalic, atraumatic Eye: Normal conjunctiva, no drainage Ears, Nose, Mouth, and Throat: oral mucosa is moist. Nares patent. Cardiovascular: Regular Rate and Rhythm Respiratory: Patient is in no distress, no accessory muscle use, lungs are clear to auscultation, no wheezing, rales or rhonchi Back: non-tender GI: no tenderness to palpation, no masses appreciated. No rebound, guarding, or rigidity noted. Musculoskeletal: The patient has no evidence of calf tenderness, no pitting edema, symmetrical pulses noted bilaterally Neurological: A&O, normal speech; upper and lower extremity strength symmetric and intact Psychiatric: Cooperative Constitutional Vital Signs, click to edit/add: Last Vital Signs Temp 98.4 F 08/01/23 07:45 Pulse 72 08/01/23 08:40 Resp 26 H 08/01/23 08:40 BP 162/103 H 08/01/23 08:00 Pulse Ox 99 08/01/23 08:40 O2 Del Method Room Air 08/01/23 07:45 Course Vital Signs Vital signs: Vital Signs Temperature 98.4 F 08/01/23 07:45 Pulse Rate 89 08/01/23 07:45 Respiratory Rate 18 08/01/23 07:45 Blood Pressure 176/107 H 08/01/23 07:45 Pulse Oximetry 97 08/01/23 07:45 Oxygen Delivery Method Room Air 08/01/23 07:45 Temperature 98.4 F 08/01/23 07:45 Pulse Rate 72 08/01/23 08:40 Respiratory Rate 26 H 08/01/23 08:40 Blood Pressure 162/103 H 08/01/23 08:00 Pulse Oximetry 99 08/01/23 08:40 Oxygen Delivery Method Room Air 08/01/23 07:45 MDM - Dizziness MDM Narrative Medical decision making narrative: Her workup including CAT scan is negative. She was given oral Antivert and feels somewhat improved and is discharged home with a prescription for Antivert. Follow-up with PCP if no improvement in a few days. Treatment diagnosis and follow-up were discussed with the patient. Differential Diagnosis Differential diagnosis: Likely benign paroxysmal positional vertigo, orthostatic hypotension and other (Dehydration) Lab Data Attestation: I reviewed the patient's lab results. Labs: Lab Results 08/01/23 08/01/23 Range/Units 08:00 08:07 WBC 5.3 (4.0-11.0) 10^3/uL RBC 4.38 (4.20-5.40) 10^6/uL Hgb 13.5 (12.0-16.0) g/dL Hct 40.7 (36.0-48.0) % MCV 92.9 (81.0-99.0) fL MCH 30.8 (26.7-34.0) pg MCHC 33.2 (29.9-35.2) g/dL RDW 12.5 (11.0-15.0) % Plt Count 242 (150-450) 10^3/uL MPV 10.1 (9.5-13.5) fL Neut % (Auto) 48.1 (43.0-75.0) % Lymph % (Auto) 38.4 (20.5-60.0) % Haines % (Auto) 11.6 (1.7-12.0) % Eos % (Auto) 1.1 (0.9-7.0) % Baso % (Auto) 0.4 (0.2-2.0) % Neut # (Auto) 2.5 (1.4-6.5) 10^3/uL Lymph # (Auto) 2.0 (1.2-3.8) 10^3/uL Haines # (Auto) 0.6 (0.3-0.8) 10^3/uL Eos # (Auto) 0.1 (0.0-0.7) 10^3/uL Baso # (Auto) 0.0 (0.0-0.1) 10^3/uL Abs Immat Gran (auto) 0.02 (0.00-0.03) 10^3/uL Imm/Tot Granulo (auto) 0.4 (0.0-0.5) % Sodium 143 (136-145) mmol/L Potassium 3.5 (3.5-5.1) mmol/L Chloride 106 (98-107) mmol/L Carbon Dioxide 24.8 (21.0-32.0) mmol/L Anion Gap 15.7 BUN 14.0 (7.0-18.0) mg/dL Creatinine 0.81 (0.55-1.02) mg/dL Est GFR ( Amer) >60 (>=60) Est GFR (Non-Af Amer) >60 (>=60) BUN/Creatinine Ratio 17.3 Glucose 92 (74-106) mg/dL Calcium 8.3 L (8.5-10.1) mg/dL POC Glucose 102 (74-106) mg/dL Imaging Data CT scan - head: Radiologist's impression: ITS Impressions Head CT 08/01/23 08:33 IMPRESSION: 1. No abnormal or suspicious findings to account for patient's symptoms. Electronically authenticated by: WYATT PAREDES Date: 08/01/2023 08:53 ECG Data Attestation: I personally reviewed and interpreted this ECG as follows: (EKG on my interpretation shows normal sinus rhythm with a rate of 81.) Discharge Plan Discharge Stand Alone Forms: Portal Instructions Chief Complaint: Dizziness Clinical Impression: Vertigo Patient Disposition: Home, Self-Care Time of Disposition Decision: 09:00 Condition: Good Mode of Transportation: Private Vehicle Prescriptions / Home Meds: New meclizine 25 mg tablet 25 mg PO TID PRN (Reason: dizziness) Qty: 20 0RF No Action atenolol 100 mg tablet 100 mg PO DAILY levothyroxine 125 mcg tablet 125 mcg PO DAILY liothyronine 5 mcg tablet 5 mcg PO BID topiramate 200 mg tablet 200 mg PO BID spironolactone 50 mg tablet 50 mg PO DAILY pantoprazole 40 mg tablet,delayed release (DR/EC) 40 mg PO .QHS Victoza 2-Pancho 0.6 mg/0.1 mL (18 mg/3 mL) pen injector 3 mg SUBCUT Q24H fludrocortisone 0.1 mg tablet 0.1 mg PO BID Instructions: Vertigo (ED) Referrals: Jordan Arriola MD [Primary Care Provider] - 1 week
[2023-08-01 08:08] LABS: Glucometer 102 mg/dL (74-106)
[2023-08-01 08:19] LABS: Basophils Percent Auto 0.4 % (0.2-2.0); Eosinophils Absolute Auto 0.1 10^3/uL (0.0-0.7); Eosinophils Percent Auto 1.1 % (0.9-7.0); Hematocrit 40.7 % (36.0-48.0); Hemoglobin 13.5 g/dL (12.0-16.0); Immature Granulocytes Abs Auto 0.02 10^3/uL (0.00-0.03); Immature Granulocytes Pct Auto 0.4 % (0.0-0.5); Lymphocytes Percent Auto 38.4 % (20.5-60.0); Mean Corpuscular HGB Conc 33.2 g/dL (29.9-35.2); Mean Corpuscular Hemoglobin 30.8 pg (26.7-34.0); Mean Corpuscular Volume 92.9 fL (81.0-99.0); Mean Platelet Volume 10.1 fL (9.5-13.5); Monocytes Absolute Auto 0.6 10^3/uL (0.3-0.8); Monocytes Percent Auto 11.6 % (1.7-12.0); Neutrophils Absolute Auto 2.5 10^3/uL (1.4-6.5); Neutrophils Percent Auto 48.1 % (43.0-75.0); Platelet Count 242 10^3/uL (150-450); Red Blood Count 4.38 10^6/uL (4.20-5.40); Red Cell Distribution Width 12.5 % (11.0-15.0); White Blood Count 5.3 10^3/uL (4.0-11.0)
[2023-08-01] MEDS: MECLIZINE HCL 12.5 MG TABLET 25 MG PO (08:21)
[2023-08-01] MEDS: ONDANSETRON PF 4 MG/2 ML VIAL IV (08:21)
--- NOTE | 2023-08-01 08:33 | CT_ITS ---
The [address] [address] Patient Name: SINDY MILLER MRN: [id number] date: 1970 Sex: F Assigned Patient Location: ER Current Patient Location: ER Accession/Order Number: [id number] Exam Date: 08/01/2023 08:30 Report Date: 08/01/2023 08:53 At the request of: BRANDY DAVIS Procedure: CT head/brain wo con EXAMINATION: CT head/brain wo con HISTORY: Dizziness, vertigo , nausea COMPARISON: CT head 10/14/2022 TECHNIQUE: Axial CT images were obtained without IV contrast. Dose reduction techniques were achieved by using automated exposure control and/or adjustment of mA and/or kV according to patient size and/or use of iterative reconstruction technique. FINDINGS: BRAIN: No edema, hemorrhage, mass, acute infarction, or inappropriate atrophy. CSF SPACES: No hydrocephalus, subarachnoid hemorrhage, or mass. Appropriate for age. SKULL: No fracture, mass, or other significant visible lesion. SINUSES: No significant mucosal thickening or fluid on the limited views. ORBITS: No appreciable abnormality on the limited views. OTHER: Negative CT/CT head/brain wo con IMPRESSION: 1. No abnormal or suspicious findings to account for patient's symptoms. Electronically authenticated by: WYATT PAREDES Date: 08/01/2023 08:53
[2023-08-01 08:51] LABS: Anion Gap 15.7; BUN Creatinine Ratio 17.3; Calcium 8.3 mg/dL (8.5-10.1); Carbon Dioxide 24.8 mmol/L (21.0-32.0); Chloride 106 mmol/L (98-107); Estimated GFR (African America >60 (>=60); Estimated GFR (Non-African Ame >60 (>=60); Glucose 92 mg/dL (74-106); Potassium 3.5 mmol/L (3.5-5.1); Sodium 143 mmol/L (136-145)
== END 2023-08-01 09:15 | disposition home or self-care (01) ==
PROVIDERS: Emergency Provider Emergency Medicine; PCP Family Medicine
DX: R42 Dizziness and giddiness (principal); Z79.899 Other long term (current) drug therapy; Z79.890 Hormone replacement therapy; Z87.891 Personal history of nicotine dependence
CPT/HCPCS: 36415; 70450; 80048; 85025; 93005; 96374; 99285

== ENCOUNTER 2023-08-11 09:31 | Outpatient (OUT) | payer OTHER, SELFPAY ==
--- NOTE | 2023-08-11 09:30 | NM_ITS ---
The [address] [address] Patient Name: SINDY MILLER MRN: [id number] date: 1970 Sex: F Assigned Patient Location: DC Current Patient Location: DC Accession/Order Number: [id number] Exam Date: 08/11/2023 09:35 Report Date: 08/11/2023 13:55 At the request of: EDUARDO LEÓN Procedure: DC hepatobiliary w pharm HIDA SCAN WITH GALLBLADDER EJECTION FRACTION HISTORY: Abdominal Pain. COMPARISON: Ultrasound 07/11/2023. METHOD: Following IV injection of 5.2 mCi of [id number], anterior imaging of the abdomen was acquired for 60 minutes. After the gallbladder was visualized the patient was given Ensure and the gallbladder ejection fraction was calculated. FINDINGS: There is satisfactory uptake of radiopharmaceutical by the liver. The gallbladder, bile duct, and bowel are seen in the expected period of time and sequence. The gallbladder ejection fraction is normal at 78%. DC/DC hepatobiliary w pharm IMPRESSION: Normal hepatic biliary scintigraphy and gallbladder ejection fraction. Electronically authenticated by: ISRAEL SINGH Date: 08/11/2023 13:55
--- OUTSIDE RECORDS SUMMARY | 2023-08-11 09:36 | XMS_ITS | CCD ---
Author Organization [facility] Care Team Providers Care Welding Process Specialist Name Role Phone [place] Unavailable MD Eduardo Arriola Primary Care Provider [phone] DO Torsten Marcelino Attending Provider MD Eduardo Arriola Attending Provider [phone] MAU .DR CLARK Attending Unavailable HOY ., DR CLARK Primary Care Unavailable HOY ., DR CLARK Admitting Unavailable HOY ., DR CLARK Consulting Unavailable HARDIN, DR BERNA Cuevas Consulting Unavailable NILL ., DR ONTIVEROS Attending Unavailable NILL ., DR ONTIVEROS Admitting Unavailable HOY ., DR CLARK Primary Care Unavailable NILL ., DR ONTIVEROS Consulting Unavailable VIKTORIYA ESTEVES Consulting Unavailable MADAI II, CORTEZ Consulting Unavailable [...] Consulting Unavailable Eduardo Arriola Primary Care Physician [phone] Weston DEXTER Attending Unavailable SON, Weston Ma Attending Unavailable Weston DEXTER Attending Unavailable Aura Olson Unavailable Nghia Campos Unavailable MD Eduardo Arriola Primary Care Provider [phone] DO Nghia Campos Attending Provider DO Torsten Marcelino Attending Provider [phone] DO Torsten Marcelino Attending Provider MD Eduardo Arriola Primary Care Provider [phone] DO Torsten Marcelino Attending Provider DO Nghia Campos Attending Provider MD Eduardo Arriola Primary Care Provider [phone] DO Nghia Campos Attending Provider [phone] [facility], DO Torsten Sierra Attending Provider Eduardo Arriola Primary Care Unavailable [facility], Torsten P Admitting [facility] Un[facility] Eduardo [facility]ola Primary Care [facility] Admitting Unavailable [facility], Torsten P Attending Unavailable Eduardo Arriola Primary Care Unavailable Nghia Campos Admitting Unavailable Nghia Campos Attending Unavailable Eduardo Arriola Primary Care Unavailable Nghia Campos Admitting Unavailable Nghia Campos Attending Unavailable Allergies Allergy Classification Reported Allergen(s) Allergy Type Date of Onset Reaction(s) Facility (9 sources) penicillAMINE Drug Allergy 02-20-20 24 anaphylaxis [facility] (9 sources) Sulfamethoxazole / Trimethoprim; Translations: [sulfamethoxazole-t rimethoprim] Drug Allergy anaphylaxis, Eruption of skin (disorder) [facility] (1 source) sulfaSALAzine Drug Allergy Unknown [facility] [employer] Other (8 sources) Cephalexin; Translations: [Cephalexin] Drug Allergy 04-16-20 Eruption of skin (disorder) [facility] (8 sources) Penicillins; Translations: [Penicillins] Allergy to substance 09-01-19 14 Anaphylaxis [facility] (7 sources) Sulfamethoxazole; Translations: [sulfamethoxazole] Drug Allergy 04-16-20 21 Anaphylaxis [facility] (7 sources) Trimethoprim; Translations: [trimethoprim] Drug Allergy 04-16-20 Anaphylaxis [facility] (2 sources) Cephalexin; Translations: [Keflex] Drug Allergy 09-01-19 14 [facility] Repository (1 source) Sulfamethoxazole / Trimethoprim Drug Allergy 09-01-19 14 [facility] (2 sources) Penicillin; Translations: [penicillin] Drug Allergy Eruption of skin (disorder) [facility] (1 source) Sulfamethoxazole / Trimethoprim; Translations: [Bactrim] Drug Allergy [facility] Repository (7 sources) Substance with sulfonamide structure and antibacterial mechanism of action (substance) Drug allergy Unknown [employer] Other (2 sources) Sulfonamides (Antibiotic); Translations: [Sulfa (Sulfonamide Antibiotics)] Allergy to substance 07-12-19 [facility] (1 source) penicillAMINE Drug Allergy 07-12-19 [facility] Repository Medications Current Medications Medication Drug Class(es) Dates Sig (Normalized) Sig (Original) [id number] 200 actuat albuterol 0.09 mg/actuat metered dose [...] 11:31am Start: 07-17-2014 [facility]four [facility] Atenolol 100 MG 1 [...] 2023 11:34am take 1 capsule by mo [facility] every twelve hours Cymbalta 60 MG 1 [...] Start: 02-13-2019 take 2 tablets by mo [facility] twice daily Cortef 10 mg Tab 20 [...] Start: 02-13-2019 take 2 tablets by mo [facility] once daily lisinopril 10 mg Tab 20 [...] 09, 2020 11:00pm April 16, 2021 2:56am Zofran ODT Activ e Problems Active Problems Problem [...] 07-16-2022 ALT [Catalytic activity/Vol] 14 U/L Normal [facility] Comment on above: Order Comment: Which is this, the Source or the Person with the Exposure?: EXPOSURE Source Medical Record: [id number] Exposed Result Comment: PERF ORMED BY: [place] [address] PATHOLOGIST END LATHE OPERATOR NIKKI DELA CRUZ M.D. Performed By: #### H BSAG, HCV RX PCR, HIV SCREEN, HBSAB #### [facility] , #### ALT #### [address] Alanine aminotransferase [En zymatic activity/volume] in Serum or PlasmaOrdered By: Torsten Marcelino on 05-15-2023 ALT [Catalytic activity/Vol] 14 U/L [facility] HIV 1/O/2 Antigen/Antibodyon 05-15-2023 HIV Screen 4th Generation Non-Reactive Normal Non Reactive [facility] Comment on above: Order Comment: Which is this, the Source or the Person with the Exposure?: EXPOSURE Source Medical Record: [id number] Exposed Result Comment: HIV Negative HIV-1/HIV-2 antibodies and HIV-1 p24 antigen were NOT detected. There is no laboratory evidence of HIV infection. PERFORMED BY: [place] [address] PATHOLOGIST END LATHE OPERATOR NIKKI DELA CRUZ M.D. Performed By: #### H BSAG, HCV RX PCR, HIV SCREEN, HBSAB #### [facility] , #### ALT #### [facility] [address] [place] [address] HIV 1 and HIV-2 antibody ass ay with HIV-1 p24 antigen detectionOrdered By: Torsten Marcelino on 05-15-2023 HIV 1+2 Ab+HIV1 p24 Ag IA Ql Non-Reactive Non Reactive [facility] Comment on above: HIV NegativeHIV-1/HI V-2 antibodies and HIV-1 p24 antigen were NOTdetected. There is no laboratory evidence of HIV infection. Hep C Ab wRfx to Qnt PCRon 1 07-16-2022 Hepatitis C Virus Antibody Non-Reactive Normal Non Reactive [facility] Comment on above: Order Comment: Which is this, the Source or the Person with the Exposure?: EXPOSURE Source Medical Record: [id number] Exposed Performed By: #### H BSAG, HCV RX PCR, HIV SCREEN, HBSAB #### [facility] , #### ALT #### [facility] [address] [place] [address] Interpretation Hepatitis C Normal . [facility] Comment on above: Order Comment: Which is this, the Source or the Person with the Exposure?: EXPOSURE Source Medical Record: [id number] Exposed Result Comment: Not infected with HCV unless early or acute infection is suspected (which may be delayed in an immunocompromised individual), or other evidence exists to indicate HCV infection. Performed By: #### H BSAG, HCV RX PCR, HIV SCREEN, HBSAB #### [facility] , #### ALT #### [facility] [address] [place] [address] [place] Hepatitis B Surface Antibody on 05-15-2023 Hepatitis B Surface Antibody Reactive Normal . [facility] Comment on above: Order Comment: Which is this, the Source or the Person with the Exposure?: EXPOSURE Source Medical Record: [id number] Exposed Result Comment: Non Reactive: Inconsistent with immunity, less than 10 mIU/mL Reactive: Consistent with immunity, greater than 9.9 mIU/mL Performed By: #### H BSAG, HCV RX PCR, HIV SCREEN, HBSAB #### [facility] , #### ALT #### [facility] [address] [place] [address] Hepatitis B Surface Antigeno n 05-15-2023 HBsAg Screen Negative Normal Negative [facility] Comment on above: Order Comment: Which is this, the Source or the Person with the Exposure?: EXPOSURE Source Medical Record: [id number] Exposed Result Comment: Perf ormed at: CB - [facility] [place] [id number] Mineral Mixer: Bennie Penaloza PhD, Phone: [phone] Performed By: #### H BSAG, HCV RX PCR, HIV SCREEN, HBSAB #### [facility] , #### ALT #### [address] Hepatitis B virus surface Ab [Presence] in SerumOrdered By: Torsten Marcelino on 05-15-2023 HBV surface Ab Ql (S) Reactive . [facility] Comment on above: Non Reactive: Incons istent with immunity, less than 10 mIU/mL Reactive: Consistent with immunity, greater than 9.9 mIU/mL Hepatitis B virus surface Ag [Presence] in Serum or Plasma by ImmunoassayOrdered By: Torsten Marcelino on 05-15-2023 HBV surface Ag IA Ql Negative Negative [facility] Comment on above: Performed at: [facility] - [facility] [address] [id number] Director: Bennie Penaloza PhD, Phone: [phone] Hepatitis C virus IgG Ab [Pr esence] in Serum or Plasma by ImmunoassayOrdered By: Torsten Marcelino on 05-15-2023 HCV IgG IA Ql Non-Reactive Non Reactive [facility] No Panel InformationOrdered By: Torsten Marcelino on 05-15-2023 Hepatitis C Interpretation See comment . [facility] Comment on above: Not infected with HC V unless early or acute infection issuspected (which may be delayed in an immunocompromisedindividual), or other evidence exists to indicate HCVinfection. Alanine aminotransferase [En zymatic activity/volume] in Serum or PlasmaOrdered By: Torsten Marcelino on 02-17-2023 ALT [Catalytic activity/Vol] 17 U/L 7-52 [facility] Albumin [Mass/volume] in Ser um or Plasma by Bromocresol green (BCG) dye binding methoOrdered By: Torsten Marcelino on 02-17-2023 Albumin BCG dye [Mass/Vol] 4.4 g/dL 3.5-5.7 [facility] Alkaline phosphatase [Enzyma tic activity/volume] in Serum or PlasmaOrdered By: Torsten Marcelino on 02-17-2023 ALP [Catalytic activity/Vol] 54 U/L 34-104 [facility] Aspartate aminotransferase [ Enzymatic activity/volume] in Serum or PlasmaOrdered By: Torsten Marcelino on 02-17-2023 AST [Catalytic activity/Vol] 16 U/L 13-39 [facility] Basophils Auto (Bld) [#/Vol] Ordered By: Torsten Marcelino on 02-17-2023 Basophils (Bld) [#/Vol] 0.0 10*3/uL 0.0-0.2 [facility] Basophils/100 WBC Auto (Bld) Ordered By: Torsten Marcelino on 02-17-2023 Basophils/100 WBC (Bld) 0.5 % . [facility] Bilirubin.total [Mass/volume ] in Serum or PlasmaOrdered By: Torsten Marcelino on 02-17-2023 Bilirubin [Mass/Vol] 0.4 mg/dL 0.3-1.0 [facility] Calcium [Mass/volume] in Ser um or PlasmaOrdered By: Torsten Marcelino on 02-17-2023 Calcium [Mass/Vol] 9.5 mg/dL 8.6-10.3 [facility] Carbon dioxide, total [Moles /volume] in Serum or PlasmaOrdered By: Torsten Marcelino on 02-17-2023 CO2 [Moles/Vol] 25.5 mmol/L 21.0-31.0 [facility] Chloride [Moles/volume] in S blanquita or PlasmaOrdered By: Torsten Marcelino on 02-17-2023 Chloride [Moles/Vol] 106 mmol/L 98-107 [facility] Cholesterol [Mass/volume] in Serum or PlasmaOrdered By: Torsten Marcelino on 02-17-2023 Cholesterol [Mass/Vol] 176 mg/dL 140-200 [facility] Comment on above: Chol less than 200 m g/dl low riskChol 201-239 mg/dl borderline riskChol 240 mg/dl and greater high risk Cholesterol in LDL Calc [Mas s/Vol]Ordered By: Torsten Marcelino on 02-17-2023 Cholesterol in LDL [Mass/Vol] 99 mg/dL 0-100 [facility] Comment on above: LDL ATP III CLASSIFI CATIONLDL less than 100 mg/dL OptimalLDL 100-129 mg/dL Near or above optimalLDL 130-159 mg/dL Borderline highLDL 160-189 mg/dL HighLDL greater than 189 mg/dL Very high Cholesterol in VLDL Calc [Ma ss/Vol]Ordered By: Torsten Marcelino on 02-17-2023 Cholesterol in VLDL [Mass/Vol] 12 mg/dL [facility] Creatinine [Mass/volume] in Serum or PlasmaOrdered By: Torsten Marcelino on 02-17-2023 Creatinine [Mass/Vol] 1.04 mg/dL 0.60-1.20 [facility] Employee Comp Metabolic Pane jack 02-17-2023 Albumin [Mass/Vol] 4.4 g/dL Normal 3.5-5.7 [facility] Comment on above: Performed By: #### P ILLAR CMP, PILLAR CBC, PILLAR LIPID, PILLAR TSH #### [facility] [address] [place] [address] [place] #### NICOTINE QUAL #### [facility] , Albumin/Globulin [Mass ratio] 2.0 {ratio} Normal [facility] Comment on above: Performed By: #### P ILLAR CMP, PILLAR CBC, PILLAR LIPID, PILLAR TSH #### [facility] [address] [place] [address] #### NICOTINE QUAL #### [facility] , ALP [Catalytic activity/Vol] 54 U/L Normal 34-104 [facility] Comment on above: Performed By: #### P ILLAR CMP, PILLAR CBC, PILLAR LIPID, PILLAR TSH #### [facility] [address] [place] [address] #### NICOTINE QUAL #### [facility] , ALT [Catalytic activity/Vol] 17 U/L Normal 7-52 [facility] Comment on above: Performed By: #### P ILLAR CMP, PILLAR CBC, PILLAR LIPID, PILLAR TSH #### [facility] [address] [place] [address] #### NICOTINE QUAL #### [facility] , Anion gap [Moles/Vol] 10.7 mmol/L Normal 6.0-15.0 [facility] Comment on above: Performed By: #### P ILLAR CMP, PILLAR CBC, PILLAR LIPID, PILLAR TSH #### [facility] [address] [place] [address] #### NICOTINE QUAL #### [facility] , AST [Catalytic activity/Vol] 16 U/L Normal 13-39 [facility] Comment on above: Performed By: #### P ILLAR CMP, PILLAR CBC, PILLAR LIPID, PILLAR TSH #### [facility] [address] [place] [address] [place] #### NICOTINE QUAL #### [facility] , Bilirubin [Mass/Vol] 0.4 mg/dL Normal 0.3-1.0 [facility] Comment on above: Performed By: #### P ILLAR CMP, PILLAR CBC, PILLAR LIPID, PILLAR TSH #### [facility] [address] [place] [address] [place] #### NICOTINE QUAL #### [facility] , Calcium [Mass/Vol] 9.5 mg/dL Normal 8.6-10.3 [facility] Comment on above: Performed By: #### P ILLAR CMP, PILLAR CBC, PILLAR LIPID, PILLAR TSH #### [facility] [address] [place] [address] [place] #### NICOTINE QUAL #### [facility] , Chloride [Moles/Vol] 106 mmol/L Normal 98-107 [facility] Comment on above: Performed By: #### P ILLAR CMP, PILLAR CBC, PILLAR LIPID, PILLAR TSH #### [facility] [address] [place] [address] [place] #### NICOTINE QUAL #### [facility] , CO2 [Moles/Vol] 25.5 mmol/L Normal 21.0-31.0 [facility] Comment on above: Performed By: #### P ILLAR CMP, PILLAR CBC, PILLAR LIPID, PILLAR TSH #### [facility] [address] [place] [address] [place] #### NICOTINE QUAL #### [facility] , Creatinine [Mass/Vol] 1.04 mg/dL Normal 0.60-1.20 [facility] Comment on above: Performed By: #### P ILLAR CMP, PILLAR CBC, PILLAR LIPID, PILLAR TSH #### [facility] [address] [place] [address] [place] #### NICOTINE QUAL #### [facility] , GFR/1.73 sq M.predicted MDRD (S/P/Bld) [Vol rate/Area] mL/min/{1.73_m2} Normal [facility] Comment on above: Performed By: #### P ILLAR CMP, PILLAR CBC, PILLAR LIPID, PILLAR TSH #### [facility] [address] [place] [address] [place] #### NICOTINE QUAL #### [facility] , Globulin (S) [Mass/Vol] 2.2 g/dL Normal [facility] Comment on above: Performed By: #### P ILLAR CMP, PILLAR CBC, PILLAR LIPID, PILLAR TSH #### [facility] [address] [place] [address] #### NICOTINE QUAL #### [facility] , Glucose [Mass/Vol] 92 mg/dL Normal 70-100 [facility] Comment on above: Performed By: #### P ILLAR CMP, PILLAR CBC, PILLAR LIPID, PILLAR TSH #### [facility] [address] [place] [address] #### NICOTINE QUAL #### [facility] , Potassium [Moles/Vol] 4.2 mmol/L Normal 3.5-5.1 [facility] Comment on above: Performed By: #### P ILLAR CMP, PILLAR CBC, PILLAR LIPID, PILLAR TSH #### [facility] [address] [place] [address] #### NICOTINE QUAL #### [facility] , Protein [Mass/Vol] 6.6 g/dL Normal 6.4-8.9 [facility] Comment on above: Performed By: #### P ILLAR CMP, PILLAR CBC, PILLAR LIPID, PILLAR TSH #### [facility] [address] [place] [address] [place] #### NICOTINE QUAL #### [facility] , Sodium [Moles/Vol] 138 mmol/L Normal 136-145 [facility] Comment on above: Performed By: #### P ILLAR CMP, PILLAR CBC, PILLAR LIPID, PILLAR TSH #### [facility] [address] [place] [address] [place] #### NICOTINE QUAL #### [facility] , Urea nitrogen [Mass/Vol] 21 mg/dL Normal 7-25 [facility] Comment on above: Performed By: #### P ILLAR CMP, PILLAR CBC, PILLAR LIPID, PILLAR TSH #### [facility] [address] [place] [address] [place] #### NICOTINE QUAL #### [facility] , Employee Complete Blood Coun ton 02-17-2023 Basophils (Bld) [#/Vol] 0.0 10*3/uL Normal 0.0-0.2 [facility] Comment on above: Result Comment: PERF ORMED BY: [place] [address] PATHOLOGIST END LATHE OPERATOR NIKKI DELA CRZU M.D. Performed By: #### P ILLAR CMP, PILLAR CBC, PILLAR LIPID, PILLAR TSH #### [address] #### NICOTINE QUAL #### [facility] , Basophils/100 WBC (Bld) 0.5 % Normal . [facility] Comment on above: Performed By: #### P ILLAR CMP, PILLAR CBC, PILLAR LIPID, PILLAR TSH #### [facility] [address] [place] [address] [place] #### NICOTINE QUAL #### [facility] , Eosinophils (Bld) [#/Vol] 0.0 10*3/uL Normal 0.0-0.45 [facility] Comment on above: Performed By: #### P ILLAR CMP, PILLAR CBC, PILLAR LIPID, PILLAR TSH #### [facility] [address] [place] [address] [place] #### NICOTINE QUAL #### [facility] , Eosinophils/100 WBC (Bld) 0.6 % Normal . [facility] Comment on above: Performed By: #### P ILLAR CMP, PILLAR CBC, PILLAR LIPID, PILLAR TSH #### [facility] [address] [place] [address] [place] #### NICOTINE QUAL #### [facility] , Erythrocyte distribution width (RBC) [Ratio] 13.8 % Normal 11.9-15.3 [facility] Comment on above: Performed By: #### P ILLAR CMP, PILLAR CBC, PILLAR LIPID, PILLAR TSH #### [facility] [address] [place] [address] #### NICOTINE QUAL #### [facility] , Hematocrit (Bld) [Volume fraction] 40.4 % Normal 34.0-46.4 [facility] Comment on above: Performed By: #### P ILLAR CMP, PILLAR CBC, PILLAR LIPID, PILLAR TSH #### [place] [address] [place] #### NICOTINE QUAL #### [facility] , Hemoglobin (Bld) [Mass/Vol] 13.7 g/dL Normal 11.8-15.4 [facility] Comment on above: Performed By: #### P ILLAR CMP, PILLAR CBC, PILLAR LIPID, PILLAR TSH #### [address] #### NICOTINE QUAL #### [facility] , Lymphocytes (Bld) [#/Vol] 1.0 10*3/uL Normal 1.00-4.8 [facility] Comment on above: Performed By: #### P ILLAR CMP, PILLAR CBC, PILLAR LIPID, PILLAR TSH #### [place] [address] [place] #### NICOTINE QUAL #### [facility] , Lymphocytes/100 WBC (Bld) 18.1 % Normal . [facility] Comment on above: Performed By: #### P ILLAR CMP, PILLAR CBC, PILLAR LIPID, PILLAR TSH #### [place] [address] [place] #### NICOTINE QUAL #### [facility] , MCH (RBC) [Entitic mass] 32.2 pg Normal 24.7-34.3 [facility] Comment on above: Performed By: #### P ILLAR CMP, PILLAR CBC, PILLAR LIPID, PILLAR TSH #### [facility] [address] [place] [address] [place] #### NICOTINE QUAL #### [facility] , MCV (RBC) [Entitic vol] 95.3 fL Normal 80-100 [facility] Comment on above: Performed By: #### P ILLAR CMP, PILLAR CBC, PILLAR LIPID, PILLAR TSH #### [facility] [address] [place] [address] #### NICOTINE QUAL #### [facility] , Mean Corpuscular HGB Conc 33.8 g/dL Normal 32.0-35.0 [facility] Comment on above: Performed By: #### P ILLAR CMP, PILLAR CBC, PILLAR LIPID, PILLAR TSH #### [facility] [address] [place] [address] [place] #### NICOTINE QUAL #### [facility] , Monocytes (Bld) [#/Vol] 0.5 10*3/uL Normal 0.0-0.8 [facility] Comment on above: Performed By: #### P ILLAR CMP, PILLAR CBC, PILLAR LIPID, PILLAR TSH #### [facility] [address] [place] [address] #### NICOTINE QUAL #### [facility] , Monocytes/100 WBC (Bld) 9.6 % Normal . [facility] Comment on above: Performed By: #### P ILLAR CMP, PILLAR CBC, PILLAR LIPID, PILLAR TSH #### [facility] [address] [place] [address] [place] #### NICOTINE QUAL #### [facility] , Neutrophils (Bld) [#/Vol] 4.1 10*3/uL Normal 1.8-7.7 [facility] Comment on above: Performed By: #### P ILLAR CMP, PILLAR CBC, PILLAR LIPID, PILLAR TSH #### [facility] [address] [place] [address] [place] #### NICOTINE QUAL #### [facility] , Neutrophils/100 WBC (Bld) 71.2 % Normal . [facility] Comment on above: Performed By: #### P ILLAR CMP, PILLAR CBC, PILLAR LIPID, PILLAR TSH #### [facility] [address] [place] [address] [place] #### NICOTINE QUAL #### [facility] , NRBC% 0.1 /100{WBC} Normal 0-0.5 [facility] Comment on above: Performed By: #### P ILLAR CMP, PILLAR CBC, PILLAR LIPID, PILLAR TSH #### [address] #### NICOTINE QUAL #### [facility] , Platelet mean volume (Bld) [Entitic vol] 9.5 fL Normal 6.3-10.7 [facility] Comment on above: Performed By: #### P ILLAR CMP, PILLAR CBC, PILLAR LIPID, PILLAR TSH #### [place] [address] [place] #### NICOTINE QUAL #### [facility] , Platelets (Bld) [#/Vol] 208 10*3/uL Normal 150-450 [facility] Comment on above: Performed By: #### P ILLAR CMP, PILLAR CBC, PILLAR LIPID, PILLAR TSH #### [place] [address] [place] #### NICOTINE QUAL #### [facility] , RBC (Bld) [#/Vol] 4.24 10*6/uL Normal 3.60-5.00 [facility] Comment on above: Performed By: #### P ILLAR CMP, PILLAR CBC, PILLAR LIPID, PILLAR TSH #### [place] [address] [place] #### NICOTINE QUAL #### [facility] , WBC (Bld) [#/Vol] 5.7 10*3/uL Normal 3.8-11.6 [facility] Comment on above: Performed By: #### P ILLAR CMP, PILLAR CBC, PILLAR LIPID, PILLAR TSH #### [address] #### NICOTINE QUAL #### [facility] , Employee Lipid Profileon Cholesterol [Mass/Vol] 176 mg/dL Normal 140-200 [facility] Comment on above: Result Comment: Chol less than 200 mg/dl low risk Chol 201-239 mg/dl borderline risk Chol 240 mg/dl and greater high risk Performed By: #### P ILLAR CMP, PILLAR CBC, PILLAR LIPID, PILLAR TSH #### [address] #### NICOTINE QUAL #### [facility] , Cholesterol in HDL [Mass/Vol] 64 mg/dL Normal 23-92 [facility] Comment on above: Result Comment: HDL CHOL ATP-III CLASSIFICATION Cardiovascular Risk HDL > or equal to 60 mg/dL LOW HDL < 40 mg/dL HIGH Performed By: #### P ILLAR CMP, PILLAR CBC, PILLAR LIPID, PILLAR TSH #### [address] #### NICOTINE QUAL #### [facility] , Cholesterol.total/Chol esterol in HDL [Mass ratio] 2.8 {ratio} Normal <5.0 [facility] Comment on above: Performed By: #### P ILLAR CMP, PILLAR CBC, PILLAR LIPID, PILLAR TSH #### [place] [address] [place] #### NICOTINE QUAL #### [facility] , LDL Cholesterol,Calculated 99 mg/dL Normal 0-100 [facility] Comment on above: Result Comment: LDL ATP III CLASSIFICATION LDL less than 100 mg/dL Optimal LDL 100-129 mg/dL Near or above optimal LDL 130-159 mg/dL Borderline high LDL 160-189 mg/dL High LDL greater than 189 mg/dL Very high Performed By: #### P ILLAR CMP, PILLAR CBC, PILLAR LIPID, PILLAR TSH #### [facility] [address] [place] [address] #### NICOTINE QUAL #### [facility] , Triglyceride w/Reflex 63 mg/dL Normal 0-149 [facility] Comment on above: Result Comment: TRIG ATP III CLASSIFICATION TRIG less than 150 mg/dL Normal TRIG 150-199 mg/dL Borderline high TRIG 200-500 mg/dL High TRIG greater than 500 mg/dL Very high Standard traceable to the Center for Disease Conrtrol and Prevention (CDC) test method. Performed By: #### P ILLAR CMP, PILLAR CBC, PILLAR LIPID, PILLAR TSH #### [address] #### NICOTINE QUAL #### [facility] , VLDL CHOLESTEROL 12 mg/dL Normal [facility] Comment on above: Performed By: #### P ILLAR CMP, PILLAR CBC, PILLAR LIPID, PILLAR TSH #### [facility] [address] [place] [address] #### NICOTINE QUAL #### [facility] , Employee Thyroid Stim Hormon loree 02-17-2023 Employee Thyroid Stim Hormone 0.28 u[iU]/mL Low 0.45-5.33 [facility] Comment on above: Result Comment: PERF ORMED BY: [place] [address] PATHOLOGIST END LATHE OPERATOR NIKKI DELA CRUZ M.D. Performed By: #### P ILLAR CMP, PILLAR CBC, PILLAR LIPID, PILLAR TSH #### [address] #### NICOTINE QUAL #### [facility] , Eosinophils Auto (Bld) [#/Vo l]Ordered By: Torsten Marcelino on 02-17-2023 Eosinophils (Bld) [#/Vol] 0.0 10*3/uL 0.0-0.45 [facility] Eosinophils/100 WBC Auto (Bl d)Ordered By: Torsten Marcelino on 02-17-2023 Eosinophils/100 WBC (Bld) 0.6 % . [facility] Erythrocyte distribution wid th Auto (RBC) [Ratio]Ordered By: Torsten Marcelino on 02-17-2023 Erythrocyte distribution width (RBC) [Ratio] 13.8 % 11.9-15.3 [facility] Globulin Calc (S) [Mass/Vol] Ordered By: Torsten Marcelino on 02-17-2023 Globulin (S) [Mass/Vol] 2.2 g/dL [facility] Glucose [Mass/volume] in Ser um or PlasmaOrdered By: Torsten Marcelino on 02-17-2023 Glucose [Mass/Vol] 92 mg/dL 70-100 [facility] Hematocrit Auto (Bld) [Volum e fraction]Ordered By: Torsten Marcelino on 02-17-2023 Hematocrit (Bld) [Volume fraction] 40.4 % 34.0-46.4 [facility] Hemoglobin [Mass/volume] in BloodOrdered By: Torsten Marcelino on 02-17-2023 Hemoglobin (Bld) [Mass/Vol] 13.7 g/dL 11.8-15.4 [facility] Leukocytes [#/volume] correc varghese for nucleated erythrocytes in Blood by Automated counOrdered By: Torsten Marcelino on 02-17-2023 WBC corrected for nucl RBC Auto (Bld) [#/Vol] 5.7 10*3/uL 3.8-11.6 [facility] Lymphocytes Auto (Bld) [#/Vo l]Ordered By: Torsten Marcelino on 02-17-2023 Lymphocytes (Bld) [#/Vol] 1.0 10*3/uL 1.00-4.8 [facility] Lymphocytes/100 WBC Auto (Bl d)Ordered By: Torsten Marcelino on 02-17-2023 Lymphocytes/100 WBC (Bld) 18.1 % . [facility] MCH Auto (RBC) [Entitic mass ]Ordered By: Torsten Marcelino on 02-17-2023 MCH (RBC) [Entitic mass] 32.2 pg 24.7-34.3 [facility] MCHC Auto (RBC) [Mass/Vol]Or dered By: Torsten Marcelino on 02-17-2023 MCHC (RBC) [Mass/Vol] 33.8 g/dL 32.0-35.0 [facility] MCV Auto (RBC) [Entitic vol] Ordered By: Torsten Marcelino on 02-17-2023 MCV (RBC) [Entitic vol] 95.3 fL 80-100 [facility] Monocytes Auto (Bld) [#/Vol] Ordered By: Torsten Marcelino on 02-17-2023 Monocytes (Bld) [#/Vol] 0.5 10*3/uL 0.0-0.8 [facility] Monocytes/100 WBC Auto (Bld) Ordered By: Torsten Marcelino on 02-17-2023 Monocytes/100 WBC (Bld) 9.6 % . [facility] Neutrophils Auto (Bld) [#/Vo l]Ordered By: Torsten Marcelino on 02-17-2023 Neutrophils (Bld) [#/Vol] 4.1 10*3/uL 1.8-7.7 [facility] Neutrophils/100 WBC Auto (Bl d)Ordered By: Torsten Marcelino on 02-17-2023 Neutrophils/100 WBC (Bld) 71.2 % . [facility] Nicotine Metabolite, Qualon 02-17-2023 Nicotine Metabolite Negative Normal Cutoff=25 [facility] Comment on above: Result Comment: Perf ormed at: [facility] - [facility] [address] [id number] [employer]er: Lan Garner MD, Phone: [phone] PERFORMED BY: [place] [address] PATHOLOGIST END LATHE OPERATOR NIKKI DELA CRUZ M.D. Performed By: #### P ILLAR CMP, PILLAR CBC, PILLAR LIPID, PILLAR TSH #### [address] #### NICOTINE QUAL #### [facility] , No Panel InformationOrdered By: Torsten Marcelino on 02-17-2023 Estimated GFR (CKD-EPI) > 60.0 mL/Min [facility] Nicotine Metabolite Negative Cutoff=25 [facility] Comment on above: Performed at: [address] [id number] Director: Lan Ganrer MD, Phone: [phone] Pharmacy Creatinine Clearance (Chem N/A [facility] Nucleated erythrocytes [Pres ence] in Blood by Automated countOrdered By: Torsten Marcelino on 02-17-2023 Nucleated RBC Auto Ql (Bld) 0.1 /100{WBC} 0-0.5 [facility] Platelet mean volume Auto (B ld) [Entitic vol]Ordered By: Torsten Marcelino on 02-17-2023 Platelet mean volume (Bld) [Entitic vol] 9.5 fL 6.3-10.7 [facility] Platelets Auto (Bld) [#/Vol] Ordered By: Torsten Marcelino on 02-17-2023 Platelets (Bld) [#/Vol] 208 10*3/uL 150-450 [facility] Potassium [Moles/volume] in Serum or PlasmaOrdered By: Torsten Marcelino on 02-17-2023 Potassium [Moles/Vol] 4.2 mmol/L 3.5-5.1 [facility] Protein [Mass/volume] in Ser um or PlasmaOrdered By: Torsten Marcelino on 02-17-2023 Protein [Mass/Vol] 6.6 g/dL 6.4-8.9 [facility] RBC Auto (Bld) [#/Vol]Ordere d By: Torsten Marcelino on 02-17-2023 RBC (Bld) [#/Vol] 4.24 10*6/uL 3.60-5.00 [facility] Serum or plasma albumin/glob ulin mass ratioOrdered By: Torsten Marcelino on 02-17-2023 Albumin/Globulin [Mass ratio] 2.0 {ratio} [facility] Serum or plasma anion gap de terminationOrdered By: Torsten Marcelino on 02-17-2023 Anion gap [Moles/Vol] 10.7 mmol/L 6.0-15.0 [facility] Serum or plasma high density lipoprotein (HDL) cholesterol measurementOrdered By: Torsten Marcelino on 02-17-2023 Cholesterol in HDL [Mass/Vol] 64 mg/dL 23-92 [facility] Comment on above: HDL CHOL ATP-III CLA SSIFICATION Cardiovascular RiskHDL > or equal to 60 mg/dL LOWHDL < 40 mg/dL HIGH Serum or plasma total choles terol/high density lipoprotein (HDL) cholesterol mass ratOrdered By: Torsten Marcelino on 02-17-2023 Cholesterol.total/Chol esterol in HDL [Mass ratio] 2.8 {ratio} <5.0 [facility] Sodium [Moles/volume] in Ser um or PlasmaOrdered By: Torsten Marcelino on 02-17-2023 Sodium [Moles/Vol] 138 mmol/L 136-145 [facility] Thyrotropin [Units/volume] i n Serum or PlasmaOrdered By: Torsten Marcelino on 02-17-2023 TSH Qn 0.28 m[IU]/L 0.45-5.33 [facility] Triglyceride [Mass/volume] i n Serum or PlasmaOrdered By: Torsten Marcelino on 02-17-2023 Triglyceride [Mass/Vol] 63 mg/dL 0-149 [facility] Comment on above: TRIG ATP III CLASSIF ICATIONTRIG less than 150 mg/dL NormalTRIG 150-199 mg/dL Borderline highTRIG 200-500 mg/dL High TRIG greater than 500 mg/dL Very highStandard traceable to the Center for Disease Conrtrol and Prevention (CDC) test method. Urea nitrogen [Mass/volume] in Serum or PlasmaOrdered By: Torsten Marcelino on 02-17-2023 Urea nitrogen [Mass/Vol] 21 mg/dL 7-25 [facility] WBC Auto (Bld) [#/Vol]Ordere d By: Torsten Marcelino on 02-17-2023 WBC (Bld) [#/Vol] 5.7 10*3/uL 3.8-11.6 [facility] A1C HEMOGLOBINon 02-01-2023 HbA1c (Bld) [Mass fraction] 5.3 % [employer] Other HbA1c (Bld) [Mass fraction]o n 02-01-2023 A1C HEMOGLOBIN [employer] Other Ambulatory Visit Summaryon 0 07-23-2022 Ambulatory [...] that you are currently receiving treatment for. Schuyler's disease Asthma BMI 26.0-26.9,adult Change in bowel habits Chronic GERD Crohn's disease of large intestine with unspecified complications Eczema Epigastric pain Fibromyalgia HTN (hypertension) Hypothyroid FDC (current) use of systemic steroids Memory loss Migraines Obesity Personal history of colonic polyps Rectal bleeding RUQ pain Tension headache Historical - Any problem that you are no longer receiving treatment for. 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 Normal [facility] Pathology Noteon 07-16-2022 Pathology Note [id number]:1 27 Normal [facility] Outside Colonoscopyon 2022 Outside Colonoscopy [id number] [id number]: 127 Normal [facility] Ambulatory Visit Summaryon 0 06-22-2022 Ambulatory Visit [...] that you are currently receiving treatment for. 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 Dog bite of left buttock Normal [facility] GI PANEL (PCR)on 06-18-2022 Adenovirus F 40/41 Not detected Normal NOT DETECTED [facility] Comment on above: Performed By: #### G IPANEL #### [facility] [address] [place] [address] Dr. Jaelyn Durán Astrovirus Not detected Normal NOT DETECTED [facility] Comment on above: Performed By: #### G IPANEL #### [facility] [address] [address] [address] Jaelyn Durán C. Diff toxin A/B Not detected Normal NOT DETECTED [facility] Comment on above: Performed By: #### G IPANEL #### [facility] [address] [place] [address] Dr. Jaelyn Durán Campylobacter Not detected Normal NOT DETECTED [facility] Comment on above: Performed By: #### G IPANEL #### [facility] [address] [address] [address] Jaelyn Durán Cryptosporidium Not detected Normal NOT DETECTED [facility] Comment on above: Performed By: #### G IPANEL #### [facility] [address] [place] [address] Dr. Jaelyn Durán Cyclos. Cayetanensis Not detected Normal NOT DETECTED [facility] Comment on above: Performed By: #### G IPANEL #### [facility] [address] [place] [address] Dr. Jaelyn Durán E. Coli O157 Not Applicable Normal Not Applicable [facility] Comment on above: Performed By: #### G IPANEL #### [facility] [address] [address] [address] Jaelyn Durán E. histolytica Not detected Normal NOT DETECTED [facility] Comment on above: Performed By: #### G IPANEL #### [facility] [address] [place] [address] Dr. Jaelyn Durán EAEC Not detected Normal NOT DETECTED [facility] Comment on above: Performed By: #### G IPANEL #### [facility] [address] [place] [address] Dr. Jaelyn Durán EIEC Not detected Normal NOT DETECTED [facility] Comment on above: Performed By: #### G IPANEL #### [facility] [address] [place] [address] Dr. Jaelyn Durán EPEC Not detected Normal NOT DETECTED [facility] Comment on above: Performed By: #### G IPANEL #### [facility] [address] [place] [address] Dr. Jaelyn Durán ETEC Not detected Normal NOT DETECTED [facility] Comment on above: Performed By: #### G IPANEL #### [facility] [address] [place] [address] Dr. Jaelyn Solares Lamblia Not detected Normal NOT DETECTED [facility] Comment on above: Performed By: #### G IPANEL #### [facility] [address] [place] [address] Dr. Jaelyn DILLARD CONTROLS PASSED Normal [facility] Comment on above: Performed By: #### G IPANEL #### [facility] [address] [place] [address] Dr. Jaelyn GREGORY MARIKA HEADER GI PANEL BACTERIA Normal [facility] Comment on above: Performed By: #### G IPANEL #### [facility] [address] [place] [address] Dr. Jaelyn MAN ECOLI GI PANEL DIARRHEAGEN IC E.COLI / SHIGELLA Normal [facility] Comment on above: Performed By: #### G IPANEL #### [facility] [address] [place] [address] Dr. Jaelyn MAN INFO SEE BELOW Normal [facility] Comment on above: Result Comment: EAEC - Enteroaggregative E. Coli EPEC- Enteropathogenic E. Coli ETEC- Enterotoxigenic E. Coli lt/st STEC- Shigella-like toxin-producing E. Coli stx1/stx2 EIEC- Shigella/Enteroinvasive E. Coli Performed By: #### G IPANEL #### [facility] [address] [place] [address] Dr. Jaelyn MAN PARASITES GI PANEL PARASITES Normal [facility] Comment on above: Performed By: #### G IPANEL #### [facility] [address] [place] [address] Dr. Jaelyn MAN VIRUS GI PANEL VIRUSES Normal [facility] Comment on above: Performed By: #### G IPANEL #### [facility] [address] [place] [address] Dr. Jaelyn Durán Norovirus GI/GII Not detected Normal NOT DETECTED [facility] Comment on above: Performed By: #### G IPANEL #### [facility] [address] [place] [address] Dr. Jaelyn Durán P. Shigelloides Not detected Normal NOT DETECTED [facility] Comment on above: Performed By: #### G IPANEL #### [facility] [address] [place] [address] Dr. Jaelyn Durán Rotavirus A Not detected Normal NOT DETECTED [facility] Comment on above: Performed By: #### G IPANEL #### [facility] [address] [place] [address] Dr. Jaelyn Durán Salmonella Not detected Normal NOT DETECTED [facility] Comment on above: Performed By: #### G IPANEL #### [facility] [address] [place] [address] Dr. Jaelyn Durán Sapovirus Not detected Normal NOT DETECTED [facility] Comment on above: Performed By: #### G IPANEL #### [facility] [address] [place] [address] Dr. Jaelyn Durán STEC Not detected Normal NOT DETECTED [facility] Comment on above: Performed By: #### G IPANEL #### [facility] [address] [place] [address] Dr. Jaelyn Durán Vibrio Not detected Normal NOT DETECTED [facility] Comment on above: Performed By: #### G IPANEL #### [facility] [address] [place] [address] Dr. Jaelyn Durán Vibrio Cholera Not detected Normal NOT DETECTED [facility] Comment on above: Performed By: #### G IPANEL #### [facility] [address] [address] [address] Jaelyn Durán Y. Enterocolitica Not detected Normal NOT DETECTED [facility] Comment on above: Performed By: #### G IPANEL #### [facility] [address] [id number] [address] Jaelyn Durán MRI ABDOMEN WO W [...] WYATT PAREDES Date: 2022-06-17 09:59 Normal [facility] RAD - MRI Reporton 3 RAD - MRI Report [id number]: 127 Normal [facility] Physician Referralon 023 Physician Referral [id number]: 127 Normal [facility] US SINGLE QUAD RT UPPERon US SINGLE [...] WYATT PAREDES Date: 2022-06-14 10:27 Normal [facility] CA 19-9on 06-11-2022 CA 19-9 47 U/mL Critically high 0-35 [facility] Comment on above: Result Comment: Ve rified by repeat analysis [facility] Electrochemiluminescence Immunoassay (ECLIA) . Values obtained with different assay methods or kits cannot be used interchangeably. Results cannot be interpreted as absolute evidence of the presence or absence of malignant disease. Performed By: #### I NFLUAB #### [facility] [address] [place] [address] Dr. Jaelyn Durán AMYLASEon 06-10-2022 Amylase [Catalytic activity/Vol] 40 U/L Normal 25-115 [facility] Comment on above: Performed By: #### I NFLUAB #### [facility] [address] [place] [address] Dr. Jaelyn Durán CBC AUTO DIFFon 06-10-2022 BASO # 0.0 103/ul Normal 0.0-0.1 [facility] Comment on above: Performed By: #### C BC #### [facility] [address] [place] [address] Dr. Jaelyn Durán Basophils/100 WBC (Bld) 0.5 % Normal 0.2-2.0 [facility] Comment on above: Performed By: #### C BC #### [facility] [address] [place] [address] Dr. Jaelyn Durán EO # 0.1 103/ul Normal 0.0-0.7 [facility] Comment on above: Performed By: #### C BC #### [facility] [address] [place] [address] Dr. Jaelyn Durán Eosinophils/100 WBC (Bld) 1.1 % Normal 0.9-7.0 [facility] Comment on above: Performed By: #### C BC #### [facility] [address] [place] [address] Dr. Jaelyn Durán Erythrocyte distribution width (RBC) [Ratio] 13.0 % Normal 11.0-15.0 [facility] Comment on above: Performed By: #### C BC #### [facility] [address] [place] [address] Dr. Jaelyn Durán Hematocrit (Bld) [Volume fraction] 44.0 % Normal 36.0-48.0 [facility] Comment on above: Performed By: #### C BC #### [facility] [address] [place] [address] Dr. Jaelyn Durán Hemoglobin (Bld) [Mass/Vol] 14.5 g/dL Normal 12.0-16.0 [facility] Comment on above: Performed By: #### C BC #### [facility] [address] [place] [address] Dr. Jaelyn Durán IG # 0.02 10e3/ul Normal 0.00-0.03 [facility] Comment on above: Performed By: #### C BC #### [facility] [address] [place] [address] Dr. Jaelyn Durán IG % 0.4 % Normal 0.0-0.5 [facility] Comment on above: Performed By: #### C BC #### [facility] [address] [place] [address] Dr. Jaelyn Durán LYMPH # 1.2 103/ul Normal 1.2-3.8 [facility] Comment on above: Performed By: #### C BC #### [facility] [address] [place] [address] Dr. Jaelyn Durán Lymphocytes/100 WBC (Bld) 21.3 % Normal 20.5-60.0 [facility] Comment on above: Performed By: #### C BC #### [facility] [address] [place] [address] Dr. Jaelyn Durán MANUAL DIFF REQ NO Normal [facility] Comment on above: Performed By: #### C BC #### [facility] [address] [place] [address] Dr. Jaelyn Durán MCH (RBC) [Entitic mass] 30.5 pg Normal 26.7-34.0 [facility] Comment on above: Performed By: #### C BC #### [facility] [address] [place] [address] Dr. Jaelyn Durán MCHC (RBC) [Mass/Vol] 33.0 g/dL Normal 29.9-35.2 [facility] Comment on above: Performed By: #### C BC #### [facility] [address] [place] [address] Dr. Jaelyn Durán MCV (RBC) [Entitic vol] 92.4 fL Normal 81.0-99.0 [facility] Comment on above: Performed By: #### C BC #### [facility] [address] [place] [address] Dr. Jaelyn Durán MONO # 0.5 103/ul Normal 0.3-0.8 [facility] Comment on above: Performed By: #### C BC #### [facility] [address] [place] [address] Dr. Jaelyn Durán Monocytes/100 WBC (Bld) 8.5 % Normal 1.7-12.0 [facility] Comment on above: Performed By: #### C BC #### [facility] [address] [place] [address] Dr. Jaelyn Durán NEUT # 3.8 103/ul Normal 1.4-6.5 [facility] Comment on above: Performed By: #### C BC #### [facility] [address] [place] [address] Dr. Jaelyn Durán Neutrophils/100 WBC (Bld) 68.2 % Normal 43.0-75.0 [facility] Comment on above: Performed By: #### C BC #### [facility] [address] [address] [address] Jaelyn Durán Platelet mean volume (Bld) [Entitic vol] 10.7 fL Normal 9.5-13.5 [facility] Comment on above: Performed By: #### C BC #### [facility] [address] [address] [address] Jaelyn Durán PLT 227 103/ul Normal 150-450 [facility] Comment on above: Performed By: #### C BC #### [facility] [address] [address] [address] Jaelyn Durán RBC 4.76 106/ul Normal 4.20-5.40 [facility] Comment on above: Performed By: #### C BC #### [facility] [address] [place] [address] Dr. Jaelyn Durán WBC 5.6 103/ul Normal 4.0-11.0 [facility] Comment on above: Performed By: #### C BC #### [facility] [address] [place] [address] Dr. Jaelyn Durán FREE THYROXINE INDEX T7on FTI 2.81 Normal 1.30-4.50 [facility] Comment on above: Performed By: #### C MP, JAYNA, TSH, T7, LIPA #### [facility] [address] [place] [address] Dr. Jaelyn Durán T3U 36.0 % Normal 30.0-39.0 [facility] Comment on above: Performed By: #### C MP, JAYNA, TSH, T7, LIPA #### [facility] [address] [place] [address] Dr. Jaelyn Durán T4 [Mass/Vol] 7.80 ug/dL Normal 4.80-13.90 [facility] Comment on above: Performed By: #### C MP, JAYNA, TSH, T7, LIPA #### [facility] [address] [place] [address] Dr. Jaelyn Durán GLYCOHEMOGLOBIN A1Con 2022 ADA RECOMMENDATION SEE BELOW Normal [facility] Comment on above: Result Comment: ADA RECOMMENDED LIMIT 4.0 - 6.0 ADA THERAPEUTIC TARGET < 7.0 ACTION SUGGESTED > 7.0 Performed By: #### A 1C #### [facility] [address] [place] [address] Dr. Jaelyn Durán Glucose [Mass/Vol] 105 mg/dL Normal [facility] Comment on above: Performed By: #### A 1C #### [facility] [address] [place] [address] Dr. Jaelyn Durán HbA1c (Bld) [Mass fraction] 5.3 % Normal 4.5-6.2 [facility] Comment on above: Performed By: #### A 1C #### [facility] [address] [place] [address] Dr. Jaelyn Durán LIPASEon 06-10-2022 Lipase [Catalytic activity/Vol] 182.0 U/L Normal 73.0-393.0 [facility] Comment on above: Performed By: #### C MP, JAYNA, TSH, T7, LIPA #### [facility] [address] [place] [address] Dr. Jaelyn Durán PROF 14(COMP METB)on 023 Albumin [Mass/Vol] 4.0 g/dL Normal 3.4-5.0 [facility] Comment on above: Performed By: #### I NFLUAB #### [facility] [address] [place] [address] Dr. Jaelyn Durán Albumin/Globulin [Mass ratio] 1.1 {ratio} Normal [facility] Comment on above: Performed By: #### I NFLUAB #### [facility] [address] [place] [address] Dr. Jaelyn Durán ALP [Catalytic activity/Vol] 80 U/L Normal 46-116 [facility] Comment on above: Performed By: #### I NFLUAB #### [facility] [address] [place] [address] Dr. Jaelyn Durán ALT [Catalytic activity/Vol] 20 U/L Normal 14-59 [facility] Comment on above: Performed By: #### I NFLUAB #### [facility] [address] [address] [address] Jaelyn Durán Anion gap [Moles/Vol] 12.4 mmol/L Normal [facility] Comment on above: Performed By: #### I NFLUAB #### [facility] [address] [place] [address] Dr. Jaelyn Durán AST [Catalytic activity/Vol] 16 U/L Normal 15-37 [facility] Comment on above: Performed By: #### I NFLUAB #### [facility] [address] [place] [address] Dr. Jaelyn Durán Bilirubin [Mass/Vol] 0.3 mg/dL Normal 0.2-1.0 [facility] Comment on above: Performed By: #### I NFLUAB #### [facility] [address] [place] [address] Dr. Jaelyn Durán Calcium [Mass/Vol] 9.4 mg/dL Normal 8.5-10.1 [facility] Comment on above: Performed By: #### I NFLUAB #### [facility] [address] [place] [address] Dr. Jaelyn Durán Chloride [Moles/Vol] 105 mmol/L Normal 98-107 [facility] Comment on above: Performed By: #### I NFLUAB #### [facility] [address] [place] [address] Dr. Jaelyn Durán CO2 [Moles/Vol] 27.4 mmol/L Normal 21.0-32.0 [facility] Comment on above: Performed By: #### I NFLUAB #### [facility] [address] [place] [address] Dr. Jaelyn Durán Creatinine [Mass/Vol] 0.82 mg/dL Normal 0.55-1.02 [facility] Comment on above: Performed By: #### I NFLUAB #### [facility] [address] [place] [address] Dr. Jaelyn Durán EGFR-AF GUATEMALAN >60 Normal >=60 [facility] Comment on above: Performed By: #### I NFLUAB #### [facility] [address] [place], [place] [id number] Dr. Jaelyn Durán EGFR-NON AF GUATEMALAN >60 Normal >=60 [facility] Comment on above: Performed By: #### I NFLUAB #### [facility] [address] [address] [address] Jaelyn Durán Globulin (S) [Mass/Vol] 3.6 g/dL Normal [facility] Comment on above: Performed By: #### I NFLUAB #### [facility] [address] [address] [address] Jaelyn Durán Glucose [Mass/Vol] 103 mg/dL Normal 74-106 [facility] Comment on above: Performed By: #### I NFLUAB #### [facility] [address] [place] [address] Dr. Jaelyn Durán Potassium [Moles/Vol] 3.8 mmol/L Normal 3.5-5.1 [facility] Comment on above: Performed By: #### I NFLUAB #### [facility] [address] [place] [address] Dr. Jaelyn Durán Protein [Mass/Vol] 7.6 g/dL Normal 6.4-8.2 [facility] Comment on above: Performed By: #### I NFLUAB #### [facility] [address] [place] [address] Dr. Jaelyn Durán Sodium [Moles/Vol] 141 mmol/L Normal 136-145 [facility] Comment on above: Performed By: #### I NFLUAB #### [facility] [address] [place] [address] Dr. Jaelyn Durán Urea nitrogen [Mass/Vol] 13.0 mg/dL Normal 7.0-18.0 [facility] Comment on above: Performed By: #### I NFLUAB #### [facility] [address] [place] [address] Dr. Jaelyn Durán Urea nitrogen/Creatinine [Mass ratio] 15.9 mg/mg Normal [facility] Comment on above: Performed By: #### I NFLUAB #### [facility] [address] [place] [address] Dr. Jaelyn Durán TSHon 06-10-2022 TSH 0.037 uIU/mL Critically low 0.358-3.740 [facility] Comment on above: Performed By: #### C MP, JAYNA, TSH, T7, LIPA #### [facility] [address] [address] [address] Jaelyn Durán Covid-19 PCR ([facility])on 04-22 SARS-CoV-2 (COVID-19) RNA LYUBOV+probe Ql (Unsp spec) Not detected Normal NOT DETECTED [facility] Comment on above: Result Comment: This test is not yet approved or cleared by the [place] FDA. When there are no FDA-approved or cleared tests available, and other criteria are met, FDA can make tests available under an emergency access mechanism called an Emergency Use Authorization (EUA). The EUA for this test is supported by the Operating Table Assembler of Health and Human Service's (HHS's) declaration [...] SARS-CoV-2. Performed By: #### P ROLAC #### [facility] [address] [place] [address] Dr. Jaelyn Durán INFLUENZA A AND B AGon 05-05 INFLUANEGH SEE BELOW Normal [facility] Comment on above: Result Comment: Nega tive for Flu A protein angiten. Infection due to Flu A cannot be ruled out. Flu A angiten in the sample may be below the detection limit of the test. Performed By: #### I NFLUAB #### [facility] [address] [address] [address] Jaelyn Durán INFLUBNEGH SEE BELOW Normal [facility] Comment on above: Result Comment: Nega tive for Flu B protein antigen. Infection due to Flu B cannot be ruled out. Flu B antigen in the sample may be below the detection limit of the test. Performed By: #### I NFLUAB #### [facility] [address] [place] [address] Dr. Jaelyn Durán INFLUENZA A AG Negative Normal NEGATIVE SEE COMMENT [facility] Comment on above: Performed By: #### I NFLUAB #### [facility] [address] [place] [address] Dr. Jaelyn Durán INFLUENZA B AG Negative Normal NEGATIVE SEE COMMENT [facility] Comment on above: Performed By: #### I NFLUAB #### [facility] [address] [place] [address] Dr. Jaelyn Durán INTERNAL CONTROLS Within Normal Limits Normal Wi thin Normal Limits [facility] Comment on above: Performed By: #### I NFLUAB #### [facility] [address] [place] [address] Dr. Jaelyn Durán TSH DL <= 0.005 mIU/L QnOrde red By: Eduardo Arriola on 03-11-2022 TSH Qn 0.02 m[IU]/L 0.45-5.33 [facility] Basophils Auto (Bld) [#/Vol] Ordered By: Torsten Marcelino on 02-16-2022 Basophils (Bld) [#/Vol] 0.0 10*3/uL 0.0-0.2 [facility] Basophils/100 WBC Auto (Bld) Ordered By: Torsten Marcelino on 02-16-2022 Basophils/100 WBC (Bld) 0.6 % . [facility] Body fluid albumin measureme nt (mass/volume)Ordered By: Torsten Marcelino on 02-16-2022 Albumin (Body fld) [Mass/Vol] 4.0 g/dL 3.2-5.5 [facility] Cholesterol [Mass/volume] in Serum or PlasmaOrdered By: Torsten Marcelino on 02-16-2022 Cholesterol [Mass/Vol] 216 mg/dL 140-200 [facility] Comment on above: Chol less than 200 m g/dl low riskChol 201-239 mg/dl borderline riskChol 240 mg/dl and greater high risk Cholesterol in LDL Calc [Mas s/Vol]Ordered By: Torsten Marcelino on 02-16-2022 Cholesterol in LDL [Mass/Vol] 102 mg/dL 0-100 [facility] Comment on above: LDL ATP III CLASSIFI CATIONLDL less than 100 mg/dL OptimalLDL 100-129 mg/dL Near or above optimalLDL 130-159 mg/dL Borderline highLDL 160-189 mg/dL HighLDL greater than 189 mg/dL Very high Cholesterol in VLDL Calc [Ma ss/Vol]Ordered By: Torsten Marcelino on 02-16-2022 Cholesterol in VLDL [Mass/Vol] 32 mg/dL [facility] Creatinine and Glomerular fi ltration rate.predicted panel (S/P/Bld)Ordered By: Torsten Marcelino on 02-16-2022 Creatinine [Mass/Vol] 1.00 mg/dL 0.44-1.03 [facility] Eosinophils Auto (Bld) [#/Vo l]Ordered By: Torsten Marcelino on 02-16-2022 Eosinophils (Bld) [#/Vol] 0.1 10*3/uL 0.0-0.45 [facility] Eosinophils/100 WBC Auto (Bl d)Ordered By: Torsten Marcelino on 02-16-2022 Eosinophils/100 WBC (Bld) 2.0 % . [facility] Erythrocyte distribution wid th Auto (RBC) [Ratio]Ordered By: Torsten Marcelino on 02-16-2022 Erythrocyte distribution width (RBC) [Ratio] 14.7 % 11.9-15.3 [facility] Estimated glomerular filtrat ion rate (GFR) non- AmericanOrdered By: Torsten Marcelino on 02-16-2022 GFR/1.73 sq M.predicted among non-blacks MDRD (S/P/Bld) [Vol rate/Area] 59 mL/Min [facility] Globulin Calc (S) [Mass/Vol] Ordered By: Torsten Marcelino on 02-16-2022 Globulin (S) [Mass/Vol] 2.5 g/dL [facility] Hematocrit Auto (Bld) [Volum e fraction]Ordered By: Torsten Marcelino on 02-16-2022 Hematocrit (Bld) [Volume fraction] 43.1 % 34.0-46.4 [facility] Hemoglobin [Mass/volume] in BloodOrdered By: Torsten Marcelino on 02-16-2022 Hemoglobin (Bld) [Mass/Vol] 14.2 g/dL 11.8-15.4 [facility] Laboratory - Chemistry and C hemistry - challengeOrdered By: Torsten Marcelino on 02-16-2022 Glucose [Mass/Vol] 87 mg/dL 70-100 [facility] - Hematology and Cell countsOrdered By: Torsten Marcelino on 02-16-2022 Nucleated RBC/100 WBC (Bld) [Ratio] 0.0 % 0-0.5 [facility] Leukocytes [#/volume] in Blo od by Automated countOrdered By: Torsten Marcelino on 02-16-2022 WBC (Bld) [#/Vol] 4.7 10*3/uL 4.5-11.0 [facility] Lymphocytes Auto (Bld) [#/Vo l]Ordered By: Torsten Marcelino on 02-16-2022 Lymphocytes (Bld) [#/Vol] 2.1 10*3/uL 1.00-4.8 [facility] Lymphocytes/100 WBC Auto (Bl d)Ordered By: Torsten Marcelino on 02-16-2022 Lymphocytes/100 WBC (Bld) 44.4 % . [facility] MCH Auto (RBC) [Entitic mass ]Ordered By: Torsten Marcelino on 02-16-2022 MCH (RBC) [Entitic mass] 30.8 pg 24.7-34.3 [facility] MCHC Auto (RBC) [Mass/Vol]Or dered By: Torsten Marcelino on 02-16-2022 MCHC (RBC) [Mass/Vol] 32.9 g/dL 32.0-35.0 [facility] MCV Auto (RBC) [Entitic vol] Ordered By: Torsten Marcelino on 02-16-2022 MCV (RBC) [Entitic vol] 93.6 fL 80-100 [facility] Monocyte %Ordered By: Torsten Marcelino on 02-16-2022 Monocyte % 163 mg/dL 35-149 [facility] Comment on above: TRIG ATP III CLASSIF ICATIONTRIG less than 150 mg/dL NormalTRIG 150-199 mg/dL Borderline highTRIG 200-500 mg/dL High TRIG greater than 500 mg/dL Very highStandard traceable to the Center for Disease Conrtrol and Prevention (CDC) test method. Monocytes Auto (Bld) [#/Vol] Ordered By: Torsten Marcelino on 02-16-2022 Monocytes (Bld) [#/Vol] 0.4 10*3/uL 0.0-0.8 [facility] Monocytes/100 WBC Auto (Bld) Ordered By: Torsten Marcelino on 02-16-2022 Monocytes/100 WBC (Bld) 9.4 % . [facility] Neutrophils Auto (Bld) [#/Vo l]Ordered By: Torsten Marcelino on 02-16-2022 Neutrophils (Bld) [#/Vol] 2.1 10*3/uL 1.8-7.7 [facility] Neutrophils/100 WBC Auto (Bl d)Ordered By: Torsten Marcelino on 02-16-2022 Neutrophils/100 WBC (Bld) 43.6 % . [facility] No Panel InformationOrdered By: Torsten Marcelino on 02-16-2022 Estimated GFR () > 60 mL/Min [facility] Comment on above: GFR estimated refere nce range: According to KDOQI guidelines, <60 ml/min/1.73m2 is sufficient to diagnose a patient with chronic kidney disease. Nicotine Metabolite Negative Cutoff=25 [facility] Comment on above: Performed at: [address] [id number] Director: Lan Garner MD, Phone: [phone] Pharmacy Creatinine Clearance (Chem N/A [facility] Platelet mean volume Auto (B ld) [Entitic vol]Ordered By: Torsten Marcelino on 02-16-2022 Platelet mean volume (Bld) [Entitic vol] 9.7 fL 6.3-10.7 [facility] Platelets Auto (Bld) [#/Vol] Ordered By: Torsten Marcelino on 02-16-2022 Platelets (Bld) [#/Vol] 219 10*3/uL 150-450 [facility] Protein [Mass/volume] in Ser um or PlasmaOrdered By: Torsten Marcelino on 02-16-2022 Protein [Mass/Vol] 6.5 g/dL 6.1-7.9 [facility] RBC Auto (Bld) [#/Vol]Ordere d By: Torsten Marcelino on 02-16-2022 RBC (Bld) [#/Vol] 4.61 10*6/uL 3.60-5.00 [facility] Serum or plasma alanine love otransferase measurement without P-5'-P (enzymatic activiOrdered By: Torsten Marcelino on 02-16-2022 ALT No additional P-5'-P [Catalytic activity/Vol] 23 U/L 10-60 [facility] Serum or plasma albumin/glob ulin mass ratioOrdered By: Torsten Marcelino on 02-16-2022 Albumin/Globulin [Mass ratio] 1.6 {ratio} [facility] Serum or plasma alkaline loretta sphatase measurement (enzymatic activity/volume)Ordered By: Torsten Marcelino on 02-16-2022 ALP [Catalytic activity/Vol] 61 U/L 32-92 [facility] Serum or plasma anion gap de terminationOrdered By: Torsten Marcelino on 02-16-2022 Anion gap [Moles/Vol] 15.6 mmol/L 6.0-15.0 [facility] Serum or plasma aspartate am inotransferase measurement (enzymatic activity/volume)Ordered By: Torsten Marcelino on 02-16-2022 AST [Catalytic activity/Vol] 22 U/L 10-42 [facility] Serum or plasma calcium mckayla urement (mass/volume)Ordered By: Torsten Marcelino on 02-16-2022 Calcium [Mass/Vol] 9.1 mg/dL 8.2-10.2 [facility] Serum or plasma chloride estrada surement (moles/volume)Ordered By: Torsten Marcelino on 02-16-2022 Chloride [Moles/Vol] 100 mmol/L 95-114 [facility] Serum or plasma high density lipoprotein (HDL) cholesterol measurementOrdered By: Torsten Marcelino on 02-16-2022 Cholesterol in HDL [Mass/Vol] 81 mg/dL 35-85 [facility] Comment on above: HDL CHOL ATP-III CLA SSIFICATION Cardiovascular RiskHDL > or equal to 60 mg/dL LOWHDL < 40 mg/dL HIGH Serum or plasma potassium me asurement (moles/volume)Ordered By: Torsten Marcelino on 02-16-2022 Potassium [Moles/Vol] 3.4 mmol/L 3.5-5.1 [facility] Serum or plasma sodium measu rement (moles/volume)Ordered By: Torsten Marcelino on 02-16-2022 Sodium [Moles/Vol] 137 mmol/L 136-146 [facility] Serum or plasma total biliru bin measurement (mass/volume)Ordered By: Torsten Marcelino on 02-16-2022 Bilirubin [Mass/Vol] 0.6 mg/dL 0.3-1.2 [facility] Serum or plasma total carbon dioxide measurement (moles/volume)Ordered By: Torsten Marcelino on 02-16-2022 CO2 [Moles/Vol] 24.8 mmol/L 22.0-30.0 [facility] Serum or plasma total choles terol/high density lipoprotein (HDL) cholesterol mass ratOrdered By: Torsten Marcelino on 02-16-2022 Cholesterol.total/Chol esterol in HDL [Mass ratio] 2.7 {ratio} <5.0 [facility] Serum or plasma urea nitroge n measurement (mass/volume)Ordered By: Torsten Marcelino on 02-16-2022 Urea nitrogen [Mass/Vol] 12 mg/dL 9-23 [facility] TSH DL <= 0.005 mIU/L QnOrde red By: Torsten Marcelino on 02-16-2022 TSH Qn 0.07 m[IU]/L 0.45-5.33 [facility] COVID CepheidOrdered By: Max Marcelino on 02-01-2022 SARS-CoV-2 (COVID-19) Ab IA Ql Negative Negative [facility] Comment on above: This is a duplicate [employer]itronex Xpert Xpress CoV-2/Flu/RSV Plus RNA by RT-PCR result to be used for statistical tracking purpose only. SARS-CoV-2 (COVID-19) RNA LYUBOV+probe Ql (Unsp spec) [facility] - Microbiology an d Antimicrobial susceptibilityOrdered By: Torsten Marcelino on 02-01-2022 SARS-CoV-2 (COVID-19) RNA LYUBOV+probe Ql (Unsp spec) N/A [facility] SARS-CoV-2 (COVID-19) RNA NA A+probe Ql (Resp)on 12-23-2021 SARS-CoV-2 (COVID-19) RNA LYUBOV+probe Ql (Unsp spec) Negative [employer] Other MRI PITUITARY WO W CONon MRI [...] by: BERNA DALTON Date: 2021-08-26 11:33 Normal [facility] INSULINon 08-24-2021 Insulin 16.1 uIU/mL Normal 2.6-24.9 [facility] Comment on above: Performed By: #### I NSULIN #### [facility] [address] [address] [address] Jaelyn Durán ESTRADIOLon 08-23-2021 Estradiol <5.0 Normal [facility] Comment on above: Result Comment: Adul t Female: Follicular phase 12.5 - 166.0 Ovulation phase 85.8 - 498.0 Luteal phase 43.8 - 211.0 Postmenopausal <6.0 - 54.7 1st trimester 215.0 - >4300.0 [facility] ECLIA methodology Performed By: #### I NFLUAB #### [facility] [address] [place] [address] Dr. Jaelyn Durán FSHon 08-23-2021 FSH 45.4 mIU/mL Normal [facility] Comment on above: Result Comment: Adul t Female: Follicular phase 3.5 - 12.5 Ovulation phase 4.7 - 21.5 Luteal phase 1.7 - 7.7 Postmenopausal 25.8 - 134.8 Performed By: #### [facility] #### [facility] [address] [place] [address] Dr. Jaelyn Durán PROGESTERONEon 08-23-2021 Progesterone <0.1 Normal [facility] Comment on above: Result Comment: Foll icular phase 0.1 - 0.9 Luteal phase 1.8 - 23.9 Ovulation phase 0.1 - 12.0 First trimester 11.0 - 44.3 Second trimester 25.4 - 83.3 Third trimester 58.7 - 214.0 Postmenopausal 0.0 - 0.1 Performed By: #### I NFLUAB #### [facility] [address] [place] [address] Dr. Jaelyn Durán PROLACTINon 08-23-2021 Prolactin 30.9 ng/mL Critically high 4.8-23.3 [facility] Comment on above: Performed By: #### P ROLAC #### [facility] [address] [place] [address] Dr. Jaelyn Durán CBC AUTO DIFFon 08-22-2021 BASO # 0.0 103/ul Normal 0.0-0.1 [facility] Comment on above: Performed By: #### I NFLUAB #### [facility] [address] [place] [address] Dr. Jaelyn Durán Basophils/100 WBC (Bld) 0.6 % Normal 0.2-2.0 [facility] Comment on above: Performed By: #### I NFLUAB #### [facility] [address] [place] [address] Dr. Jaelyn Durán EO # 0.2 103/ul Normal 0.0-0.7 [facility] Comment on above: Performed By: #### I NFLUAB #### [facility] [address] [place] [address] Dr. Jaelyn Durán Eosinophils/100 WBC (Bld) 4.0 % Normal 0.9-7.0 [facility] Comment on above: Performed By: #### I NFLUAB #### [facility] [address] [place] [address] Dr. Jaelyn Durán Erythrocyte distribution width (RBC) [Ratio] 13.0 % Normal 11.0-15.0 [facility] Comment on above: Performed By: #### I NFLUAB #### [facility] [address] [place] [address] Dr. Jaelyn Durán Hematocrit (Bld) [Volume fraction] 42.9 % Normal 36.0-48.0 [facility] Comment on above: Performed By: #### I NFLUAB #### [facility] [address] [place] [address] Dr. Jaelyn Durán Hemoglobin (Bld) [Mass/Vol] 14.0 g/dL Normal 12.0-16.0 [facility] Comment on above: Performed By: #### I NFLUAB #### [facility] [address] [place] [address] Dr. Jaelyn Durán IG # 0.01 10e3/ul Normal 0.00-0.03 [facility] Comment on above: Performed By: #### I NFLUAB #### [facility] [address] [place] [address] Dr. Jaelyn Durán IG % 0.2 % Normal 0.0-0.5 [facility] Comment on above: Performed By: #### I NFLUAB #### [facility] [address] [place] [address] Dr. Jaelyn Durán LYMPH # 2.0 103/ul Normal 1.2-3.8 [facility] Comment on above: Performed By: #### I NFLUAB #### [facility] [address] [place] [address] Dr. Jaelyn Durán Lymphocytes/100 WBC (Bld) 43.2 % Normal 20.5-60.0 [facility] Comment on above: Performed By: #### I NFLUAB #### [facility] [address] [address] [address] Jaelyn Durán MANUAL DIFF REQ NO Normal [facility] Comment on above: Performed By: #### I NFLUAB #### [facility] [address] [address] [address] Jaelyn Durán MCH (RBC) [Entitic mass] 30.4 pg Normal 26.7-34.0 [facility] Comment on above: Performed By: #### I NFLUAB #### [facility] [address] [place] [address] Dr. Jaelyn Durán MCHC (RBC) [Mass/Vol] 32.6 g/dL Normal 29.9-35.2 [facility] Comment on above: Performed By: #### I NFLUAB #### [facility] [address] [place] [address] Dr. Jaelyn Durán MCV (RBC) [Entitic vol] 93.1 fL Normal 81.0-99.0 [facility] Comment on above: Performed By: #### I NFLUAB #### [facility] [address] [place] [address] Dr. Jaelyn Durán MONO # 0.5 103/ul Normal 0.3-0.8 [facility] Comment on above: Performed By: #### I NFLUAB #### [facility] [address] [place] [address] Dr. Jaelyn Durán Monocytes/100 WBC (Bld) 9.7 % Normal 1.7-12.0 [facility] Comment on above: Performed By: #### I NFLUAB #### [facility] [address] [place] [address] Dr. Jaelyn Durán NEUT # 2.0 103/ul Normal 1.4-6.5 [facility] Comment on above: Performed By: #### I NFLUAB #### [facility] [address] [place] [address] Dr. Jaelyn Durán Neutrophils/100 WBC (Bld) 42.3 % Critically low 43.0-75.0 [facility] Comment on above: Performed By: #### I NFLUAB #### [facility] [address] [address] [address] Jaelyn Durán Platelet mean volume (Bld) [Entitic vol] 10.1 fL Normal 9.5-13.5 [facility] Comment on above: Performed By: #### I NFLUAB #### [facility] [address] [address] [address] Jaelyn Durán PLT 243 103/ul Normal 150-450 [facility] Comment on above: Performed By: #### I NFLUAB #### [facility] [address] [address] [address] Jaelyn Durán RBC 4.61 106/ul Normal 4.20-5.40 [facility] Comment on above: Performed By: #### I NFLUAB #### [facility] [address] [place] [address] Dr. Jaelyn Durán WBC 4.7 103/ul Normal 4.0-11.0 [facility] Comment on above: Performed By: #### I NFLUAB #### [facility] [address] [address] [address] Jaelyn Durán FREE THYROXINE INDEX T7on FTI 1.84 Normal [facility] Comment on above: Performed By: #### P ROLAC #### [facility] [address] [place] [address] Dr. Jaelyn Durán T3U 34.0 % Normal 23.5-40.5 [facility] Comment on above: Performed By: #### P ROLAC #### [facility] [address] [address] [address] Jaelyn Durán T4 [Mass/Vol] 5.40 ug/dL Critically low 5.53-11.00 [facility] Comment on above: Performed By: #### P ROLAC #### [facility] [address] [place] [address] Dr. Jaelyn Durán GLYCOHEMOGLOBIN A1Con 2021 ADA RECOMMENDATION ADA THERAPEUTIC TARG ET 6.0 - 7.0 ACTION SUGGESTED > 7.0 Normal [facility] Comment on above: Performed By: #### P ROLAC #### [facility] [address] [address] [address] Jaelyn Durán Glucose [Mass/Vol] 108 mg/dL Normal [facility] Comment on above: Performed By: #### P ROLAC #### [facility] [address] [address] [address] Jaelyn Durán HbA1c (Bld) [Mass fraction] 5.4 % Normal <=6.0 [facility] Comment on above: Performed By: #### P ROLAC #### [facility] [address] [address] [address] Jaelyn Durán IRONon 08-22-2021 Iron [Mass/Vol] 56.0 ug/dL Normal 37.0-170.0 [facility] Comment on above: Performed By: #### I NFLUAB #### [facility] [address] [place] [address] Dr. Jaelyn Durán LIPID PROFILEon 08-22-2021 CHOL-HDL RATIO NORM SEE BELOW Normal [facility] Comment on above: Result Comment: 3.3 - 4.4 LOW RISK 4.4 - 7.1 AVERAGE RISK 7.1 - 11.0 MODERATE RISK >11.0 HIGH RISK Performed By: #### P ROLAC #### [facility] [address] [place] [address] Dr. Jaelyn Durán Cholesterol [Mass/Vol] 194 mg/dL Normal <=200 [facility] Comment on above: Performed By: #### P ROLAC #### [facility] [address] [address] [address] Jaelyn Durán Cholesterol in HDL [Mass/Vol] 80 mg/dL Critically high 40-60 [facility] Comment on above: Performed By: #### P ROLAC #### [facility] [address] [address] [address] Jaelyn Durán Cholesterol in LDL [Mass/Vol] 84.2 mg/dL Normal [facility] Comment on above: Performed By: #### P ROLAC #### [facility] [address] [address] [address] Jaelyn Durán Cholesterol.total/Chol esterol in HDL [Mass ratio] 2.4 {ratio} Normal [facility] Comment on above: Performed By: #### P ROLAC #### [facility] [address] [address] [address] Jaelyn Durán HDL NORMAL > or = 60 mg/dl - LO W CARDIOVASCULAR RISK <40 mg/dl - HIGH CARDIOVASCULAR RISK Normal [facility] Comment on above: Performed By: #### P ROLAC #### [facility] [address] [address] [address] Jaelyn Durán LDL CALC NORMAL SEE BELOW Normal [facility] Comment on above: Result Comment: <100 mg/dl OPTIMAL 100 - 129 mg/dl NEAR OR ABOVE OPTIMAL 130 - 159 mg/dl BORDERLINE HIGH 160 - 189 mg/dl HIGH >190 mg/dl VERY HIGH Performed By: #### P ROLAC #### [facility] [address] [address] [address] Jaelyn Durán Triglyceride [Mass/Vol] 149 mg/dL Normal <=150 [facility] Comment on above: Performed By: #### P ROLAC #### [facility] [address] [address] [address] Jaelyn Durán VLDL CALC 29.8 mg/dL Normal [facility] Comment on above: Performed By: #### P ROLAC #### [facility] [address] [address] [address] Jaelyn Durán PROF 14(COMP METB)on 022 Albumin [Mass/Vol] 3.7 g/dL Normal 3.4-5.0 [facility] Comment on above: Performed By: #### P ROLAC #### [facility] [address] [place] [address] Dr. Jaelyn Durán Albumin/Globulin [Mass ratio] 1.0 {ratio} Normal [facility] Comment on above: Performed By: #### P ROLAC #### [facility] [address] [address] [address] Jaelyn Durán ALP [Catalytic activity/Vol] 87 U/L Normal 46-116 [facility] Comment on above: Performed By: #### P ROLAC #### [facility] [address] [address] [address] Jaelyn Durán ALT [Catalytic activity/Vol] 28 U/L Normal 14-59 [facility] Comment on above: Performed By: #### P ROLAC #### [facility] [address] [address] [address] Jaelyn Durán Anion gap [Moles/Vol] 11.3 mmol/L Normal Th [facility] Comment on above: Performed By: #### P ROLAC #### [facility] [address] [address] [address] Jaelyn Durán AST [Catalytic activity/Vol] 17 U/L Normal 15-37 [facility] Comment on above: Performed By: #### P ROLAC #### [facility] [address] [address] [address] Jaelyn Durán Bilirubin [Mass/Vol] 0.3 mg/dL Normal 0.2-1.3 [facility] Comment on above: Performed By: #### P ROLAC #### [facility] [address] [address] [address] Jaelyn Durán Calcium [Mass/Vol] 8.9 mg/dL Normal 8.5-10.1 [facility] Comment on above: Performed By: #### P ROLAC #### [facility] [address] [address] [address] Jaelyn Durán Chloride [Moles/Vol] 104 mmol/L Normal 98-107 [facility] Comment on above: Performed By: #### P ROLAC #### [facility] [address] [address] [address] Jaelyn Durán CO2 [Moles/Vol] 30.4 mmol/L Critically high 22.0-30.0 [facility] Comment on above: Performed By: #### P ROLAC #### [facility] [address] [address] [address] Jaelyn Durán Creatinine [Mass/Vol] 0.87 mg/dL Normal 0.52-1.04 [facility] Comment on above: Performed By: #### P ROLAC #### [facility] [address] [address] [address] Jaelyn Durán EGFR-AF GUATEMALAN >60 Normal >=60 [facility] Comment on above: Performed By: #### P ROLAC #### [facility] [address] [address] [address] Jaelyn Durán EGFR-NON AF GUATEMALAN >60 Normal >=60 [facility] Comment on above: Performed By: #### P ROLAC #### [facility] [address] [address] [address] Jaelyn Durán Globulin (S) [Mass/Vol] 3.7 g/dL Normal [facility] Comment on above: Performed By: #### P ROLAC #### [facility] [address] [place] [address] Dr. Jaelyn Durán Glucose [Mass/Vol] 86 mg/dL Normal 74-106 [facility] Comment on above: Performed By: #### P ROLAC #### [facility] [address] [address] [address] Jaelyn Durán Potassium [Moles/Vol] 3.7 mmol/L Normal 3.4-5.0 [facility] Comment on above: Performed By: #### P ROLAC #### [facility] [address] [address] [address] Jaelyn Durán Protein [Mass/Vol] 7.4 g/dL Normal 6.1-8.2 [facility] Comment on above: Performed By: #### P ROLAC #### [facility] [address] [address] [address] Jaelyn Durán Sodium [Moles/Vol] 142 mmol/L Normal 137-145 [facility] Comment on above: Performed By: #### P ROLAC #### [facility] [address] [address] [address] Jaelyn Durán Urea nitrogen [Mass/Vol] 15.0 mg/dL Normal 7.0-18.0 [facility] Comment on above: Performed By: #### P ROLAC #### [facility] [address] [address] [address] Jaelyn Durán Urea nitrogen/Creatinine [Mass ratio] 17.2 mg/mg Normal [facility] Comment on above: Performed By: #### P ROLAC #### [facility] [address] [address] [address] Jaelyn Durán TSHon 08-22-2021 TSH 0.500 uIU/mL Normal 0.470-4.680 [facility] Comment on above: Performed By: #### P ROLAC #### [facility] [address] [address] [address] Jaelyn Durán TSH RANGE SEE BELOW Normal [facility] Comment on above: Result Comment: <0.3 4 UIU/ml HYPERTHYROID 0.34-5.60 UIU/ml EUTHYROID >5.60 UIU/ml HYPOTHYROID Performed By: #### P ROLAC #### [facility] [address] [address] [address] Jaelyn Durán Vital Signs Date Time Vital Sign Value Performing Clinician Facility 07-12-2023 09:52-0500 Body height 165.1 cm MD Eduardo Arriola Work Phone: [facility] 07-12-2023 09:52-0500 Body mass index (BMI) [Ratio] 26.2 kg/m2 MD Eduardo Arriola Work Phone: [facility] 07-12-2023 09:52-0500 Body weight 71.35 kg MD Eduardo Arriola Work Phone: [facility] 07-12-2023 09:52-0500 Diastolic blood pressure 78 mm[Hg] MD Eduardo Arriola Work Phone: [facility] 07-12-2023 09:52-0500 Heart rate 92 /min MD Eduardo Arriola Work Phone: [facility] 07-12-2023 09:52-0500 Respiratory rate 18 /min MD Eduardo Arriola Work Phone: [facility] 07-12-2023 09:52-0500 SaO2% (BldA) [Mass fraction] 98 % MD Eduardo Arriola Work Phone: [facility] 07-12-2023 09:52-0500 Systolic blood pressure 113 mm[Hg] MD Eduardo Arriola Work Phone: [facility] 05-03-2023 08:15-0500 Body height 165.1 cm [employer] Other [facility] 05-03-2023 08:15-0500 Body mass index (BMI) [Ratio] 26.07 kg/m2 [employer] Other [employer] Other 05-03-2023 08:15-0500 Body weight 71.08 kg [employer] Other [employer] Other 05-03-2023 08:15-0500 Body weight 71.07 kg MD Eduardo Arriola Work Phone: [facility] 05-03-2023 08:15-0500 Diastolic blood pressure 95 mm[Hg] [employer] Other [facility] 05-03-2023 08:15-0500 Respiratory rate 18 /min [employer] Other [employer] Other 05-03-2023 08:15-0500 SaO2% (BldA) [Mass fraction] 99 % [employer] Other [employer] Other 05-03-2023 08:15-0500 Systolic blood pressure 145 mm[Hg] [employer] Other [facility] 03-29-2023 07:45-0500 Body height 165.1 cm [employer] Other [employer] Other 03-29-2023 07:45-0500 Body mass index (BMI) [Ratio] 26.19 kg/m2 Nghia Campos Other [employer] Other 03-29-2023 07:45-0500 Body weight 71.4 kg Nghia Campos Other [employer] Other 03-29-2023 07:45-0500 Diastolic blood pressure 85 mm[Hg] Nghia Campos Other [employer] Other 03-29-2023 07:45-0500 Respiratory rate 16 /min [employer] Other [employer] Other 03-29-2023 07:45-0500 SaO2% (BldA) [Mass fraction] 97 % Nghia Tutee Other [employer] Other 03-29-2023 07:45-0500 Systolic blood pressure 117 mm[Hg] Nghia Tutee Other [employer] Other 02-01-2023 10:00-0400 Body height 165.1 cm Nghia Tutee Other [employer] Other 02-01-2023 10:00-0400 Body mass index (BMI) [Ratio] 28.37 kg/m2 Nghia Tutee Other [employer] Other 02-01-2023 10:00-0400 Body weight 77.34 kg [employer] Other [employer] Other 02-01-2023 10:00-0400 Diastolic blood pressure 99 mm[Hg] Nghia Tutee Other [employer] Other 02-01-2023 10:00-0400 Respiratory rate 18 /min Nghia Campos Other [employer] Other 02-01-2023 10:00-0400 SaO2% (BldA) [Mass fraction] 99 % Nghia Campos Other [employer] Other 02-01-2023 10:00-0400 Systolic blood pressure 141 mm[Hg] Nghia Campos Other [employer] Other Encounters Encounter Date Encounter Type Care Provider Facility Start: 07-12-2023 ambulatory Eduardo Arriola Facility: [facility] Start: 07-12-2023 End: 07-12-2023 ambulatory MD Eduardo Arriola Work Phone: [facility] Work Phone: Start: 07-12-2023 End: 07-12-2023 Patient encounter procedure MD Eduardo Arriola Work Phone: [facility] Work Phone: Start: 06-13-2023 End: 06-13-2023 ambulatory Nghia Campos Other [employer] [facility] [employer] Other Start: 06-13-2023 Telephone encounter Nghia Campos [facility] Start: 05-15-2023 End: 05-15-2023 ambulatory Eduardo Arriola Facility:[facility] Start: 05-15-2023 End: 05-15-2023 ambulatory MD Eduardo Arriola Work Phone: [facility] Work Phone: Start: 05-15-2023 End: 05-15-2023 Patient encounter procedure MD Eduardo Arriola Work Phone: [facility] [address] Work Phone: Start: 05-03-2023 (wmnempf/u) [employer] Employee F/U Nghia Campos [facility] Start: 05-03-2023 End: 05-03-2023 ambulatory Eduardo Arriola [facility] [employer] Other Start: 05-03-2023 Registered Recurring MD Nidhi Arriola Work Phone: [facility] Work Phone: Start: 05-03-2023 End: 05-03-2023 Patient encounter procedure MD Eduardo Arriola Work Phone: [facility] Work Phone: Start: 03-29-2023 End: 03-29-2023 ambulatory Nghia Andres Other [employer] Other Start: 03-29-2023 Follow-up encounter Nghia Pimentel [facility] Start: 03-15-2023 End: 03-15-2023 ambulatory Nghia Campos Other [employer] Other Start: 03-15-2023 Telephone encounter Nghia Pimentel [facility] Start: 02-28-2023 End: 02-28-2023 ambulatory Nghia Campos Other [employer] Other Start: 02-28-2023 Telephone encounter Nghia Pimentel [facility] Start: 02-17-2023 End: 02-17-2023 ambulatory Eduardo Arriola Facility:[facility] Start: 02-17-2023 End: 02-17-2023 ambulatory MD Eduardo Arriola Work Phone: [facility] Work Phone: Start: 02-17-2023 End: 02-17-2023 Departed Referred MD Eduardo Arriola Work Phone: [facility] Benef[facility] Screening Start: 02-05-2023 End: 02-05-2023 ambulatory MD Eduardo Arriola Work Phone: [facility] Work Phone: Start: 02-05-2023 End: 02-05-2023 Patient encounter procedure MD Eduardo Arriola Work Phone: [facility]Flu [facility] Start: 02-01-2023 (WMNEMPNEW) [employer] New Employee Nghia Campos [facility] Start: 02-01-2023 End: 02-01-2023 ambulatory Nghia Campos Other [facility] [employer] Other Start: 02-01-2023 Registered Recurring MD Nidhi Arriola Work Phone: [facility] Work Phone: Start: 01-25-2023 End: 01-25-2023 ambulatory Aura Kiransiva Other [facility] [employer] Other Start: 01-25-2023 Telephone encounter Aura Olson [facility] Start: 07-23-2022 End: 07-24-2022 ambulatory Weston DEXTER Facility:[facility] Start: 07-23-2022 End: 07-23-2022 Patient encounter procedure Weston DEXTER [facility] [place] Start: 07-14-2022 End: 07-15-[address] WESTON DEXTER . Facility:[facility] Start: 06-22-2022 End: 06-23-2022 ambulatory Weston DEXTER Facility:[facility] Start: 06-18-2022 End: 06-19-[address] EDUARDO [...] 03-11-2022 ambulatory MD Eduardo Arriola Work Phone: [facility] Work Phone: Start: 03-11-2022 End: 03-11-2022 Patient encounter procedure MD Eduardo Arriola Work Phone: [facility] [place] Start: 02-16-2022 End: 02-16-2022 Departed Referred MD Eduardo Arriola Work Phone: [facility] Benefit Screening Start: 02-01-2022 End: 02-01-2022 Patient encounter procedure MD Eduardo Arriola Work Phone: [facility] [facility] Start: 12-23-2021 End: 12-23-2021 ambulatory Cortez Fuchs Other [employer] Other Start: 12-23-2021 Office outpatient vi sit 5 minutes Cortez Fuchs [facility] Start: 08-26-2021 End: 08-27-[address] EDUARDO ARRIOLA . Facility:[facility] Start: 08-22-2021 End: 08-23-[address] EDUARDO ARRIOLA . Facility: Procedures Date Procedure Procedure Detail Performing Clinician Start: 07-14-2022 Colonoscopy Weston KIML Start: 07-14-2022 Esophagogastroduodenoscopy Weston NILL Start: 05-23-2010 Colonoscopy Weston NILL Start: 05-23-2000 Colonic polypectomy Weston NILL Arthroscopy of knee Weston NILL Colonoscopy Weston NILL Excision of cyst of ovary Mi chatae KIML Exploratory laparotomy Clement el NILL SARS-CoV-2, Influenza & RSV (PCR) MD Eduardo Arriola Work Phone: Total hysterectomy v ia vaginal approach Weston DEXTER Plan of Treatment Date Care Activity Detail Author Start: 05-15-2023 [facility] Start: 02-17-2023 [facility] Start: 03-11-2022 [facility] Hepatitis B virus valle rface Ab [Presence] in Serum [facility] Hepatitis B virus valle rface Ag [Presence] in Serum or Plasma by Immunoassay [facility] Hepatitis C virus Ig G Ab [Presence] in Serum or Plasma by Immunoassay [facility] HIV 1+2 Ab+HIV1 p24 Ag [Presence] in Serum or Plasma by Immunoassay [facility] Thyroglobulin Ab [Un its/volume] in Serum or Plasma [facility] Work Phone: Thyrotropin [Units/v olume] in Serum or Plasma [facility] Work Phone: Thyroxine (T4) free index in Serum or Plasma by calculation [facility] Work Phone: Thyroxine measurement [facility] Work Phone: Triiodothyronine (T3 ) [Mass/volume] in Serum or Plasma [facility] Work Phone: Triiodothyronine res in uptake (T3RU) in Serum or Plasma [facility] Work Phone: Immunizations Immunization Date Immunization Notes Care Provider Fa cility 03-23-2022 influenza virus vaccine, unspecified formulation Weston DEXTER [facility] 01-12-2021 SARS-CoV-2 (COVID-19 ) mRNA BNT-162b2 vax Weston DEXTER [facility] Comment on above: Result Comment: 2022: [id number] 12-24-2020 SARS-CoV-2 (COVID-19 ) mRNA BNT-162b2 yobani DEXTER [facility] [place] Comment on above: Result Comment: 2022: [id number] Payers Date Payer Category Payer Self-pay [id number] 1970 Unknown [id number] 2.16.84 [id number] 1972 Unknown [id number] 2.16.84 [id number] 1972 Unknown [id number] 2.16.84 [id number] 1972 Unknown [id number] 2.16.84 [id number] 1972 Unknown [id number] 2.16.84 0.1.201157.3.579.2.593 1972 Unknown [id number] 2.16.84 0.1.870489.3.579.2.593 1972 Unknown [id number] 2.16.84 0.1.837859.3.579.2.593 1972 Unknown [id number] 2.16.84 0.1.377150.3.579.2.593 1972 Unknown [id number] 2.16.84 0.1.616267.3.579.2.593 1972 Unknown [id number] 2.16.84 0.1.221189.3.579.2.593 1972 Unknown [id number] 2.16.8 40.1.366210.3.579.2.727 1972 Unknown [id number] 2.16.8 40.1.033353.3.579.2.727 1972 Unknown [id number] 2.16.8 40.1.102460.3.579.2.727 1959 Self-pay [id number] 1959 Unknown [id number] 2. [id number] Unknown [id number] 2.16.8 40.1.838401.3.579.2.531 Unknown [id number] 2.16.8 40.1.369126.3.579.2.531 Unknown [id number] 2.16.8 [id number] Unknown [id number] 2.16.8 [id number] Social History Date Type Detail Facility Sex Assigned At [facility] Start: 04-16-2021 End: 07-12-2023 Tobacco smoking status [facility] Ex-smoker (finding) [facility] Start: 1970 Sex Assigned At Female F [facility] Tobacco smoking status Never [facility] [place] Medical Equipment Procedure Code Equipment Code Equipment Origin al Text Equipment Identifier Dates NovoFine Plus Pe n Needle 32G X 4 MM Start: 02-01-2023 Clinical Notes 12-23-2021 to 06-13-2023 Note Date & Type Note Facility 06-13-2023 Evaluation note Encounter Date Diagnosis Assessment Notes May, Overweight (BMI 25.0-29.9) (ICD-10 - E66.3) [employer] Other 12-12-2023 Evaluation note* Encounter Date Diagnosis [...] resistance exercise to preserve/increase lean tissue -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 Please excuse errors in start up specialist. 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 Please excuse errors in start up specialist. Mar, Dietary surveillance and counseling (ICD-10 - [...] modification including proper nutrition and physical activity. [employer] Other 10-24-2023 Evaluation note* Encounter Date Diagnosis Assessment Notes Treatment Notes Treatment Clinical Notes Feb, Overweight (BMI 25.0-29.9) (ICD-10 - E66.3) [employer] Other 09-12-2023 Evaluation note* Encounter Date Diagnosis [...] titrate up as tolerated following dose titration scclhhly-Ecexq-vj-care A1c January 2023 5.3%-Follow up in clinic in 8 weeksThis note was created with voice recognition software. Please excuse errors in start up specialist. 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 Patient agreeable and expressed interest. Jan, Abnormal glucose (ICD-10 - R73.09) Jan, Arthritis of knee, left (ICD-10 - M17.12) Jan, Other 60 minutes was spent reviewing patient specific healthcare information, interviewing, counseling, and communicating with the patient, and documenting clinical information. [employer] Other 02-22-2023 NoteOPERATIVE NOTE OPERATION DATE: 07/14/2022 [...] in good condition. 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 Memory loss Migraines Obesity Personal history of colonic polyps Rectal bleeding RUQ pain Tension headache Historical Dog bite of left buttock Procedure/Surgical History Colonoscopy (more content not included)...[facility]:Result Comment: Electronically Signed By: SON VERDIN, Weston Burns\Date and Time Signed: 06/22/22 17:30 [id number] Evaluation note* Encounter Date Diagnosis Assessment Notes Treatment Notes Treatment Clinical Notes Dec, Contact with and (suspected) exposure to other viral communicable diseases (ICD-10 - Z20.828) [employer] Other Chief complaint+Reason for visit Narrative* Chief Complaint Wmn Obesity needlestick Reason for Visit Dietary surveillance and counseling Exercise counseling Overweight (BMI 25.0-29.9) [facility] Work Phone: Evaluation + Plan note No data available for this section [facility] General Surgery [place] Evaluation noteNo assessment information available [facility] Work Phone: Evaluation noteNo InformationNort [employer] Other Evaluation note* Diagnosis Onset Date Resolution Status Dietary surveillance and counseling acute Exercise counseling acute Overweight (BMI 25.0-29.9) cris sherman [facility] Work Phone: Hisjwlz general Narrative - Reported* Type Description Date Medical History HASIMOTO'S Medical History GRAVE'S DISEASE Medical History FIBROMYALGIA Medical History NICHO'S DISEASE Medical History Hypertension Surgical History TOTAL HYSTRECTOMY Surgical History MULTIPLE FEMALE SURGERY Surgical History CANCEROUS POLY COLON Surgical History TUBLIGATION Surgical History ABLATION Surgical History right knee arthroscopy 2011 Hospitalization History CHILD X'S 3 Hospitalization History SEE ABOVE SURGERY [facility] Other Hisczss general Narrative - Reported* Type Description Date Medical History HASIMOTO'S Medical History GRAVE'S DISEASE Medical History FIBROMYALGIA Medical History NICHO'S DISEASE Medical History Hypertension Surgical History TOTAL HYSTRECTOMY Surgical History MULTIPLE FEMALE SURGERY Surgical History CANCEROUS POLPY COLON Surgical History TUBLIGATION Surgical History ABLATION Surgical History right knee arthroscopy 2011 Hospitalization History CHILD X'S 3 Hospitalization History SEE ABOVE SURGERY [facility] Other Hospital Discharge instructions No data available for this section [facility] General Surgery [place] Progress note No data available for this section [facility] General Surgery [place] Chief Complaint and Reason for Visit Chief [...] chronic elevation of blood pressure Diagnosis 1 Schuyler disease (E27 .1) Referral Organization [facility] Referring Provider First Name Nghia Referring Provider Last Name Andres Referred Organization [facility] Referred Address [address] [place], [place],[address] Referred Provider Specialty Endocrinolog y Referral Priority Routine Additional Source Comments REASON FOR VISIT (unrecogniz ed section and content) [facility] ReferralI nitial WMNAMS [facility] questionAS RefillWMNWMNAS [facility] Care Teams (unrecognized sec tion and content) Team Status: Active Member Role Status Kayley Arriola MD Primary Care Provider Active Team Status: Inactive Member Role Status Kayley Arriola MD Primary Care Provider Active Torsten Marcelino DO [facility] Attending Provider Active Team Status: Active Member Role Status Kayley Arriola MD Primary Care Provider Active Nghia Campos DO Attending Provider Active Team Status: Inactive Member Role Status Dates Eduardo Arriola MD Primary Care Provider, Attending Pr [...] End: May 15, 2023 Torsten MYLES DO [facility] Attending Provider Active Start: May 15, 2023 [...] section and content) DATE CREATED AUTHOR 07/22/2022 Vivien rivera DATE CREATED AUTHOR AUTHOR'S ORGANIZ ATION 07/24/2022 [facility] DATE CREATED AUTHOR AUTHOR'S ORGANIZ ATION 07/13/2023 [facility] FOR RECORDS PERTAINING TO PATIENTS WHO [...] BE BASED ON THE PRIMARY CLINICAL RECORDS. [employer] provides no warranty or guarantee of the accuracy or completeness of information in this document.
--- NOTE | 2023-08-11 12:15 | CT_ITS ---
The [address] [address] Patient Name: SINDY MILLER MRN: [id number] date: 1970 Sex: F Assigned Patient Location: [place] Current Patient Location: [place] Accession/Order Number: [id number] Exam Date: 08/11/2023 12:40 Report Date: 08/11/2023 13:22 At the request of: EDUARDO LEÓN Procedure: CT abdomen w con EXAM: CT abdomen w con HISTORY: Right upper quadrant pain COMPARISON: None. TECHNIQUE: Following intravenous administration of 75 mL of Omnipaque 350, axial soft tissue windows of the abdomen were coronal and sagittal reformats. CT dose reduction technique was used including Automated Exposure Control. Findings: There is fatty infiltration of the liver. The gallbladder, spleen, pancreas, and adrenal glands are unremarkable. No renal stones or collecting system dilatation. The visualized portions of the bilateral ureters are nondilated. The aorta is normal caliber. Mild atherosclerotic disease. There are thick-walled loops of small bowel. No bowel obstruction within the visualized loops. No enlarged lymph nodes or free fluid. No aggressive sclerotic or lytic osseous lesions. CT/CT abdomen w con IMPRESSION: 1. Thick-walled loops of small bowel concerning for enteritis. Electronically authenticated by: CONI ORONA Date: 08/11/2023 13:22
== END 2023-08-11 09:32 | disposition home or self-care (01) ==
LOC: NM 09:31
PROVIDERS: PCP Family Medicine; Visit Provider Family Medicine
DX: R10.11 Right upper quadrant pain (principal)
CPT/HCPCS: 74160; 78227; A9537; Q9967

== ENCOUNTER 2023-08-16 07:35 | Outpatient (REF) | payer OTHER, SELFPAY ==
--- OUTSIDE RECORDS SUMMARY | 2023-08-16 07:38 | XMS_ITS | CCD ---
Author Organization [facility] Care Team Providers Care Nutrition Services Manager Name Role Phone [place] AltoCortez Unavailable MD Eduardo Arriola Primary Care Provider [phone] DO Torsten Marcelino Attending Provider MD Eduardo Arriola Attending Provider [phone] MAU .DR CLARK Attending Unavailable HOY ., DR CLARK Primary Care Unavailable HOY ., DR CLARK Admitting Unavailable HOY ., DR CLARK Consulting Unavailable [place], DR BERNA Cuevas Consulting Unavailable NILL ., [...] DR CLARK Admitting Unavailable HOY ., DR CALRK Admitting Unavailable HOY ., DR CLARK Primary [...] Primary Care Physician Weston DEXTER Attending Unavailable SON, Weston Ma Attending Unavailable Weston DEXTER Attending Unavailable Aura Olson Unavailable Nghia Campos Unavailable MD Eduardo Arriola Primary Care Provider [phone] DO Nghia Campos Attending Provider DO Torsten Marcelino Attending Provider DO Torsten Marcelino Attending Provider MD Eduardo Arriola Primary Care Provider [phone] DO Torsten Marcelino Attending Provider DO Nghia Campos Attending Provider MD Eduardo Arriola Primary Care Provider [phone] Nghia Campos Attending Provider [phone] [facility], DO Torsten Sierra Attending Provider Eduardo Arriola Primary Care Unavailable [facility], Torsten P Admitting [facility]available [facility] Un[facility] Eduardo Arriola Primary Care Unavailable [facility] Admitting Unavailable [facility], Torsten P Attending Unavailable Eduardo Arriola Primary Care Unavailable Nghia Campos Admitting Unavailable Nghia aCmpos Attending Unavailable Eduardo Arriola Primary Care Unavailable Nghia Campos Admitting Unavailable Nghia Campos Attending Unavailable Allergies Allergy Classification Reported Allergen(s) Allergy Type Date of Onset Reaction(s) Facility (9 sources) penicillAMINE Drug Allergy 02-20-20 24 anaphylaxis [facility] (9 sources) Sulfamethoxazole / Trimethoprim; Translations: [sulfamethoxazole-t rimethoprim] Drug Allergy anaphylaxis, Eruption of skin (disorder) [facility] (1 source) sulfaSALAzine Drug Allergy Unknown [facility] Other (8 sources) Cephalexin; Translations: [Cephalexin] Drug Allergy 04-16-20 Eruption of skin (disorder) [facility] (8 sources) Penicillins; Translations: [Penicillins] Allergy to substance 09-01-19 14 Anaphylaxis [facility] (7 sources) Sulfamethoxazole; Translations: [sulfamethoxazole] Drug Allergy 04-16-20 21 Anaphylaxis [facility] (7 sources) Trimethoprim; Translations: [trimethoprim] Drug Allergy 04-16-20 Anaphylaxis [facility] (2 sources) Cephalexin; Translations: [Keflex] Drug Allergy 09-01-19 14 [facility] Rep[facility] (1 source) Sulfamethoxazole / Trimethoprim Drug Allergy 09-01-19 14 [facility] (2 sources) Penicillin; Translations: [penicillin] Drug Allergy Eruption of skin (disorder) [facility] (1 source) Sulfamethoxazole / Trimethoprim; Translations: [Bactrim] Drug Allergy [facility] Repository (7 sources) Substance with sulfonamide structure and antibacterial mechanism of action (substance) Drug allergy Unknown [facility] Other (2 sources) Sulfonamides (Antibiotic); Translations: [Sulfa (Sulfonamide Antibiotics)] Allergy to substance 07-12-19 [facility] (1 source) penicillAMINE Drug Allergy 07-12-19 [facility] Repository Medications Current Medications Medication Drug Class(es) Dates Sig (Normalized) Sig (Original) [id number] 200 actuat albuterol 0.09 mg/actuat metered dose [...] 11:31am Start: 07-17-2014 [facility] Atenolol 100 MG [...] 2023 11:34am take 1 capsule by mo [facility] every twelve hours Cymbalta 60 MG 1 [...] Start: 02-13-2019 take 2 tablets by mo [facility] twice daily Cortef 10 mg Tab 20 [...] Start: 02-13-2019 take 2 tablets by mo [facility] once daily lisinopril 10 mg Tab 20 [...] 07-16-2022 ALT [Catalytic activity/Vol] 14 U/L Normal [facility] Comment on above: Order Comment: Which is this, the Source or the Person with the Exposure?: EXPOSURE Source Medical Record: [id number] Exposed Result Comment: PERF ORMED BY: [place] [address] PATHOLOGIST TECHNICAL ENGINEER NIKKI DELA CRUZ M.D. Performed By: #### H BSAG, HCV RX PCR, HIV SCREEN, HBSAB #### [facility] , #### ALT #### [address] Alanine aminotransferase [En zymatic activity/volume] in Serum or PlasmaOrdered By: Torsten Marcelino on 05-15-2023 ALT [Catalytic activity/Vol] 14 U/L [facility] HIV 1/O/2 Antigen/Antibodyon 05-15-2023 HIV Screen 4th Generation Non-Reactive Normal Non Reactive [facility] Comment on above: Order Comment: Which is this, the Source or the Person with the Exposure?: EXPOSURE Source Medical Record: [id number] Exposed Result Comment: HIV Negative HIV-1/HIV-2 antibodies and HIV-1 p24 antigen were NOT detected. There is no laboratory evidence of HIV infection. PERFORMED BY: [place] [address] PATHOLOGIST TECHNICAL ENGINEER NIKKI DELA CRUZ M.D. Performed By: #### H BSAG, HCV RX PCR, HIV SCREEN, HBSAB #### [facility] , #### ALT #### [facility] [address] [place] [address] HIV 1 and HIV-2 antibody ass ay with HIV-1 p24 antigen detectionOrdered By: Torsten Marcelino on 05-15-2023 HIV 1+2 Ab+HIV1 p24 Ag IA Ql Non-Reactive Non Reactive [facility] Comment on above: HIV NegativeHIV-1/HI V-2 antibodies and HIV-1 p24 antigen were NOTdetected. There is no laboratory evidence of HIV infection. Hep C Ab wRfx to Qnt PCRon 1 07-16-2022 Hepatitis C Virus Antibody Non-Reactive Normal Non Reactive [facility] Comment on above: Order Comment: Which is this, the Source or the Person with the Exposure?: EXPOSURE Source Medical Record: [id number] Exposed Performed By: #### H BSAG, HCV RX PCR, HIV SCREEN, HBSAB #### [facility] , #### ALT #### [facility] [address] [place] [address] Interpretation Hepatitis C Normal . [facility] Comment on above: Order Comment: Which is this, the Source or the Person with the Exposure?: EXPOSURE Source Medical Record: [id number] Exposed Result Comment: Not infected with HCV unless early or acute infection is suspected (which may be delayed in an immunocompromised individual), or other evidence exists to indicate HCV infection. Performed By: #### H BSAG, HCV RX PCR, HIV SCREEN, HBSAB #### [facility] , #### ALT #### [facility] [address] [place] [address] [place] Hepatitis B Surface Antibody on 05-15-2023 Hepatitis B Surface Antibody Reactive Normal . [facility] Comment on above: Order Comment: Which is this, the Source or the Person with the Exposure?: EXPOSURE Source Medical Record: [id number] Exposed Result Comment: Non Reactive: Inconsistent with immunity, less than 10 mIU/mL Reactive: Consistent with immunity, greater than 9.9 mIU/mL Performed By: #### H BSAG, HCV RX PCR, HIV SCREEN, HBSAB #### [facility] , #### ALT #### [facility] [address] [place] [address] Hepatitis B Surface Antigeno n 05-15-2023 HBsAg Screen Negative Normal Negative [facility] Comment on above: Order Comment: Which is this, the Source or the Person with the Exposure?: EXPOSURE Source Medical Record: [id number] Exposed Result Comment: Perf ormed at: CB - [facility] [place] [id number] Negative Notcher: Bennie ePnaloza PhD, Phone: [phone] Performed By: #### H BSAG, HCV RX PCR, HIV SCREEN, HBSAB #### [facility] , #### ALT #### [address] Hepatitis B virus surface Ab [Presence] in SerumOrdered By: Torsten Marcelino on 05-15-2023 HBV surface Ab Ql (S) Reactive . [facility] Comment on above: Non Reactive: Incons istent with immunity, less than 10 mIU/mL Reactive: Consistent with immunity, greater than 9.9 mIU/mL Hepatitis B virus surface Ag [Presence] in Serum or Plasma by ImmunoassayOrdered By: Torsten Marcelino on 05-15-2023 HBV surface Ag IA Ql Negative Negative [facility] Comment on above: Performed at: CB - [facility] [address] [id number] Director: Bennie Penaloza PhD, Phone: [phone] Hepatitis C virus IgG Ab [Pr esence] in Serum or Plasma by ImmunoassayOrdered By: Torsten Marcelino on 05-15-2023 HCV IgG IA Ql Non-Reactive Non Reactive [facility] No Panel InformationOrdered By: Torsten Marcelino on 05-15-2023 Hepatitis C Interpretation See comment . [facility] Comment on above: Not infected with HC V unless early or acute infection issuspected (which may be delayed in an immunocompromisedindividual), or other evidence exists to indicate HCVinfection. Alanine aminotransferase [En zymatic activity/volume] in Serum or PlasmaOrdered By: Torsten Marcelino on 02-17-2023 ALT [Catalytic activity/Vol] 17 U/L 7-52 [facility] Albumin [Mass/volume] in Ser um or Plasma by Bromocresol green (BCG) dye binding methoOrdered By: Torsten Marcelino on 02-17-2023 Albumin BCG dye [Mass/Vol] 4.4 g/dL 3.5-5.7 [facility] Alkaline phosphatase [Enzyma tic activity/volume] in Serum or PlasmaOrdered By: Torsten Marcelino on 02-17-2023 ALP [Catalytic activity/Vol] 54 U/L 34-104 [facility] Aspartate aminotransferase [ Enzymatic activity/volume] in Serum or PlasmaOrdered By: Torsten Marcelino on 02-17-2023 AST [Catalytic activity/Vol] 16 U/L 13-39 [facility] Basophils Auto (Bld) [#/Vol] Ordered By: Torsten Marcelino on 02-17-2023 Basophils (Bld) [#/Vol] 0.0 10*3/uL 0.0-0.2 [facility] Basophils/100 WBC Auto (Bld) Ordered By: Torsten Marcelino on 02-17-2023 Basophils/100 WBC (Bld) 0.5 % . [facility] Bilirubin.total [Mass/volume ] in Serum or PlasmaOrdered By: Torsten Marcelino on 02-17-2023 Bilirubin [Mass/Vol] 0.4 mg/dL 0.3-1.[address] [facility] Calcium [Mass/volume] in Ser um or PlasmaOrdered By: Torsten Marcelino on 02-17-2023 Calcium [Mass/Vol] 9.5 mg/dL 8.6-10.3 [facility] Carbon dioxide, total [Moles /volume] in Serum or PlasmaOrdered By: Torsten Marcelino on 02-17-2023 CO2 [Moles/Vol] 25.5 mmol/L 21.0-31.0 [facility] Chloride [Moles/volume] in S blanquita or PlasmaOrdered By: Torsten Marcelino on 02-17-2023 Chloride [Moles/Vol] 106 mmol/L 98-[address] [facility] Cholesterol [Mass/volume] in Serum or PlasmaOrdered By: Torsten Marcelino on 02-17-2023 Cholesterol [Mass/Vol] 176 mg/dL 140-200 [facility] Comment on above: Chol less than 200 m g/dl low riskChol 201-239 mg/dl borderline riskChol 240 mg/dl and greater high risk Cholesterol in LDL Calc [Mas s/Vol]Ordered By: Torsten Marcelino on 02-17-2023 Cholesterol in LDL [Mass/Vol] 99 mg/dL 0-100 [facility] Comment on above: LDL ATP III CLASSIFI CATIONLDL less than 100 mg/dL OptimalLDL 100-129 mg/dL Near or above optimalLDL 130-159 mg/dL Borderline highLDL 160-189 mg/dL HighLDL greater than 189 mg/dL Very high Cholesterol in VLDL Calc [Ma ss/Vol]Ordered By: Torsten Marcelino on 02-17-2023 Cholesterol in VLDL [Mass/Vol] 12 mg/dL [facility] Creatinine [Mass/volume] in Serum or PlasmaOrdered By: Torsten Marcelino on 02-17-2023 Creatinine [Mass/Vol] 1.04 mg/dL 0.60-1.20 [facility] Employee Comp Metabolic Pane jack 02-17-2023 Albumin [Mass/Vol] 4.4 g/dL Normal 3.5-5.7 [facility] Comment on above: Performed By: #### P ILLAR CMP, PILLAR CBC, PILLAR LIPID, PILLAR TSH #### [facility] [address] [place] [address] [place] #### NICOTINE QUAL #### [facility] , Albumin/Globulin [Mass ratio] 2.0 {ratio} Normal [facility] Comment on above: Performed By: #### P ILLAR CMP, PILLAR CBC, PILLAR LIPID, PILLAR TSH #### [facility] [address] [place] [address] #### NICOTINE QUAL #### [facility] , ALP [Catalytic activity/Vol] 54 U/L Normal 34-104 [facility] Comment on above: Performed By: #### P ILLAR CMP, PILLAR CBC, PILLAR LIPID, PILLAR TSH #### [facility] [address] [place] [address] #### NICOTINE QUAL #### [facility] , ALT [Catalytic activity/Vol] 17 U/L Normal 7-52 [facility] Comment on above: Performed By: #### P ILLAR CMP, PILLAR CBC, PILLAR LIPID, PILLAR TSH #### [facility] [address] [place] [address] #### NICOTINE QUAL #### [facility] , Anion gap [Moles/Vol] 10.7 mmol/L Normal 6.0-15.0 [facility] Comment on above: Performed By: #### P ILLAR CMP, PILLAR CBC, PILLAR LIPID, PILLAR TSH #### [facility] [address] [place] [address] #### NICOTINE QUAL #### [facility] , AST [Catalytic activity/Vol] 16 U/L Normal 13-39 [facility] Comment on above: Performed By: #### P ILLAR CMP, PILLAR CBC, PILLAR LIPID, PILLAR TSH #### [facility] [address] [place] [address] [place] #### NICOTINE QUAL #### [facility] , Bilirubin [Mass/Vol] 0.4 mg/dL Normal 0.3-1.[address] [facility] Comment on above: Performed By: #### P ILLAR CMP, PILLAR CBC, PILLAR LIPID, PILLAR TSH #### [facility] [address] [place] [address] [place] #### NICOTINE QUAL #### [facility] , Calcium [Mass/Vol] 9.5 mg/dL Normal 8.6-10.3 [facility] Comment on above: Performed By: #### P ILLAR CMP, PILLAR CBC, PILLAR LIPID, PILLAR TSH #### [facility] [address] [place] [address] [place] #### NICOTINE QUAL #### [facility] , Chloride [Moles/Vol] 106 mmol/L Normal 98-[address] [facility] Comment on above: Performed By: #### P ILLAR CMP, PILLAR CBC, PILLAR LIPID, PILLAR TSH #### [facility] [address] [place] [address] [place] #### NICOTINE QUAL #### [facility] , CO2 [Moles/Vol] 25.5 mmol/L Normal 21.0-31.0 [facility] Comment on above: Performed By: #### P ILLAR CMP, PILLAR CBC, PILLAR LIPID, PILLAR TSH #### [facility] [address] [place] [address] [place] #### NICOTINE QUAL #### [facility] , Creatinine [Mass/Vol] 1.04 mg/dL Normal 0.60-1.20 [facility] Comment on above: Performed By: #### P ILLAR CMP, PILLAR CBC, PILLAR LIPID, PILLAR TSH #### [facility] [address] [place] [address] [place] #### NICOTINE QUAL #### [facility] , GFR/1.73 sq M.predicted MDRD (S/P/Bld) [Vol rate/Area] mL/min/{1.73_m2} Normal [facility] Comment on above: Performed By: #### P ILLAR CMP, PILLAR CBC, PILLAR LIPID, PILLAR TSH #### [facility] [address] [place] [address] [place] #### NICOTINE QUAL #### [facility] , Globulin (S) [Mass/Vol] 2.2 g/dL Normal [facility] Comment on above: Performed By: #### P ILLAR CMP, PILLAR CBC, PILLAR LIPID, PILLAR TSH #### [facility] [address] [place] [address] #### NICOTINE QUAL #### [facility] , Glucose [Mass/Vol] 92 mg/dL Normal 70-100 [facility] Comment on above: Performed By: #### P ILLAR CMP, PILLAR CBC, PILLAR LIPID, PILLAR TSH #### [facility] [address] [place] [address] #### NICOTINE QUAL #### [facility] , Potassium [Moles/Vol] 4.2 mmol/L Normal 3.5-5.1 [facility] Comment on above: Performed By: #### P ILLAR CMP, PILLAR CBC, PILLAR LIPID, PILLAR TSH #### [facility] [address] [place] [address] #### NICOTINE QUAL #### [facility] , Protein [Mass/Vol] 6.6 g/dL Normal 6.4-8.9 [facility] Comment on above: Performed By: #### P ILLAR CMP, PILLAR CBC, PILLAR LIPID, PILLAR TSH #### [facility] [address] [place] [address] [place] #### NICOTINE QUAL #### [facility] , Sodium [Moles/Vol] 138 mmol/L Normal 136-145 [facility] Comment on above: Performed By: #### P ILLAR CMP, PILLAR CBC, PILLAR LIPID, PILLAR TSH #### [facility] [address] [place] [address] [place] #### NICOTINE QUAL #### [facility] , Urea nitrogen [Mass/Vol] 21 mg/dL Normal 7-25 [facility] Comment on above: Performed By: #### P ILLAR CMP, PILLAR CBC, PILLAR LIPID, PILLAR TSH #### [facility] [address] [place] [address] [place] #### NICOTINE QUAL #### [facility] , Employee Complete Blood Coun ton 02-17-2023 Basophils (Bld) [#/Vol] 0.0 10*3/uL Normal 0.0-0.2 [facility] Comment on above: Result Comment: PERF ORMED BY: [place] [address] PATHOLOGIST TECHNICAL ENGINEER NIKKI DELA CRUZ M.D. Performed By: #### P ILLAR CMP, PILLAR CBC, PILLAR LIPID, PILLAR TSH #### [address] #### NICOTINE QUAL #### [facility] , Basophils/100 WBC (Bld) 0.5 % Normal . [facility] Comment on above: Performed By: #### P ILLAR CMP, PILLAR CBC, PILLAR LIPID, PILLAR TSH #### [facility] [address] [place] [address] [place] #### NICOTINE QUAL #### [facility] , Eosinophils (Bld) [#/Vol] 0.0 10*3/uL Normal 0.0-0.45 [facility] Comment on above: Performed By: #### P ILLAR CMP, PILLAR CBC, PILLAR LIPID, PILLAR TSH #### [facility] [address] [place] [address] [place] #### NICOTINE QUAL #### [facility] , Eosinophils/100 WBC (Bld) 0.6 % Normal . [facility] Comment on above: Performed By: #### P ILLAR CMP, PILLAR CBC, PILLAR LIPID, PILLAR TSH #### [facility] [address] [place] [address] [place] #### NICOTINE QUAL #### [facility] , Erythrocyte distribution width (RBC) [Ratio] 13.8 % Normal 11.9-15.3 [facility] Comment on above: Performed By: #### P ILLAR CMP, PILLAR CBC, PILLAR LIPID, PILLAR TSH #### [facility] [address] [place] [address] #### NICOTINE QUAL #### [facility] , Hematocrit (Bld) [Volume fraction] 40.4 % Normal 34.0-46.4 [facility] Comment on above: Performed By: #### P ILLAR CMP, PILLAR CBC, PILLAR LIPID, PILLAR TSH #### [place] [address] [place] #### NICOTINE QUAL #### [facility] , Hemoglobin (Bld) [Mass/Vol] 13.7 g/dL Normal 11.8-15.4 [facility] Comment on above: Performed By: #### P ILLAR CMP, PILLAR CBC, PILLAR LIPID, PILLAR TSH #### [address] #### NICOTINE QUAL #### [facility] , Lymphocytes (Bld) [#/Vol] 1.0 10*3/uL Normal 1.00-4.8 [facility] Comment on above: Performed By: #### P ILLAR CMP, PILLAR CBC, PILLAR LIPID, PILLAR TSH #### [place] [address] [place] #### NICOTINE QUAL #### [facility] , Lymphocytes/100 WBC (Bld) 18.1 % Normal . [facility] Comment on above: Performed By: #### P ILLAR CMP, PILLAR CBC, PILLAR LIPID, PILLAR TSH #### [place] [address] [place] #### NICOTINE QUAL #### [facility] , MCH (RBC) [Entitic mass] 32.2 pg Normal 24.7-34.3 [facility] Comment on above: Performed By: #### P ILLAR CMP, PILLAR CBC, PILLAR LIPID, PILLAR TSH #### [facility] [address] [place] [address] [place] #### NICOTINE QUAL #### [facility] , MCV (RBC) [Entitic vol] 95.3 fL Normal 80-100 [facility] Comment on above: Performed By: #### P ILLAR CMP, PILLAR CBC, PILLAR LIPID, PILLAR TSH #### [facility] [address] [place] [address] #### NICOTINE QUAL #### [facility] , Mean Corpuscular HGB Conc 33.8 g/dL Normal 32.0-35.0 [facility] Comment on above: Performed By: #### P ILLAR CMP, PILLAR CBC, PILLAR LIPID, PILLAR TSH #### [facility] [address] [place] [address] [place] #### NICOTINE QUAL #### [facility] , Monocytes (Bld) [#/Vol] 0.5 10*3/uL Normal 0.0-0.8 [facility] Comment on above: Performed By: #### P ILLAR CMP, PILLAR CBC, PILLAR LIPID, PILLAR TSH #### [facility] [address] [place] [address] #### NICOTINE QUAL #### [facility] , Monocytes/100 WBC (Bld) 9.6 % Normal . [facility] Comment on above: Performed By: #### P ILLAR CMP, PILLAR CBC, PILLAR LIPID, PILLAR TSH #### [facility] [address] [place] [address] [place] #### NICOTINE QUAL #### [facility] , Neutrophils (Bld) [#/Vol] 4.1 10*3/uL Normal 1.8-7.7 [facility] Comment on above: Performed By: #### P ILLAR CMP, PILLAR CBC, PILLAR LIPID, PILLAR TSH #### [facility] [address] [place] [address] [place] #### NICOTINE QUAL #### [facility] , Neutrophils/100 WBC (Bld) 71.2 % Normal . [facility] Comment on above: Performed By: #### P ILLAR CMP, PILLAR CBC, PILLAR LIPID, PILLAR TSH #### [facility] [address] [place] [address] [place] #### NICOTINE QUAL #### [facility] , NRBC% 0.1 /100{WBC} Normal 0-0.5 [facility] Comment on above: Performed By: #### P ILLAR CMP, PILLAR CBC, PILLAR LIPID, PILLAR TSH #### [address] #### NICOTINE QUAL #### [facility] , Platelet mean volume (Bld) [Entitic vol] 9.5 fL Normal 6.3-10.7 [facility] Comment on above: Performed By: #### P ILLAR CMP, PILLAR CBC, PILLAR LIPID, PILLAR TSH #### [place] [address] [place] #### NICOTINE QUAL #### [facility] , Platelets (Bld) [#/Vol] 208 10*3/uL Normal 150-450 [facility] Comment on above: Performed By: #### P ILLAR CMP, PILLAR CBC, PILLAR LIPID, PILLAR TSH #### [place] [address] [place] #### NICOTINE QUAL #### [facility] , RBC (Bld) [#/Vol] 4.24 10*6/uL Normal 3.60-5.00 [facility] Comment on above: Performed By: #### P ILLAR CMP, PILLAR CBC, PILLAR LIPID, PILLAR TSH #### [place] [address] [place] #### NICOTINE QUAL #### [facility] , WBC (Bld) [#/Vol] 5.7 10*3/uL Normal 3.8-11.6 [facility] Comment on above: Performed By: #### P ILLAR CMP, PILLAR CBC, PILLAR LIPID, PILLAR TSH #### [address] #### NICOTINE QUAL #### [facility] , Employee Lipid Profileon Cholesterol [Mass/Vol] 176 mg/dL Normal 140-200 [facility] Comment on above: Result Comment: Chol less than 200 mg/dl low risk Chol 201-239 mg/dl borderline risk Chol 240 mg/dl and greater high risk Performed By: #### P ILLAR CMP, PILLAR CBC, PILLAR LIPID, PILLAR TSH #### [address] #### NICOTINE QUAL #### [facility] , Cholesterol in HDL [Mass/Vol] 64 mg/dL Normal 23-92 [facility] Comment on above: Result Comment: HDL CHOL ATP-III CLASSIFICATION Cardiovascular Risk HDL > or equal to 60 mg/dL LOW HDL < 40 mg/dL HIGH Performed By: #### P ILLAR CMP, PILLAR CBC, PILLAR LIPID, PILLAR TSH #### [address] #### NICOTINE QUAL #### [facility] , Cholesterol.total/Chol esterol in HDL [Mass ratio] 2.8 {ratio} Normal <5.0 [facility] Comment on above: Performed By: #### P ILLAR CMP, PILLAR CBC, PILLAR LIPID, PILLAR TSH #### [place] [address] [place] #### NICOTINE QUAL #### [facility] , LDL Cholesterol,Calculated 99 mg/dL Normal 0-100 [facility] Comment on above: Result Comment: LDL ATP III CLASSIFICATION LDL less than 100 mg/dL Optimal LDL 100-129 mg/dL Near or above optimal LDL 130-159 mg/dL Borderline high LDL 160-189 mg/dL High LDL greater than 189 mg/dL Very high Performed By: #### P ILLAR CMP, PILLAR CBC, PILLAR LIPID, PILLAR TSH #### [facility] [address] [place] [address] #### NICOTINE QUAL #### [facility] , Triglyceride w/Reflex 63 mg/dL Normal 0-149 [facility] Comment on above: Result Comment: TRIG ATP III CLASSIFICATION TRIG less than 150 mg/dL Normal TRIG 150-199 mg/dL Borderline high TRIG 200-500 mg/dL High TRIG greater than 500 mg/dL Very high Standard traceable to the Center for Disease Conrtrol and Prevention (CDC) test method. Performed By: #### P ILLAR CMP, PILLAR CBC, PILLAR LIPID, PILLAR TSH #### [address] #### NICOTINE QUAL #### [facility] , VLDL CHOLESTEROL 12 mg/dL Normal [facility] Comment on above: Performed By: #### P ILLAR CMP, PILLAR CBC, PILLAR LIPID, PILLAR TSH #### [facility] [address] [place] [address] #### NICOTINE QUAL #### [facility] , Employee Thyroid Stim Hormon loree 02-17-2023 Employee Thyroid Stim Hormone 0.28 u[iU]/mL Low 0.45-5.33 [facility] Comment on above: Result Comment: PERF ORMED BY: [place] [address] PATHOLOGIST TECHNICAL ENGINEER NIKKI DELA CRUZ M.D. Performed By: #### P ILLAR CMP, PILLAR CBC, PILLAR LIPID, PILLAR TSH #### [address] #### NICOTINE QUAL #### [facility] , Eosinophils Auto (Bld) [#/Vo l]Ordered By: Torsten Marcelino on 02-17-2023 Eosinophils (Bld) [#/Vol] 0.0 10*3/uL 0.0-0.45 [facility] Eosinophils/100 WBC Auto (Bl d)Ordered By: Torsten Marcelino on 02-17-2023 Eosinophils/100 WBC (Bld) 0.6 % . [facility] Erythrocyte distribution wid th Auto (RBC) [Ratio]Ordered By: Torsten Marcelino on 02-17-2023 Erythrocyte distribution width (RBC) [Ratio] 13.8 % 11.9-15.3 [facility] Globulin Calc (S) [Mass/Vol] Ordered By: Torsten Marcelino on 02-17-2023 Globulin (S) [Mass/Vol] 2.2 g/dL [facility] Glucose [Mass/volume] in Ser um or PlasmaOrdered By: Torsten Marcelino on 02-17-2023 Glucose [Mass/Vol] 92 mg/dL 70-100 [facility] Hematocrit Auto (Bld) [Volum e fraction]Ordered By: Torsten Marcelino on 02-17-2023 Hematocrit (Bld) [Volume fraction] 40.4 % 34.0-46.4 [facility] Hemoglobin [Mass/volume] in BloodOrdered By: Torsten Marcelino on 02-17-2023 Hemoglobin (Bld) [Mass/Vol] 13.7 g/dL 11.8-15.4 [facility] Leukocytes [#/volume] correc varghese for nucleated erythrocytes in Blood by Automated counOrdered By: Torsten Marcelino on 02-17-2023 WBC corrected for nucl RBC Auto (Bld) [#/Vol] 5.7 10*3/uL 3.8-11.6 [facility] Lymphocytes Auto (Bld) [#/Vo l]Ordered By: Torsten Marcelino on 02-17-2023 Lymphocytes (Bld) [#/Vol] 1.0 10*3/uL 1.00-4.8 [facility] Lymphocytes/100 WBC Auto (Bl d)Ordered By: Torsten Marcelino on 02-17-2023 Lymphocytes/100 WBC (Bld) 18.1 % . [facility] MCH Auto (RBC) [Entitic mass ]Ordered By: Torsten Marcelino on 02-17-2023 MCH (RBC) [Entitic mass] 32.2 pg 24.7-34.3 [facility] MCHC Auto (RBC) [Mass/Vol]Or dered By: Torsten Marcelino on 02-17-2023 MCHC (RBC) [Mass/Vol] 33.8 g/dL 32.0-35.0 [facility] MCV Auto (RBC) [Entitic vol] Ordered By: Torsten Marcelino on 02-17-2023 MCV (RBC) [Entitic vol] 95.3 fL 80-100 [facility] Monocytes Auto (Bld) [#/Vol] Ordered By: Torsten Marcelino on 02-17-2023 Monocytes (Bld) [#/Vol] 0.5 10*3/uL 0.0-0.8 [facility] Monocytes/100 WBC Auto (Bld) Ordered By: Torsten Marcelino on 02-17-2023 Monocytes/100 WBC (Bld) 9.6 % . [facility] Neutrophils Auto (Bld) [#/Vo l]Ordered By: Torsten Marcelino on 02-17-2023 Neutrophils (Bld) [#/Vol] 4.1 10*3/uL 1.8-7.7 [facility] Neutrophils/100 WBC Auto (Bl d)Ordered By: Torsten Marcelino on 02-17-2023 Neutrophils/100 WBC (Bld) 71.2 % . [facility] Nicotine Metabolite, Qualon 02-17-2023 Nicotine Metabolite Negative Normal Cutoff=25 [facility] Comment on above: Result Comment: Perf ormed at: BN - [facility] [address] [id number] Negative Notcher: Lan Garner MD, Phone: [phone] PERFORMED BY: [place] [address] PATHOLOGIST TECHNICAL ENGINEER NIKKI DELA CRUZ M.D. Performed By: #### P ILLAR CMP, PILLAR CBC, PILLAR LIPID, PILLAR TSH #### [address] #### NICOTINE QUAL #### [facility] , No Panel InformationOrdered By: Torsten Marcelino on 02-17-2023 Estimated GFR (CKD-EPI) > 60.0 mL/Min [facility] Nicotine Metabolite Negative Cutoff=25 [facility] Comment on above: Performed at: [address] [id number] Director: Lan Garner MD, Phone: [phone] Pharmacy Creatinine Clearance (Chem N/A [facility] Nucleated erythrocytes [Pres ence] in Blood by Automated countOrdered By: Torsten Marcelino on 02-17-2023 Nucleated RBC Auto Ql (Bld) 0.1 /100{WBC} 0-0.5 [facility] Platelet mean volume Auto (B ld) [Entitic vol]Ordered By: Torsten Marcelino on 02-17-2023 Platelet mean volume (Bld) [Entitic vol] 9.5 fL 6.3-10.7 [facility] Platelets Auto (Bld) [#/Vol] Ordered By: Torsten Marcelino on 02-17-2023 Platelets (Bld) [#/Vol] 208 10*3/uL 150-450 [facility] Potassium [Moles/volume] in Serum or PlasmaOrdered By: Torsten Marcelino on 02-17-2023 Potassium [Moles/Vol] 4.2 mmol/L 3.5-5.1 [facility] Protein [Mass/volume] in Ser um or PlasmaOrdered By: Torsten Marcelino on 02-17-2023 Protein [Mass/Vol] 6.6 g/dL 6.4-8.9 [facility] RBC Auto (Bld) [#/Vol]Ordere d By: Torsten Marcelino on 02-17-2023 RBC (Bld) [#/Vol] 4.24 10*6/uL 3.60-5.00 [facility] Serum or plasma albumin/glob ulin mass ratioOrdered By: Torsten Marcelino on 02-17-2023 Albumin/Globulin [Mass ratio] 2.0 {ratio} [facility] Serum or plasma anion gap de terminationOrdered By: Torsten Marcelino on 02-17-2023 Anion gap [Moles/Vol] 10.7 mmol/L 6.0-15.0 [facility] Serum or plasma high density lipoprotein (HDL) cholesterol measurementOrdered By: Torsten Marcelino on 02-17-2023 Cholesterol in HDL [Mass/Vol] 64 mg/dL 23-92 [facility] Comment on above: HDL CHOL ATP-III CLA SSIFICATION Cardiovascular RiskHDL > or equal to 60 mg/dL LOWHDL < 40 mg/dL HIGH Serum or plasma total choles terol/high density lipoprotein (HDL) cholesterol mass ratOrdered By: Torsten Marcelino on 02-17-2023 Cholesterol.total/Chol esterol in HDL [Mass ratio] 2.8 {ratio} <5.0 [facility] Sodium [Moles/volume] in Ser um or PlasmaOrdered By: Torsten Marcelino on 02-17-2023 Sodium [Moles/Vol] 138 mmol/L 136-145 [facility] Thyrotropin [Units/volume] i n Serum or PlasmaOrdered By: Torsten Marcelino on 02-17-2023 TSH Qn 0.28 m[IU]/L 0.45-5.33 [facility] Triglyceride [Mass/volume] i n Serum or PlasmaOrdered By: Torsten Marcelino on 02-17-2023 Triglyceride [Mass/Vol] 63 mg/dL 0-149 [facility] Comment on above: TRIG ATP III CLASSIF ICATIONTRIG less than 150 mg/dL NormalTRIG 150-199 mg/dL Borderline highTRIG 200-500 mg/dL High TRIG greater than 500 mg/dL Very highStandard traceable to the Center for Disease Conrtrol and Prevention (CDC) test method. Urea nitrogen [Mass/volume] in Serum or PlasmaOrdered By: Torsten Marcelino on 02-17-2023 Urea nitrogen [Mass/Vol] 21 mg/dL 7-25 [facility] WBC Auto (Bld) [#/Vol]Ordere d By: Torsten Marcelino on 02-17-2023 WBC (Bld) [#/Vol] 5.7 10*3/uL 3.8-11.6 [facility] A1C HEMOGLOBINon 02-01-2023 HbA1c (Bld) [Mass fraction] 5.3 % [employer] Other HbA1c (Bld) [Mass fraction]o n 02-01-2023 A1C HEMOGLOBIN [employer] Other Ambulatory Visit Summaryon 0 07-23-2022 Ambulatory [...] that you are currently receiving treatment for. Letcher's disease Asthma BMI 26.0-26.9,adult Change in bowel habits Chronic GERD Crohn's disease of large intestine with unspecified complications Eczema Epigastric pain Fibromyalgia HTN (hypertension) Hypothyroid skilled nursing (current) use of systemic steroids Memory loss Migraines Obesity Personal history of colonic polyps Rectal bleeding RUQ pain Tension headache Historical - Any problem that you are no longer receiving treatment for. Dog bite of left buttock Normal 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 Normal [facility] Pathology Noteon 07-16-2022 Pathology Note [id number]:[address] [facility] Outside Colonoscopyon 2022 Outside Colonoscopy [id number] [id number]: [address] [facility] Ambulatory Visit Summaryon 0 06-22-2022 Ambulatory Visit [...] that you are currently receiving treatment for. 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 Dog bite of left buttock Normal [facility] GI PANEL (PCR)on 06-18-2022 Adenovirus F 40/41 Not detected Normal NOT DETECTED [facility] Comment on above: Performed By: #### G IPANEL #### [facility] [address] [place] [address] Dr. Jaelyn Durán Astrovirus Not detected Normal NOT DETECTED [facility] Comment on above: Performed By: #### G IPANEL #### [facility] [address] [address] [address] Jaelyn Durán C. Diff toxin A/B Not detected Normal NOT DETECTED [facility] Comment on above: Performed By: #### G IPANEL #### [facility] [address] [place] [address] Dr. Jaelyn Durán Campylobacter Not detected Normal NOT DETECTED [facility] Comment on above: Performed By: #### G IPANEL #### [facility] [address] [address] [address] Jaelyn Durán Cryptosporidium Not detected Normal NOT DETECTED [facility] Comment on above: Performed By: #### G IPANEL #### [facility] [address] [place] [address] Dr. Jaelyn Durán Cyclos. Cayetanensis Not detected Normal NOT DETECTED [facility] Comment on above: Performed By: #### G IPANEL #### [facility] [address] [place] [address] Dr. Jaelyn Durán E. Coli O157 Not Applicable Normal Not Applicable [facility] Comment on above: Performed By: #### G IPANEL #### [facility] [address] [address] [address] Jaelyn Durán E. histolytica Not detected Normal NOT DETECTED [facility] Comment on above: Performed By: #### G IPANEL #### [facility] [address] [place] [address] Dr. Jaelyn Durán EAEC Not detected Normal NOT DETECTED [facility] Comment on above: Performed By: #### G IPANEL #### [facility] [address] [place] [address] Dr. Jaelyn Durán EIEC Not detected Normal NOT DETECTED [facility] Comment on above: Performed By: #### G IPANEL #### [facility] [address] [place] [address] Dr. Jaelyn Durán EPEC Not detected Normal NOT DETECTED [facility] Comment on above: Performed By: #### G IPANEL #### [facility] [address] [place] [address] Dr. Jaelyn Durán ETEC Not detected Normal NOT DETECTED [facility] Comment on above: Performed By: #### G IPANEL #### [facility] [address] [place] [address] Dr. Jaelyn Solares Lamblia Not detected Normal NOT DETECTED [facility] Comment on above: Performed By: #### G IPANEL #### [facility] [address] [place] [address] Dr. Jaelyn DILLARD CONTROLS PASSED Normal [facility] Comment on above: Performed By: #### G IPANEL #### [facility] [address] [place] [address] Dr. Jaelyn GREGORY MARIKA HEADER GI PANEL BACTERIA Normal [facility] Comment on above: Performed By: #### G IPANEL #### [facility] [address] [place] [address] Dr. Jaelyn MAN ECOLI GI PANEL DIARRHEAGEN IC E.COLI / SHIGELLA Normal [facility] Comment on above: Performed By: #### G IPANEL #### [facility] [address] [place] [address] Dr. Jaelyn MAN INFO SEE BELOW Normal [facility] Comment on above: Result Comment: EAEC - Enteroaggregative E. Coli EPEC- Enteropathogenic E. Coli ETEC- Enterotoxigenic E. Coli lt/st STEC- Shigella-like toxin-producing E. Coli stx1/stx2 EIEC- Shigella/Enteroinvasive E. Coli Performed By: #### G IPANEL #### [facility] [address] [place] [address] Dr. Jaelyn MAN PARASITES GI PANEL PARASITES Normal [facility] Comment on above: Performed By: #### G IPANEL #### [facility] [address] [place] [address] Dr. Jaelyn MAN VIRUS GI PANEL VIRUSES Normal [facility] Comment on above: Performed By: #### G IPANEL #### [facility] [address] [place] [address] Dr. Jaelyn Durán Norovirus GI/GII Not detected Normal NOT DETECTED [facility] Comment on above: Performed By: #### G IPANEL #### [facility] [address] [place] [address] Dr. Jaelyn Durán P. Shigelloides Not detected Normal NOT DETECTED [facility] Comment on above: Performed By: #### G IPANEL #### [facility] [address] [place] [address] Dr. Jaelyn Durán Rotavirus A Not detected Normal NOT DETECTED [facility] Comment on above: Performed By: #### G IPANEL #### [facility] [address] [place] [address] Dr. Jaelyn Durán Salmonella Not detected Normal NOT DETECTED [facility] Comment on above: Performed By: #### G IPANEL #### [facility] [address] [place] [address] Dr. Jaelyn Durán Sapovirus Not detected Normal NOT DETECTED [facility] Comment on above: Performed By: #### G IPANEL #### [facility] [address] [place] [address] Dr. Jaelyn Durán STEC Not detected Normal NOT DETECTED [facility] Comment on above: Performed By: #### G IPANEL #### [facility] [address] [place] [address] Dr. Jaelyn Durán Vibrio Not detected Normal NOT DETECTED [facility] Comment on above: Performed By: #### G IPANEL #### [facility] [address] [place] [address] Dr. Jaelyn Durán Vibrio Cholera Not detected Normal NOT DETECTED [facility] Comment on above: Performed By: #### G IPANEL #### [facility] [address] [address] [address] Jaelyn Durán Y. Enterocolitica Not detected Normal NOT DETECTED [facility] Comment on above: Performed By: #### G IPANEL #### [facility] [address] [id number] [address] Jaelyn Durán MRI ABDOMEN WO W [...] WYATT PAREDES Date: 2022-06-17 09:59 Normal [facility] RAD - MRI Reporton 3 RAD - MRI Report [id number]: [address] [facility] Physician Referralon 023 Physician Referral [id number]: [address] [facility] US SINGLE QUAD RT UPPERon US SINGLE [...] WYATT PAREDES Date: 2022-06-14 10:27 Normal [facility] CA 19-9on 06-11-2022 CA 19-9 47 U/mL Critically high 0-35 [facility] Comment on above: Result Comment: Ve rified by repeat analysis [employer] Electrochemiluminescence Immunoassay (ECLIA) . Values obtained with different assay methods or kits cannot be used interchangeably. Results cannot be interpreted as absolute evidence of the presence or absence of malignant disease. Performed By: #### I NFLUAB #### [facility] [address] [place] [address] Dr. Jaelyn Durán AMYLASEon 06-10-2022 Amylase [Catalytic activity/Vol] 40 U/L Normal 25-115 [facility] Comment on above: Performed By: #### I NFLUAB #### [facility] [address] [place] [address] Dr. Jaelyn Durán CBC AUTO DIFFon 06-10-2022 BASO # 0.0 103/ul Normal 0.0-0.1 [facility] Comment on above: Performed By: #### C BC #### [facility] [address] [place] [address] Dr. Jaelyn Durán Basophils/100 WBC (Bld) 0.5 % Normal 0.2-2.0 [facility] Comment on above: Performed By: #### C BC #### [facility] [address] [place] [address] Dr. Jaelyn Durán EO # 0.1 103/ul Normal 0.0-0.7 [facility] Comment on above: Performed By: #### C BC #### [facility] [address] [place] [address] Dr. Jaelyn Durán Eosinophils/100 WBC (Bld) 1.1 % Normal 0.9-7.0 [facility] Comment on above: Performed By: #### C BC #### [facility] [address] [place] [address] Dr. Jaelyn Durán Erythrocyte distribution width (RBC) [Ratio] 13.0 % Normal 11.0-15.0 [facility] Comment on above: Performed By: #### C BC #### [facility] [address] [place] [address] Dr. Jaelyn Durán Hematocrit (Bld) [Volume fraction] 44.0 % Normal 36.0-48.0 [facility] Comment on above: Performed By: #### C BC #### [facility] [address] [place] [address] Dr. Jaelyn Durán Hemoglobin (Bld) [Mass/Vol] 14.5 g/dL Normal 12.0-16.0 [facility] Comment on above: Performed By: #### C BC #### [facility] [address] [place] [address] Dr. Jaelyn Durán IG # 0.02 10e3/ul Normal 0.00-0.03 [facility] Comment on above: Performed By: #### C BC #### [facility] [address] [place] [address] Dr. Jaelyn Durán IG % 0.4 % Normal 0.0-0.5 [facility] Comment on above: Performed By: #### C BC #### [facility] [address] [place] [address] Dr. Jaelyn Durán LYMPH # 1.2 103/ul Normal 1.2-3.8 [facility] Comment on above: Performed By: #### C BC #### [facility] [address] [place] [address] Dr. Jaelyn Durán Lymphocytes/100 WBC (Bld) 21.3 % Normal 20.5-60.0 [facility] Comment on above: Performed By: #### C BC #### [facility] [address] [place] [address] Dr. Jaelyn Durán MANUAL DIFF REQ NO Normal [facility] Comment on above: Performed By: #### C BC #### [facility] [address] [place] [address] Dr. Jaelyn Durán MCH (RBC) [Entitic mass] 30.5 pg Normal 26.7-34.0 [facility] Comment on above: Performed By: #### C BC #### [facility] [address] [place] [address] Dr. Jaelyn Durán MCHC (RBC) [Mass/Vol] 33.0 g/dL Normal 29.9-35.2 [facility] Comment on above: Performed By: #### C BC #### [facility] [address] [place] [address] Dr. Jaelyn Durán MCV (RBC) [Entitic vol] 92.4 fL Normal 81.0-99.0 [facility] Comment on above: Performed By: #### C BC #### [facility] [address] [place] [address] Dr. Jaelyn Durán MONO # 0.5 103/ul Normal 0.3-0.8 [facility] Comment on above: Performed By: #### C BC #### [facility] [address] [place] [address] Dr. Jaelyn Durán Monocytes/100 WBC (Bld) 8.5 % Normal 1.7-12.0 [facility] Comment on above: Performed By: #### C BC #### [facility] [address] [place] [address] Dr. Jaelyn Durán NEUT # 3.8 103/ul Normal 1.4-6.5 [facility] Comment on above: Performed By: #### C BC #### [facility] [address] [place] [address] Dr. Jaelyn Durán Neutrophils/100 WBC (Bld) 68.2 % Normal 43.0-75.0 [facility] Comment on above: Performed By: #### C BC #### [facility] [address] [address] [address] Jaelyn Durán Platelet mean volume (Bld) [Entitic vol] 10.7 fL Normal 9.5-13.5 [facility] Comment on above: Performed By: #### C BC #### [facility] [address] [address] [address] Jaelyn Durán PLT 227 103/ul Normal 150-450 [facility] Comment on above: Performed By: #### C BC #### [facility] [address] [address] [address] Jaelyn Durán RBC 4.76 106/ul Normal 4.20-5.40 [facility] Comment on above: Performed By: #### C BC #### [facility] [address] [place] [address] Dr. Jaelyn Durán WBC 5.6 103/ul Normal 4.0-11.0 [facility] Comment on above: Performed By: #### C BC #### [facility] [address] [place] [address] Dr. Jaelyn Durán FREE THYROXINE INDEX T7on FTI 2.81 Normal 1.30-4.50 [facility] Comment on above: Performed By: #### C MP, JAYNA, TSH, T7, LIPA #### [facility] [address] [place] [address] Dr. Jaelyn Durán T3U 36.0 % Normal 30.0-39.0 [facility] Comment on above: Performed By: #### C MP, JAYNA, TSH, T7, LIPA #### [facility] [address] [place] [address] Dr. Jaelyn Durán T4 [Mass/Vol] 7.80 ug/dL Normal 4.80-13.90 [facility] Comment on above: Performed By: #### C MP, JAYNA, TSH, T7, LIPA #### [facility] [address] [place] [address] Dr. Jaelyn Durán GLYCOHEMOGLOBIN A1Con 2022 ADA RECOMMENDATION SEE BELOW Normal [facility] Comment on above: Result Comment: ADA RECOMMENDED LIMIT 4.0 - 6.0 ADA THERAPEUTIC TARGET < 7.0 ACTION SUGGESTED > 7.0 Performed By: #### A 1C #### [facility] [address] [place] [address] Dr. Jaelyn Durán Glucose [Mass/Vol] 105 mg/dL Normal [facility] Comment on above: Performed By: #### A 1C #### [facility] [address] [place] [address] Dr. Jaelyn Durán HbA1c (Bld) [Mass fraction] 5.3 % Normal 4.5-6.2 [facility] Comment on above: Performed By: #### A 1C #### [facility] [address] [place] [address] Dr. Jaelyn Durán LIPASEon 06-10-2022 Lipase [Catalytic activity/Vol] 182.0 U/L Normal 73.0-393.0 [facility] Comment on above: Performed By: #### C MP, JAYNA, TSH, T7, LIPA #### [facility] [address] [place] [address] Dr. Jaelyn Durán PROF 14(COMP METB)on 023 Albumin [Mass/Vol] 4.0 g/dL Normal 3.4-5.0 [facility] Comment on above: Performed By: #### I NFLUAB #### [facility] [address] [place] [address] Dr. Jaelyn Durán Albumin/Globulin [Mass ratio] 1.1 {ratio} Normal [facility] Comment on above: Performed By: #### I NFLUAB #### [facility] [address] [place] [address] Dr. Jaelyn Durán ALP [Catalytic activity/Vol] 80 U/L Normal 46-116 [facility] Comment on above: Performed By: #### I NFLUAB #### [facility] [address] [place] [address] Dr. Jaelyn Durán ALT [Catalytic activity/Vol] 20 U/L Normal 14-59 [facility] Comment on above: Performed By: #### I NFLUAB #### [facility] [address] [address] [address] Jaelyn Durán Anion gap [Moles/Vol] 12.4 mmol/L Normal [facility] Comment on above: Performed By: #### I NFLUAB #### [facility] [address] [place] [address] Dr. Jaelyn Durán AST [Catalytic activity/Vol] 16 U/L Normal 15-37 [facility] Comment on above: Performed By: #### I NFLUAB #### [facility] [address] [place] [address] Dr. Jaelyn Durán Bilirubin [Mass/Vol] 0.3 mg/dL Normal 0.2-1.0 [facility] Comment on above: Performed By: #### I NFLUAB #### [facility] [address] [place] [address] Dr. Jaelyn Durán Calcium [Mass/Vol] 9.4 mg/dL Normal 8.5-10.1 [facility] Comment on above: Performed By: #### I NFLUAB #### [facility] [address] [place] [address] Dr. Jaelyn Durán Chloride [Moles/Vol] 105 mmol/L Normal 98-107 [facility] Comment on above: Performed By: #### I NFLUAB #### [facility] [address] [place] [address] Dr. Jaelyn Durán CO2 [Moles/Vol] 27.4 mmol/L Normal 21.0-32.0 [facility] Comment on above: Performed By: #### I NFLUAB #### [facility] [address] [place] [address] Dr. Jaelyn Durán Creatinine [Mass/Vol] 0.82 mg/dL Normal 0.55-1.02 [facility] Comment on above: Performed By: #### I NFLUAB #### [facility] [address] [place] [address] Dr. Jaelyn Durán EGFR-AF SLOVAK >60 Normal >=60 [facility] Comment on above: Performed By: #### I NFLUAB #### [facility] [address] [place], [place] [id number] Dr. Jaelyn Durán EGFR-NON AF SLOVAK >60 Normal >=60 [facility] Comment on above: Performed By: #### I NFLUAB #### [facility] [address] [address] [address] Jaelyn Durán Globulin (S) [Mass/Vol] 3.6 g/dL Normal [facility] Comment on above: Performed By: #### I NFLUAB #### [facility] [address] [address] [address] Jaelyn Durán Glucose [Mass/Vol] 103 mg/dL Normal 74-106 [facility] Comment on above: Performed By: #### I NFLUAB #### [facility] [address] [place] [address] Dr. Jaelyn Durán Potassium [Moles/Vol] 3.8 mmol/L Normal 3.5-5.1 [facility] Comment on above: Performed By: #### I NFLUAB #### [facility] [address] [place] [address] Dr. Jaelyn Durán Protein [Mass/Vol] 7.6 g/dL Normal 6.4-8.2 [facility] Comment on above: Performed By: #### I NFLUAB #### [facility] [address] [place] [address] Dr. Jaelyn Durán Sodium [Moles/Vol] 141 mmol/L Normal 136-145 [facility] Comment on above: Performed By: #### I NFLUAB #### [facility] [address] [place] [address] Dr. Jaelyn Durán Urea nitrogen [Mass/Vol] 13.0 mg/dL Normal 7.0-18.0 [facility] Comment on above: Performed By: #### I NFLUAB #### [facility] [address] [place] [address] Dr. Jaelyn Durán Urea nitrogen/Creatinine [Mass ratio] 15.9 mg/mg Normal [facility] Comment on above: Performed By: #### I NFLUAB #### [facility] [address] [place] [address] Dr. Jaelyn Durán TSHon 06-10-2022 TSH 0.037 uIU/mL Critically low 0.358-3.740 [facility] Comment on above: Performed By: #### C MP, JAYNA, TSH, T7, LIPA #### [facility] [address] [address] [address] Jaelyn Durán Covid-19 PCR ([facility])on 04-22 SARS-CoV-2 (COVID-19) RNA LYUBOV+probe Ql (Unsp spec) Not detected Normal NOT DETECTED [facility] Comment on above: Result Comment: This test is not yet approved or cleared by the [place] FDA. When there are no FDA-approved or cleared tests available, and other criteria are met, FDA can make tests available under an emergency access mechanism called an Emergency Use Authorization (EUA). The EUA for this test is supported by the Labor Relations Or Personnel Negotiator of Health and Human Service's (HHS's) declaration [...] SARS-CoV-2. Performed By: #### P ROLAC #### [facility] [address] [place] [address] Dr. Jaelyn Durán INFLUENZA A AND B AGon 05-05 INFLUANEGH SEE BELOW Normal [facility] Comment on above: Result Comment: Nega tive for Flu A protein angiten. Infection due to Flu A cannot be ruled out. Flu A angiten in the sample may be below the detection limit of the test. Performed By: #### I NFLUAB #### [facility] [address] [address] [address] Jaelyn Durán INFLUBNEGH SEE BELOW Normal [facility] Comment on above: Result Comment: Nega tive for Flu B protein antigen. Infection due to Flu B cannot be ruled out. Flu B antigen in the sample may be below the detection limit of the test. Performed By: #### I NFLUAB #### [facility] [address] [place] [address] Dr. Jaelyn Durán INFLUENZA A AG Negative Normal NEGATIVE SEE COMMENT [facility] Comment on above: Performed By: #### I NFLUAB #### [facility] [address] [place] [address] Dr. Jaelyn Durán INFLUENZA B AG Negative Normal NEGATIVE SEE COMMENT [facility] Comment on above: Performed By: #### I NFLUAB #### [facility] [address] [place] [address] Dr. Jaelyn Durán INTERNAL CONTROLS Within Normal Limits Normal Wi thin Normal Limits [facility] Comment on above: Performed By: #### I NFLUAB #### [facility] [address] [place] [address] Dr. Jaelyn Durán TSH DL <= 0.005 mIU/L QnOrde red By: Eduardo Arriola on 03-11-2022 TSH Qn 0.02 m[IU]/L 0.45-5.33 [facility] Basophils Auto (Bld) [#/Vol] Ordered By: Torsten Marcelino on 02-16-2022 Basophils (Bld) [#/Vol] 0.0 10*3/uL 0.0-0.2 [facility] Basophils/100 WBC Auto (Bld) Ordered By: Torsten Marcelino on 02-16-2022 Basophils/100 WBC (Bld) 0.6 % . [facility] Body fluid albumin measureme nt (mass/volume)Ordered By: Torsten Marcelino on 02-16-2022 Albumin (Body fld) [Mass/Vol] 4.0 g/dL 3.2-5.5 [facility] Cholesterol [Mass/volume] in Serum or PlasmaOrdered By: Torsten Marcelino on 02-16-2022 Cholesterol [Mass/Vol] 216 mg/dL 140-200 [facility] Comment on above: Chol less than 200 m g/dl low riskChol 201-239 mg/dl borderline riskChol 240 mg/dl and greater high risk Cholesterol in LDL Calc [Mas s/Vol]Ordered By: Torsten Marcelino on 02-16-2022 Cholesterol in LDL [Mass/Vol] 102 mg/dL 0-100 [facility] Comment on above: LDL ATP III CLASSIFI CATIONLDL less than 100 mg/dL OptimalLDL 100-129 mg/dL Near or above optimalLDL 130-159 mg/dL Borderline highLDL 160-189 mg/dL HighLDL greater than 189 mg/dL Very high Cholesterol in VLDL Calc [Ma ss/Vol]Ordered By: Torsten Marcelino on 02-16-2022 Cholesterol in VLDL [Mass/Vol] 32 mg/dL [facility] Creatinine and Glomerular fi ltration rate.predicted panel (S/P/Bld)Ordered By: Torsten Marcelino on 02-16-2022 Creatinine [Mass/Vol] 1.00 mg/dL 0.44-1.03 [facility] Eosinophils Auto (Bld) [#/Vo l]Ordered By: Torsten Marcelino on 02-16-2022 Eosinophils (Bld) [#/Vol] 0.1 10*3/uL 0.0-0.45 [facility] Eosinophils/100 WBC Auto (Bl d)Ordered By: Torsten Marcelino on 02-16-2022 Eosinophils/100 WBC (Bld) 2.0 % . [facility] Erythrocyte distribution wid th Auto (RBC) [Ratio]Ordered By: Torsten Marcelino on 02-16-2022 Erythrocyte distribution width (RBC) [Ratio] 14.7 % 11.9-15.3 [facility] Estimated glomerular filtrat ion rate (GFR) non- AmericanOrdered By: Torsten Marcelino on 02-16-2022 GFR/1.73 sq M.predicted among non-blacks MDRD (S/P/Bld) [Vol rate/Area] 59 mL/Min [facility] Globulin Calc (S) [Mass/Vol] Ordered By: Torsten Marcelino on 02-16-2022 Globulin (S) [Mass/Vol] 2.5 g/dL [facility] Hematocrit Auto (Bld) [Volum e fraction]Ordered By: Torsten Marcelino on 02-16-2022 Hematocrit (Bld) [Volume fraction] 43.1 % 34.0-46.4 [facility] Hemoglobin [Mass/volume] in BloodOrdered By: Torsten Marcelino on 02-16-2022 Hemoglobin (Bld) [Mass/Vol] 14.2 g/dL 11.8-15.4 [facility] - Chemistry and C hemistry - challengeOrdered By: Torsten Marcelino on 02-16-2022 Glucose [Mass/Vol] 87 mg/dL 70-100 [facility] Laboratory - Hematology and Cell countsOrdered By: Torsten Marcelino on 02-16-2022 Nucleated RBC/100 WBC (Bld) [Ratio] 0.0 % 0-0.5 [facility] Leukocytes [#/volume] in Blo od by Automated countOrdered By: Torsten Marcelino on 02-16-2022 WBC (Bld) [#/Vol] 4.7 10*3/uL 4.5-11.0 [facility] Lymphocytes Auto (Bld) [#/Vo l]Ordered By: Torsten Marcelino on 02-16-2022 Lymphocytes (Bld) [#/Vol] 2.1 10*3/uL 1.00-4.8 [facility] Lymphocytes/100 WBC Auto (Bl d)Ordered By: Torsten Marcelino on 02-16-2022 Lymphocytes/100 WBC (Bld) 44.4 % . [facility] MCH Auto (RBC) [Entitic mass ]Ordered By: Torsten Marcelino on 02-16-2022 MCH (RBC) [Entitic mass] 30.8 pg 24.7-34.3 [facility] MCHC Auto (RBC) [Mass/Vol]Or dered By: Torsten Marcelino on 02-16-2022 MCHC (RBC) [Mass/Vol] 32.9 g/dL 32.0-35.0 [facility] MCV Auto (RBC) [Entitic vol] Ordered By: Torsten Marcelino on 02-16-2022 MCV (RBC) [Entitic vol] 93.6 fL 80-100 [facility] Monocyte %Ordered By: Torsten Marcelino on 02-16-2022 Monocyte % 163 mg/dL 35-149 [facility] Comment on above: TRIG ATP III CLASSIF ICATIONTRIG less than 150 mg/dL NormalTRIG 150-199 mg/dL Borderline highTRIG 200-500 mg/dL High TRIG greater than 500 mg/dL Very highStandard traceable to the Center for Disease Conrtrol and Prevention (CDC) test method. Monocytes Auto (Bld) [#/Vol] Ordered By: Torsten Marcelino on 02-16-2022 Monocytes (Bld) [#/Vol] 0.4 10*3/uL 0.0-0.8 [facility] Monocytes/100 WBC Auto (Bld) Ordered By: Torsten Marcelino on 02-16-2022 Monocytes/100 WBC (Bld) 9.4 % . [facility] Neutrophils Auto (Bld) [#/Vo l]Ordered By: Torsten Marcelino on 02-16-2022 Neutrophils (Bld) [#/Vol] 2.1 10*3/uL 1.8-7.7 [facility] Neutrophils/100 WBC Auto (Bl d)Ordered By: Torsten Marcelino on 02-16-2022 Neutrophils/100 WBC (Bld) 43.6 % . [facility] No Panel InformationOrdered By: Torsten Marcelino on 02-16-2022 Estimated GFR () > 60 mL/Min [facility] Comment on above: GFR estimated refere nce range: According to KDOQI guidelines, <60 ml/min/1.73m2 is sufficient to diagnose a patient with chronic kidney disease. Nicotine Metabolite Negative Cutoff=25 [facility] Comment on above: Performed at: [address] [id number] Director: Lan Garner MD, Phone: [phone] Pharmacy Creatinine Clearance (Chem N/A [facility] Platelet mean volume Auto (B ld) [Entitic vol]Ordered By: Torsten Marcelino on 02-16-2022 Platelet mean volume (Bld) [Entitic vol] 9.7 fL 6.3-10.7 [facility] Platelets Auto (Bld) [#/Vol] Ordered By: Torsten Marcelino on 02-16-2022 Platelets (Bld) [#/Vol] 219 10*3/uL 150-450 [facility] Protein [Mass/volume] in Ser um or PlasmaOrdered By: Torsten Marcelino on 02-16-2022 Protein [Mass/Vol] 6.5 g/dL 6.1-7.9 [facility] RBC Auto (Bld) [#/Vol]Ordere d By: Torsten Marcelino on 02-16-2022 RBC (Bld) [#/Vol] 4.61 10*6/uL 3.60-5.00 [facility] Serum or plasma alanine love otransferase measurement without P-5'-P (enzymatic activiOrdered By: Torsten Marcelino on 02-16-2022 ALT No additional P-5'-P [Catalytic activity/Vol] 23 U/L 10-60 [facility] Serum or plasma albumin/glob ulin mass ratioOrdered By: Torsten Marcelino on 02-16-2022 Albumin/Globulin [Mass ratio] 1.6 {ratio} [facility] Serum or plasma alkaline loretta sphatase measurement (enzymatic activity/volume)Ordered By: Torsten Marcelino on 02-16-2022 ALP [Catalytic activity/Vol] 61 U/L 32-92 [facility] Serum or plasma anion gap de terminationOrdered By: Torsten Marcelino on 02-16-2022 Anion gap [Moles/Vol] 15.6 mmol/L 6.0-15.0 [facility] Serum or plasma aspartate am inotransferase measurement (enzymatic activity/volume)Ordered By: Torsten Marcelino on 02-16-2022 AST [Catalytic activity/Vol] 22 U/L 10-42 [facility] Serum or plasma calcium mckayla urement (mass/volume)Ordered By: Torsten Marcelino on 02-16-2022 Calcium [Mass/Vol] 9.1 mg/dL 8.2-10.2 [facility] Serum or plasma chloride estrada surement (moles/volume)Ordered By: Torsten Marcelino on 02-16-2022 Chloride [Moles/Vol] 100 mmol/L 95-[address] [facility] Serum or plasma high density lipoprotein (HDL) cholesterol measurementOrdered By: Torsten Marcelino on 02-16-2022 Cholesterol in HDL [Mass/Vol] 81 mg/dL 35-85 [facility] Comment on above: HDL CHOL ATP-III CLA SSIFICATION Cardiovascular RiskHDL > or equal to 60 mg/dL LOWHDL < 40 mg/dL HIGH Serum or plasma potassium me asurement (moles/volume)Ordered By: Torsten Marcelino on 02-16-2022 Potassium [Moles/Vol] 3.4 mmol/L 3.5-5.1 [facility] Serum or plasma sodium measu rement (moles/volume)Ordered By: Torsten Marcelino on 02-16-2022 Sodium [Moles/Vol] 137 mmol/L 136-146 [facility] Serum or plasma total biliru bin measurement (mass/volume)Ordered By: Torsten Marcelino on 02-16-2022 Bilirubin [Mass/Vol] 0.6 mg/dL 0.3-1.[address] [facility] Serum or plasma total carbon dioxide measurement (moles/volume)Ordered By: Torsten Marcelino on 02-16-2022 CO2 [Moles/Vol] 24.8 mmol/L 22.0-30.0 [facility] Serum or plasma total choles terol/high density lipoprotein (HDL) cholesterol mass ratOrdered By: Torsten Marcelino on 02-16-2022 Cholesterol.total/Chol esterol in HDL [Mass ratio] 2.7 {ratio} <5.0 [facility] Serum or plasma urea nitroge n measurement (mass/volume)Ordered By: Torsten Marcelino on 02-16-2022 Urea nitrogen [Mass/Vol] 12 mg/dL 9-23 [facility] TSH DL <= 0.005 mIU/L QnOrde red By: Torsten Marcelino on 02-16-2022 TSH Qn 0.07 m[IU]/L 0.45-5.33 [facility] COVID CepheidOrdered By: Max Marcelino on 02-01-2022 SARS-CoV-2 (COVID-19) Ab IA Ql Negative Negative [facility] Comment on above: This is a duplicate [employer] CoV-2/Flu/RSV Plus RNA by RT-PCR result to be used for statistical tracking purpose only. SARS-CoV-2 (COVID-19) RNA LYUBOV+probe Ql (Unsp spec) [facility] - Microbiology an d Antimicrobial susceptibilityOrdered By: Torsten Marcelino on 02-01-2022 SARS-CoV-2 (COVID-19) RNA LYUBOV+probe Ql (Unsp spec) N/A [facility] SARS-CoV-2 (COVID-19) RNA NA A+probe Ql (Resp)on 12-23-2021 SARS-CoV-2 (COVID-19) RNA LYUBOV+probe Ql (Unsp spec) Negative [facility] Other MRI PITUITARY WO W CONon MRI [...] BERNA DALTON Date: 2021-08-26 11:33 Normal [facility] INSULINon 08-24-2021 Insulin 16.1 uIU/mL Normal 2.6-24.9 [facility] Comment on above: Performed By: #### I NSULIN #### [facility] [address] [address] [address] Jaelyn Durán ESTRADIOLon 08-23-2021 Estradiol <5.0 Normal [facility] Comment on above: Result Comment: Adul t Female: Follicular phase 12.5 - 166.0 Ovulation phase 85.8 - 498.0 Luteal phase 43.8 - 211.0 Postmenopausal <6.0 - 54.7 1st trimester 215.0 - >4300.0 [facility] ECLIA methodology Performed By: #### I NFLUAB #### [facility] [address] [place] [address] Dr. Jaelyn Durán FSHon 08-23-2021 FSH 45.4 mIU/mL Normal [facility] Comment on above: Result Comment: Adul t Female: Follicular phase 3.5 - 12.5 Ovulation phase 4.7 - 21.5 Luteal phase 1.7 - 7.7 Postmenopausal 25.8 - 134.8 Performed By: #### [facility] #### [facility] [address] [place] [address] Dr. Jaelyn Durán PROGESTERONEon 08-23-2021 Progesterone <0.1 Normal [facility] Comment on above: Result Comment: Foll icular phase 0.1 - 0.9 Luteal phase 1.8 - 23.9 Ovulation phase 0.1 - 12.0 First trimester 11.0 - 44.3 Second trimester 25.4 - 83.3 Third trimester 58.7 - 214.0 Postmenopausal 0.0 - 0.1 Performed By: #### I NFLUAB #### [facility] [address] [place] [address] Dr. Jaelyn Durán PROLACTINon 08-23-2021 Prolactin 30.9 ng/mL Critically high 4.8-23.3 [facility] Comment on above: Performed By: #### P ROLAC #### [facility] [address] [place] [address] Dr. Jaelyn Durán CBC AUTO DIFFon 08-22-2021 BASO # 0.0 103/ul Normal 0.0-0.1 [facility] Comment on above: Performed By: #### I NFLUAB #### [facility] [address] [place] [address] Dr. Jaelyn Durán Basophils/100 WBC (Bld) 0.6 % Normal 0.2-2.0 [facility] Comment on above: Performed By: #### I NFLUAB #### [facility] [address] [place] [address] Dr. Jaelyn Durán EO # 0.2 103/ul Normal 0.0-0.7 [facility] Comment on above: Performed By: #### I NFLUAB #### [facility] [address] [place] [address] Dr. Jaelyn Durán Eosinophils/100 WBC (Bld) 4.0 % Normal 0.9-7.0 [facility] Comment on above: Performed By: #### I NFLUAB #### [facility] [address] [place] [address] Dr. Jaelyn Durán Erythrocyte distribution width (RBC) [Ratio] 13.0 % Normal 11.0-15.0 [facility] Comment on above: Performed By: #### I NFLUAB #### [facility] [address] [place] [address] Dr. Jaelyn Durán Hematocrit (Bld) [Volume fraction] 42.9 % Normal 36.0-48.0 [facility] Comment on above: Performed By: #### I NFLUAB #### [facility] [address] [place] [address] Dr. Jaelyn Durán Hemoglobin (Bld) [Mass/Vol] 14.0 g/dL Normal 12.0-16.0 [facility] Comment on above: Performed By: #### I NFLUAB #### [facility] [address] [place] [address] Dr. Jaelyn Durán IG # 0.01 10e3/ul Normal 0.00-0.03 [facility] Comment on above: Performed By: #### I NFLUAB #### [facility] [address] [place] [address] Dr. Jaelyn Durán IG % 0.2 % Normal 0.0-0.5 [facility] Comment on above: Performed By: #### I NFLUAB #### [facility] [address] [place] [address] Dr. Jaelyn Durán LYMPH # 2.0 103/ul Normal 1.2-3.8 [facility] Comment on above: Performed By: #### I NFLUAB #### [facility] [address] [place] [address] Dr. Jaelyn Durán Lymphocytes/100 WBC (Bld) 43.2 % Normal 20.5-60.0 [facility] Comment on above: Performed By: #### I NFLUAB #### [facility] [address] [address] [address] Jaelyn Durán MANUAL DIFF REQ NO Normal [facility] Comment on above: Performed By: #### I NFLUAB #### [facility] [address] [address] [address] Jaelyn Durán MCH (RBC) [Entitic mass] 30.4 pg Normal 26.7-34.0 [facility] Comment on above: Performed By: #### I NFLUAB #### [facility] [address] [place] [address] Dr. Jaelyn Durán MCHC (RBC) [Mass/Vol] 32.6 g/dL Normal 29.9-35.2 [facility] Comment on above: Performed By: #### I NFLUAB #### [facility] [address] [place] [address] Dr. Jaelyn Durán MCV (RBC) [Entitic vol] 93.1 fL Normal 81.0-99.0 [facility] Comment on above: Performed By: #### I NFLUAB #### [facility] [address] [place] [address] Dr. Jaelyn Durán MONO # 0.5 103/ul Normal 0.3-0.8 [facility] Comment on above: Performed By: #### I NFLUAB #### [facility] [address] [place] [address] Dr. Jaelyn Durán Monocytes/100 WBC (Bld) 9.7 % Normal 1.7-12.0 [facility] Comment on above: Performed By: #### I NFLUAB #### [facility] [address] [place] [address] Dr. Jaelyn Durán NEUT # 2.0 103/ul Normal 1.4-6.5 [facility] Comment on above: Performed By: #### I NFLUAB #### [facility] [address] [place] [address] Dr. Jaelyn Durán Neutrophils/100 WBC (Bld) 42.3 % Critically low 43.0-75.0 [facility] Comment on above: Performed By: #### I NFLUAB #### [facility] [address] [address] [address] Jaelyn Durán Platelet mean volume (Bld) [Entitic vol] 10.1 fL Normal 9.5-13.5 [facility] Comment on above: Performed By: #### I NFLUAB #### [facility] [address] [address] [address] Jaelyn Durán PLT 243 103/ul Normal 150-450 [facility] Comment on above: Performed By: #### I NFLUAB #### [facility] [address] [address] [address] Jaelyn Durán RBC 4.61 106/ul Normal 4.20-5.40 [facility] Comment on above: Performed By: #### I NFLUAB #### [facility] [address] [place] [address] Dr. Jaelyn Durán WBC 4.7 103/ul Normal 4.0-11.0 [facility] Comment on above: Performed By: #### I NFLUAB #### [facility] [address] [address] [address] Jaelyn Durán FREE THYROXINE INDEX T7on FTI 1.84 Normal [facility] Comment on above: Performed By: #### P ROLAC #### [facility] [address] [place] [address] Dr. Jaelyn Durán T3U 34.0 % Normal 23.5-40.5 [facility] Comment on above: Performed By: #### P ROLAC #### [facility] [address] [address] [address] Jaelyn Durán T4 [Mass/Vol] 5.40 ug/dL Critically low 5.53-11.00 [facility] Comment on above: Performed By: #### P ROLAC #### [facility] [address] [place] [address] Dr. Jaelyn Durán GLYCOHEMOGLOBIN A1Con 2021 ADA RECOMMENDATION ADA THERAPEUTIC TARG ET 6.0 - 7.0 ACTION SUGGESTED > 7.0 Normal [facility] Comment on above: Performed By: #### P ROLAC #### [facility] [address] [address] [address] Jaelyn Durán Glucose [Mass/Vol] 108 mg/dL Normal [facility] Comment on above: Performed By: #### P ROLAC #### [facility] [address] [address] [address] Jaelyn Durán HbA1c (Bld) [Mass fraction] 5.4 % Normal <=6.0 [facility] Comment on above: Performed By: #### P ROLAC #### [facility] [address] [address] [address] Jaelyn Durán IRONon 08-22-2021 Iron [Mass/Vol] 56.0 ug/dL Normal 37.0-170.0 [facility] Comment on above: Performed By: #### I NFLUAB #### [facility] [address] [place] [address] Dr. Jaelyn Durán LIPID PROFILEon 08-22-2021 CHOL-HDL RATIO NORM SEE BELOW Normal [facility] Comment on above: Result Comment: 3.3 - 4.4 LOW RISK 4.4 - 7.1 AVERAGE RISK 7.1 - 11.0 MODERATE RISK >11.0 HIGH RISK Performed By: #### P ROLAC #### [facility] [address] [place] [address] Dr. Jaelyn Durán Cholesterol [Mass/Vol] 194 mg/dL Normal <=200 [facility] Comment on above: Performed By: #### P ROLAC #### [facility] [address] [address] [address] Jaelyn Durán Cholesterol in HDL [Mass/Vol] 80 mg/dL Critically high 40-60 [facility] Comment on above: Performed By: #### P ROLAC #### [facility] [address] [address] [address] Jaelyn Durán Cholesterol in LDL [Mass/Vol] 84.2 mg/dL Normal [facility] Comment on above: Performed By: #### P ROLAC #### [facility] [address] [address] [address] Jaelyn Durán Cholesterol.total/Chol esterol in HDL [Mass ratio] 2.4 {ratio} Normal [facility] Comment on above: Performed By: #### P ROLAC #### [facility] [address] [address] [address] Jaelyn Durán HDL NORMAL > or = 60 mg/dl - LO W CARDIOVASCULAR RISK <40 mg/dl - HIGH CARDIOVASCULAR RISK Normal [facility] Comment on above: Performed By: #### P ROLAC #### [facility] [address] [address] [address] Jaelyn Durán LDL CALC NORMAL SEE BELOW Normal [facility] Comment on above: Result Comment: <100 mg/dl OPTIMAL 100 - 129 mg/dl NEAR OR ABOVE OPTIMAL 130 - 159 mg/dl BORDERLINE HIGH 160 - 189 mg/dl HIGH >190 mg/dl VERY HIGH Performed By: #### P ROLAC #### [facility] [address] [address] [address] Jaelyn Durán Triglyceride [Mass/Vol] 149 mg/dL Normal <=150 [facility] Comment on above: Performed By: #### P ROLAC #### [facility] [address] [address] [address] Jaelyn Durán VLDL CALC 29.8 mg/dL Normal [facility] Comment on above: Performed By: #### P ROLAC #### [facility] [address] [address] [address] Jaelyn Durán PROF 14(COMP METB)on 022 Albumin [Mass/Vol] 3.7 g/dL Normal 3.4-5.0 [facility] Comment on above: Performed By: #### P ROLAC #### [facility] [address] [place] [address] Dr. Jaelyn Durán Albumin/Globulin [Mass ratio] 1.0 {ratio} Normal [facility] Comment on above: Performed By: #### P ROLAC #### [facility] [address] [address] [address] Jaelyn Durán ALP [Catalytic activity/Vol] 87 U/L Normal 46-116 [facility] Comment on above: Performed By: #### P ROLAC #### [facility] [address] [address] [address] Jaelyn Durán ALT [Catalytic activity/Vol] 28 U/L Normal 14-59 [facility] Comment on above: Performed By: #### P ROLAC #### [facility] [address] [address] [address] Jaelyn Durán Anion gap [Moles/Vol] 11.3 mmol/L Normal [facility] Comment on above: Performed By: #### P ROLAC #### [facility] [address] [address] [address] Jaelyn Durán AST [Catalytic activity/Vol] 17 U/L Normal 15-37 [facility] Comment on above: Performed By: #### P ROLAC #### [facility] [address] [address] [address] Jaelyn Durán Bilirubin [Mass/Vol] 0.3 mg/dL Normal 0.2-1.3 [facility] Comment on above: Performed By: #### P ROLAC #### [facility] [address] [address] [address] Jaelyn Durán Calcium [Mass/Vol] 8.9 mg/dL Normal 8.5-10.1 [facility] Comment on above: Performed By: #### P ROLAC #### [facility] [address] [address] [address] Jaelyn Durán Chloride [Moles/Vol] 104 mmol/L Normal 98-107 [facility] Comment on above: Performed By: #### P ROLAC #### [facility] [address] [address] [address] Jaelyn Durán CO2 [Moles/Vol] 30.4 mmol/L Critically high 22.0-30.0 [facility] Comment on above: Performed By: #### P ROLAC #### [facility] [address] [address] [address] Jaelyn Durán Creatinine [Mass/Vol] 0.87 mg/dL Normal 0.52-1.04 [facility] Comment on above: Performed By: #### P ROLAC #### [facility] [address] [address] [address] Jaelyn Durán EGFR-AF SLOVAK >60 Normal >=60 [facility] Comment on above: Performed By: #### P ROLAC #### [facility] [address] [address] [address] Jaelyn Durán EGFR-NON AF SLOVAK >60 Normal >=60 [facility] Comment on above: Performed By: #### P ROLAC #### [facility] [address] [address] [address] Jaelyn Durán Globulin (S) [Mass/Vol] 3.7 g/dL Normal [facility] Comment on above: Performed By: #### P ROLAC #### [facility] [address] [place] [address] Dr. Jaelyn Durán Glucose [Mass/Vol] 86 mg/dL Normal 74-106 [facility] Comment on above: Performed By: #### P ROLAC #### [facility] [address] [address] [address] Jaelyn Durán Potassium [Moles/Vol] 3.7 mmol/L Normal 3.4-5.0 [facility] Comment on above: Performed By: #### P ROLAC #### [facility] [address] [address] [address] Jaelyn Durán Protein [Mass/Vol] 7.4 g/dL Normal 6.1-8.2 [facility] Comment on above: Performed By: #### P ROLAC #### [facility] [address] [address] [address] Jaelyn Durán Sodium [Moles/Vol] 142 mmol/L Normal 137-145 [facility] Comment on above: Performed By: #### P ROLAC #### [facility] [address] [address] [address] Jaelyn Durán Urea nitrogen [Mass/Vol] 15.0 mg/dL Normal 7.0-18.0 [facility] Comment on above: Performed By: #### P ROLAC #### [facility] [address] [address] [address] Jaelyn Durán Urea nitrogen/Creatinine [Mass ratio] 17.2 mg/mg Normal [facility] Comment on above: Performed By: #### P ROLAC #### [facility] [address] [address] [address] Jaelyn Durán TSHon 08-22-2021 TSH 0.500 uIU/mL Normal 0.470-4.680 [facility] Comment on above: Performed By: #### P ROLAC #### [facility] [address] [address] [address] Jaelyn Durán TSH RANGE SEE BELOW Normal [facility] Comment on above: Result Comment: <0.3 4 UIU/ml HYPERTHYROID 0.34-5.60 UIU/ml EUTHYROID >5.60 UIU/ml HYPOTHYROID Performed By: #### P ROLAC #### [facility] [address] [address] [address] Jaelyn Durán Vital Signs Date Time Vital Sign Value Performing Clinician Facility 07-12-2023 09:52-0500 Body height 165.1 cm MD Eduardo Arriola Work Phone: [facility] 07-12-2023 09:52-0500 Body mass index (BMI) [Ratio] 26.2 kg/m2 MD Eduardo Arriola Work Phone: [facility] 07-12-2023 09:52-0500 Body weight 71.35 kg MD Eduardo Arriola Work Phone: [facility] 07-12-2023 09:52-0500 Diastolic blood pressure 78 mm[Hg] MD Eduardo Arriola Work Phone: [facility] 07-12-2023 09:52-0500 Heart rate 92 /min MD Eduardo Arriola Work Phone: [facility] 07-12-2023 09:52-0500 Respiratory rate 18 /min MD Eduardo Arriola Work Phone: [facility] 07-12-2023 09:52-0500 SaO2% (BldA) [Mass fraction] 98 % MD Eduardo Arriola Work Phone: [facility] 07-12-2023 09:52-0500 Systolic blood pressure 113 mm[Hg] MD Eduardo Arriola Work Phone: [facility] 05-03-2023 08:15-0500 Body height 165.1 cm [facility] Other [facility] 05-03-2023 08:15-0500 Body mass index (BMI) [Ratio] 26.07 kg/m2 [facility] Other [facility] Other 05-03-2023 08:15-0500 Body weight 71.08 kg Leikr Other [facility] Other 05-03-2023 08:15-0500 Body weight 71.07 kg MD Eduardo Arriola Work Phone: [facility] 05-03-2023 08:15-0500 Diastolic blood pressure 95 mm[Hg] [facility] Other [facility] 05-03-2023 08:15-0500 Respiratory rate 18 /min Le[facility] Other [facility] Other 05-03-2023 08:15-0500 SaO2% (BldA) [Mass fraction] 99 % [facility] Other [facility] Other 05-03-2023 08:15-0500 Systolic blood pressure 145 mm[Hg] [facility] Other [facility] 03-29-2023 07:45-0500 Body height 165.1 cm [employer] Other [employer] Other 03-29-2023 07:45-0500 Body mass index (BMI) [Ratio] 26.19 kg/m2 Nghia Campos Other [facility] Other 03-29-2023 07:45-0500 Body weight 71.4 kg Nghia Campos Other [employer] Other 03-29-2023 07:45-0500 Diastolic blood pressure 85 mm[Hg] Nghia Campos Other [employer] Other 03-29-2023 07:45-0500 Respiratory rate 16 /min [employer] Other [employer] Other 03-29-2023 07:45-0500 SaO2% (BldA) [Mass fraction] 97 % Nghia [employer] Other [facility] Other 03-29-2023 07:45-0500 Systolic blood pressure 117 mm[Hg] Nghia [employer] Other [employer] Other 02-01-2023 10:00-0400 Body height 165.1 cm Nghia [employer] Other [facility] Other 02-01-2023 10:00-0400 Body mass index (BMI) [Ratio] 28.37 kg/m2 Nghia [employer] Other [facility] Other 02-01-2023 10:00-0400 Body weight 77.34 kg [employer] Other [employer] Other 02-01-2023 10:00-0400 Diastolic blood pressure 99 mm[Hg] Nghia [employer] Other [employer] Other 02-01-2023 10:00-0400 Respiratory rate 18 /min Nghia Campos Other [employer] Other 02-01-2023 10:00-0400 SaO2% (BldA) [Mass fraction] 99 % Nghia Campos Other [employer] Other 02-01-2023 10:00-0400 Systolic blood pressure 141 mm[Hg] Nghia Campos Other [employer] Other Encounters Encounter Date Encounter Type Care Provider Facility Start: 07-12-2023 ambulatory Eduardo Arriola Facility: [facility] Start: 07-12-2023 End: 07-12-2023 ambulatory MD Eduardo Arriola Work Phone: [facility] Work Phone: Start: 07-12-2023 End: 07-12-2023 Patient encounter procedure MD Eduardo Arriola Work Phone: [facility] Work Phone: Start: 06-13-2023 End: 06-13-2023 ambulatory Nghia Campos Other [employer] [facility] [employer] Other Start: 06-13-2023 Telephone encounter Nghia Campos [facility] Start: 05-15-2023 End: 05-15-2023 ambulatory Eduardo Arriola Facility:[facility] Start: 05-15-2023 End: 05-15-2023 ambulatory MD Eduardo Arriola Work Phone: [facility] Work Phone: Start: 05-15-2023 End: 05-15-2023 Patient encounter procedure MD Eduardo Arriola Work Phone: [facility] [address] Work Phone: Start: 05-03-2023 (wmnempf/u) [employer] Employee F/U Nghia Campos [facility] Start: 05-03-2023 End: 05-03-2023 ambulatory Eduardo Arriola [facility] [employer] Other Start: 05-03-2023 Registered Recurring MD Nidhi Arriola Work Phone: [facility] Work Phone: Start: 05-03-2023 End: 05-03-2023 Patient encounter procedure MD Eduardo Arriola Work Phone: [facility] Work Phone: Start: 03-29-2023 End: 03-29-2023 ambulatory Nghia Andres Other [employer] Other Start: 03-29-2023 Follow-up encounter Nghia Pimentel [facility] Start: 03-15-2023 End: 03-15-2023 ambulatory Nghia Campos Other [employer] Other Start: 03-15-2023 Telephone encounter Nghia Pimentel [facility] Start: 02-28-2023 End: 02-28-2023 ambulatory Nghia Campos Other [employer] Other Start: 02-28-2023 Telephone encounter Nghia Pimentel [facility] Start: 02-17-2023 End: 02-17-2023 ambulatory Eduardo Arriola Facility:[facility] Start: 02-17-2023 End: 02-17-2023 ambulatory MD Eduardo Arriola Work Phone: [facility] Work Phone: Start: 02-17-2023 End: 02-17-2023 Departed Referred MD Eduardo Arriola Work Phone: [facility] Benefit Screening Start: 02-05-2023 End: 02-05-2023 ambulatory MD Eduardo Arriola Work Phone: [facility] Work Phone: Start: 02-05-2023 End: 02-05-2023 Patient encounter procedure MD Eduardo Arriola Work Phone: [facility]Flu Vacc[facility] Start: 02-01-2023 (WMNEMPNEW) [employer] New Employee Nghia Campos [facility] Start: 02-01-2023 End: 02-01-2023 ambulatory Nghia Campos Other [facility] [employer] Other Start: 02-01-2023 Registered Recurring MD Nidhi Arriola Work Phone: [facility] Work Phone: Start: 01-25-2023 End: 01-25-2023 ambulatory Aura Kiransiva Other [facility] [employer] Other Start: 01-25-2023 Telephone encounter Aura Olson [facility] Start: 07-23-2022 End: 07-24-2022 ambulatory Weston DEXTER Facility:[facility] Start: 07-23-2022 End: 07-23-2022 Patient encounter procedure Weston DEXTER [facility] [place] Start: 07-14-2022 End: 07-15-[address] WESTON DEXTER . Facility:[facility] Start: 06-22-2022 End: 06-23-2022 ambulatory Weston DEXTER Facility:[facility] Start: 06-18-2022 End: 06-19-[address] EDUARDO [...] 03-11-2022 ambulatory MD Eduardo Arriola Work Phone: [facility] Work Phone: Start: 03-11-2022 End: 03-11-2022 Patient encounter procedure MD Eduardo Arriola Work Phone: [facility] [employer] Start: 02-16-2022 End: 02-16-2022 Departed Referred MD Eduardo Arriola Work Phone: [facility]Employee Benefit Screening Start: 02-01-2022 End: 02-01-2022 Patient encounter procedure MD Eduardo Arriola Work Phone: [facility] Start: 12-23-2021 End: 12-23-2021 ambulatory Cortez Fuchs Other [employer] Other Start: 12-23-2021 Office outpatient vi sit 5 minutes Cortez Fuchs [facility] Ur[facility] Start: 08-26-2021 End: 08-27-[address] [...] Date Care Activity Detail Author Start: 05-15-2023 [facility] Start: 02-17-2023 [facility] Start: 03-11-2022 [facility] Hepatitis B virus valle rface Ab [Presence] in Serum [facility] Hepatitis B virus valle rface Ag [Presence] in Serum or Plasma by Immunoassay [facility] Hepatitis C virus Ig G Ab [Presence] in Serum or Plasma by Immunoassay [facility] HIV 1+2 Ab+HIV1 p24 Ag [Presence] in Serum or Plasma by Immunoassay [facility] Thyroglobulin Ab [Un its/volume] in Serum or Plasma [facility] Work Phone: Thyrotropin [Units/v olume] in Serum or Plasma [facility] Work Phone: Thyroxine (T4) free index in Serum or Plasma by calculation [facility] Work Phone: Thyroxine measurement [facility] Work Phone: Triiodothyronine (T3 ) [Mass/volume] in Serum or Plasma [facility] Work Phone: Triiodothyronine res in uptake (T3RU) in Serum or Plasma [facility] Work Phone: Immunizations Immunization Date Immunization Notes Care Provider Fa cility 03-23-2022 influenza virus vaccine, unspecified formulation Weston DEXTER [facility] 01-12-2021 SARS-CoV-2 (COVID-19 ) mRNA BNT-162b2 vax Weston DEXTER [facility] Comment on above: Result Comment: 2022: [id number] 12-24-2020 SARS-CoV-2 (COVID-19 ) mRNA BNT-162b2 yobani DEXTER [facility] Comment on above: Result Comment: 2022: [id number] Payers Date Payer Category Payer Self-pay [id number] 1970 Unknown [id number] 2.16.84 [id number] 1972 Unknown [id number] 2.16.84 0.1.128257.3.579.2.593 1972 Unknown [id number] 2.16.84 0.1.162821.3.579.2.593 1972 Unknown [id number] 2.16.84 0.1.994699.3.579.2.593 1972 Unknown [id number] 2.16.84 0.1.223065.3.579.2.593 1972 Unknown [id number] 2.16.84 0.1.422230.3.579.2.593 1972 Unknown [id number] 2.16.84 0.1.476087.3.579.2.593 1972 Unknown [id number] 2.16.84 0.1.036816.3.579.2.593 1972 Unknown [id number] 2.16.84 0.1.382529.3.579.2.593 1972 Unknown [id number] 2.16.84 0.1.173651.3.579.2.593 1972 Unknown [id number] 2.16.8 40.1.205953.3.579.2.727 1972 Unknown [id number] 2.16.8 40.1.739106.3.579.2.727 1972 Unknown [id number] 2.16.8 40.1.859940.3.579.2.727 1959 Self-pay [id number] 1959 Unknown [id number] 2. [id number] Unknown [id number] 2.16.8 40.1.417015.3.579.2.531 Unknown [id number] 2.16.8 40.1.193125.3.579.2.531 Unknown [id number] 2.16.8 40.1.238640.3.579.2.531 Unknown [id number] 2.16.8 40.1.180603.3.579.2.531 Social History Date Type Detail Facility Sex Assigned At [facility] Start: 04-16-2021 End: 07-12-2023 Tobacco smoking status [facility] Ex-smoker (finding) [facility] Start: 1970 Sex Assigned At Female F 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 Please excuse errors in biological scientist. 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 Please excuse errors in biological scientist. Mar, Dietary surveillance and counseling (ICD-10 - [...] modification including proper nutrition and physical activity. [facility] Other 10-24-2023 Evaluation note* Encounter Date Diagnosis Assessment Notes Treatment Notes Treatment Clinical Notes Feb, Overweight (BMI 25.0-29.9) (ICD-10 - E66.3) [facility] Other 09-12-2023 Evaluation note* Encounter Date Diagnosis [...] titrate up as tolerated following dose titration cfkdaetl-Kdknv-eo-care A1c January 2023 5.3%-Follow up in clinic in 8 weeksThis note was created with voice recognition software. Please excuse errors in biological scientist. 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 Patient agreeable and expressed interest. Jan, Abnormal glucose (ICD-10 - R73.09) Jan, Arthritis of knee, left (ICD-10 - M17.12) Jan, Other 60 minutes was spent reviewing patient specific healthcare information, interviewing, counseling, and communicating with the patient, and documenting clinical information. [facility] Other 02-22-2023 NoteOPERATIVE NOTE OPERATION DATE: 07/14/2022 [...] in good condition. 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Result Comment: Electronically Signed By: SON VERDIN, Weston Burns\Date and Time Signed: 06/22/22 17:30 [id number] Evaluation note* Encounter Date Diagnosis Assessment Notes Treatment Notes Treatment Clinical Notes Dec, Contact with and (suspected) exposure to other viral communicable diseases (ICD-10 - Z20.828) [facility] Other Chief complaint+Reason for visit Narrative* Chief Complaint Wmn Obesity needlestick Reason for Visit Dietary surveillance and counseling Exercise counseling Overweight (BMI 25.0-29.9) [facility] Work Phone: Evaluation + Plan note No data available for this section [facility] [place] Evaluation noteNo assessment information available [facility] Work Phone: Evaluation noteNo InformationNort [employer] Other Evaluation note* Diagnosis Onset Date Resolution Status Dietary surveillance and counseling acute Exercise counseling acute Overweight (BMI 25.0-29.9) cris sherman [facility] Work Phone: [facility] Narrative - Reported* Type Description Date Medical History HASIMOTO'S Medical History GRAVE'S DISEASE Medical History FIBROMYALGIA Medical History NICHO'S DISEASE Medical History Hypertension Surgical History TOTAL HYSTRECTOMY Surgical History MULTIPLE FEMALE SURGERY Surgical History CANCEROUS POLY COLON Surgical History TUBLIGATION Surgical History ABLATION Surgical History right knee arthroscopy 2011 Hospitalization History CHILD X'S 3 Hospitalization History SEE ABOVE SURGERY [facility] Other [facility]ont[facility] general Narrative - Reported* Type Description Date Medical History HASIMOTO'S Medical History GRAVE'S DISEASE Medical History FIBROMYALGIA Medical History NICHO'S DISEASE Medical History Hypertension Surgical History TOTAL HYSTRECTOMY Surgical History MULTIPLE FEMALE SURGERY Surgical History CANCEROUS POLPY COLON Surgical History TUBLIGATION Surgical History ABLATION Surgical History right knee arthroscopy 2011 Hospitalization History CHILD X'S 3 Hospitalization History SEE ABOVE SURGERY [facility] Other Hospital Discharge instructions No data available for this section [facility] Progress note No data available for this section [facility] [place] Chief Complaint and Reason for Visit Chief [...] chronic elevation of blood pressure Diagnosis 1 Letcher disease (E27 .1) Referral Organization [place] Referring Provider First Name Nghia Referring Provider Last Name Andres Referred Organization [facility] [address] [place], [place],[address] Referred Provider Specialty Endocrinolog y Referral Priority Routine Additional Source Comments REASON FOR VISIT (unrecogniz ed section and content) [facility] BL[employer] TRAXWMN ReferralI nitial WMNAMS [employer] questionAS RefillWMNWMNAS [employer] Care Teams (unrecognized sec tion and content) Team Status: Active Member Role Status Kayley Arriola MD Primary Care Provider Active Team Status: Inactive Member Role Status Kayley Arriola MD Primary Care Provider Active Torsten Marcelino DO [facility] Attending Provider Active Team Status: Active [...] End: May 15, 2023 Torsten MYLES DO [facility] Attending Provider Active Start: May 15, [...] DATE CREATED AUTHOR AUTHOR'S ORGANIZ ATION 07/24/2022 [facility] DATE CREATED AUTHOR AUTHOR'S ORGANIZ ATION 07/13/2023 [facility] FOR RECORDS PERTAINING TO PATIENTS WHO ARE [...] BE BASED ON THE PRIMARY CLINICAL RECORDS. [employer] provides no warranty or guarantee of the accuracy or completeness of information in this document.
== END 2023-08-16 07:36 | disposition home or self-care (01) ==
LOC: LAB 07:35
PROVIDERS: PCP Family Medicine; Visit Provider Family Medicine
DX: R19.7 Diarrhea, unspecified (principal)
CPT/HCPCS: 87493

== ENCOUNTER 2023-09-06 09:45 | Outpatient (OUT) | payer OTHER, SELFPAY ==
--- NOTE | 2023-09-06 09:47 | MR_ITS ---
The [address] [address] Patient Name: SINDY MILLER MRN: [id number] date: 1970 Sex: F Assigned Patient Location: MRI Current Patient Location: MRI Accession/Order Number: [id number] Exam Date: 09/06/2023 09:50 Report Date: 09/06/2023 13:01 At the request of: EDUARDO LEÓN Procedure: MR head/brain wo con MR head/brain wo con HISTORY: Dysarthria R47.1 COMPARISON: None. TECHNIQUE: Multi-planar, multi-sequence brain MRI was performed without IV contrast. FINDINGS: Brain volume: Mild generalized cerebral volume loss Sagittal midline structures: Normal. Ventricles: Normal. Acute ischemic changes: None. Hemorrhage: None. Masses/edema: None. Wilde-white: Negative. White matter: A few nonspecific subcortical white matter hyperintensities. Vessels: Normal. Extra-axial: None. Calvarium/scalp: Negative. Skull base: Negative. Visualized sinuses/orbits: Negative. Visualized upper neck: Negative. MR/MR head/brain wo con IMPRESSION: 1. No evidence of acute ischemia Electronically authenticated by: ALISHA EASLEY Date: 09/06/2023 13:01
== END 2023-09-06 09:46 | disposition home or self-care (01) ==
LOC: MRI 09:45
PROVIDERS: PCP Family Medicine; Visit Provider Family Medicine
DX: R47.1 Dysarthria and anarthria (principal)
CPT/HCPCS: 70551

== ENCOUNTER 2024-02-14 07:25 | Outpatient (OUT) | payer OTHER, SELFPAY ==
--- OUTSIDE RECORDS SUMMARY | 2024-02-14 07:28 | XMS_ITS | CCD ---
Author Organization [facility] CliniSywv Care Team Providers Care Guinea Pig Breeder Name Role Phone Cortez Fuchs Unavailable MD Eduardo Arriola Primary Care Provider [phone] DO Torsten Marcelino Attending Provider [phone] MD Eduardo Arriola Attending Provider [phone] FLAKO ., DR CLARK Attending Unavailable HOY ., DR CLARK Primary Care Unavailable HOY ., DR CLARK Admitting Unavailable HOY ., DR CLARK Consulting Unavailable BOLTON, DR BERNA Cuevas Consulting Unavailable NILL ., [...] CLARK Attending Unavailable HOY ., DR CLARK Admkenyon Unavailable HOY ., DR CLARK Primary Care [...] DEXTER Attending Unavailable Weston DEXTER Attending Unavailable Weston DEXTER Attending Unavailable Aura Olson Unavailable Nghia Campos Unavailable MD Eduardo Arriola Primary Care Provider [phone] DO Nghia Campos Attending Provider DO Torsten Marcelino Attending Provider [phone] DO Torsten Marcelino Attending Provider MD Eduardo Arriola Primary Care Provider [phone] DO Torsten Marcelino Attending Provider DO Nghia Campos Attending Provider [phone] MD Eduardo Arriola Primary Care Provider [phone] DO Nghia Campos Attending Provider [phone] [facility], DO Torsten Sierra Attending Provider MD Eduardo Arriola Primary Care Provider [phone] [facility], DO Torsten Sierra Attending Provider Nghia Campos Admitting Unavailable Nghia Campos Attending Unavailable Eduardo Arriola M Primary Care Unavailable [facility], Torsten P Admitting Unavailable [facility], Torsten P Attending Unavailable Hoy, Eduardo M Primary Care Unavailable Hoy, Eduardo M Primary Care Unavailable CamposLavonNghia M Admitting Unavailable Nghia Campos M Attending Unavailable [facility], Torsten P Admitting Unavailable [facility], Torsten P Attending Unavailable Flako, Eduardo M Primary Care Unavailable Hoy, Eduardo M Primary Care Unavailable K[facility], Torsten P Admitting Unavailable Kuns Torsten MYLES Attending Unavailable Allergies Allergy Classification Reported Allergen(s) Allergy Type Date of Onset Reaction(s) Facility (12 sources) penicillAMINE Drug Allergy 07-12-19 anaphylaxis [facility] (9 sources) Sulfamethoxazole / Trimethoprim; Translations: [sulfamethoxazole-t rimethoprim] Drug Allergy anaphylaxis, Eruption of skin (disorder) [facility] (1 source) sulfaSALAzine Drug Allergy Unknown [place] [employer] [facility] Other (11 sources) Cephalexin; Translations: [Cephalexin] Drug Allergy 04-16-20 Eruption of skin (disorder) [facility] (11 sources) Penicillins; Translations: [Penicillins] Allergy to substance 09-01-19 14 Anaphylaxis [facility] (10 sources) Sulfamethoxazole; Translations: [sulfamethoxazole] Drug Allergy 04-16-20 21 Anaphylaxis [facility] (10 sources) Trimethoprim; Translations: [trimethoprim] Drug Allergy 04-16-20 21 Anaphylaxis [facility] (2 sources) Cephalexin; Translations: [Keflex] Drug Allergy 09-01-19 14 [facility] (1 source) Sulfamethoxazole / Trimethoprim Drug Allergy 09-01-19 14 [facility] (2 sources) Penicillin; Translations: [penicillin] Drug Allergy Eruption of skin (disorder) [facility] (1 source) Sulfamethoxazole / Trimethoprim; Translations: [Bactrim] Drug Allergy [facility] (7 sources) Substance with sulfonamide structure and antibacterial mechanism of action (substance) Drug allergy Unknown [facility] Other (5 sources) Sulfonamides (Antibiotic); Translations: [Sulfa (Sulfonamide Antibiotics)] Allergy to substance 07-12-19 Anaphylaxis [facility] (3 sources) bee venom protein (honey bee); Translations: [bee venom protein (honey bee)] Allergy to substance 01-17-20 Difficulty Breathing [facility] (1 source) penicillAMINE Drug Allergy 01-17-20 [facility] Medications Current Medications Medication Drug Class(es) Dates Sig (Normalized) Sig (Original) [id number] 200 actuat albuterol 0.09 mg/actuat metered dose inhaler (9 sources) beta2-Adrenergic Agonist Start: 02-02-2021 Albuterol Sulfate Active 2 INH INHALATION Q6H February 02, 2021 12:00am administer with spacer aspirin 81 mg delayed release oral tablet (2 sources) Platelet Aggregation Inhibitor, Nonsteroidal Anti-inflammatory Drug Start: 01-17-2024 Aspirin (Adult Low Dose Aspirin) 81 mg tablet,delayed release (DR/EC) Active 81 MG PO Daily January 17, 2024 12:00am B Complex (2 sources) B Complex Orally Active celecoxib 200 mg oral capsule (2 sources) Nonsteroidal Anti-inflammatory Drug Start: 09-30-2021 take 1 capsule by mouth every twelve hours Celecoxib 200 MG 1 capsule with food Orally Twice a day for 30 day(s) September, Active cloNIDine hydrochloride 0.2 mg oral tablet (2 sources) Central alpha-2 Adrenergic Agonist Start: 01-17-2024 take 0.2 mg by mouth twice daily Clonidine Hcl Active 0.2 MG PO Twice daily January 17, 2024 12:00am Cymbalta 60 mg Cap-DR (1 source) Start: 01-21-2020 take 2 capsules by mouth once daily Cymbalta 60 mg Cap-DR = 2 cap(s), Oral, Daily, Refills(s) 0 Start Date: 01/21/20 Status: Ordered DULoxetine 60 mg delayed release oral capsule (20 sources) Serotonin and Norepinephrine Reuptake Inhibitor Start: 07-08-2023 End: 01-17-2024 take 1 capsule by mouth twice daily Duloxetine (Cymbalta) 60 mg capsule,delayed release(DR/EC) Active 60 MG PO Twice daily January 17, 2024 12:00am Start: 12-10-2020 End: 07-08-2023 take 1 capsule by mouth once daily Duloxetine (Cymbalta) 60 mg Capsule,Delayed Release(Dr/Ec) Discontinued 60 MG PO Daily December 10, 2020 12:00am July 08, 2023 12:34pm take 1 capsule by mo [facility] every twelve hours Cymbalta 60 MG 1 capsule Orally Twice a day Active esomeprazole 40 mg delayed release oral capsule (1 source) Proton Pump Inhibitor Start: 06-18-2022 take 1 capsule by mouth once daily esomeprazole 40 mg Cap-EC 40 mg = 1 cap(s), Oral, Daily, Refills(s) 0 Start Date: 06/18/22 Status: Ordered hydrocortisone 10 mg oral tablet (20 sources) Corticosteroid Start: 07-08-2023 End: 01-17-2024 Hydrocortisone Active 0 PO .COMPLEX January 17, 2024 7:58am 10 mg in am, 5 mg pm(Cortef) Start: 12-10-2020 End: 07-08-2023 take 1 tablet by mouth twice daily Hydrocortisone (Cortef) 10 mg Tablet Discontinued 10 MG PO Twice daily December 10, 2020 12:00am July 08, 2023 12:34pm Start: 02-13-2019 take 2 tablets by mo [facility] twice daily Cortef 10 mg Tab 20 mg = 2 tab(s), Oral, BID Start Date: 02/13/19 Status: Ordered take 1 tablet by daniel th every twelve hours Cortef 10 MG 1 tablet Orally every 12 hrs Active L.Acidoph-L.Rhamn-B.Bif-B.Lo ng (2 sources) Start: 01-17-2024 L.Acidoph-L.Rhamn-B.Bif-B.Lo ng Active TAB PO January 17, 2024 12:00am Metoprolol (2 sources) beta-A [facility] Rod ma Start: 01-17-2024 Metoprolol Tartrate Active 0 .ROUTE .COMPLEX January 17, 2024 12:00am 100 mg in am; 75 mg pm; Multivitamin preparation (10 sources) Start: 07-08-2023 take 1 tablet by mouth once daily Multivitamin Active 1 TAB PO Daily July 08, 2023 1:00am Start: 07-08-2023 take 1 tablet by daniel once daily Multivitamin Active 1 TAB PO Daily July 08, 2023 12:00am take 1 tablet by daniel once daily Multivitamin - 1 tablet Orally Once a day Active omeprazole 20 mg delayed release oral capsule (2 sources) Proton Pump Inhibitor Start: 01-17-2024 take 20 mg by mouth once daily Omeprazole Magnesium Active 20 MG PO Daily January 17, 2024 12:00am Semaglutide (2 sources) Start: 01-17-2024 Semaglutide (Ozempic) 0.25 mg or 0.5 mg (2 mg/3 mL) pen injector Active 0.25 MG SUBCUT every week 1.84 30 January 17, 2024 12:00am sucralfate 1000 mg oral tablet (1 source) Aluminum Complex Start: 07-15-2022 Carafate 1 gr am Tab 1 gm = 1 tab(s), Oral, QIDACHS, prescribed 07/14/22, Refills(s) 0 Start Date: 07/15/22 Status: Ordered topiramate 200 mg oral tablet (18 sources) Start: 02-13-2019 take 200 mg by mouth twice daily Topiramate Active 200 MG PO Twice daily December 10, 2020 12:00am take 1 tablet by daniel th every [...] Drug Class(es) Dates Sig (Normalized) Sig (Original) atenolol 100 mg oral tablet (20 sources) beta-Adrenergic Linda Start: 07-08-2023 End: 01-17-2024 take 100 mg by mouth once daily Atenolol Discontinued 100 MG PO Daily July 08, 2023 1:00am January 17, 2024 7:30am Start: 12-10-2020 End: 07-08-2023 take 100 mg by mouth once daily Atenolol Discontinued 100 MG PO Daily December 10, 2020 12:00am July 08, 2023 12:31pm Start: 07-17-2014 take 1 tablet by daniel th every twenty-four hours Atenolol 100 MG 1 tablet Orally Once a day Jun, Active azithromycin 250 mg oral tablet (9 sources) Macrolide Antimicrobial Start: 02-02-2021 End: 04-16-2021 Azithromycin Discontinued 0 PO .COMPLEX February 02, 2021 12:00am April 16, 2021 3:55am take 500 mg today (day 1), then 250 mg for 4 days (days 2-5) fludrocortisone acetate 0.1 mg oral tablet (20 sources) Start: 07-08-2023 End: 01-17-2024 take 0.1 mg by mouth once daily Fludrocortisone Discontinued 0.1 MG PO Daily July 12, 2023 1:00am January 17, 2024 7:30am Start: 12-10-2020 End: 12-10-2020 Fludrocortisone Discontinued MG TABLET December 10, 2020 12:00am December 10, 2020 8:49am Start: 02-20-2019 End: 07-08-2023 take 1 tablet by mouth twice daily Fludrocortisone (Florinef) 0.1 mg Tablet Discontinued 0.1 MG PO Twice daily December 10, 2020 12:00am July 08, 2023 12:34pm take 1 tablet by daniel th every twenty-four hours Fludrocortisone Acetate 0.1 MG 1 tablet Oral Once a day for 30 days Active levothyroxine sodium 0.1 mg oral tablet (20 sources) l-Thyroxine Start: 07-12-2023 End: 01-17-2024 Levothyroxine (Synthroid) 100 mcg tablet Discontinued 0 PO Daily July 12, 2023 10:49am January 17, 2024 7:33am 125 mg orally daily; Start: 06-18-2022 take 1 tablet by daniel th once daily levothyroxine 125 mcg (0.125 mg) Tab 125 mcg = 1 tab(s), Oral, Daily, Refills(s) 0 Start Date: 06/18/22 Status: Ordered Start: 12-10-2020 End: 07-12-2023 take 1 tablet by mouth once daily Levothyroxine (Synthroid) 100 mcg Tablet Discontinued 100 MCG PO Daily December 10, 2020 12:00am July 12, 2023 10:52am take 1 tablet by daniel th once daily Synthroid 125 MCG TAKE 1 TABLET BY MOUTH EVERY DAY for 30 Active liothyronine sodium 0.005 mg oral tablet (20 sources) l-Triiodothyronine Start: 12-10-2020 End: 01-17-2024 take 1 tablet by mouth twice daily Liothyronine (Cytomel) 5 mcg tablet Discontinued 5 MCG PO Twice daily July 08, 2023 1:00am January 17, 2024 7:58am Start: 12-10-2020 End: 12-10-2020 Liothyronine Discontinued MC G TABLET December 10, 2020 12:00am December 10, 2020 8:49am Start: 02-13-2019 take 1 tablet by daniel twice daily Cytomel 5 mcg Tab 5 microgram = 1 tab(s), Oral, BID Start Date: 02/13/19 Status: Ordered 3 ml liraglutide 6 mg/ml pen injector (10 sources) GLP-1 Receptor Agonist Start: 07-12-2023 End: 01-17-2024 Liraglutide (Victoza 2-Pancho) 0.6 mg/0.1 mL (18 mg/3 mL) pen injector Discontinued 0 SUBCUT Daily July 12, 2023 1:00am January 17, 2024 7:57am 3 mg subcutaneously daily; Start: 02-01-2023 Victoza [...] 3 mg using double injection. Jan, Active lisinopril 40 mg oral tablet (15 sources) Angiotensin Converting Enzyme Inhibitor Start: 12-10-2020 End: 04-16-2021 take 50 mg by mouth once daily Lisinopril Discontinued 50 MG PO Daily December 10, 2020 12:00am April 16, 2021 3:56am Start: 02-13-2019 take 2 tablets by mo [facility] once daily lisinopril 10 mg Tab 20 mg = 2 tab(s), Oral, Daily Start Date: 02/13/19 Status: Ordered take 1 tablet by [facility] every twenty-four hours Lisinopril 20 MG 1 tablet Orally Once a day Active ondansetron 4 mg disintegrating oral tablet (12 sources) Serotonin-3 Receptor Antagonist Start: 12-10-2020 End: 04-16-2021 take 4 mg by mouth every eight hours Ondansetron Discontinued 4 MG PO Q8H 14 December 10, 2020 12:00am April 16, 2021 3:56am Zofran ODT Activ e pen needle, diabetic (NovoFi ne Plus) (4 sources) Start: 07-08-2023 End: 01-17-2024 pen needle, diabetic (NovoFi ne Plus) Discontinued .Route July 08, 2023 1:00am January 17, 2024 8:02am Start: 07-08-2023 pen needle, di abetic (NovoFine Plus) Active .Route July 08, 2023 1:00am Start: 07-08-2023 pen needle, di abetic (NovoFine Plus) Active .Route July 08, 2023 12:00am spironolactone 25 mg oral tablet (20 sources) Aldosterone Antagonist Start: 07-08-2023 End: 01-17-2024 take 25 mg by mouth once daily Spironolactone Discontinued 25 MG PO Daily July 08, 2023 12:29pm January 17, 2024 7:57am (Aldactone) Start: 06-18-2022 take 1 tablet by daniel th once daily spironolactone 50 mg Tab 50 mg = 1 tab(s), Oral, Daily, Refills(s) 0 Start Date: 06/18/22 Status: Ordered Start: 12-10-2020 End: 07-08-2023 take 50 mg by mouth once daily Spironolactone Disconti nued 50 MG PO Daily December 10, 2020 12:00am July 08, 2023 12:36pm take 1 tablet by daniel every twenty-four hours Aldactone 25 MG 1 tablet Orally Once a day Active Problems Active Problems Problem Classification Problem Date Documented Da te Episodic/Chronic Abdominal hernia (2 sources) Diaphragmatic hernia; Translations: [Diaphragmatic hernia without obstruction or gangrene] Onset: 07-23-2022 Episodic Abdominal pain (20 sources) Abdominal pain; Translations: [Unspecified abdominal pain] Onset: 06-14-2022 04-16-2021 Episodic Allergic reactions (1 source) Eczema 01-21-2020 [...] 08-22-2021 12-10-2020 Chronic Fluid and electrolyte disorders (9 sources) Acute hypokalemia; Translations: [Hypokalemia] 04-16-2021 Episodic Gastrointestinal hemorrhage (2 sources) Hemorrhage of anus and rectum; Translations: [Rectal hemorrhage] Onset: 07-20-2022 06-22-2022 Episodic Headache; including migraine (6 sources) Migraine; Translations: [Tension-type headache] 06-18-2022 Chronic Intracranial injury (9 sources) Concussion with loss of consciousness; Translations: [...] Dog bite of buttock 06-18-2022 Episodic Osteoarthritis (15 sources) Arthritis of left knee; Translations: [Unilateral [...] source) Fibromyalgia 01-21-2020 Episodic Other endocrine disorders (6 sources) Primary adrenocortical insufficiency; Translations: [Glucocorticoid deficiency] Onset: 08-26-2021 Chronic Other endocrine disorders (9 sources) Sawyer's disease; 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 Other endocrine disorders (2 sources) Hyperaldosteronism; Translations: [Hyperaldosteronism, unspecified] 01-17-2024 Chronic Other endocrine disorders (2 sources) Hyperaldosteronism, unspecified; Translations: [Hyperaldosteronism, unspecified] 01-17-2024 Chronic Other fractures (9 sources) Closed fracture sacrum; Translations: [Unspecified fracture [...] Chronic Other nutritional; endocrine; and metabolic disorders (3 sources) Overweight in adulthood with body mass index of 25 or more but less than 30; Translations: [Body mass index (BMI) 28.0-28.9, adult] 06-22-2022 Episodic Other nutritional; endocrine; and metabolic disorders (8 sources) Overweight; Translations: [Overweight] Episodic Other nutritional; endocrine; and metabolic disorders (4 sources) Body mass index 25-29 - overweight; Translations: [Overweight] 07-12-2023 Episodic Other nutritional; endocrine; and metabolic disorders (2 sources) Abnormal weight gain; Translations: [Abnormal weight gain] 01-17-2024 Episodic Other nutritional; endocrine; and metabolic disorders (2 sources) Abnormal weight gain; Translations: [Abnormal weight gain] 01-17-2024 Episodic Other nutritional; endocrine; and metabolic disorders (2 sources) Body mass index (BMI) 28.0-28.9, adult; Translations: [Body Mass Index 28.0-28.9, adult] 01-17-2024 Episodic Other screening for suspected conditions (not mental disorders or infectious disease) (5 sources) Other abnormal tumor markers; Translations: [Other specified abnormal findings of blood chemistry] Onset: 08-26-2021 Episodic Pneumonia (except that caused by tuberculosis or sexually transmitted disease) (9 sources) Atypical pneumonia; Translations: [Pneumonia, unspecified organism] 02-02-2021 Episodic Regional enteritis and ulcerative colitis (1 source) Crohn's disease of large bowel 01-21-2020 Chronic Residual codes; unclassified (2 sources) Acquired absence of both cervix and uterus; Translations: [Acquired absence of both cervix and uterus] Onset: 07-20-2022 01-17-2024 Episodic Residual codes; unclassified (1 source) Amnesia 06-18-2022 Episodic Screening and history of mental health and substance abuse codes (1 source) Personal history of nicotine dependence; Translations: [PERSONAL HISTORY OF NICOTINE DEPEND] Onset: 07-20-2022 Episodic Thyroid disorders (20 sources) Arturo thyroiditis; 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] Onset: [...] to potentially hazardous body fluids] Onset: 05-15-2023 Past or Other Problems Problem Classification Problem Date Documented Da te Episodic/Chronic Administrative/social admission (20 sources) Drug indicated; Translations: [Chronic use of steroids] Onset: 05-03-2023 Episodic Deficiency and other anemia (1 source) Anemia, unspecified; Translations: [ANEMIA UNSPECIFIED] Onset: 08-26-2021 Episodic Immunizations and screening for infectious disease (1 source) Contact with and (suspected) exposure to other viral communicable diseases Onset: 12-23-2021 Resolved: 12-23-2021 Episodic Other nutritional; endocrine; and metabolic disorders (1 source) Overweight; Translations: [Overweight] Onset: 07-12-2023 Episodic Unclassified (1 source) COUGH, UNSPECIFIED; Translations: [COUGH, UNSPECIFIED] Onset: 05-05-2022 Results Test Name Value Interpretation Reference Range Facility Automated basophil %Ordered By: Torsten Marcelino on 01-17-2024 Basophils/100 WBC (Bld) 0.9 % Normal . [facility] Comment on above: Performed By: #### P ILLAR CBC, PILLAR BMP, PILLAR TSH, PILLAR LIPID #### [facility] [address] [place] [address] Automated basophil countOrde red By: Torsten Marcelino on 01-17-2024 Basophils (Bld) [#/Vol] 0.0 10*3/uL Normal 0.0-0.2 [facility] Comment on above: Result Comment: PERF ORMED BY: [place] [address] PATHOLOGIST PILLOWCASE TURNER NIKKI DELA CRUZ M.D. Performed By: #### P ILLAR CBC, PILLAR BMP, PILLAR TSH, PILLAR LIPID #### [facility] [address] [place] [address] Automated blood monocyte cou ntOrdered By: Torsten Marcelino on 01-17-2024 Monocytes (Bld) [#/Vol] 0.5 10*3/uL Normal 0.0-0.8 [facility] Comment on above: Performed By: #### P ILLAR CBC, PILLAR BMP, PILLAR TSH, PILLAR LIPID #### [facility] [address] Automated eosinophil %Ordere d By: Torsten Marcelino on 01-17-2024 Eosinophils/100 WBC (Bld) 1.9 % Normal . [facility] Comment on above: Performed By: #### P ILLAR CBC, PILLAR BMP, PILLAR TSH, PILLAR LIPID #### [facility] [address] [place] [address] Automated eosinophil countOr dered By: Torsten Marcelino on 01-17-2024 Eosinophils (Bld) [#/Vol] 0.1 10*3/uL Normal 0.0-0.45 [facility] Comment on above: Performed By: #### P ILLAR CBC, PILLAR BMP, PILLAR TSH, PILLAR LIPID #### [facility] [address] Automated monocyte %Ordered By: Torsten Marcelino on 01-17-2024 Monocytes/100 WBC (Bld) 9.8 % Normal . [facility] Comment on above: Performed By: #### P ILLAR CBC, PILLAR BMP, PILLAR TSH, PILLAR LIPID #### [facility] [address] Automated neutrophil %Ordere d By: Torsten Marcelino on 01-17-2024 Neutrophils/100 WBC (Bld) 55.3 % Normal . [facility] Comment on above: Performed By: #### P ILLAR CBC, PILLAR BMP, PILLAR TSH, PILLAR LIPID #### [facility] [address] [place] [address] Calcium [Mass/volume] in Ser um or PlasmaOrdered By: Torsten Marcelino on 01-17-2024 Calcium [Mass/Vol] 8.8 mg/dL Normal 8.6-10.3 [facility] Comment on above: Performed By: #### P ILLAR CBC, PILLAR BMP, PILLAR TSH, PILLAR LIPID #### [facility] [address] [place] [address] [place] Carbon dioxide, total [Moles /volume] in Serum or PlasmaOrdered By: Torsten Marcelino on 01-17-2024 CO2 [Moles/Vol] 29.5 mmol/L Normal 21.0-31.0 [facility] Comment on above: Performed By: #### P ILLAR CBC, PILLAR BMP, PILLAR TSH, PILLAR LIPID #### [facility] [address] [place] [address] [place] Chloride [Moles/volume] in S blanquita or PlasmaOrdered By: Torsten Marcelino on 01-17-2024 Chloride [Moles/Vol] 105 mmol/L Normal 98-107 [facility] Comment on above: Performed By: #### P ILLAR CBC, PILLAR BMP, PILLAR TSH, PILLAR LIPID #### [facility] [address] Cholesterol [Mass/volume] in Serum or PlasmaOrdered By: Torsten Marcelino on 01-17-2024 Cholesterol [Mass/Vol] 226 mg/dL High 140-200 [facility] Comment on above: Chol less than 200 m g/dl low riskChol 201-239 mg/dl borderline riskChol 240 mg/dl and greater high risk Result Comment: Chol less than 200 mg/dl low risk Chol 201-239 mg/dl borderline risk Chol 240 mg/dl and greater high risk Performed By: #### P ILLAR CBC, PILLAR BMP, PILLAR TSH, PILLAR LIPID #### [facility] [address] Cholesterol in LDL Calc [Mas s/Vol]Ordered By: Torsten Marcelino on 01-17-2024 Cholesterol in LDL [Mass/Vol] 107 mg/dL High 0-100 [facility] Comment on above: LDL ATP III CLASSIFI CATIONLDL less than 100 mg/dL OptimalLDL 100-129 mg/dL Near or above optimalLDL 130-159 mg/dL Borderline highLDL 160-189 mg/dL HighLDL greater than 189 mg/dL Very high Cholesterol in VLDL Calc [Ma ss/Vol]Ordered By: Torsten Marcelino on 01-17-2024 Cholesterol in VLDL [Mass/Vol] 34 mg/dL [facility] Creatinine [Mass/volume] in Serum or PlasmaOrdered By: Torsten Marcelino on 01-17-2024 Creatinine [Mass/Vol] 0.88 mg/dL Normal 0.60-1.20 [facility] Comment on above: Performed By: #### P ILLAR CBC, PILLAR BMP, PILLAR TSH, PILLAR LIPID #### [facility] [address] Employee Basic Metabolic Arauz fraziers bottom 01-17-2024 GFR/1.73 sq M.predicted MDRD (S/P/Bld) [Vol rate/Area] mL/min/{1.73_m2} Normal [facility] Comment on above: Performed By: #### P ILLAR CBC, PILLAR BMP, PILLAR TSH, PILLAR LIPID #### [facility] [address] Employee Complete Blood Coun ton 01-17-2024 Mean Corpuscular HGB Conc 33.9 g/dL Normal 32.0-35.0 [facility] Comment on above: Performed By: #### P ILLAR CBC, PILLAR BMP, PILLAR TSH, PILLAR LIPID #### [address] NRBC% 0.1 /100{WBC} Normal 0-0.5 [facility] Comment on above: Performed By: #### P ILLAR CBC, PILLAR BMP, PILLAR TSH, PILLAR LIPID #### [address] Employee Lipid Profileon LDL Cholesterol,Calculated 107 mg/dL High 0-100 [facility] Comment on above: Result Comment: LDL ATP III CLASSIFICATION LDL less than 100 mg/dL Optimal LDL 100-129 mg/dL Near or above optimal LDL 130-159 mg/dL Borderline high LDL 160-189 mg/dL High LDL greater than 189 mg/dL Very high Performed By: #### P ILLAR CBC, PILLAR BMP, PILLAR TSH, PILLAR LIPID #### [address] Triglyceride w/Reflex 170 mg/dL High 0-149 [facility] Comment on above: Result Comment: TRIG ATP III CLASSIFICATION TRIG less than 150 mg/dL Normal TRIG 150-199 mg/dL Borderline high TRIG 200-500 mg/dL High TRIG greater than 500 mg/dL Very high Standard traceable to the Center for Disease Conrtrol and Prevention (CDC) test method. Performed By: #### P ILLAR CBC, PILLAR BMP, PILLAR TSH, PILLAR LIPID #### [address] VLDL CHOLESTEROL 34 mg/dL Normal [facility] Comment on above: Performed By: #### P ILLAR CBC, PILLAR BMP, PILLAR TSH, PILLAR LIPID #### [address] Employee Thyroid Stim Hormon loree 01-17-2024 Employee Thyroid Stim Hormone 1.96 u[iU]/mL Normal 0.45-5.33 [facility] Comment on above: Result Comment: PERF ORMED BY: [place] [address] PATHOLOGIST PILLOWCASE TURNER NIKKI DELA CRUZ M.D. Performed By: #### P ILLAR CBC, PILLAR BMP, PILLAR TSH, PILLAR LIPID #### [address] Erythrocyte distribution wid th [Ratio] by Automated countOrdered By: Torsten Marcelino on 01-17-2024 Erythrocyte distribution width (RBC) [Ratio] 14.0 % Normal 11.9-15.3 [facility] Comment on above: Performed By: #### P ILLAR CBC, PILLAR BMP, PILLAR TSH, PILLAR LIPID #### [address] Erythrocytes [#/volume] in B lood by Automated countOrdered By: Torsten Marcelino on 01-17-2024 RBC (Bld) [#/Vol] 4.46 10*6/uL Normal 3.60-5.00 [facility] Comment on above: Performed By: #### P ILLAR CBC, PILLAR BMP, PILLAR TSH, PILLAR LIPID #### [facility] [address] [place] [address] Glucose [Mass/volume] in Ser um or PlasmaOrdered By: Torsten Marcelino on 01-17-2024 Glucose [Mass/Vol] 96 mg/dL Normal 70-100 [facility] Comment on above: Performed By: #### P ILLAR CBC, PILLAR BMP, PILLAR TSH, PILLAR LIPID #### [address] Hematocrit [Volume Fraction] of Blood by Automated countOrdered By: Torsten Marcelino on 01-17-2024 Hematocrit (Bld) [Volume fraction] 41.1 % Normal 34.0-46.4 [facility] Comment on above: Performed By: #### P ILLAR CBC, PILLAR BMP, PILLAR TSH, PILLAR LIPID #### [facility] [address] Hemoglobin [Mass/volume] in BloodOrdered By: Torsten Marcelino on 01-17-2024 Hemoglobin (Bld) [Mass/Vol] 13.9 g/dL Normal 11.8-15.4 [facility] Comment on above: Performed By: #### P ILLAR CBC, PILLAR BMP, PILLAR TSH, PILLAR LIPID #### [facility] [address] Leukocytes [#/volume] correc varghese for nucleated erythrocytes in Blood by Automated counOrdered By: Torsten Marcelino on 01-17-2024 WBC corrected for nucl RBC Auto (Bld) [#/Vol] 4.6 10*3/uL 3.8-11.6 [facility] Leukocytes [#/volume] in Blo od by Automated countOrdered By: Torsten Marcelino on 01-17-2024 WBC (Bld) [#/Vol] 4.6 10*3/uL Normal 3.8-11.6 [facility] Comment on above: Performed By: #### P ILLAR CBC, PILLAR BMP, PILLAR TSH, PILLAR LIPID #### [facility] [address] [place] [address] [place] Lymphocytes [#/volume] in Bl ood by Automated countOrdered By: Torsten Marcelino on 01-17-2024 Lymphocytes (Bld) [#/Vol] 1.5 10*3/uL Normal 1.00-4.8 [facility] Comment on above: Performed By: #### P ILLAR CBC, PILLAR BMP, PILLAR TSH, PILLAR LIPID #### [facility] [address] [place] [address] [place] Lymphocytes/100 leukocytes i n Blood by Automated countOrdered By: Torsten Marcelino on 01-17-2024 Lymphocytes/100 WBC (Bld) 32.1 % Normal . [facility] Comment on above: Performed By: #### P ILLAR CBC, PILLAR BMP, PILLAR TSH, PILLAR LIPID #### [facility] [address] MCH [Entitic mass] by Automa varghese countOrdered By: Torsten Marcelino on 01-17-2024 MCH (RBC) [Entitic mass] 31.2 pg Normal 24.7-34.3 [facility] Comment on above: Performed By: #### P ILLAR CBC, PILLAR BMP, PILLAR TSH, PILLAR LIPID #### [facility] [address] MCHC Auto (RBC) [Mass/Vol]Or dered By: Torsten Marcelino on 01-17-2024 MCHC (RBC) [Mass/Vol] 33.9 g/dL 32.0-35.0 [facility] MCV [Entitic volume] by Auto mated countOrdered By: Torsten Marcelino on 01-17-2024 MCV (RBC) [Entitic vol] 92.1 fL Normal 80-100 [facility] Comment on above: Performed By: #### P ILLAR CBC, PILLAR BMP, PILLAR TSH, PILLAR LIPID #### [facility] [address] [place] [address] Neutrophils [#/volume] in Bl ood by Automated countOrdered By: Torsten Marcelino on 01-17-2024 Neutrophils (Bld) [#/Vol] 2.6 10*3/uL Normal 1.8-7.7 [facility] Comment on above: Performed By: #### P ILLAR CBC, PILLAR BMP, PILLAR TSH, PILLAR LIPID #### [facility] [address] [place] [address] No Panel InformationOrdered By: Torsten Marcelino on 01-17-2024 Estimated GFR (CKD-EPI) > 60.0 mL/Min [facility] Creatinine Clearance (Chem N/A [facility] Nucleated erythrocytes [Pres ence] in Blood by Automated countOrdered By: Torsten Marcelino on 01-17-2024 Nucleated RBC Auto Ql (Bld) 0.1 /100{WBC} 0-0.5 [facility] Platelet mean volume [Entiti c volume] in Blood by Automated countOrdered By: Torsten Marcelino on 01-17-2024 Platelet mean volume (Bld) [Entitic vol] 9.3 fL Normal 6.3-10.7 [facility] Comment on above: Performed By: #### P ILLAR CBC, PILLAR BMP, PILLAR TSH, PILLAR LIPID #### [facility] [address] Platelets [#/volume] in Bloo d by Automated countOrdered By: Torsten Marcelino on 01-17-2024 Platelets (Bld) [#/Vol] 234 10*3/uL Normal 150-450 [facility] Comment on above: Performed By: #### P ILLAR CBC, PILLAR BMP, PILLAR TSH, PILLAR LIPID #### [facility] [address] [place] [address] Potassium [Moles/volume] in Serum or PlasmaOrdered By: Torsten Marcelino on 01-17-2024 Potassium [Moles/Vol] 3.9 mmol/L Normal 3.5-5.1 [facility] Comment on above: Performed By: #### P ILLAR CBC, PILLAR BMP, PILLAR TSH, PILLAR LIPID #### [facility] [address] [place] [address] Serum or plasma anion gap de terminationOrdered By: Torsten Marcelino on 01-17-2024 Anion gap [Moles/Vol] 8.4 mmol/L Normal 6.0-15.0 [facility] Comment on above: Performed By: #### P ILLAR CBC, PILLAR BMP, PILLAR TSH, PILLAR LIPID #### [facility] [address] [place] [address] Serum or plasma high density lipoprotein (HDL) cholesterol measurementOrdered By: Torsten Marcelino on 01-17-2024 Cholesterol in HDL [Mass/Vol] 85 mg/dL Normal 23-92 [facility] Comment on above: HDL CHOL ATP-III CLA SSIFICATION Cardiovascular RiskHDL > or equal to 60 mg/dL LOWHDL < 40 mg/dL HIGH Result Comment: HDL CHOL ATP-III CLASSIFICATION Cardiovascular Risk HDL > or equal to 60 mg/dL LOW HDL < 40 mg/dL HIGH Performed By: #### P ILLAR CBC, PILLAR BMP, PILLAR TSH, PILLAR LIPID #### [facility] [address] Serum or plasma total choles terol/high density lipoprotein (HDL) cholesterol mass ratOrdered By: Torsten Marcelino on 01-17-2024 Cholesterol.total/Chol esterol in HDL [Mass ratio] 2.7 {ratio} Normal <5.0 [facility] Comment on above: Performed By: #### P ILLAR CBC, PILLAR BMP, PILLAR TSH, PILLAR LIPID #### [facility] [address] [place] [address] Sodium [Moles/volume] in Ser um or PlasmaOrdered By: Torsten Marcelino on 01-17-2024 Sodium [Moles/Vol] 139 mmol/L Normal 136-145 [facility] Comment on above: Performed By: #### P ILLAR CBC, PILLAR BMP, PILLAR TSH, PILLAR LIPID #### [facility] [address] [place] [address] Thyrotropin [Units/volume] i n Serum or PlasmaOrdered By: Torsten Marcelino on 01-17-2024 TSH Qn 1.96 m[IU]/L 0.45-5.33 [facility] Triglyceride [Mass/volume] i n Serum or PlasmaOrdered By: Torsten Marcelino on 01-17-2024 Triglyceride [Mass/Vol] 170 mg/dL High 0-149 [facility] Comment on above: TRIG ATP III CLASSIF ICATIONTRIG less than 150 mg/dL NormalTRIG 150-199 mg/dL Borderline highTRIG 200-500 mg/dL High TRIG greater than 500 mg/dL Very highStandard traceable to the Center for Disease Conrtrol and Prevention (CDC) test method. Urea nitrogen [Mass/volume] in Serum or PlasmaOrdered By: Torsten Marcelino on 01-17-2024 Urea nitrogen [Mass/Vol] 16 mg/dL Normal 7-25 [facility] Comment on above: Performed By: #### P ILLAR CBC, PILLAR BMP, PILLAR TSH, PILLAR LIPID #### [address] Alanine aminotransferase [En zymatic activity/volume] in Serum or PlasmaOrdered By: Torsten Marcelino on 05-15-2023 ALT [Catalytic activity/Vol] 14 U/L Normal 7-52 [facility] Comment on above: Order Comment: Which is this, the Source or the Person with the Exposure?: EXPOSURE Source Medical Record: [id number] Exposed Result Comment: PERF ORMED BY: [place] [address] PATHOLOGIST PILLOWCASE TURNER NIKKI DELA CRUZ M.D. Performed By: #### H IV SCREEN, HBSAB, HBSAG, HCV RX PCR #### [facility] , #### ALT #### [address] HIV 1/O/2 Antigen/Antibodyon 05-15-2023 HIV Screen 4th Generation Non-Reactive Normal Non Reactive [facility] Comment on above: Order Comment: Which is this, the Source or the Person with the Exposure?: EXPOSURE Source Medical Record: [id number] Exposed Result Comment: HIV Negative HIV-1/HIV-2 antibodies and HIV-1 p24 antigen were NOT detected. There is no laboratory evidence of HIV infection. PERFORMED BY: [place] [address] PATHOLOGIST PILLOWCASE TURNER NIKKI DELA CRUZ M.D. Performed By: #### H IV SCREEN, HBSAB, HBSAG, HCV RX PCR #### [facility] , #### ALT #### [address] HIV 1 and HIV-2 antibody ass ay with HIV-1 p24 antigen detectionOrdered By: Torsten Marcelino on 05-15-2023 HIV 1+2 Ab+HIV1 p24 Ag IA Ql Non-Reactive Non Reactive [facility] Comment on above: HIV NegativeHIV-1/HI V-2 antibodies and HIV-1 p24 antigen were NOTdetected. There is no laboratory evidence of HIV infection. Hep C Ab wRfx to Qnt PCRon 1 07-16-2022 Hepatitis C Virus Antibody Non-Reactive Normal Non Reactive [facility] Comment on above: Order Comment: Which is this, the Source or the Person with the Exposure?: EXPOSURE Source Medical Record: [id number] Exposed Performed By: #### H IV SCREEN, HBSAB, HBSAG, HCV RX PCR #### [facility] , #### ALT #### [facility] [address] Interpretation Hepatitis C Normal . [facility] Comment on above: Order Comment: Which is this, the Source or the Person with the Exposure?: EXPOSURE Source Medical Record: [id number] Exposed Result Comment: Not infected with HCV unless early or acute infection is suspected (which may be delayed in an immunocompromised individual), or other evidence exists to indicate HCV infection. Performed By: #### H IV SCREEN, HBSAB, HBSAG, HCV RX PCR #### [facility] , #### ALT #### [address] Hepatitis B Surface Antibody on 05-15-2023 Hepatitis B Surface Antibody Reactive Normal . [facility] Comment on above: Order Comment: Which is this, the Source or the Person with the Exposure?: EXPOSURE Source Medical Record: [id number] Exposed Result Comment: Non Reactive: Inconsistent with immunity, less than 10 mIU/mL Reactive: Consistent with immunity, greater than 9.9 mIU/mL Performed By: #### H IV SCREEN, HBSAB, HBSAG, HCV RX PCR #### [facility] , #### ALT #### [address] Hepatitis B Surface Antigeno n 05-15-2023 HBsAg Screen Negative Normal Negative [facility] Comment on above: Order Comment: Which is this, the Source or the Person with the Exposure?: EXPOSURE Source Medical Record: [id number] Exposed Result Comment: Perf ormed at: - [facility] [address] [id number] Wound Care Technician: Bennie Penaloza PhD, Phone: [phone] Performed By: #### H IV SCREEN, HBSAB, HBSAG, HCV RX PCR #### [facility] , #### ALT #### [facility] [address] [place] [address] Hepatitis B virus surface Ab [Presence] in SerumOrdered By: Torsten Marcelino on 05-15-2023 HBV surface Ab Ql (S) Reactive . [facility] Comment on above: Non Reactive: Incons istent with immunity, less than 10 mIU/mL Reactive: Consistent with immunity, greater than 9.9 mIU/mL Hepatitis B virus surface Ag [Presence] in Serum or Plasma by ImmunoassayOrdered By: Torsten Marcelino on 05-15-2023 HBV surface Ag IA Ql Negative Negative [facility] Comment on above: Performed at: - [facility] [address] [id number] Director: Bennie Penaloza PhD, Phone: [phone] Hepatitis C virus IgG Ab [Pr esence] in Serum or Plasma by ImmunoassayOrdered By: Torsten Marcelino on 05-15-2023 HCV IgG IA Ql Non-Reactive Non Reactive [facility] No Panel InformationOrdered By: Torsten Marcelino on 05-15-2023 Hepatitis C Interpretation See comment . [facility] Comment on above: Not infected with HC V unless early or acute infection issuspected (which may be delayed in an immunocompromisedindividual), or other evidence exists to indicate HCVinfection. Alanine aminotransferase [En zymatic activity/volume] in Serum or PlasmaOrdered By: Torsten Marcelino on 02-17-2023 ALT [Catalytic activity/Vol] 17 U/L Normal 7-52 [facility] Comment on above: Performed By: #### P ILLAR TSH, PILLAR CMP, PILLAR CBC, PILLAR LIPID #### [facility] [address] [place] [address] #### NICOTINE QUAL #### [facility] , Albumin [Mass/volume] in Ser um or Plasma by Bromocresol green (BCG) dye binding methoOrdered By: Torsten Marcelino on 02-17-2023 Albumin BCG dye [Mass/Vol] 4.4 g/dL 3.5-5.7 [facility] Alkaline phosphatase [Enzyma tic activity/volume] in Serum or PlasmaOrdered By: Torsten Marcelino on 02-17-2023 ALP [Catalytic activity/Vol] 54 U/L Normal 34-104 [facility] Comment on above: Performed By: #### P ILLAR TSH, PILLAR CMP, PILLAR CBC, PILLAR LIPID #### [address] #### NICOTINE QUAL #### [facility] , Aspartate aminotransferase [ Enzymatic activity/volume] in Serum or PlasmaOrdered By: Torsten Ryland on 02-17-2023 AST [Catalytic activity/Vol] 16 U/L Normal 13-39 [facility] Comment on above: Performed By: #### P ILLAR TSH, PILLAR CMP, PILLAR CBC, PILLAR LIPID #### [address] #### NICOTINE QUAL #### [facility] , Automated basophil %Ordered By: Torsten Marcelino on 02-17-2023 Basophils/100 WBC (Bld) 0.5 % Normal . [facility] Comment on above: Performed By: #### H IV SCREEN, HBSAB, HBSAG, HCV RX PCR #### [facility] , #### ALT #### [address] Automated basophil countOrde red By: Torsten Marcelino on 02-17-2023 Basophils (Bld) [#/Vol] 0.0 10*3/uL Normal 0.0-0.2 [facility] Comment on above: Result Comment: PERF ORMED BY: [place] [address] PATHOLOGIST PILLOWCASE TURNER NIKKI DELA CRUZ M.D. Performed By: #### H IV SCREEN, HBSAB, HBSAG, HCV RX PCR #### [facility] , #### ALT #### [address] Automated blood monocyte cou ntOrdered By: Torsten Marcelino on 02-17-2023 Monocytes (Bld) [#/Vol] 0.5 10*3/uL Normal 0.0-0.8 [facility] Comment on above: Performed By: #### H IV SCREEN, HBSAB, HBSAG, HCV RX PCR #### [facility] , #### ALT #### [address] Automated eosinophil %Ordere d By: Torsten Ryland on 02-17-2023 Eosinophils/100 WBC (Bld) 0.6 % Normal . [facility] Comment on above: Performed By: #### H IV SCREEN, HBSAB, HBSAG, HCV RX PCR #### [facility] , #### ALT #### [address] Automated eosinophil countOr dered By: Torsten Rashidjax on 02-17-2023 Eosinophils (Bld) [#/Vol] 0.0 10*3/uL Normal 0.0-0.45 [facility] Comment on above: Performed By: #### H IV SCREEN, HBSAB, HBSAG, HCV RX PCR #### [facility] , #### ALT #### [address] Automated monocyte %Ordered By: Torsten Marcelino on 02-17-2023 Monocytes/100 WBC (Bld) 9.6 % Normal . [facility] Comment on above: Performed By: #### H IV SCREEN, HBSAB, HBSAG, HCV RX PCR #### [facility] , #### ALT #### [address] Automated neutrophil %Ordere d By: Torsten Marcelino on 02-17-2023 Neutrophils/100 WBC (Bld) 71.2 % Normal . [facility] Comment on above: Performed By: #### H IV SCREEN, HBSAB, HBSAG, HCV RX PCR #### [facility] , #### ALT #### [facility] [address] Bilirubin.total [Mass/volume ] in Serum or PlasmaOrdered By: Torsten Marcelino on 02-17-2023 Bilirubin [Mass/Vol] 0.4 mg/dL Normal 0.3-1.0 [facility] Comment on above: Performed By: #### P ILLAR TSH, PILLAR CMP, PILLAR CBC, PILLAR LIPID #### [facility] [address] [place] [address] #### NICOTINE QUAL #### [facility] , Calcium [Mass/volume] in Ser um or PlasmaOrdered By: Torsten Marcelino on 02-17-2023 Calcium [Mass/Vol] 9.5 mg/dL Normal 8.6-10.3 [facility] Comment on above: Performed By: #### P ILLAR TSH, PILLAR CMP, PILLAR CBC, PILLAR LIPID #### [facility] [address] [place] [address] #### NICOTINE QUAL #### [facility] , Carbon dioxide, total [Moles /volume] in Serum or PlasmaOrdered By: Torsten Marcelino on 02-17-2023 CO2 [Moles/Vol] 25.5 mmol/L Normal 21.0-31.0 [facility] Comment on above: Performed By: #### P ILLAR TSH, PILLAR CMP, PILLAR CBC, PILLAR LIPID #### [facility] [address] [place] [address] #### NICOTINE QUAL #### [facility] , Chloride [Moles/volume] in S blanquita or PlasmaOrdered By: Torsten Marcelino on 02-17-2023 Chloride [Moles/Vol] 106 mmol/L Normal 98-107 [facility] Comment on above: Performed By: #### P ILLAR TSH, PILLAR CMP, PILLAR CBC, PILLAR LIPID #### [facility] [address] [place] [address] [place] #### NICOTINE QUAL #### [facility] , Cholesterol [Mass/volume] in Serum or PlasmaOrdered By: Torsten Marcelino on 02-17-2023 Cholesterol [Mass/Vol] 176 mg/dL Normal 140-200 [facility] Comment on above: Chol less than 200 m g/dl low riskChol 201-239 mg/dl borderline riskChol 240 mg/dl and greater high risk Result Comment: Chol less than 200 mg/dl low risk Chol 201-239 mg/dl borderline risk Chol 240 mg/dl and greater high risk Performed By: #### H IV SCREEN, HBSAB, HBSAG, HCV RX PCR #### [facility] , #### ALT #### [facility] [address] [place] [address] Cholesterol in LDL Calc [Mas s/Vol]Ordered By: Torsten Marcelino on 02-17-2023 Cholesterol in LDL [Mass/Vol] 99 mg/dL 0-100 [facility] Comment on above: LDL ATP III CLASSIFI CATIONLDL less than 100 mg/dL OptimalLDL 100-129 mg/dL Near or above optimalLDL 130-159 mg/dL Borderline highLDL 160-189 mg/dL HighLDL greater than 189 mg/dL Very high Cholesterol in VLDL Calc [Ma ss/Vol]Ordered By: Torsten Marcelino on 02-17-2023 Cholesterol in VLDL [Mass/Vol] 12 mg/dL [facility] Creatinine [Mass/volume] in Serum or PlasmaOrdered By: Torsten Marcelino on 02-17-2023 Creatinine [Mass/Vol] 1.04 mg/dL Normal 0.60-1.20 [facility] Comment on above: Performed By: #### P ILLAR TSH, PILLAR CMP, PILLAR CBC, PILLAR LIPID #### [facility] [address] [place] [address] [place] #### NICOTINE QUAL #### [facility] , Employee Comp Metabolic Pane jack 02-17-2023 Albumin [Mass/Vol] 4.4 g/dL Normal 3.5-5.7 [facility] Comment on above: Performed By: #### P ILLAR TSH, PILLAR CMP, PILLAR CBC, PILLAR LIPID #### [address] #### NICOTINE QUAL #### [facility] , GFR/1.73 sq M.predicted MDRD (S/P/Bld) [Vol rate/Area] mL/min/{1.73_m2} Normal [facility] Comment on above: Performed By: #### P ILLAR TSH, PILLAR CMP, PILLAR CBC, PILLAR LIPID #### [address] #### NICOTINE QUAL #### [facility] , Employee Complete Blood Coun ton 02-17-2023 Mean Corpuscular HGB Conc 33.8 g/dL Normal 32.0-35.0 [facility] Comment on above: Performed By: #### H IV SCREEN, HBSAB, HBSAG, HCV RX PCR #### [facility] , #### ALT #### [address] NRBC% 0.1 /100{WBC} Normal 0-0.5 [facility] Comment on above: Performed By: #### H IV SCREEN, HBSAB, HBSAG, HCV RX PCR #### [facility] , #### ALT #### [facility] [address] [place] [address] Employee Lipid Profileon LDL Cholesterol,Calculated 99 mg/dL Normal 0-100 [facility] Comment on above: Result Comment: LDL ATP III CLASSIFICATION LDL less than 100 mg/dL Optimal LDL 100-129 mg/dL Near or above optimal LDL 130-159 mg/dL Borderline high LDL 160-189 mg/dL High LDL greater than 189 mg/dL Very high Performed By: #### H IV SCREEN, HBSAB, HBSAG, HCV RX PCR #### [facility] , #### ALT #### [address] Triglyceride w/Reflex 63 mg/dL Normal 0-149 [facility] Comment on above: Result Comment: TRIG ATP III CLASSIFICATION TRIG less than 150 mg/dL Normal TRIG 150-199 mg/dL Borderline high TRIG 200-500 mg/dL High TRIG greater than 500 mg/dL Very high Standard traceable to the Center for Disease Conrtrol and Prevention (CDC) test method. Performed By: #### H IV SCREEN, HBSAB, HBSAG, HCV RX PCR #### [facility] , #### ALT #### [address] VLDL CHOLESTEROL 12 mg/dL Normal [facility] Comment on above: Performed By: #### H IV SCREEN, HBSAB, HBSAG, HCV RX PCR #### [facility] , #### ALT #### [address] Employee Thyroid Stim Hormon loree 02-17-2023 Employee Thyroid Stim Hormone 0.28 u[iU]/mL Low 0.45-5.33 [facility] Comment on above: Result Comment: PERF ORMED BY: [place] [address] PATHOLOGIST PILLOWCASE TURNER NIKKI DELA CRUZ M.D. Performed By: #### H IV SCREEN, HBSAB, HBSAG, HCV RX PCR #### [facility] , #### ALT #### [address] Erythrocyte distribution wid th [Ratio] by Automated countOrdered By: Torsten Marcelino on 02-17-2023 Erythrocyte distribution width (RBC) [Ratio] 13.8 % Normal 11.9-15.3 [facility] Comment on above: Performed By: #### H IV SCREEN, HBSAB, HBSAG, HCV RX PCR #### [facility] , #### ALT #### [address] Erythrocytes [#/volume] in B lood by Automated countOrdered By: Torsten Marcelino on 02-17-2023 RBC (Bld) [#/Vol] 4.24 10*6/uL Normal 3.60-5.00 [facility] Comment on above: Performed By: #### H IV SCREEN, HBSAB, HBSAG, HCV RX PCR #### [facility] , #### ALT #### [facility] [address] [place] [address] Glucose [Mass/volume] in Ser um or PlasmaOrdered By: Torsten Marcelino on 02-17-2023 Glucose [Mass/Vol] 92 mg/dL Normal 70-100 [facility] Comment on above: Performed By: #### P ILLAR TSH, PILLAR CMP, PILLAR CBC, PILLAR LIPID #### [facility] [address] [place] [address] #### NICOTINE QUAL #### [facility] , Hematocrit [Volume Fraction] of Blood by Automated countOrdered By: Torsten Marcelino on 02-17-2023 Hematocrit (Bld) [Volume fraction] 40.4 % Normal 34.0-46.4 [facility] Comment on above: Performed By: #### H IV SCREEN, HBSAB, HBSAG, HCV RX PCR #### [facility] , #### ALT #### [address] Hemoglobin [Mass/volume] in BloodOrdered By: Torsten Marcelino on 02-17-2023 Hemoglobin (Bld) [Mass/Vol] 13.7 g/dL Normal 11.8-15.4 [facility] Comment on above: Performed By: #### H IV SCREEN, HBSAB, HBSAG, HCV RX PCR #### [facility] , #### ALT #### [facility] [address] [place] [address] [place] Leukocytes [#/volume] correc varghese for nucleated erythrocytes in Blood by Automated counOrdered By: Torsten Marcelino on 09-28-2023 WBC corrected for nucl RBC Auto (Bld) [#/Vol] 5.7 10*3/uL 3.8-11.6 [facility] Leukocytes [#/volume] in Blo od by Automated countOrdered By: Torsten Marcelino on 02-17-2023 WBC (Bld) [#/Vol] 5.7 10*3/uL Normal 3.8-11.6 [facility] Comment on above: Performed By: #### H IV SCREEN, HBSAB, HBSAG, HCV RX PCR #### [facility] , #### ALT #### [facility] [address] [place] [address] [place] Lymphocytes [#/volume] in Bl ood by Automated countOrdered By: Torsten Marcelino on 02-17-2023 Lymphocytes (Bld) [#/Vol] 1.0 10*3/uL Normal 1.00-4.8 [facility] Comment on above: Performed By: #### H IV SCREEN, HBSAB, HBSAG, HCV RX PCR #### [facility] , #### ALT #### [place] [address] [place] Lymphocytes/100 leukocytes i n Blood by Automated countOrdered By: Torsten Marcelino on 02-17-2023 Lymphocytes/100 WBC (Bld) 18.1 % Normal . [facility] Comment on above: Performed By: #### H IV SCREEN, HBSAB, HBSAG, HCV RX PCR #### [facility] , #### ALT #### [place] [address] [place] MCH [Entitic mass] by Automa varghese countOrdered By: Torsten Marcelino on 02-17-2023 MCH (RBC) [Entitic mass] 32.2 pg Normal 24.7-34.3 [facility] Comment on above: Performed By: #### H IV SCREEN, HBSAB, HBSAG, HCV RX PCR #### [facility] , #### ALT #### [place] [address] [place] MCHC Auto (RBC) [Mass/Vol]Or dered By: Torsten Ryland on 02-17-2023 MCHC (RBC) [Mass/Vol] 33.8 g/dL 32.0-35.0 [facility] MCV [Entitic volume] by Auto mated countOrdered By: Torsten Ryland on 02-17-2023 MCV (RBC) [Entitic vol] 95.3 fL Normal 80-100 [facility] Comment on above: Performed By: #### H IV SCREEN, HBSAB, HBSAG, HCV RX PCR #### [facility] , #### ALT #### [address] Neutrophils [#/volume] in Bl ood by Automated countOrdered By: Torstenjean pierre Marcelino on 02-17-2023 Neutrophils (Bld) [#/Vol] 4.1 10*3/uL Normal 1.8-7.7 [facility] Comment on above: Performed By: #### H IV SCREEN, HBSAB, HBSAG, HCV RX PCR #### [facility] , #### ALT #### [facility] [address] [place] [address] Nicotine Metabolite, QualOrd ered By: Torsten Rashidjax on 02-17-2023 Nicotine Metabolite Negative Normal Cutoff=25 [facility] Comment on above: Performed at: [facility] - [facility] [address] [id number] Director: Lan Garner MD, Phone: [phone] Result Comment: Perf ormed at: BN - [facility] [address] [id number] Wound Care Technician: Lan Garner MD, Phone: [phone] PERFORMED BY: [place] [address] PATHOLOGIST PILLOWCASE TURNER NIKKI DELA CRUZ M.D. Performed By: #### H IV SCREEN, HBSAB, HBSAG, HCV RX PCR #### [facility] , #### ALT #### [facility] [address] [place] [address] No Panel InformationOrdered By: Torsten Marcelino on 02-17-2023 Estimated GFR (CKD-EPI) > 60.0 mL/Min [facility] Creatinine Clearance (Chem N/A [facility] Nucleated erythrocytes [Pres ence] in Blood by Automated countOrdered By: Torsten Marcelino on 02-17-2023 Nucleated RBC Auto Ql (Bld) 0.1 /100{WBC} 0-0.5 [facility] Platelet mean volume [Entiti c volume] in Blood by Automated countOrdered By: Torsten Marcelino on 02-17-2023 Platelet mean volume (Bld) [Entitic vol] 9.5 fL Normal 6.3-10.7 [facility] Comment on above: Performed By: #### H IV SCREEN, HBSAB, HBSAG, HCV RX PCR #### [facility] , #### ALT #### [facility] [address] [place] [address] Platelets [#/volume] in Bloo d by Automated countOrdered By: Torsten Marcelino on 02-17-2023 Platelets (Bld) [#/Vol] 208 10*3/uL Normal 150-450 [facility] Comment on above: Performed By: #### H IV SCREEN, HBSAB, HBSAG, HCV RX PCR #### [facility] , #### ALT #### [facility] [address] [place] [address] Potassium [Moles/volume] in Serum or PlasmaOrdered By: Torsten Marcelino on 02-17-2023 Potassium [Moles/Vol] 4.2 mmol/L Normal 3.5-5.1 [facility] Comment on above: Performed By: #### P ILLAR TSH, PILLAR CMP, PILLAR CBC, PILLAR LIPID #### [facility] [address] [place] [address] #### NICOTINE QUAL #### [facility] , Protein [Mass/volume] in Ser um or PlasmaOrdered By: Torsten Marcelino on 02-17-2023 Protein [Mass/Vol] 6.6 g/dL Normal 6.4-8.9 [facility] Comment on above: Performed By: #### P ILLAR TSH, PILLAR CMP, PILLAR CBC, PILLAR LIPID #### [facility] [address] [place] [address] #### NICOTINE QUAL #### [facility] , Serum globulin measurement b y calculation (mass/volume)Ordered By: Torsten Marcelino on 02-17-2023 Globulin (S) [Mass/Vol] 2.2 g/dL [facility] Comment on above: Performed By: #### P ILLAR TSH, PILLAR CMP, PILLAR CBC, PILLAR LIPID #### [facility] [address] [place] [address] #### NICOTINE QUAL #### [facility] , Serum or plasma albumin/glob ulin mass ratioOrdered By: Torsten Marcelino on 02-17-2023 Albumin/Globulin [Mass ratio] 2.0 {ratio} [facility] Comment on above: Performed By: #### P ILLAR TSH, PILLAR CMP, PILLAR CBC, PILLAR LIPID #### [facility] [address] [place] [address] #### NICOTINE QUAL #### [facility] , Serum or plasma anion gap de terminationOrdered By: Torsten Marcelino on 02-17-2023 Anion gap [Moles/Vol] 10.7 mmol/L Normal 6.0-15.0 [facility] Comment on above: Performed By: #### P ILLAR TSH, PILLAR CMP, PILLAR CBC, PILLAR LIPID #### [facility] [address] [place] [address] [place] #### NICOTINE QUAL #### [facility] , Serum or plasma high density lipoprotein (HDL) cholesterol measurementOrdered By: Torsten Marcelino on 02-17-2023 Cholesterol in HDL [Mass/Vol] 64 mg/dL Normal 23-92 [facility] Comment on above: HDL CHOL ATP-III CLA SSIFICATION Cardiovascular RiskHDL > or equal to 60 mg/dL LOWHDL < 40 mg/dL HIGH Result Comment: HDL CHOL ATP-III CLASSIFICATION Cardiovascular Risk HDL > or equal to 60 mg/dL LOW HDL < 40 mg/dL HIGH Performed By: #### H IV SCREEN, HBSAB, HBSAG, HCV RX PCR #### [facility] , #### ALT #### [address] Serum or plasma total choles terol/high density lipoprotein (HDL) cholesterol mass ratOrdered By: Torsten Marcelino on 02-17-2023 Cholesterol.total/Chol esterol in HDL [Mass ratio] 2.8 {ratio} Normal <5.0 [facility] Comment on above: Performed By: #### H IV SCREEN, HBSAB, HBSAG, HCV RX PCR #### [facility] , #### ALT #### [address] Sodium [Moles/volume] in Ser um or PlasmaOrdered By: Torsten Marcelino on 02-17-2023 Sodium [Moles/Vol] 138 mmol/L Normal 136-145 [facility] Comment on above: Performed By: #### P ILLAR TSH, PILLAR CMP, PILLAR CBC, PILLAR LIPID #### [address] #### NICOTINE QUAL #### [facility] , Thyrotropin [Units/volume] i n Serum or PlasmaOrdered By: Torsten Marcelino on 02-17-2023 TSH Qn 0.28 m[IU]/L 0.45-5.33 [facility] Triglyceride [Mass/volume] i n Serum or PlasmaOrdered By: Torsten Marcelino on 02-17-2023 Triglyceride [Mass/Vol] 63 mg/dL 0-149 [facility] Comment on above: TRIG ATP III CLASSIF ICATIONTRIG less than 150 mg/dL NormalTRIG 150-199 mg/dL Borderline highTRIG 200-500 mg/dL High TRIG greater than 500 mg/dL Very highStandard traceable to the Center for Disease Conrtrol and Prevention (CDC) test method. Urea nitrogen [Mass/volume] in Serum or PlasmaOrdered By: Torsten Marcelino on 02-17-2023 Urea nitrogen [Mass/Vol] 21 mg/dL Normal 7- [facility] Comment on above: Performed By: #### P ILLAR TSH, PILLAR CMP, PILLAR CBC, PILLAR LIPID #### [facility] [address] #### NICOTINE QUAL #### [facility] , A1C HEMOGLOBINon 02-01-2023 HbA1c (Bld) [Mass fraction] 5.3 % [facility] Other HbA1c (Bld) [Mass fraction]o n 02-01-2023 A1C HEMOGLOBIN [facility] Other Ambulatory Visit Summaryon 0 07-23-2022 Ambulatory Visit Summary SINDY MILLER Yony :1970 Visit Date:07/23/2022 Ambulatory Visit Instructions Your [...] that you are currently receiving treatment for. Sawyer's disease Asthma BMI 26.0-26.9,adult Change in bowel habits Chronic GERD Crohn's disease of large intestine with unspecified complications Eczema Epigastric pain Fibromyalgia HTN (hypertension) Hypothyroid MCC (current) use of systemic steroids Memory loss Migraines Obesity Personal history of colonic polyps Rectal bleeding RUQ pain Tension headache Historical - Any problem that you are no longer receiving treatment for. 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 Normal [facility] Pathology Noteon 07-16-2022 Pathology Note [id number]:1 27 Normal [facility] Outside Colonoscopyon 2022 Outside Colonoscopy [id number]: [address] [facility] Ambulatory Visit Summaryon 0 06-22-2022 Ambulatory Visit Summary SINDY MILLER :1970 Visit Date:06/22/2022 Ambulatory Visit Instructions Your Diagnosis Personal history of colonic polyps Change in bowel habits Your Care Team Attending Physician - SON VREDIN, Weston Ma Primary Care Physician - Eduardo [...] that you are currently receiving treatment for. Sawyer's disease Asthma BMI 26.0-26.9,adult Change in bowel habits Crohn's disease of large intestine with unspecified complications Eczema Fibromyalgia HTN (hypertension) Hypothyroid MCC (current) use of systemic steroids Memory loss Migraines Obesity Personal history of colonic polyps RUQ pain Tension headache Historical - Any problem that you are no longer receiving treatment for. Dog bite of left buttock Normal [facility] GI PANEL (PCR)on 06-18-2022 Adenovirus F 40/41 Not detected Normal NOT DETECTED [facility] Comment on above: Performed By: #### G IPANEL #### [facility] [address] [place] [address] Dr. Jaelyn Durán Astrovirus Not detected Normal NOT DETECTED [facility] Comment on above: Performed By: #### G IPANEL #### [facility] [address] [place] [address] Dr. Jaelyn Travis Diff toxin A/B Not detected Normal NOT DETECTED [facility] Comment on above: Performed By: #### G IPANEL #### [facility] [address] [address] [address] Jaelyn Durán Campylobacter Not detected Normal NOT DETECTED [facility] Comment on above: Performed By: #### G IPANEL #### [facility] [address] [address] [address] Jaelyn Durán Cryptosporidium Not detected Normal NOT DETECTED [facility] Comment on above: Performed By: #### G IPANEL #### [facility] [address] [place] [address] Dr. Jaelyn Durán Cyclos. Cayetanensis Not detected Normal NOT DETECTED [facility] Comment on above: Performed By: #### G IPANEL #### [facility] [address] [place] [address] Dr. Jaelyn Durán E. Coli O157 Not Applicable Normal Not Applicable [facility] Comment on above: Performed By: #### G IPANEL #### [facility] [address] [place] [address] Dr. Jaelyn Durán E. histolytica Not detected Normal NOT DETECTED [facility] Comment on above: Performed By: #### G IPANEL #### [facility] [address] [place] [address] Dr. Jaelyn Durán EAEC Not detected Normal NOT DETECTED [facility] Comment on above: Performed By: #### G IPANEL #### [facility] [address] [place] [address] Dr. Jaelyn Durán EIEC Not detected Normal NOT DETECTED [facility] Comment on above: Performed By: #### G IPANEL #### [facility] [address] [place] [address] Dr. Jaelyn Durán EPEC Not detected Normal NOT DETECTED [facility] Comment on above: Performed By: #### G IPANEL #### [facility] [address] [place] [address] Dr. Jaelyn Durán ETEC Not detected Normal NOT DETECTED [facility] Comment on above: Performed By: #### G IPANEL #### [facility] [address] [place] [address] Dr. Jaelyn Diaz. Lamblia Not detected Normal NOT DETECTED [facility] Comment on above: Performed By: #### G IPANEL #### [facility] [address] [place] [address] Dr. Jaelyn ROMANL CONTROLS PASSED Normal [facility] Comment on above: Performed By: #### G IPANEL #### [facility] [address] [place] [address] Dr. Jaelyn GREGORY MARIKA HEADER GI PANEL BACTERIA Normal T [facility] Comment on above: Performed By: #### G IPANEL #### [facility] [address] [place] [address] Dr. Jaelyn GREGORYHD ECOLI GI PANEL DIARRHEAGEN IC E.COLI / SHIGELLA Normal [facility] Comment on above: Performed By: #### G IPANEL #### [facility] [address] [place] [address] Dr. Jaelyn MAN INFO SEE BELOW Normal [facility] Comment on above: Result Comment: EAEC - Enteroaggregative E. Coli EPEC- Enteropathogenic E. Coli ETEC- Enterotoxigenic E. Coli lt/st STEC- Shigella-like toxin-producing E. Coli stx1/stx2 EIEC- Shigella/Enteroinvasive E. Coli Performed By: #### G IPANEL #### [facility] [address] [place] [address] Dr. Jaelyn MAN PARASITES GI PANEL PARASITES Normal [facility] Comment on above: Performed By: #### G IPANEL #### [facility] [address] [place] [address] Dr. Jaelyn MAN VIRUS GI PANEL VIRUSES Normal [facility] Comment on above: Performed By: #### G IPANEL #### [facility] [address] [place] [address] Dr. Jaelyn Durán Norovirus GI/GII Not detected Normal NOT DETECTED [facility] Comment on above: Performed By: #### G IPANEL #### [facility] [address] [place] [address] Dr. Jaelyn Durán P. Shigelloides Not detected Normal NOT DETECTED [facility] Comment on above: Performed By: #### G IPANEL #### [facility] [address] [place] [address] Dr. Jaelyn Durán Rotavirus A Not detected Normal NOT DETECTED [facility] Comment on above: Performed By: #### G IPANEL #### [facility] [address] [place] [address] Dr. Jaelyn Durán Salmonella Not detected Normal NOT DETECTED [facility] Comment on above: Performed By: #### G IPANEL #### [facility] [address] [place] [address] Dr. Jaelyn Durán Sapovirus Not detected Normal NOT DETECTED [facility] Comment on above: Performed By: #### G IPANEL #### [facility] [address] [address] [address] Jaelyn Durán STEC Not detected Normal NOT DETECTED [facility] Comment on above: Performed By: #### G IPANEL #### [facility] [address] [place] [address] Dr. Jaelyn Durán Vibrio Not detected Normal NOT DETECTED [facility] Comment on above: Performed By: #### G IPANEL #### [facility] [address] [place] [address] Dr. Jaelyn Durán Vibrio Cholera Not detected Normal NOT DETECTED [facility] Comment on above: Performed By: #### G IPANEL #### [facility] [address] [place] [address] Dr. Jaelyn Durán Y. Enterocolitica Not detected Normal NOT DETECTED [facility] Comment on above: Performed By: #### G IPANEL #### [facility] [address] [place] [address] Dr. Jaelyn Durán MRI ABDOMEN WO W [...] WYATT PAREDES Date: 2022-06-17 09:59 Normal [facility] RAD - MRI Reporton 3 RAD - MRI Report [id number]: 127 Normal [facility] Physician Referralon 023 Physician Referral [id number]: 127 Normal [facility] US SINGLE QUAD RT UPPERon US [...] WYATT PAREDES Date: 2022-06-14 10:27 Normal [facility] CA 19-9on 06-11-2022 CA 19-9 47 U/mL Critically high 0-35 [facility] Comment on above: Result Comment: Ve rified by repeat analysis [facility] Electrochemiluminescence Immunoassay (ECLIA) . Values obtained with different assay methods or kits cannot be used interchangeably. Results cannot be interpreted as absolute evidence of the presence or absence of malignant disease. Performed By: #### I NFLUAB #### [facility] [address] [address] [address] Jaelyn Durán AMYLASEon 06-10-2022 Amylase [Catalytic activity/Vol] 40 U/L Normal 25-115 [facility] Comment on above: Performed By: #### I NFLUAB #### [facility] [address] [place] [address] Dr. Jaelyn Durán CBC AUTO DIFFon 06-10-2022 BASO # 0.0 103/ul Normal 0.0-0.1 [facility] Comment on above: Performed By: #### C BC #### [facility] [address] [place] [address] Dr. Jaelyn Durán Basophils/100 WBC (Bld) 0.5 % Normal 0.2-2.0 [facility] Comment on above: Performed By: #### C BC #### [facility] [address] [place] [address] Dr. Jaelyn Durán EO # 0.1 103/ul Normal 0.0-0.7 [facility] Comment on above: Performed By: #### C BC #### [facility] [address] [place] [address] Dr. Jaelyn Durán Eosinophils/100 WBC (Bld) 1.1 % Normal 0.9-7.0 [facility] Comment on above: Performed By: #### C BC #### [facility] [address] [place] [address] Dr. Jaelyn Durán Erythrocyte distribution width (RBC) [Ratio] 13.0 % Normal 11.0-15.0 [facility] Comment on above: Performed By: #### C BC #### [facility] [address] [place] [address] Dr. Jaelyn Durán Hematocrit (Bld) [Volume fraction] 44.0 % Normal 36.0-48.0 [facility] Comment on above: Performed By: #### C BC #### [facility] [address] [place] [address] Dr. Jaelyn Durán Hemoglobin (Bld) [Mass/Vol] 14.5 g/dL Normal 12.0-16.0 [facility] Comment on above: Performed By: #### C BC #### [facility] [address] [place] [address] Dr. Jaelyn Durán IG # 0.02 10e3/ul Normal 0.00-0.03 [facility] Comment on above: Performed By: #### C BC #### [facility] [address] [place] [address] Dr. Jaelyn Durán IG % 0.4 % Normal 0.0-0.5 [facility] Comment on above: Performed By: #### C BC #### [facility] [address] [place] [address] Dr. Jaelyn Durán LYMPH # 1.2 103/ul Normal 1.2-3.8 [facility] Comment on above: Performed By: #### C BC #### [facility] [address] [place] [address] Dr. Jaelyn Durán Lymphocytes/100 WBC (Bld) 21.3 % Normal 20.5-60.0 [facility] Comment on above: Performed By: #### C BC #### [facility] [address] [place] [address] Dr. Jaelyn Durán MANUAL DIFF REQ NO Normal [facility] Comment on above: Performed By: #### C BC #### [facility] [address] [place] [address] Dr. Jaelyn Durán MCH (RBC) [Entitic mass] 30.5 pg Normal 26.7-34.0 [facility] Comment on above: Performed By: #### C BC #### [facility] [address] [place] [address] Dr. Jaelyn Durán MCHC (RBC) [Mass/Vol] 33.0 g/dL Normal 29.9-35.2 [facility] Comment on above: Performed By: #### C BC #### [facility] [address] [place] [address] Dr. Jaelyn Durán MCV (RBC) [Entitic vol] 92.4 fL Normal 81.0-99.0 [facility] Comment on above: Performed By: #### C BC #### [facility] [address] [place] [address] Dr. Jaelyn Durán MONO # 0.5 103/ul Normal 0.3-0.8 [facility] Comment on above: Performed By: #### C BC #### [facility] [address] [place] [address] Dr. Jaelyn Durán Monocytes/100 WBC (Bld) 8.5 % Normal 1.7-12.0 [facility] Comment on above: Performed By: #### C BC #### [facility] [address] [place] [address] Dr. Jaelyn Durán NEUT # 3.8 103/ul Normal 1.4-6.5 [facility] Comment on above: Performed By: #### C BC #### [facility] [address] [place] [address] Dr. Jaelyn Durán Neutrophils/100 WBC (Bld) 68.2 % Normal 43.0-75.0 [facility] Comment on above: Performed By: #### C BC #### [facility] [address] [place] [address] Dr. Jaelyn Durán Platelet mean volume (Bld) [Entitic vol] 10.7 fL Normal 9.5-13.5 [facility] Comment on above: Performed By: #### C BC #### [facility] [address] [place] [address] Dr. Jaelyn Durán PLT 227 103/ul Normal 150-450 [facility] Comment on above: Performed By: #### C BC #### [facility] [address] [place] [address] Dr. Jaelyn Durán RBC 4.76 106/ul Normal 4.20-5.40 [facility] Comment on above: Performed By: #### C BC #### [facility] [address] [place] [address] Dr. Jaelyn Durán WBC 5.6 103/ul Normal 4.0-11.0 [facility] Comment on above: Performed By: #### C BC #### [facility] [address] [place] [address] Dr. Jaelyn Durán FREE THYROXINE INDEX T7on FTI 2.81 Normal 1.30-4.50 [facility] Comment on above: Performed By: #### C MP, JAYNA, TSH, T7, LIPA #### [facility] [address] [place] [address] Dr. Jaelyn Durán T3U 36.0 % Normal 30.0-39.0 [facility] Comment on above: Performed By: #### C MP, JAYNA, TSH, T7, LIPA #### [facility] [address] [place] [address] Dr. Jaelyn Durán T4 [Mass/Vol] 7.80 ug/dL Normal 4.80-13.90 [facility] Comment on above: Performed By: #### C MP, JAYNA, TSH, T7, LIPA #### [facility] [address] [place] [address] Dr. Jaelyn Durán GLYCOHEMOGLOBIN A1Con 2022 ADA RECOMMENDATION SEE BELOW Normal [facility] Comment on above: Result Comment: ADA RECOMMENDED LIMIT 4.0 - 6.0 ADA THERAPEUTIC TARGET < 7.0 ACTION SUGGESTED > 7.0 Performed By: #### A 1C #### [facility] [address] [place] [address] Dr. Jaelyn Durán Glucose [Mass/Vol] 105 mg/dL Normal [facility] Comment on above: Performed By: #### A 1C #### [facility] [address] [place] [address] Dr. Jaelyn Durán HbA1c (Bld) [Mass fraction] 5.3 % Normal 4.5-6.2 [facility] Comment on above: Performed By: #### A 1C #### [facility] [address] [place] [address] Dr. Jaelyn Durán LIPASEon 06-10-2022 Lipase [Catalytic activity/Vol] 182.0 U/L Normal 73.0-393.0 [facility] Comment on above: Performed By: #### C MP, JAYNA, TSH, T7, LIPA #### [facility] [address] [place] [address] Dr. Jaelyn Durán PROF 14(COMP METB)on 023 Albumin [Mass/Vol] 4.0 g/dL Normal 3.4-5.0 [facility] Comment on above: Performed By: #### I NFLUAB #### [facility] [address] [place] [address] Dr. Jaelyn Durán Albumin/Globulin [Mass ratio] 1.1 {ratio} Normal [facility] Comment on above: Performed By: #### I NFLUAB #### [facility] [address] [place] [address] Dr. Jaelyn Durán ALP [Catalytic activity/Vol] 80 U/L Normal 46-116 [facility] Comment on above: Performed By: #### I NFLUAB #### [facility] [address] [address] [address] Jaelyn Durán ALT [Catalytic activity/Vol] 20 U/L Normal 14-59 [facility] Comment on above: Performed By: #### I NFLUAB #### [facility] [address] [place] [address] Dr. Jaelyn Durán Anion gap [Moles/Vol] 12.4 mmol/L Normal [facility] Comment on above: Performed By: #### I NFLUAB #### [facility] [address] [place] [address] Dr. Jaelyn Durán AST [Catalytic activity/Vol] 16 U/L Normal 15-37 [facility] Comment on above: Performed By: #### I NFLUAB #### [facility] [address] [address] [address] Jaelyn Durán Bilirubin [Mass/Vol] 0.3 mg/dL Normal 0.2-1.0 [facility] Comment on above: Performed By: #### I NFLUAB #### [facility] [address] [address] [address] Jaelyn Durán Calcium [Mass/Vol] 9.4 mg/dL Normal 8.5-10.1 [facility] Comment on above: Performed By: #### I NFLUAB #### [facility] [address] [address] [address] Jaelyn Durán Chloride [Moles/Vol] 105 mmol/L Normal 98-107 [facility] Comment on above: Performed By: #### I NFLUAB #### [facility] [address] [address] [address] Jaelyn Durán CO2 [Moles/Vol] 27.4 mmol/L Normal 21.0-32.0 [facility] Comment on above: Performed By: #### I NFLUAB #### [facility] [address] [address] [address] Jaelyn Durán Creatinine [Mass/Vol] 0.82 mg/dL Normal 0.55-1.02 [facility] Comment on above: Performed By: #### I NFLUAB #### [facility] [address] [address] [address] Jaelyn Durán EGFR-AF [place] ISLANDER >60 Normal >=60 [facility] Comment on above: Performed By: #### I NFLUAB #### [facility] [address] [address] [address] Jaelyn Durán EGFR-NON AF [place]ER >60 Normal >=60 [facility] Comment on above: Performed By: #### I NFLUAB #### [facility] [address] [address] [address] Jaelyn Durán Globulin (S) [Mass/Vol] 3.6 g/dL Normal [facility] Comment on above: Performed By: #### I NFLUAB #### [facility] [address] [address] [address] Jaelyn Durán Glucose [Mass/Vol] 103 mg/dL Normal 74-106 [facility] Comment on above: Performed By: #### I NFLUAB #### [facility] [address] [address] [address] Jaelyn Durán Potassium [Moles/Vol] 3.8 mmol/L Normal 3.5-5.1 [facility] Comment on above: Performed By: #### I NFLUAB #### [facility] [address] [address] [address] Jaelyn Durán Protein [Mass/Vol] 7.6 g/dL Normal 6.4-8.2 [facility] Comment on above: Performed By: #### I NFLUAB #### [facility] [address] [address] [address] Jaelyn Durán Sodium [Moles/Vol] 141 mmol/L Normal 136-145 [facility] Comment on above: Performed By: #### I NFLUAB #### [facility] [address] [address] [address] Jaelyn Durán Urea nitrogen [Mass/Vol] 13.0 mg/dL Normal 7.0-18.0 [facility] Comment on above: Performed By: #### I NFLUAB #### [facility] [address] [address] [address] Jaelyn Durán Urea nitrogen/Creatinine [Mass ratio] 15.9 mg/mg Normal [facility] Comment on above: Performed By: #### I NFLUAB #### [facility] [address] [address] [address] Jaelyn Durán TSHon 06-10-2022 TSH 0.037 uIU/mL Critically low 0.358-3.740 [facility] Comment on above: Performed By: #### C MP, JAYNA, TSH, T7, LIPA #### [facility] [address] [address] [address] Jaelyn Durán [facility] SARS-CoV-2 (COVID-19) RNA LYUBOV+probe Ql (Unsp spec) Not detected Normal NOT DETECTED [facility] Comment on above: Result Comment: This test is not yet approved or cleared by the [place] FDA. When there are no FDA-approved or cleared tests available, and other criteria are met, FDA can make tests available under an emergency access mechanism called an Emergency Use Authorization (EUA). The EUA for this test is supported by the [employer] of Health and Human Service's (HHS's) declaration [...] SARS-CoV-2. Performed By: #### P ROLAC #### [facility] [address] [place] [address] Dr. Jaelyn Durán INFLUENZA A AND B AGon 05-05 INFLUANE SEE BELOW Normal [facility] Comment on above: Result Comment: Nega tive for Flu A protein angiten. Infection due to Flu A cannot be ruled out. Flu A angiten in the sample may be below the detection limit of the test. Performed By: #### I NFLUAB #### [facility] [address] [place] [address] Dr. Jaelyn Durán INFLUBNEG SEE BELOW Normal [facility] Comment on above: Result Comment: Nega tive for Flu B protein antigen. Infection due to Flu B cannot be ruled out. Flu B antigen in the sample may be below the detection limit of the test. Performed By: #### I NFLUAB #### [facility] [address] [place] [address] Dr. Jaelyn Durán INFLUENZA A AG Negative Normal NEGATIVE SEE COMMENT [facility] Comment on above: Performed By: #### I NFLUAB #### [facility] [address] [place] [address] Dr. Jaelyn Durán INFLUENZA B AG Negative Normal NEGATIVE SEE COMMENT [facility] Comment on above: Performed By: #### I NFLUAB #### [facility] [address] [place] [address] Dr. Jaelyn Durán INTERNAL CONTROLS Within Normal Limits Normal Wi thin Normal Limits [facility] Comment on above: Performed By: #### I NFLUAB #### [facility] [address] [place] [address] Dr. Jaelyn Durán TSH DL <= 0.005 mIU/L QnOrde red By: Eduardo Arriola on 03-11-2022 TSH Qn 0.02 m[IU]/L 0.45-5.33 [facility] Basophils Auto (Bld) [#/Vol] Ordered By: Torsten Marcelino on 02-16-2022 Basophils (Bld) [#/Vol] 0.0 10*3/uL 0.0-0.2 [facility] Basophils/100 WBC Auto (Bld) Ordered By: Torsten Marcelino on 02-16-2022 Basophils/100 WBC (Bld) 0.6 % . [facility] Body fluid albumin measureme nt (mass/volume)Ordered By: Torsten Marcelino on 02-16-2022 Albumin (Body fld) [Mass/Vol] 4.0 g/dL 3.2-5.5 [facility] Cholesterol [Mass/volume] in Serum or PlasmaOrdered By: Torsten Marcelino on 02-16-2022 Cholesterol [Mass/Vol] 216 mg/dL 140-200 [facility] Comment on above: Chol less than 200 m g/dl low riskChol 201-239 mg/dl borderline riskChol 240 mg/dl and greater high risk Cholesterol in LDL Calc [Mas s/Vol]Ordered By: Torsten Marcelino on 02-16-2022 Cholesterol in LDL [Mass/Vol] 102 mg/dL 0-100 [facility] Comment on above: LDL ATP III CLASSIFI CATIONLDL less than 100 mg/dL OptimalLDL 100-129 mg/dL Near or above optimalLDL 130-159 mg/dL Borderline highLDL 160-189 mg/dL HighLDL greater than 189 mg/dL Very high Cholesterol in VLDL Calc [Ma ss/Vol]Ordered By: Torsten Marcelino on 02-16-2022 Cholesterol in VLDL [Mass/Vol] 32 mg/dL [facility] Creatinine and Glomerular fi ltration rate.predicted panel (S/P/Bld)Ordered By: Torsten Marcelino on 02-16-2022 Creatinine [Mass/Vol] 1.00 mg/dL 0.44-1.03 [facility] Eosinophils Auto (Bld) [#/Vo l]Ordered By: Torsten Marcelino on 02-16-2022 Eosinophils (Bld) [#/Vol] 0.1 10*3/uL 0.0-0.45 [facility] Eosinophils/100 WBC Auto (Bl d)Ordered By: Torsten Marcelino on 02-16-2022 Eosinophils/100 WBC (Bld) 2.0 % . [facility] Erythrocyte distribution wid th Auto (RBC) [Ratio]Ordered By: Torsten Marcelino on 02-16-2022 Erythrocyte distribution width (RBC) [Ratio] 14.7 % 11.9-15.3 [facility] Estimated glomerular filtrat ion rate (GFR) non- AmericanOrdered By: Torsten Marcelino on 02-16-2022 GFR/1.73 sq M.predicted among non-blacks MDRD (S/P/Bld) [Vol rate/Area] 59 mL/Min [facility] Globulin Calc (S) [Mass/Vol] Ordered By: Torsten Marcelino on 02-16-2022 Globulin (S) [Mass/Vol] 2.5 g/dL [facility] Hematocrit Auto (Bld) [Volum e fraction]Ordered By: Torsten Marcelino on 02-16-2022 Hematocrit (Bld) [Volume fraction] 43.1 % 34.0-46.4 [facility] Hemoglobin [Mass/volume] in BloodOrdered By: Torsten Marcelino on 02-16-2022 Hemoglobin (Bld) [Mass/Vol] 14.2 g/dL 11.8-15.4 [facility] Laboratory - Chemistry and C hemistry - challengeOrdered By: Torsten Marcelino on 02-16-2022 Glucose [Mass/Vol] 87 mg/dL 70-100 [facility] Laboratory - Hematology and Cell countsOrdered By: Torsten Marcelino on 02-16-2022 Nucleated RBC/100 WBC (Bld) [Ratio] 0.0 % 0-0.5 [facility] Leukocytes [#/volume] in Blo od by Automated countOrdered By: Torsten Marcelino on 02-16-2022 WBC (Bld) [#/Vol] 4.7 10*3/uL 4.5-11.0 [facility] Lymphocytes Auto (Bld) [#/Vo l]Ordered By: Torsten Marcelino on 02-16-2022 Lymphocytes (Bld) [#/Vol] 2.1 10*3/uL 1.00-4.8 [facility] Lymphocytes/100 WBC Auto (Bl d)Ordered By: Torsten Marcelino on 02-16-2022 Lymphocytes/100 WBC (Bld) 44.4 % . [facility] MCH Auto (RBC) [Entitic mass ]Ordered By: Torsten Marcelino on 02-16-2022 MCH (RBC) [Entitic mass] 30.8 pg 24.7-34.3 [facility] MCHC Auto (RBC) [Mass/Vol]Or dered By: Torsten Marcelino on 02-16-2022 MCHC (RBC) [Mass/Vol] 32.9 g/dL 32.0-35.0 [facility] MCV Auto (RBC) [Entitic vol] Ordered By: Torsten Marcelino on 02-16-2022 MCV (RBC) [Entitic vol] 93.6 fL 80-100 [facility] Monocyte %Ordered By: Torsten Marcelino on 02-16-2022 Monocyte % 163 mg/dL 35-149 [facility] Comment on above: TRIG ATP III CLASSIF ICATIONTRIG less than 150 mg/dL NormalTRIG 150-199 mg/dL Borderline highTRIG 200-500 mg/dL High TRIG greater than 500 mg/dL Very highStandard traceable to the Center for Disease Conrtrol and Prevention (CDC) test method. Monocytes Auto (Bld) [#/Vol] Ordered By: Torsten Marcelino on 02-16-2022 Monocytes (Bld) [#/Vol] 0.4 10*3/uL 0.0-0.8 [facility] Monocytes/100 WBC Auto (Bld) Ordered By: Torsten Marcelino on 02-16-2022 Monocytes/100 WBC (Bld) 9.4 % . [facility] Neutrophils Auto (Bld) [#/Vo l]Ordered By: Torsten Marcelino on 02-16-2022 Neutrophils (Bld) [#/Vol] 2.1 10*3/uL 1.8-7.7 [facility] Neutrophils/100 WBC Auto (Bl d)Ordered By: Torsten Marcelino on 02-16-2022 Neutrophils/100 WBC (Bld) 43.6 % . [facility] No Panel InformationOrdered By: Torsten Marcelino on 02-16-2022 Estimated GFR () > 60 mL/Min [facility] Comment on above: GFR estimated refere nce range: According to KDOQI guidelines, <60 ml/min/1.73m2 is sufficient to diagnose a patient with chronic kidney disease. Nicotine Metabolite Negative Cutoff=25 [facility] Comment on above: Performed at: [facility] [address] [id number] Director: Lan Garner MD, Phone: [phone] Pharmacy Creatinine Clearance (Chem N/A [facility] Platelet mean volume Auto (B ld) [Entitic vol]Ordered By: Torsten Marcelino on 02-16-2022 Platelet mean volume (Bld) [Entitic vol] 9.7 fL 6.3-10.7 [facility] Platelets Auto (Bld) [#/Vol] Ordered By: Torsten Marcelino on 02-16-2022 Platelets (Bld) [#/Vol] 219 10*3/uL 150-450 [facility] Protein [Mass/volume] in Ser um or PlasmaOrdered By: Torsten Marcelino on 02-16-2022 Protein [Mass/Vol] 6.5 g/dL 6.1-7.9 [facility] RBC Auto (Bld) [#/Vol]Ordere d By: Torsten Marcelino on 02-16-2022 RBC (Bld) [#/Vol] 4.61 10*6/uL 3.60-5.00 [facility] Serum or plasma alanine love otransferase measurement without P-5'-P (enzymatic activiOrdered By: Torsten Marcelino on 02-16-2022 ALT No additional P-5'-P [Catalytic activity/Vol] 23 U/L 10-60 [facility] Serum or plasma albumin/glob ulin mass ratioOrdered By: Torsten Marcelino on 02-16-2022 Albumin/Globulin [Mass ratio] 1.6 {ratio} [facility] Serum or plasma alkaline loretta sphatase measurement (enzymatic activity/volume)Ordered By: Torsten Marcelino on 02-16-2022 ALP [Catalytic activity/Vol] 61 U/L 32-92 [facility] Serum or plasma anion gap de terminationOrdered By: Torsten Marcelino on 02-16-2022 Anion gap [Moles/Vol] 15.6 mmol/L 6.0-15.0 [facility] Serum or plasma aspartate am inotransferase measurement (enzymatic activity/volume)Ordered By: Torsten Marcelino on 02-16-2022 AST [Catalytic activity/Vol] 22 U/L 10-42 [facility] Serum or plasma calcium mckayla urement (mass/volume)Ordered By: Torsten Marcelino on 02-16-2022 Calcium [Mass/Vol] 9.1 mg/dL 8.2-10.2 [facility] Serum or plasma chloride estrada surement (moles/volume)Ordered By: Torsten Marcelino on 02-16-2022 Chloride [Moles/Vol] 100 mmol/L 95-114 [facility] Serum or plasma high density lipoprotein (HDL) cholesterol measurementOrdered By: Torsten Marcelino on 02-16-2022 Cholesterol in HDL [Mass/Vol] 81 mg/dL 35-85 [facility] Comment on above: HDL CHOL ATP-III CLA SSIFICATION Cardiovascular RiskHDL > or equal to 60 mg/dL LOWHDL < 40 mg/dL HIGH Serum or plasma potassium me asurement (moles/volume)Ordered By: Torsten Marcelino on 02-16-2022 Potassium [Moles/Vol] 3.4 mmol/L 3.5-5.1 [facility] Serum or plasma sodium measu rement (moles/volume)Ordered By: Torsten Marcelino on 02-16-2022 Sodium [Moles/Vol] 137 mmol/L 136-146 [facility] Serum or plasma total biliru bin measurement (mass/volume)Ordered By: Torsten Marcelino on 02-16-2022 Bilirubin [Mass/Vol] 0.6 mg/dL 0.3-1.2 [facility] Serum or plasma total carbon dioxide measurement (moles/volume)Ordered By: Torsten Marcelino on 02-16-2022 CO2 [Moles/Vol] 24.8 mmol/L 22.0-30.0 [facility] Serum or plasma total choles terol/high density lipoprotein (HDL) cholesterol mass ratOrdered By: Torsten Marcelino on 02-16-2022 Cholesterol.total/Chol esterol in HDL [Mass ratio] 2.7 {ratio} <5.0 [facility] Serum or plasma urea nitroge n measurement (mass/volume)Ordered By: Torsten Marcelino on 09-27-2022 Urea nitrogen [Mass/Vol] 12 mg/dL 9- [facility] TSH DL <= 0.005 mIU/L QnOrde red By: Torsten Marcelino on 02-16-2022 TSH Qn 0.07 m[IU]/L 0.45-5.33 [facility] COVID CepheidOrdered By: Max Marcelino on 02-01-2022 SARS-CoV-2 (COVID-19) Ab IA Ql Negative Negative [facility] Comment on above: This is a duplicate [employer] Xpert Xpress CoV-2/Flu/RSV Plus RNA by RT-PCR result to be used for statistical tracking purpose only. SARS-CoV-2 (COVID-19) RNA LYUBOV+probe Ql (Unsp spec) [facility] Laboratory - Microbiology an d Antimicrobial susceptibilityOrdered By: Torsten Marcelino on 02-01-2022 SARS-CoV-2 (COVID-19) RNA LYUBOV+probe Ql (Unsp spec) N/A [facility] SARS-CoV-2 (COVID-19) RNA NA A+probe Ql (Resp)on 12-23-2021 SARS-CoV-2 (COVID-19) RNA LYUBOV+probe Ql (Unsp spec) Negative [employer] Other MRI PITUITARY WO W CONon MRI [...] BERNA DALTON Date: 2021-08-26 11:33 Normal [facility] INSULINon 08-24-2021 Insulin 16.1 uIU/mL Normal 2.6-24.9 [facility] Comment on above: Performed By: #### I NSULIN #### [facility] [address] [address] [address] Jaelyn Durán ESTRADIOLon 08-23-2021 Estradiol <5.0 Normal [facility] Comment on above: Result Comment: Adul t Female: Follicular phase 12.5 - 166.0 Ovulation phase 85.8 - 498.0 Luteal phase 43.8 - 211.0 Postmenopausal <6.0 - 54.7 1st trimester 215.0 - >4300.0 [facility] ECLIA methodology Performed By: #### I NFLUAB #### [facility] [address] [place] [address] Dr. Jaelyn Durán FSHon 08-23-2021 FSH 45.4 mIU/mL Normal [facility] Comment on above: Result Comment: Adul t Female: Follicular phase 3.5 - 12.5 Ovulation phase 4.7 - 21.5 Luteal phase 1.7 - 7.7 Postmenopausal 25.8 - 134.8 Performed By: #### L BCFSH #### [facility] [address] [address] [address] Jaelyn Durán PROGESTERONEon 08-23-2021 Progesterone <0.1 Normal [facility] Comment on above: Result Comment: Foll icular phase 0.1 - 0.9 Luteal phase 1.8 - 23.9 Ovulation phase 0.1 - 12.0 First trimester 11.0 - 44.3 Second trimester 25.4 - 83.3 Third trimester 58.7 - 214.0 Postmenopausal 0.0 - 0.1 Performed By: #### I NFLUAB #### [facility] [address] [address] [address] Jaelyn Durán PROLACTINon 08-23-2021 Prolactin 30.9 ng/mL Critically high 4.8-23.3 [facility] Comment on above: Performed By: #### P ROLAC #### [facility] [address] [address] [address] Jaelyn Durán CBC AUTO DIFFon 08-22-2021 BASO # 0.0 103/ul Normal 0.0-0.1 [facility] Comment on above: Performed By: #### I NFLUAB #### [facility] [address] [place] [address] Dr. Jaelyn Durán Basophils/100 WBC (Bld) 0.6 % Normal 0.2-2.0 [facility] Comment on above: Performed By: #### I NFLUAB #### [facility] [address] [place] [address] Dr. Jaelyn Durán EO # 0.2 103/ul Normal 0.0-0.7 [facility] Comment on above: Performed By: #### I NFLUAB #### [facility] [address] [place] [address] Dr. Jaelyn Durán Eosinophils/100 WBC (Bld) 4.0 % Normal 0.9-7.0 [facility] Comment on above: Performed By: #### I NFLUAB #### [facility] [address] [place] [address] Dr. Jaelyn Durán Erythrocyte distribution width (RBC) [Ratio] 13.0 % Normal 11.0-15.0 [facility] Comment on above: Performed By: #### I NFLUAB #### [facility] [address] [place] [address] Dr. Jaelyn Durán Hematocrit (Bld) [Volume fraction] 42.9 % Normal 36.0-48.0 [facility] Comment on above: Performed By: #### I NFLUAB #### [facility] [address] [place] [address] Dr. Jaelyn Durán Hemoglobin (Bld) [Mass/Vol] 14.0 g/dL Normal 12.0-16.0 [facility] Comment on above: Performed By: #### I NFLUAB #### [facility] [address] [place] [address] Dr. Jaelyn Durán IG # 0.01 10e3/ul Normal 0.00-0.03 [facility] Comment on above: Performed By: #### I NFLUAB #### [facility] [address] [place] [address] Dr. Jaelyn Durán IG % 0.2 % Normal 0.0-0.5 [facility] Comment on above: Performed By: #### I NFLUAB #### [facility] [address] [place] [address] Dr. Jaelyn Durán LYMPH # 2.0 103/ul Normal 1.2-3.8 [facility] Comment on above: Performed By: #### I NFLUAB #### [facility] [address] [place] [address] Dr. Jaelyn Durán Lymphocytes/100 WBC (Bld) 43.2 % Normal 20.5-60.0 [facility] Comment on above: Performed By: #### I NFLUAB #### [facility] [address] [place] [address] Dr. Jaelyn Durán MANUAL DIFF REQ NO Normal [facility] Comment on above: Performed By: #### I NFLUAB #### [facility] [address] [place] [address] Dr. Jaelyn Durán MCH (RBC) [Entitic mass] 30.4 pg Normal 26.7-34.0 [facility] Comment on above: Performed By: #### I NFLUAB #### [facility] [address] [place] [address] Dr. Jaelyn Durán MCHC (RBC) [Mass/Vol] 32.6 g/dL Normal 29.9-35.2 [facility] Comment on above: Performed By: #### I NFLUAB #### [facility] [address] [place] [address] Dr. Jaelyn Durán MCV (RBC) [Entitic vol] 93.1 fL Normal 81.0-99.0 [facility] Comment on above: Performed By: #### I NFLUAB #### [facility] [address] [place] [address] Dr. Jaelyn Durán MONO # 0.5 103/ul Normal 0.3-0.8 [facility] Comment on above: Performed By: #### I NFLUAB #### [facility] [address] [place] [address] Dr. Jaelyn Durán Monocytes/100 WBC (Bld) 9.7 % Normal 1.7-12.0 [facility] Comment on above: Performed By: #### I NFLUAB #### [facility] [address] [place] [address] Dr. Jaelyn Durán NEUT # 2.0 103/ul Normal 1.4-6.5 [facility] Comment on above: Performed By: #### I NFLUAB #### [facility] [address] [place] [address] Dr. Jaelyn Durán Neutrophils/100 WBC (Bld) 42.3 % Critically low 43.0-75.0 [facility] Comment on above: Performed By: #### I NFLUAB #### [facility] [address] [place] [address] Dr. Jaelyn Durán Platelet mean volume (Bld) [Entitic vol] 10.1 fL Normal 9.5-13.5 [facility] Comment on above: Performed By: #### I NFLUAB #### [facility] [address] [place] [address] Dr. Jaelyn Durán PLT 243 103/ul Normal 150-450 [facility] Comment on above: Performed By: #### I NFLUAB #### [facility] [address] [place] [address] Dr. Jaelyn Durán RBC 4.61 106/ul Normal 4.20-5.40 [facility] Comment on above: Performed By: #### I NFLUAB #### [facility] [address] [place] [address] Dr. Jaelyn Durán WBC 4.7 103/ul Normal 4.0-11.0 [facility] [facility] Comment on above: Performed By: #### I NFLUAB #### [facility] [address] [place] [address] Dr. Jaelyn Durán FREE THYROXINE INDEX T7on FTI 1.84 Normal [facility] Comment on above: Performed By: #### P ROLAC #### [facility] [address] [place] [address] Dr. Jaelyn Durán T3U 34.0 % Normal 23.5-40.5 [facility] Comment on above: Performed By: #### P ROLAC #### [facility] [address] [address] [address] Jaelyn Durán T4 [Mass/Vol] 5.40 ug/dL Critically low 5.53-11.00 [facility] Comment on above: Performed By: #### P ROLAC #### [facility] [address] [address] [address] Jaelyn Durán GLYCOHEMOGLOBIN A1Con 2021 ADA RECOMMENDATION ADA THERAPEUTIC TARG ET 6.0 - 7.0 ACTION SUGGESTED > 7.0 Normal [facility] Comment on above: Performed By: #### P ROLAC #### [facility] [address] [address] [address] Jaelyn Durán Glucose [Mass/Vol] 108 mg/dL Normal [facility] Comment on above: Performed By: #### P ROLAC #### [facility] [address] [address] [address] Jaelyn Durán HbA1c (Bld) [Mass fraction] 5.4 % Normal <=6.0 [facility] Comment on above: Performed By: #### P ROLAC #### [facility] [address] [address] [address] Jaelyn Durán IRONon 08-22-2021 Iron [Mass/Vol] 56.0 ug/dL Normal 37.0-170.0 [facility] Comment on above: Performed By: #### I NFLUAB #### [facility] [address] [address] [address] Jaelyn Durán LIPID PROFILEon 08-22-2021 CHOL-HDL RATIO NORM SEE BELOW Normal [facility] Comment on above: Result Comment: 3.3 - 4.4 LOW RISK 4.4 - 7.1 AVERAGE RISK 7.1 - 11.0 MODERATE RISK >11.0 HIGH RISK Performed By: #### P ROLAC #### [facility] [address] [address] [address] Jaelyn Durán Cholesterol [Mass/Vol] 194 mg/dL Normal <=200 [facility] Comment on above: Performed By: #### P ROLAC #### [facility] [address] [address] [address] Jaelyn Durán Cholesterol in HDL [Mass/Vol] 80 mg/dL Critically high 40-60 [facility] Comment on above: Performed By: #### P ROLAC #### [facility] [address] [address] [address] Jaelyn Durán Cholesterol in LDL [Mass/Vol] 84.2 mg/dL Normal [facility] Comment on above: Performed By: #### P ROLAC #### [facility] [address] [address] [address] Jaelyn Durán Cholesterol.total/Chol esterol in HDL [Mass ratio] 2.4 {ratio} Normal [facility] Comment on above: Performed By: #### P ROLAC #### [facility] [address] [address] [address] Jaelyn Durán HDL NORMAL > or = 60 mg/dl - LO W CARDIOVASCULAR RISK <40 mg/dl - HIGH CARDIOVASCULAR RISK Normal [facility] Comment on above: Performed By: #### P ROLAC #### [facility] [address] [address] [address] Jaelyn Durán LDL CALC NORMAL SEE BELOW Normal [facility] Comment on above: Result Comment: <100 mg/dl OPTIMAL 100 - 129 mg/dl NEAR OR ABOVE OPTIMAL 130 - 159 mg/dl BORDERLINE HIGH 160 - 189 mg/dl HIGH >190 mg/dl VERY HIGH Performed By: #### P ROLAC #### [facility] [address] [address] [address] Jaelyn Durán Triglyceride [Mass/Vol] 149 mg/dL Normal <=150 [facility] Comment on above: Performed By: #### P ROLAC #### [facility] [address] [address] [address] Jaelyn Durán VLDL CALC 29.8 mg/dL Normal [facility] Comment on above: Performed By: #### P ROLAC #### [facility] [address] [place] [address] Dr. Jaelyn Durán PROF 14(COMP METB)on 022 Albumin [Mass/Vol] 3.7 g/dL Normal 3.4-5.0 [facility] Comment on above: Performed By: #### P ROLAC #### [facility] [address] [place] [address] Dr. Jaelyn Durán Albumin/Globulin [Mass ratio] 1.0 {ratio} Normal [facility] Comment on above: Performed By: #### P ROLAC #### [facility] [address] [place] [address] Dr. Jaelyn Durán ALP [Catalytic activity/Vol] 87 U/L Normal 46-116 [facility] Comment on above: Performed By: #### P ROLAC #### [facility] [address] [place] [address] Dr. Jaelyn Durán ALT [Catalytic activity/Vol] 28 U/L Normal 14-59 [facility] Comment on above: Performed By: #### P ROLAC #### [facility] [address] [place] [address] Dr. Jaelyn Durán Anion gap [Moles/Vol] 11.3 mmol/L Normal [facility] Comment on above: Performed By: #### P ROLAC #### [facility] [address] [place] [address] Dr. Jaelyn Durán AST [Catalytic activity/Vol] 17 U/L Normal 15-37 [facility] Comment on above: Performed By: #### P ROLAC #### [facility] [address] [place] [address] Dr. Jaelyn Durán Bilirubin [Mass/Vol] 0.3 mg/dL Normal 0.2-1.3 [facility] Comment on above: Performed By: #### P ROLAC #### [facility] [address] [place] [address] Dr. Jaelyn Durán Calcium [Mass/Vol] 8.9 mg/dL Normal 8.5-10.1 [facility] Comment on above: Performed By: #### P ROLAC #### [facility] [address] [address] [address] Jaelyn Durán Chloride [Moles/Vol] 104 mmol/L Normal 98-107 [facility] Comment on above: Performed By: #### P ROLAC #### [facility] [address] [place] [address] Dr. Jaelyn Durán CO2 [Moles/Vol] 30.4 mmol/L Critically high 22.0-30.0 [facility] Comment on above: Performed By: #### P ROLAC #### [facility] [address] [address] [address] Jaelyn Durán Creatinine [Mass/Vol] 0.87 mg/dL Normal 0.52-1.04 [facility] Comment on above: Performed By: #### P ROLAC #### [facility] [address] [place] [address] Dr. Jaelyn Durán EGFR-AF [place]ER >60 Normal >=60 [facility] Comment on above: Performed By: #### P ROLAC #### [facility] [address] [place] [address] Dr. Jaelyn Durán EGFR-NON AF [place] >60 Normal >=60 [facility] Comment on above: Performed By: #### P ROLAC #### [facility] [address] [place] [address] Dr. Jaelyn Durán Globulin (S) [Mass/Vol] 3.7 g/dL Normal [facility] Comment on above: Performed By: #### P ROLAC #### [facility] [address] [address] [address] Jaelyn Durán Glucose [Mass/Vol] 86 mg/dL Normal 74-106 [facility] Comment on above: Performed By: #### P ROLAC #### [facility] [address] [place] [address] Dr. Jaelyn Durán Potassium [Moles/Vol] 3.7 mmol/L Normal 3.4-5.0 [facility] Comment on above: Performed By: #### P ROLAC #### [facility] [address] [place] [address] Dr. Jaelyn Durán Protein [Mass/Vol] 7.4 g/dL Normal 6.1-8.2 [facility] Comment on above: Performed By: #### P ROLAC #### [facility] [address] [address] [address] Jaelyn Durán Sodium [Moles/Vol] 142 mmol/L Normal 137-145 [facility] Comment on above: Performed By: #### P ROLAC #### [facility] [address] [address] [address] aJelyn Durán Urea nitrogen [Mass/Vol] 15.0 mg/dL Normal 7.0-18.0 [facility] Comment on above: Performed By: #### P ROLAC #### [facility] [address] [address] [address] Jaelyn Durán Urea nitrogen/Creatinine [Mass ratio] 17.2 mg/mg Normal [facility] Comment on above: Performed By: #### P ROLAC #### [facility] [address] [address] [address] Jaelyn Durán TSHon 08-22-2021 TSH 0.500 uIU/mL Normal 0.470-4.680 [facility] Comment on above: Performed By: #### P ROLAC #### [facility] [address] [place] [address] Dr. Jaelyn Durán TSH RANGE SEE BELOW Normal [facility] Comment on above: Result Comment: <0.3 4 UIU/ml HYPERTHYROID 0.34-5.60 UIU/ml EUTHYROID >5.60 UIU/ml HYPOTHYROID Performed By: #### P ROLAC #### [facility] [address] [place] [address] Dr. Jaelyn Durán Vital Signs Date Time Vital Sign Value Performing Clinician Facility 01-17-2024 07: Body height 165.1 cm [facility] 01-17-2024 07: Body mass index (BMI) [Ratio] 28.5 kg/m2 [facility] 01-17-2024 07: Body weight 77.81 kg [facility] 01-17-2024 07:26-0400 Diastolic blood pressure 86 mm[Hg] [facility] 01-17-2024 07:26-0400 Heart rate 86 /min [facility] 01-17-2024 07:26-0400 Respiratory rate 18 /min [facility] 01-17-2024 07:26-0400 SaO2% (BldA) [Mass fraction] 98 % [facility] 01-17-2024 07:26-0400 Systolic blood pressure 138 mm[Hg] [facility] 07-12-2023 09:52-0500 Body height 165.1 cm MD Eduardo Arriola Work Phone: [facility] 07-12-2023 09:52-0500 Body mass index (BMI) [Ratio] 26.2 kg/m2 MD Eduardo Arriola Work Phone: [facility] 07-12-2023 09:52-0500 Body weight 71.35 kg MD Eduardo Arriola Work Phone: [facility] 07-12-2023 09:52-0500 Diastolic blood pressure 78 mm[Hg] MD Eduardo Arriola Work Phone: [facility] 07-12-2023 09:52-0500 Heart rate 92 /min MD Eduardo Arriola Work Phone: [facility] 07-12-2023 09:52-0500 Respiratory rate 18 /min MD Eduardo Arriola Work Phone: [facility] 07-12-2023 09:52-0500 SaO2% (BldA) [Mass fraction] 98 % MD Eduardo Arriola Work Phone: [facility] 07-12-2023 09:52-0500 Systolic blood pressure 113 mm[Hg] MD Eduardo Arriola Work Phone: [facility] 05-03-2023 08:15-0500 Body height 165.1 cm Nghia Campos Other [facility] 05-03-2023 08:15-0500 Body mass index (BMI) [Ratio] 26.07 kg/m2 Nghia Campos Other [facility] Other 05-03-2023 08:15-0500 Body weight 71.08 kg Nghia Campos Other [facility] Other 05-03-2023 08:15-0500 Body weight 71.07 kg MD Eduardo Arriola Work Phone: [facility] 05-03-2023 08:15-0500 Diastolic blood pressure 95 mm[Hg] Nghia Campos Other [facility] 05-03-2023 08:15-0500 Respiratory rate 18 /min Nghia Campos Other [facility] Other 05-03-2023 08:15-0500 SaO2% (BldA) [Mass fraction] 99 % Nghia Campos Other [facility] Other 05-03-2023 08:15-0500 Systolic blood pressure 145 mm[Hg] Nghia Campos Other [facility] 03-29-2023 07:45-0500 Body height 165.1 cm Nghia Campos Other [facility] Other 03-29-2023 07:45-0500 Body mass index (BMI) [Ratio] 26.19 kg/m2 Nghia Campos Other [facility] Other 03-29-2023 07:45-0500 Body weight 71.4 kg Nghia Campos Other [facility] Other 03-29-2023 07:45-0500 Diastolic blood pressure 85 mm[Hg] Nghia Campos Other [facility] Other 03-29-2023 07:45-0500 Respiratory rate 16 /min Nghia Campos Other [facility] Other 03-29-2023 07:45-0500 SaO2% (BldA) [Mass fraction] 97 % Nghiaarian Campos Other [facility] Other 03-29-2023 07:45-0500 Systolic blood pressure 117 mm[Hg] Nghia Campos Other [facility] Other 02-01-2023 10:00-0400 Body height 165.1 cm Nghia Campos Other [facility] Other 02-01-2023 10:00-0400 Body mass index (BMI) [Ratio] 28.37 kg/m2 Nghia Campos Other [facility] Other 02-01-2023 10:00-0400 Body weight 77.34 kg Nghia Campos Other [facility] Other 02-01-2023 10:00-0400 Diastolic blood pressure 99 mm[Hg] Nghia Campos Other [facility] Other 02-01-2023 10:00-0400 Respiratory rate 18 /min Nghia Campos Other [facility] Other 02-01-2023 10:00-0400 SaO2% (BldA) [Mass fraction] 99 % Nhgia Campos Other [facility] Other 02-01-2023 10:00-0400 Systolic blood pressure 141 mm[Hg] Nghia Campos Other [facility] Other Encounters Encounter Date Encounter Type Care Provider Facility Start: 01-17-2024 End: 01-17-2024 Departed Referred MD Eduardo Arriola Work Phone: [facility] Start: 01-17-2024 End: 01-17-2024 ambulatory MD Eduardo Arriola Work Phone: [facility] Work Phone: Start: 01-17-2024 End: 01-17-2024 ambulatory [facility] Work Phone: Start: 01-17-2024 End: 01-17-2024 Patient encounter procedure On [facility] Of [facility] Work Phone: Start: 07-12-2023 End: 07-12-2023 Patient encounter procedure MD Eduardo Arriola Work Phone: On [facility] Work Phone: Start: 07-12-2023 End: 07-12-2023 ambulatory MD Eduardo Arriola Work Phone: [facility] Work Phone: Start: 06-13-2023 End: 06-13-2023 ambulatory Nghia Campos Other [facility] Other Start: 06-13-2023 Telephone encounter Nghia Campos [facility] Start: 05-15-2023 End: 05-15-2023 Patient encounter procedure MD Eduardo Arroila Work Phone: [facility] [address] Work Phone: Start: 05-15-2023 End: 05-15-2023 ambulatory MD Eduardo Arriola Work Phone: [facility] Work Phone: Start: 05-03-2023 (wmnempf/u) [employer] Employee F/U Nghia Campos [facility] Start: 05-03-2023 End: 05-03-2023 ambulatory Nghia [facility] Other Start: 05-03-2023 Registered Recurring MD Nidhi Arriola Work Phone: [facility] Work Phone: Start: 05-03-2023 End: 05-03-2023 Patient encounter procedure MD Eduardo Arriola Work Phone: On License Of [facility] Work Phone: Start: 03-29-2023 End: 03-29-2023 ambulatory Nghia Campos Other [facility] Other Start: 03-29-2023 [facility] Start: 03-15-2023 End: 03-15-2023 ambulatory Nghia Campos Other [facility] Other Start: 03-15-2023 Telephone encounter Nghia Pimentel [facility] Start: 02-28-2023 End: 02-28-2023 ambulatory Nghia Campos Other [facility] Other Start: 02-28-2023 Telephone encounter Nghia Pimentel [facility] Start: 02-17-2023 End: 02-17-2023 Departed Referred MD Eduardo Arriola Work Phone: [facility]-Employee Benefit Screening Start: 02-17-2023 End: 02-17-2023 ambulatory MD Eduardo Arriola Work Phone: [facility] Work Phone: Start: 02-05-2023 End: 02-05-2023 ambulatory MD Eduardo Arriola Work Phone: [facility] Work Phone: Start: 02-05-2023 End: 02-05-2023 Patient encounter procedure MD Eduardo Arriola Work Phone: [facility]-Flu Vaccine Start: 02-01-2023 ([id number]) [employer] New Employee Nghia Campos [facility] Start: 02-01-2023 End: 02-01-2023 ambulatory Nghia Campos Other [facility] Other Start: 02-01-2023 Registered Recurring MD Nidhi Arriola Work Phone: [facility] Work Phone: Start: 01-25-2023 End: 01-25-2023 ambulatory Aura Olson Other [facility] Other Start: 01-25-2023 Telephone encounter Auracarlos Olson [facility] Start: 07-23-2022 End: 07-24-2022 ambulatory Weston DEXTER Facility:[facility] Start: 07-23-2022 End: 07-23-2022 Patient encounter procedure Weston DEXTER [facility] Start: 07-14-2022 End: 07-15-[address] WESTON DEXTER . Facility:[facility] Start: 06-22-2022 End: 06-23-2022 ambulatory [facility] Start: 06-18-2022 End: 06-19-[address] EDUARDO [...] 03-11-2022 ambulatory MD Eduardo Arriola Work Phone: [facility] Work Phone: Start: 03-11-2022 End: 03-11-2022 Patient encounter procedure MD Eduardo Arriola Work Phone: [facility] [place] Start: 02-16-2022 End: 02-16-2022 Departed Referred MD Eduardo Arriola Work Phone: [facility]-Employee Benefit Screening Start: 02-01-2022 End: 02-01-2022 Patient encounter procedure MD Eduardo Arriola Work Phone: [facility] [facility] Start: 12-23-2021 End: 12-23-2021 ambulatory Cortez Fuchs Other [facility] Other Start: 12-23-2021 Office outpatient vi sit 5 minutes Cortez Fuchs [facility] Start: 08-26-2021 End: 08-27-[address] EDUARDO ARRIOLA . Facility: Start: 08-22-2021 End: 08-23-[address] EDUARDO ARRIOLA . Facility: Procedures Date Procedure Procedure Detail Performing Clinician Start: 07-14-2022 Colonoscopy Weston KIML Start: 07-14-2022 Esophagogastroduodenoscopy Weston KIML Start: 05-23-2010 Colonoscopy Weston NILL Start: 05-23-2000 Colonic polypectomy Weston NILL Arthroscopy of knee Weston NILL Colonoscopy Weston NILL Excision of cyst of ovary Magnolia gallego NILL Exploratory laparotomy Clement KIML H/O: hysterectomy Hx of hysterectomy MD Ana Paula Arriola Work Phone: SARS-CoV-2, Influenza & RSV (PCR) MD Eduardo Arriola Work Phone: Total hysterectomy v ia vaginal approach Weston DEXTER Plan of Treatment Date Care Activity Detail Author Start: 05-15-2023 [facility] Start: 02-17-2023 [facility] Start: 03-11-2022 [facility] Hepatitis B virus valle rface Ab [Presence] in Serum [facility] Hepatitis B virus valle rface Ag [Presence] in Serum or Plasma by Immunoassay [facility] Hepatitis C virus Ig G Ab [Presence] in Serum or Plasma by Immunoassay [facility] HIV 1+2 Ab+HIV1 p24 Ag [Presence] in Serum or Plasma by Immunoassay [facility] Thyroglobulin Ab [Un its/volume] in Serum or Plasma [facility] Work Phone: Thyrotropin [Units/v olume] in Serum or Plasma [facility] Work Phone: Thyroxine (T4) free index in Serum or Plasma by calculation [facility] Work Phone: Thyroxine measurement [facility] Work Phone: Triiodothyronine (T3 ) [Mass/volume] in Serum or Plasma [facility] Work Phone: Triiodothyronine res in uptake (T3RU) in Serum or Plasma [facility] Work Phone: Immunizations Immunization Date Immunization Notes Care Provider Fa cili 03-23-2022 influenza virus vaccine, unspecified formulation Weston DEXTER [facility] 01-12-2021 SARS-CoV-2 (COVID-19 ) mRNA BNT-162b2 vax Weston DEXTER [facility] Comment on above: Result Comment: 2022: [id number] 12-24-2020 SARS-CoV-2 (COVID-19 ) mRNA BNT-162b2 vax Weston DEXTER [facility] Comment on above: Result Comment: 2022: [id number] Payers Date Payer Category Payer Self-pay [id number] 1970 Unknown [id number] 2.16.84 [id number] 1972 Unknown [id number] 2.16.84 [id number] 1972 Unknown [id number] 2.16.84 [id number] 1972 Unknown [id number] 2.16.84 [id number] 1972 Unknown [id number] 2.16.84 0.1.331090.3.579.2.593 1972 Unknown [id number] 2.16.84 0.1.842687.3.579.2.593 1972 Unknown [id number] 2.16.84 0.1.129984.3.579.2.593 1972 Unknown [id number] 2.16.84 0.1.992472.3.579.2.593 1972 Unknown [id number] 2.16.84 0.1.603406.3.579.2.593 1972 Unknown [id number] 2.16.84 0.1.771811.3.579.2.593 1972 Unknown [id number] 2.16.8 40.1.304699.3.579.2.727 1972 Unknown [id number] 2.16.8 40.1.547392.3.579.2.727 1972 Unknown [id number] 2.16.8 40.1.997660.3.579.2.727 1959 Self-pay [id number] 1959 Unknown [id number] 2. [id number] Unknown [id number] 2.16.8 40.1.889152.3.579.2.531 Unknown [id number] 2.16.8 40.1.883300.3.579.2.531 Unknown [id number] 2.16.8 40.1.295076.3.579.2.531 Unknown [id number] 2.16.8 40.1.915129.3.579.2.531 Unknown [id number] 2.16.8 [id number] Social History Date Type Detail Facility Sex Assigned At [facility] Start: 04-16-2021 End: 07-12-2023 Tobacco smoking status NHIS Ex-smoker (finding) [facility] Start: 1970 Sex Assigned At Female [facility] Tobacco smoking status Never [facility] NEGATED: Highlighted row Fir [facility] Medical Equipment Procedure Code Equipment Code Equipment Origin al Text Equipment Identifier Dates NovoFine Plus Pe n Needle 32G X 4 MM Start: 02-01-2023 Clinical Notes 12-23-2021 to 06-13-2023 Note Date & Type Note Facility 06-13-2023 Evaluation note Encounter Date Diagnosis Assessment Notes May, Overweight (BMI 25.0-29.9) (ICD-10 - E66.3) [facility] Other 12-12-2023 Evaluation note* Encounter Date Diagnosis [...] resistance exercise to preserve/increase lean tissue -Nurse, [facility] [id number]-[id number]-[id number]-care A1c January 2023 5.3%-Follow up in clinic in 8 weeksThis note was created with voice recognition software. 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 [facility] Other 10-24-2023 Evaluation note* Encounter Date Diagnosis Assessment Notes Treatment Notes Treatment Clinical Notes Feb, Overweight (BMI 25.0-29.9) (ICD-10 - E66.3) [facility] Other 09-12-2023 Evaluation note* Encounter Date Diagnosis [...] titrate up as tolerated following dose titration pdpcghcf-Qlzkk-gj-care A1c January 2023 5.3%-Follow up in clinic in 8 weeksThis note was created with voice recognition software. 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 endocrinology. Patient agreeable and expressed interest. Jan, Abnormal glucose (ICD-10 - R73.09) Jan, Arthritis of knee, left (ICD-10 - M17.12) 12 Jan, 2023 Other 60 minutes was spent reviewing patient specific healthcare information, interviewing, counseling, and communicating with the patient, and documenting clinical information. [facility] Other 02-22-2023 NoteOPERATIVE NOTE OPERATION DATE: 07/14/2022 [...] in good condition. CC: Eduardo Arriola M.D.[facility] [id number] NoteChief Complaint consultation for abdominal pain HPI [...] with h/o htn, hypothyroidism, migraines, fibromyalgia, asthma, Sawyer's disease, Crohn's disease, referred for epigastric and [...] malignancy or IBD; takes chornic steroids for Sawyer's disease, no asa or NSAID use; no [...] data available Problem List/Past Medical History Ongoing Sawyer's disease Asthma BMI 26.0-26.9,adult Change in bowel habits Chronic GERD Crohn's disease of large intestine with unspecified complications Eczema Epigastric pain Fibromyalgia HTN (hypertension) 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 manager intermediate (current) use of systemic steroids Memory loss Migraines Obesity Personal history of colonic polyps Rectal bleeding RUQ pain Tension headache Historical Dog bite of left buttock Procedure/Surgical History Colonoscopy (more content not included)...[facility]Result Comment: Electronically Signed By: SON VERDIN, Weston Burns\Date and Time Signed: 06/22/22 17:30 [id number] Evaluation note* Encounter Date Diagnosis Assessment Notes Treatment Notes Treatment Clinical Notes Dec, Contact with and (suspected) exposure to other viral communicable diseases (ICD-10 - Z20.828) [facility] Other Chief complaint+Reason for visit Narrative* Chief Complaint Wmn Obesity needlestick Reason for Visit Dietary surveillance and counseling Exercise counseling Overweight (BMI 25.0-29.9) [facility] Work Phone: Evaluation + Plan note No data available for this section [facility] Evaluation noteNo assessment information [facility] Work Phone: evaluation noteNo InformationNortDepartment of [facility] Other evaluation note* Diagnosis Onset Date Resolution Status Dietary surveillance and counseling acute Exercise counseling acute Overweight (BMI 25.0-29.9) a [facility] Work Phone: evaluation note* Diagnosis Onset Date Resolution Status Abnormal weight gain acute Sawyer disease acute Arthritis of right knee acut e BMI 28.0-28.9,adult acute Dietary surveillance and counseling acute Exercise counseling acute Graves disease acute Arturo's disease acute Hyperaldosteronism acute Hypertension acute Migraine acute Overweight (BMI 25.0-29.9) a [facility] Work Phone: evaluation note* Diagnosis Onset Date Resolution Status Abnormal weight gain acute Sawyer disease acute Arthritis of right knee acut e BMI 28.0-28.9,adult acute Dietary surveillance and counseling acute Exercise counseling acute Graves disease acute Arturo's disease acute Hx of hysterectomy acute Hyperaldosteronism acute Hypertension acute Migraine acute Overweight (BMI 25.0-29.9) a [facility] Work Phone: Hisjug[facility] general Narrative - Reported* Type Description Date Medical History HASIMOTO'S Medical History GRAVE'S DISEASE Medical History FIBROMYALGIA Medical History NICHO'S DISEASE Medical History Hypertension Surgical History TOTAL HYSTRECTOMY Surgical History MULTIPLE FEMALE SURGERY Surgical History CANCEROUS POLY COLON Surgical History TUBLIGATION Surgical History ABLATION Surgical History right knee arthroscopy 2012 Hospitalization History CHILD X'S 3 Hospitalization History SEE ABOVE SURGERY [facility] Other [facility]er[facility] general Narrative - Reported* Type Description Date Medical History HASIMOTO'S Medical History GRAVE'S DISEASE Medical History FIBROMYALGIA Medical History NICHO'S DISEASE Medical History Hypertension Surgical History TOTAL HYSTRECTOMY Surgical History MULTIPLE FEMALE SURGERY Surgical History CANCEROUS POLPY COLON Surgical History TUBLIGATION Surgical History ABLATION Surgical History right knee arthroscopy 2012 Hospitalization History CHILD X'S 3 Hospitalization History SEE ABOVE SURGERY [facility] Other Hospital Discharge instructions No data available for this section [facility] Progress note No data available for this section [facility] Chief Complaint and Reason for Visit Chief Complaint symptoms Chief Complaint symptoms Pillars Chief Complaint Obesity Pillars Chief Complaint Obesity flu vaccine Pillars Chief Complaint Pillars Obesity needlestick Chief Complaint Transfer from Dr. Galvan [facility] Reason for Visit Abnormal weight gain Sawyer disease Arthritis of right knee BMI 28.0-28.9,adult Dietary surveillance and counseling Exercise counseling Graves disease Arturo's disease Hyperaldosteronism Hypertension Migraine Overweight (BMI 25.0-29.9) Chief Complaint Transfer from Dr. Galvan [facility] pillars Reason for Visit Abnormal weight gain Nicho disease Arthritis of right knee BMI 28.0-28.9,adult Dietary surveillance and counseling Exercise counseling Graves disease Arturo's disease Hx of hysterectomy Hyperaldosteronism Hypertension Migraine Overweight (BMI 25.0-29.9) Advance Directives No Advanced Directives Records Found [...] Obesity Unknown father Malignant neoplasm Unknown Unknown Relationship Condition Age at Onset Recorded Date/T jumana aunt Obesity Unknown Diabetes mellitus Unknown aunt Diabetes mellitus Unknown Obesity Unknown father Malignant neoplasm Unknown Unknown Reason for Referral Reason Hypothyroidism, Lenny son disease on treatment for both with chronic elevation of blood pressure Diagnosis 1 Sawyer disease (E27 .1) Referral Organization [facility] Referring Provider First Name Nghia Referring Provider Last Name Dalton Referred Organization [facility] Referred Address [address] [place], [place],[address] Referred Provider Specialty Endocrinolog y Referral Priority Routine Additional Source Comments REASON FOR VISIT (unrecogniz ed section and content) [facility] ReferralI nitial WMNAMS Victoza questionAS RefillWMNWMNAS [facility] Care Teams (unrecognized sec tion and content) Team Status: Active Member Role Status Kayley Arriola MD Primary Care Provider Active Team Status: Inactive Member Role Status Kayley Arriola MD Primary Care Provider Active DO SHAR Springer Attending Provider Active Team Status: Active Member [...] 2023 End: May 15, 2023 Torsten MYLES , CHC Attending Provider Active Start: May 15, 2023 End: May 15, 2023 Team Status: Inactive Member Role Status Kayley Arriola MD Primary Care Provider Active Start: July 12, 2023 End: July 12, 2023 Nghia Campos DO Attending Provider Active St art: July 12, 2023 End: July 12, 2023 Team Status: Inactive Member Role Status Kayley Arriola MD Primary Care Provider Active Start: January 17, 2024 End: January 17, 2024 Gema Mckenzie DNP Attending Provider Active S tart: January 17, 2024 End: January 17, 2024 Team Status: Inactive Member Role Status Kayley Arriola MD Primary Care Provider Active Start: January 17, 2024 End: January 17, 2024 Torsten MYLES DO CHC Attending Provider Active Start: January 17, 2024 End: January 17, 2024 Goals (unrecognized section and content) Goals may be documented in a n alternate section INFORMATION SOURCE (unrecogn ized section and content) DATE CREATED AUTHOR 07/22/2022 [facility] DATE CREATED AUTHOR AUTHOR'S ORGANIZ ATION 07/24/2022 [facility] DATE CREATED AUTHOR AUTHOR'S ORGANIZ ATION 01/18/2024 [facility] FOR RECORDS PERTAINING TO PATIENTS WHO ARE [...] BE BASED ON THE PRIMARY CLINICAL RECORDS. [facility]. provides no warranty or guarantee of the accuracy or completeness of information in this document.
== END 2024-02-14 07:26 | disposition home or self-care (01) ==
PROVIDERS: PCP Family Medicine; Visit Provider Internal Medicine Hematology & Oncology
DX: D69.2 Other nonthrombocytopenic purpura (principal); Z87.891 Personal history of nicotine dependence; E06.3 Autoimmune thyroiditis; E27.1 Primary adrenocortical insufficiency; Z79.52 Long term (current) use of systemic steroids; Z90.710 Acquired absence of both cervix and uterus; R04.0 Epistaxis
CPT/HCPCS: 36591; G0463